=== PATIENT | female | born 1945 | race Caucasian/White ===

== ENCOUNTER → 2017-03-24 | Outpatient (CLI) | payer OTHER ==
[~2017-03-24] MED LIST: CHOL4POW6 PO; CLRUNK PO; CLX20 PO; FLNIN NAE; PRLSR20 PO; PROBIOTIC PO; STLS PO
[2017-03-24 12:33] LABS: BASO % 0.5 %; BASO ABS # 0.04 K/uL (0-0.2); COMPLETE YES; HEMATOCRIT 43.6 % (37-47); IG% 0.3 %; LYMPH % 36.9 %; LYMPH ABS # 2.71 K/uL (1.2-3.4); MEAN CELL VOLUME 89.9 fL (80-100); MEAN CORPUSCULAR HEMOGLOBIN 29.3 pg (25-34); MEAN CORPUSCULAR HGB CONC 32.6 g/dl (32-36); MEAN PLATELET VOLUME 9.2 fL (7.4-10.4); MONO % 4.9 %; NEUT % 56.4 %; PLATELET COUNT 301 K/uL (130-400); RED BLOOD COUNT 4.85 M/uL (4.2-5.4); WHITE BLOOD COUNT 7.34 K/uL (4.8-10.8)
[2017-03-24 13:07] LABS: BLOOD UREA NITROGEN 9 mg/dl (7-18); BUN/CREATININE RATIO 11.3 (10-20); CALCIUM 9.3 mg/dl (8.5-10.1); CARBON DIOXIDE 27 mmol/L (21-32); CHLORIDE 106 mmol/L (98-107); CHOLESTEROL 220 mg/dl (0-200); CREATININE 0.83 mg/dl (0.60-1.20); GLUCOSE 82 mg/dl (70-99); POTASSIUM 4.5 mmol/L (3.5-5.1); SODIUM 140 mmol/L (136-145); TRIGLYCERIDES 171 mg/dl (0-150); VERY LOW DENSITY LIPOPROT CALC 34 mg/dl
[2017-03-24 13:10] LABS: CHOLESTEROL/HDL RATIO 3.6; HDL CHOLESTEROL 61 mg/dl; LDL CHOLESTEROL CALCULATED 125 mg/dl
[2017-03-24 14:44] LABS: URINE APPEARANCE CLEAR (CLEAR); URINE BILIRUBIN NEG (NEG); URINE COLOR YELLOW; URINE EPITHELIAL CELL AUTO >30 /lpf (0-5); URINE NITRITE NEG (NEG); URINE SPECIFIC GRAVITY 1.016 (1.000-1.030); UROBILINOGEN NEG (NEG); ZZUR CULT IF INDIC CLEAN CATCH NO
[2017-03-24 14:50] LABS: MANUAL MICROSCOPIC REQUIRED? NO; REVIEW REQ? NO
== END | disposition home or self-care (01) ==
LOC: C.LABBFT 08:36
PROVIDERS: ATTEND Internal Medicine
DX: K58.9 Irritable bowel syndrome, unspecified (principal); E78.5 Hyperlipidemia, unspecified

== ENCOUNTER → 2017-06-15 | Outpatient (CLI) | payer OTHER ==
--- NOTE | 2017-06-15 11:17 | DIAGNOSTIC IMAGING REPORT ---
PELVIS/BILATERAL HIP 2 VIEWS CLINICAL HISTORY: 71 years-old Female presenting with M79.1 Muscle [id number]. TECHNIQUE: Single frontal view of the pelvis and frontal and frog-leg lateral views of the bilateral hips were obtained. COMPARISON: Plain radiographs of the left hip from 03/18/2016. FINDINGS: No acute osseous injury of the bony pelvis. Pubic symphysis and sacroiliac joints congruent. Bilateral hip joints congruent. Asymmetric worse degenerative change in the left hip evidenced by osteophytosis and mild joint space loss. No acute fracture or malalignment of the femoral necks. IMPRESSION: 1. No acute osseous injury of the pelvis or bilateral hips. 2. Degenerative change of the left hip with mild joint space loss and osteophytosis. Electronically signed by: Phoenix Messina M.D. 06/15/2017 11:15 AM Dictated Date/Time: 06/15/2017 11:13 AM
--- NOTE | 2017-06-15 11:22 | DIAGNOSTIC IMAGING REPORT ---
L-SPINE MIN 4 VIEWS ROUTINE CLINICAL HISTORY: M79.1 Muscle [id number] COMPARISON STUDY: No previous studies for comparison. FINDINGS: There is a grade 1 spondylolisthesis of L4 and L5. There are 5 lumbar type vertebral bodies present. No fractures, or destructive lesions are visualized. There is a minor spinal curvature convex to the left. There are mild multilevel degenerative changes. There is no pathologic bowel dilatation. There are surgical clips the right upper quadrant consistent with a prior cholecystectomy. IMPRESSION: 1. No fractures, or destructive lesions are visualized 2. Grade 1 spondylolisthesis of L4 on L5. Electronically signed by: Ruben Oquendo M.D. 06/15/2017 11:20 AM Dictated Date/Time: 06/15/2017 11:20 AM
--- NOTE | 2017-06-15 11:29 | DIAGNOSTIC IMAGING REPORT ---
THORACIC SPINE 3 VIEWS ROUTINE HISTORY: 71 years-old Female M79.1 Muscle [id number] acute muscle pain of the thorax. No acute trauma. COMPARISON: Lumbar spine radiographs of same day TECHNIQUE: Frontal and lateral views of the thoracic spine FINDINGS: Bones are mildly demineralized. There is minimal convex left curvature of the upper thoracic spine. No compression deformity or acute fracture identified. No subluxation. Multilevel endplate spurring, facet arthropathy and intervertebral disc space narrowing is noted, mostly moderate. Severe intervertebral disc space narrowing noted within the mid cervical spine. Soft tissues are unremarkable. Cholecystectomy clips are noted. Right hemidiaphragm elevation is present. IMPRESSION: 1. No acute fracture or subluxation. 2. Multilevel moderate endplate spurring, intervertebral disc space narrowing and facet arthropathy. The above report was generated using voice recognition software. It may contain grammatical, syntax or spelling errors. Electronically signed by: Papo Giraldo M.D. 06/15/2017 11:27 AM Dictated Date/Time: 06/15/2017 11:25 AM
[2017-06-15 12:41] LABS: THYROID STIMULATING HORMONE 2.17 uIu/ml (0.300-4.500)
== END | disposition home or self-care (01) ==
LOC: C.RAD1850 10:08
PROVIDERS: ATTEND Physician Assistant Medical
DX: M43.16 Spondylolisthesis, lumbar region (principal); M16.12 Unilateral primary osteoarthritis, left hip; M25.752 Osteophyte, left hip; M25.78 Osteophyte, vertebrae; M51.34 Other intervertebral disc degeneration, thoracic region; M79.1 Myalgia

== ENCOUNTER → 2017-12-04 | Outpatient (CLI) | payer OTHER | END | disposition home or self-care (01) | LOC: C.LABBFT 08:46 | PROVIDERS: ATTEND Internal Medicine | DX: Z11.59 Encounter for screening for other viral diseases (principal); E78.5 Hyperlipidemia, unspecified ==

== ENCOUNTER → 2018-01-05 | Outpatient (CLI) | payer OTHER ==
--- NOTE | 2018-01-08 08:07 | MAMMOGRAPHY REPORT ---
BILATERAL DIGITAL SCREENING MAMMOGRAM TOMOSYNTHESIS WITH CAD: 01/05/2018 CLINICAL HISTORY: Routine screening. Patient has no complaints. TECHNIQUE: Breast tomosynthesis in addition to standard 2D mammography was performed. Current study was also evaluated with a Computer Aided Detection (CAD) system. COMPARISON: Comparison is made to exams dated: 04/09/2015 mammogram, 04/03/2015 mammogram, 02/28/2013 m ammogram, 01/21/2010 mammogram - [facility], 07/19/2007, and 07/19/2007. BREAST COMPOSITION: The tissue of both breasts is almost entirely fatty. FINDINGS: No suspicious masses, calcifications, or areas of architectural distortion are noted in ei ther breast. There has been no significant interval change compared to prior exams. IMPRESSION: ACR BI-RADS CATEGORY 1: NEGATIVE There is no mammographic evidence of malignancy. A 1 year screening mammogram is recommended. The pa tient will receive written notification of the results. Approximately 10% of breast cancers are not detected with mammography. A negative mammographic report should not delay biopsy if a clinically suggestive mass is present. Yessenia Wade M.D. /:01/05/2018 13:19:46 Journeyman Power Plant Operator: My PEREZ(Annalee)(Kishore)([place]), [facility] letter sent: Normal 1/2 BI-RADS Code: ACR BI-RADS Category 1: Negative
== END | disposition home or self-care (01) ==
LOC: C.MAMM 11:45
PROVIDERS: ATTEND Internal Medicine
DX: Z12.31 Encounter for screening mammogram for malignant neoplasm of breast (principal)

== ENCOUNTER 2019-01-28 07:16 | Inpatient (IN) ==
--- NOTE | 2019-01-17 09:24 | PAT Medication Instructions ---
Medication Instructions Date of Service January 17, 2019 Home Medications bupropion HCl 100 mg PO QAM citalopram 20 mg PO QAM dicyclomine 10 mg PO DIRECTED NEEDED docusate sodium 200 mg PO QAM esomeprazole magnesium 20 mg PO QAM fluticasone propionate 1 spray INTRANASAL DIRECTED NEEDED diphenhydramine-acetaminophen [Acetaminophen PM] 1 tab PO HS NEEDED melatonin 10 mg PO HS NEEDED propylene glycol [Systane Complete] 1 drp OPHTHALMIC (EYE) QID tramadol 50 mg PO Q6H NEEDED DO NOT take the morning of surgery dicyclomine 10 mg PO DIRECTED NEEDED docusate sodium 200 mg PO QAM fluticasone propionate 1 spray INTRANASAL DIRECTED NEEDED Take morning of surgery With a small sip of water, OTHERWISE NOTHING TO EAT OR DRINK AFTER MIDNIGHT: bupropion HCl 100 mg PO QAM citalopram 20 mg PO QAM esomeprazole magnesium 20 mg PO QAM propylene glycol [Systane Complete] 1 drp OPHTHALMIC (EYE) QID tramadol 50 mg PO Q6H NEEDED (If needed, stop 4 hours before surgery) Take evening before surgery dicyclomine 10 mg PO DIRECTED NEEDED diphenhydramine-acetaminophen [Acetaminophen PM] 1 tab PO HS NEEDED melatonin 10 mg PO HS NEEDED propylene glycol [Systane Complete] 1 drp OPHTHALMIC (EYE) QID tramadol 50 mg PO Q6H NEEDED Other Notes If you have any questions please call us at [phone] or [phone] or [phone] or [phone]
--- NOTE | 2019-01-17 10:17 | Anesthesiology Consultation ---
Date of Service January 17, 2019 Assessment & Plan (1) Encounter for pre-operative examination: Chart Review Chart Review: Acceptable Risk for Surgery and Patient seen in Pre Admission Testing Consults Requested medical (Dr. Liriano (01/14)) Patient was seen by PCP's office on 01/15 for preoperative evaluation. Per note from this visit, "estimated risk probability for perioperative PHYLLIS 0.18% which is fairly low". "From a general medical standpoint, patient cleared for surgery pending normal preop testing." Teaching & Discussion Pre-Anesthesia Teaching/Discussion Notes: Instructed NPO after midnight before surgery, except medications with 15 cc of water. Medication instructions provided according to the PAT guidelines. History Surgery Operation Date: 01/28/19 09:30 Proposed Procedures p Left Total Hip Arthroplasty Anterior - Ambrosio Dejesus DO Height/Weight Height: 5 ft 6 in Weight: 82.5 kg Allergies Allergy/AdvReac Type Severity Reaction Status Date / Time adhesive Allergy Unknown RED, Verified 01/14/19 11:25 PAINFUL SKIN levofloxacin Allergy Unknown RASH/ITCHY Verified 01/14/19 11:25 nickel Allergy ITCHING Verified 01/14/19 11:40 codeine AdvReac Intermediate SEVERE Verified 01/14/19 11:25 NAUSEA AND VOMITING metoclopramide [From Reglan] AdvReac Mild Depression Verified 01/14/19 11:25 celecoxib [From Celebrex] AdvReac DIGESTIVE Verified 01/14/19 11:25 ISSUES Medications Home Medications Medication Instructions Recorded Confirmed Last Taken bupropion HCl 100 mg PO QAM 07/27/18 01/14/19 09/05/18 05:00 citalopram 20 mg PO QAM 07/27/18 01/14/19 09/05/18 05:00 dicyclomine 10 mg PO DIRECTED PRN 07/27/18 01/14/19 08/06/18 docusate sodium 200 mg PO QAM 07/27/18 01/14/19 09/04/18 08:00 esomeprazole magnesium 20 mg PO QAM 07/27/18 01/14/19 09/05/18 05:00 fluticasone propionate 1 spray INTRANASAL DIRECTED PRN 07/27/18 01/14/19 08/06/18 diphenhydramine-acetaminophen 1 tab PO HS PRN 01/14/19 01/14/19 Unknown [Acetaminophen PM] melatonin 10 mg PO HS PRN 01/14/19 01/14/19 Unknown propylene glycol [Systane Complete] 1 drp OPHTHALMIC (EYE) QID 01/14/19 01/14/19 Unknown tramadol 50 mg PO Q6H PRN 01/14/19 01/14/19 Unknown Past Medical History Medical History Umbilical hernia (Acute) Spinal stenosis (Chronic) Depression Elevated BP without diagnosis of hypertension ED VISIT 07/2018/[facility] HEART BEAT,CHEST PRESSURE, BP "181" GERD (gastroesophageal reflux disease) History of diverticulitis Osteoarthritis Exercise / Class Metabolic Activity III < 4 Walking/Shop/Light housework (On the go for 10 hours a day. Able to slowly climb stairs due to pain. Denies CP or SOB with activity. ) Past Surgical History Surgical History H/O breast biopsy RIGHT - BENIGN - AGE 61 H/O elbow surgery RIGHT - FOR TENNIS ELBOW - AGE 49 History of carpal tunnel release RIGHT - AGE 49 History of colonoscopy History of dilation and curettage Age 27 History of hysterectomy AGE 38 History of laparoscopic cholecystectomy AGE 62 History of laparotomy RUPTURED ECTOPIC - AGE 36 History of lumbar fusion L4-L5 09/05/18 - MAC #3, ETT #7.0, Grade 1 View History of partial colectomy Age 65 06/29/11 - ETT #7.0 History of tonsillectomy and adenoidectomy AGE 11 History of tubal ligation LAP - AGE 29 Past Anesthesia History No Hx of Anesthesia Complications and No Family Hx of Anesthesia Complications History of PONV No Hx of PONV and No Hx of Motion Sickness Social History Smoking Status: Never smoker Hx Alcohol Use: No Hx Substance Use: No substance use type: does not use Review of Systems Patient denies chest pain, shortness of breath, dyspnea on exertion, reflux, cough, wheezing, palpitations. + Joint Pain (Back, Hip) +Acid Reflux (Controlled on current medication) Physical Exam Vital Signs BP: 124/66 P: 75 R: 16 T: 98.5 SPO2: 98% on RA ENMT Thyromental Distance: > or= 3.5 Finger Breadths (3.5) Mallampati Class: I Neck normal visual inspection; neck extension not limited Respiratory normal respiratory effort Auscultation: lungs clear to auscultation bilaterally Cardiovascular Rate/Rhythm: regular rate and regular rhythm Heart Sounds: no murmur Vessels: no carotid bruit Neurologic moves all extremities Psychiatric Orientation: alert and oriented x 3 Testing Electrocardiogram Date: 07/28/18 Findings: + NSR @ (69) and + no change from (07/27/18) Chest X-Ray Date: 07/27/18 Findings: + NAD Stress Test Date: 07/27/18 Type: exercise Reached 6.40 METS. The resting HR of 73 bpm jaden to max HR of 148 bpm. This value represents 99% of the MPHR for age. The exercise test was stopped due to fatigue. Left ventricular systolic function is normal. Grade I diastolic dysfunction. Right ventricular systolic pressure is normal. Poor exercise tolerance. No evidence of inducible ischemia at the workload achieved. Laboratory Results 01/17/19 10:50 01/17/19 10:50 Blood Type O Positive 01/17/19 10:50 Antibody Screen NEGATIVE 01/17/19 10:50 PT 9.9 Seconds (9.0-12.0) 01/17/19 10:50 INR 1.0 (0.9-1.1) 01/17/19 10:50 APTT 26.3 Seconds (21.0-31.0) 01/17/19 10:50 Hemoglobin A1c 5.6 % (4.5-5.6) 01/17/19 10:50 Urine Color Yellow 01/17/19 Unknown Urine Appearance Clear (Clear) 01/17/19 Unknown Urine pH 6.5 (4.5-7.5) 01/17/19 Unknown Ur Specific [place] 1.013 (1.000-1.030) 01/17/19 Unknown Urine Protein Negative (Negative) 01/17/19 Unknown Urine Glucose (UA) Negative (Negative) 01/17/19 Unknown Urine Ketones Negative (Negative) 01/17/19 Unknown Urine Nitrite Negative (Negative) 01/17/19 Unknown Ur Leukocyte Esterase Trace (Negative) H 01/17/19 Unknown Urine WBC (Auto) 1-5 /hpf (0-5) 01/17/19 Unknown Urine RBC (Auto) 0-4 /hpf (0-4) 01/17/19 Unknown U Hyaline Cast (Auto) 0 /lpf (0-5) 01/17/19 Unknown U Epithel Cells (Auto) 5-10 /lpf (0-5) H 01/17/19 Unknown Urine Bacteria (Auto) Negative (Negative) 01/17/19 Unknown 01/17/19 Unknown Urine Culture - Preliminary Urine,Clean Catch No growth - Less than 1,000 colonies/mL, Final report to follow.
[2019-01-17 11:52] LABS: Basophils # (auto) 0.04 K/uL (0-0.2); Basophils % (auto) 0.6 %; Eosinophils % (auto) 1.5 %; Hematocrit (blood only) 40.1 % (37-47); Hemoglobin 14.2 g/dL (12.0-16.0); Lymphocytes # (auto) 2.25 K/uL (1.2-3.4); Lymphocytes % (auto) 33.4 %; Mean Corpuscular Hgb Conc 35.4 g/dL (32-36); Mean Corpuscular Volume 86.1 fL (80-100); Mean Platelet Volume 8.9 fL (7.4-10.4); Monocytes # (auto) 0.62 K/uL (0.11-0.59); Monocytes % (auto) 9.2 %; Neutrophils # (auto) 3.73 K/uL (1.4-6.5); Neutrophils % (auto) 55.3 %; Platelet Count 279 K/uL (130-400); RDW Coefficient of Variation 13.6 % (11.5-14.5); RDW Standard Deviation 42.6 fL (36.4-46.3); Red Blood Count 4.66 M/uL (4.2-5.4); White Blood Count 6.74 K/uL (4.8-10.8)
[2019-01-17 11:59] LABS: Albumin Level 3.6 gm/dl (3.4-5.0); BUN Creatinine Ratio 15.9 (10-20); Calcium 9.4 mg/dl (8.5-10.1); Creatinine Clr Calc Pharmacy 72.4 ml/min; Est GFR (African American) 90.8; Est GFR (Non-African American) 78.4
[2019-01-17 12:26] LABS: Partial Thromboplastin Time 26.3 Seconds (21.0-31.0); Prothrombin Time 9.9 Seconds (9.0-12.0)
[2019-01-17 12:27] LABS: Appearance Urine Clear (Clear); Bacteria Urine Automated Negative (Negative); Bilirubin Urine Negative (Negative); Blood Urine Negative (Negative); Cast Urine Automated 0 /lpf (0-5); Color Urine Yellow; Glucose Urine UA Negative (Negative); Ketones Urine Negative (Negative); Leukocyte Esterase Urine Trace (Negative); Nitrite Urine Negative (Negative); Protein Urine Negative (Negative); RBC Urine Automated 0-4 /hpf (0-4); Specific Gravity Urine 1.013 (1.000-1.030); Urobilinogen Urine Negative (Negative); pH Urine 6.5 (4.5-7.5)
[2019-01-17 12:43] LABS: Estimated Average Glucose 114 mg/dl; Hemoglobin A1C 5.6 % (4.5-5.6)
--- NOTE | 2019-01-27 22:26 | History & Physical Report ---
Date of Service January 27, 2019 Assessment & Plan (1) Degenerative joint disease (DJD) of hip: I have indicated the patient for left total hip replacement. The risks, benefits and complications of surgery were explained to the patient which include but not limited to infection, acute blood loss, DVT/PE, injury to nerves, vessels, bone, soft tissue, arthrofibrosis, chronic pain, failure of the prosthesis, hip dislocation, leg length discrepancy, need for additional surgery, cardiac and pulmonary events and . The patient wished to proceed with surgery and informed consent was obtained at this time. We will plan for ASA 81mg BID post-operatively for DVT prophylaxis. Upon discharge the patient will be discharged home with home health services. Appropriate clearances by PCP were obtained. History of Present Illness Chief Complaint: Left hip pain/djd Primary Care Provider: Eliot Liriano MD The patient is a 73 year old female who presents with complaints of severe left hip pain and DJD. The patient has failed outpatient conservative treatments to this point which included NSAIDS, IA corticosteroid injection and a home exercise/walking program. The patient's pain and limited function have progressed to the point where they severely hinder their activities of daily living and they no longer tolerate exercise programs. They are requesting to proceed with total hip replacement surgery. Allergies Allergy/AdvReac Type Severity Reaction Status Date / Time adhesive Allergy Unknown RED, Verified 01/28/19 07:53 PAINFUL SKIN levofloxacin Allergy Unknown RASH/ITCHY Verified 01/28/19 07:53 nickel Allergy ITCHING Verified 01/28/19 07:53 codeine AdvReac Intermediate SEVERE Verified 01/28/19 07:53 NAUSEA AND VOMITING metoclopramide [From Reglan] AdvReac Mild Depression Verified 01/28/19 07:53 celecoxib [From Celebrex] AdvReac DIGESTIVE Verified 01/28/19 07:53 ISSUES Home Medications Home Medications Medication Instructions Recorded Confirmed Type bupropion HCl 100 mg PO QAM 07/27/18 01/28/19 History citalopram 20 mg PO QAM 07/27/18 01/28/19 History dicyclomine 10 mg PO DIRECTED PRN 07/27/18 01/28/19 History docusate sodium 200 mg PO QAM 07/27/18 01/28/19 History esomeprazole magnesium 20 mg PO QAM 07/27/18 01/28/19 History fluticasone propionate 1 spray INTRANASAL DIRECTED PRN 07/27/18 01/28/19 History diphenhydramine-acetaminophen 1 tab PO HS PRN 01/14/19 01/28/19 History [Acetaminophen PM] melatonin 10 mg PO HS PRN 01/14/19 01/28/19 History propylene glycol [Systane Complete] 1 drp OPHTHALMIC (EYE) QID 01/14/19 01/28/19 History tramadol 50 mg PO Q6H PRN 01/14/19 01/28/19 History Past Med/Surg History Medical History Umbilical hernia (Acute) Spinal stenosis (Chronic) Depression Elevated BP without diagnosis of hypertension ED VISIT 07/2018/[facility] HEART BEAT,CHEST PRESSURE, BP "181" GERD (gastroesophageal reflux disease) History of diverticulitis Osteoarthritis Surgical History H/O breast biopsy RIGHT - BENIGN - AGE 61 H/O elbow surgery RIGHT - FOR TENNIS ELBOW - AGE 49 History of carpal tunnel release RIGHT - AGE 49 History of colonoscopy History of dilation and curettage Age 27 History of hysterectomy AGE 38 History of laparoscopic cholecystectomy AGE 62 History of laparotomy RUPTURED ECTOPIC - AGE 36 History of lumbar fusion L4-L5 09/05/18 - MAC #3, ETT #7.0, Grade 1 View History of partial colectomy Age 65 06/29/11 - ETT #7.0 History of tonsillectomy and adenoidectomy AGE 11 History of tubal ligation LAP - AGE 29 Family History Other No pertinent family history Social History Preferred Language: Romansh Communication Ability: Effective Beliefs That Will Affect Care: None marital status: Current Living Situation: Spouse Feels Safe at Home: Yes Safety Concerns: Feels Safe At This Time Smoking Status: Never smoker Second Hand Exposure: No Hx Alcohol Use: No Hx Substance Use: No Review of Systems Review of Systems: All systems reviewed & are unremarkable except as noted in HPI & below Constitutional: as per Subjective / HPI Physical Exam Physical Exam: LLE NVSI +EHL/FHL/TA/GS SILT grossly, +2 DP pulse, compartments soft NT, limited painful ROM of the hip, antalgic gait. Constitutional: WD/WN, vitals as above Eyes: PERRL, conjunctivae normal, anicteric sclerae ENMT: external ear and nose normal, oropharynx normal Neck: trachea midline, no thyromegaly Respiratory: normal respiratory effort, lungs clear to auscultation Cardiovascular: RRR, no murmur, no edema Gastrointestinal (Abdomen): normal bowel sounds, soft, nontender, no he patosplenomegaly Musculoskeletal: no cyanosis or clubbing, extremities motor strength 5/5 Skin: no rashes, warm and dry Psychiatric: A+Ox3, euthymic affect Lymphatic: no cervical or axillary lymphadenopathy Results & Data Diagnostic Findings Multiple views of the hip demonstrates severe DJD with complete loss of the joint space. +osteophytes, +sclerosis, +subchondral cysts.
[~2019-01-28 07:16] MED LIST changes: +ACETAMINOPHEN 500 MG TAB PO SCH; +BUPIVACAINE 0.5 % 5 MG/1 ML PF 10ML VIAL ONE; +CEFAZOLIN 2000MG 2,000 MG/15 ML SYR IV SCH; -CHOL4POW6 PO; -CLRUNK PO; -CLX20 PO; +CeleBREX 200 MG CAP PO SCH; +FAMOTIDINE 20 MG TAB PO SCH; -FLNIN NAE; +GABAPENTIN 300 MG PO SCH; +LR 500ML BOLUS, THEN 15ML/HR IV SCH; +METOCLOPRAMIDE HCL 10 MG TABLET PO SCH; -PRLSR20 PO; -PROBIOTIC PO; +ROPIVACAINE 0.5% HCL/PF 150 MG, BUPIVACAINE 0.5% MPF 30 ML, EPINEPHrine 30MG/30ML (OR U... INFIL SCH; -STLS PO; +TRANEXAMIC ACID 1,000 MG **IV Intra-op IV SCH; +TRANEXAMIC ACID 1,000 MG **IV Pre-op IV SCH; +dexAMETHasone 4 MG TAB PO SCH
[2019-01-28] MEDS ORDERED: MIDAZOLAM HCL 1 MG/ML 2ML VIAL ONE (08:20)
--- NOTE | 2019-01-28 08:48 | History & Physical Bridge Note ---
Date of Service January 28, 2019 History & Physical Bridge Note I have examined the patient, reviewed the History & Physical and in the interval since the performance of the History & Physical I have noted the following changes of clinical significance: no changes noted
[2019-01-28] MEDS ORDERED: BACITRACIN INJ 50,000 UNIT VIAL ONE (09:01)
[2019-01-28] MEDS ORDERED: ORTHO JOINT ANESTHETIC ONE (09:01)
[2019-01-28] MEDS ORDERED: fentaNYL citrate 100 MCG/2 ML VIAL ONE (09:01)
[2019-01-28] MEDS ORDERED: POVIDONE-IODINE OP SOLN 30 ML BTL ONE (09:01)
[2019-01-28] MEDS ORDERED: PROPOFOL IV EMULSION 10 MG/ML 20 ML VIAL IV ONE (09:53)
[2019-01-28] MEDS ORDERED: PHENYLEPHRINE 100MCG/ML 5ML SYR ONE (10:59)
--- NOTE | 2019-01-28 11:07 | Post Operative Brief Note ---
Immediate Post Op Note v1 Date of Surgery January 28, 2019 Pre & Post Diagnosis Operation Date: 01/28/19 09:50 Pre-Op Diagnosis: Unilateral Primary Osteoarthritis, Left Hip Post-Op Diagnosis: Unilateral Primary Osteoarthritis, Left Hip Procedure Operation Date: 01/28/19 09:50 Actual Procedures p Left Anterior Total Hip Arthroplasty, Uncemented(Left) - Ambrosio Dejesus DO Surgeon Ambrosio Dejesus DO Community Outreach Coordinator Cesar Reed Estimated Blood Loss 85 Findings Consistent with Post-Op Diagnosis Fluids 1300 cc LR Specimens femoral head Anesthesia Type Spinal MAC Complications none Disposition Disposition: Recovery Room Overlapping Procedure I was present for: the critical portions of procedure. I was immediately available: during the entire case. Back up surgeon: was not required during procedure.
--- NOTE | 2019-01-28 11:07 | Fluoroscopy Report ---
FL hip LT 1V CLINICAL HISTORY: Left hip arthroplasty. COMPARISON STUDY: Pelvis and hip radiographs June 15, 2017. FLUOROSCOPY TIME: 55 seconds. FLUOROSCOPIC IMAGES: 2. FINDINGS: These images demonstrate anatomic alignment of the total left hip arthroplasty. There is no fracture or unexpected radiopaque foreign body. Acetabular screw is present. IMPRESSION: Expected findings following total left hip arthroplasty. Electronically signed by: Lenard Bennett M.D. 01/28/2019 11:06 AM
--- NOTE | 2019-01-28 11:25 | Operative Report ---
Post Operative Report Pre & Post Diagnosis Operation Date: 01/28/19 09:50 Pre-Op Diagnosis: Unilateral Primary Osteoarthritis, Left Hip Post-Op Diagnosis: Unilateral Primary Osteoarthritis, Left Hip Procedure Operation Date: 01/28/19 09:50 Actual Procedures p Left Anterior Total Hip Arthroplasty, Uncemented(Left) - Ambrosio Dejesus DO Surgeon Ambrosio Dejesus DO Recreation Technician Cesar Reed Estimated Blood Loss 85 Findings Consistent with Post-Op Diagnosis Fluids 1300 cc lactated Ringer Specimens Femoral head Anesthesia Type Spinal MAC Complications none Disposition Disposition: Recovery Room Indications The patient is a 73-year-old female who presents with severe progressive left hip DJD who has failed outpatient conservative treatments. I indicated the patient for a anterior total hip replacement and the risks and benefits were explained in detail which include but not limited to infection, bleeding, blood clot, damage to surrounding bone, nerves, vessels, soft tissue, hip dislocation, failure of the prosthesis, leg length discrepancy, need for additional surgery and . The patient agreed to proceed with replacement of the hip and informed consent was obtained. Appropriate clearances were obtained. Description of Procedure COMPONENTS USED: [employer] hip system: Acetabulum size 52, femur size 6 high offset, femoral head 36-3, liner 3652, acetabular screw 25 mm 1. DESCRIPTION OF PROCEDURE: Following satisfactory spinal anesthesia, the patient was placed supine on the OR table. The right leg was placed in the well leg nathan and the left leg in the traction device. The left leg was prepared with ChloraPrep and draped sterilely. A surgical timeout was performed, patient identified in site yariel confirmed. Appropriate antibiotics were given. A standard anterior approach in the interval between the sartorius and tensor muscles was performed. Dissection was carried down through subcutaneous tissues. Electrocautery was utilized for hemostasis. Circumflex femoral vessels were identified, tied and ligated. The anterior capsular fat pad was removed and the capsulotomy was performed revealing the arthritic femoral neck and head. A femoral neck cut was made with reciprocating saw and the bone fragments removed. The acetabular self-retraining retractor was placed. Acetabular reaming was completed under fluoroscopic guidance, a 52 shell was impacted into an anatomic position and secured with a dome screw. Local anesthetic was placed and following irrigation, the polyethylene liner was placed. The femur was placed into position of external rotation, extension and adduction. Femoral canal was prepared up to the size 6 high offset. Trial reduction with a -3 neck length head showed good soft tissue tension, leg lengths restored, and good fit and fill of the proximal canal using fluoroscopic landmarks. The hip was dislocated. The trial component was removed. The final implant was placed. The hip was irrigated with sterile saline soluation and reduced. A Betadine soak was performed. After 3 minutes, the hip was once more irrigated with copious sterile saline solution with bacitracin. Nesha-incisional soft tissue was injected utilizing [place] [employer] which includes a combination of Ropivicaine 0.5% 150mg, Bupivicaine 0.5%/Epinephrine 1:200,000 30ml, Toradol 30mg, Dexamethasone 4mg, Ketamine 10mg, Clonidine 100mcg and NSS 30ml solution. The capsule was then closed with 1-0 Vicryl interrupted figure of eight sutures. The fascia was closed with a running suture of #1 Vicryl, the subcutaneous tissues with 2-0 Vicryl and the skin with a running subcuticular stitch of 3-0 V-Loc. Dermabond prineo and a dry dressing, Rosa incisional VAC were applied. The patient tolerated the procedure well and was transported to PACU in stable condition. Due to the complex nature of the procedure, the entire surgery was performed with the operational assistance of Cesar Reed PA-C. The printer assistant, under direct supervision, was involved in the actual performance of all aspects of the surgical procedure including patient positioning, hemostasis, tissue retraction, instrument management and wound closure. I attest to the content of the Intraoperative Record and any orders documented therein. Any exceptions are noted below.
--- NOTE | 2019-01-28 11:55 | XRay Report ---
XR hip 1V LT w pelvis CLINICAL HISTORY: Postoperative evaluation. COMPARISON: Pelvis and hip radiographs July 15, 2017. FINDINGS: Incidental note is made of postoperative findings within the lumbar spine which are partia lly imaged on this exam. Alignment of the left hip arthroplasty is anatomic. There is no fracture or unexpected radiopaque foreign body. There is an acetabular screw. IMPRESSION: Expected findings following total left hip arthroplasty. Electronically signed by: Lenard Bennett M.D. 01/28/2019 11:54 AM
[2019-01-28] MEDS ORDERED: ePHEDrine sulfate 50 MG/ML AMP IV PRN (12:00)
[2019-01-28] MEDS ORDERED: ATROPINE SULFATE 0.1 MG/ML 10ML SYR IV PRN (12:00)
[2019-01-28] MEDS ORDERED: fentaNYL citrate 100 MCG/2 ML VIAL IV PRN (12:00)
[2019-01-28] MEDS ORDERED: ONDANSETRON INJ 2 MG/ML 2 ML VIAL IV PRN ×2 (12:00→12:47)
--- NOTE | 2019-01-28 12:01 | Anesthesiology Progress Note ---
Date of Service January 28, 2019 Anesthesia Post Procedure Vital Signs Vital Signs: Temp Pulse Pulse Resp BP Pulse Ox 01/28/19 11:55 72 16 145/67 H 100 01/28/19 11:45 74 16 136/63 99 01/28/19 11:36 98.2 F 84 16 137/71 99 01/28/19 08:14 98.1 F 84 20 149/94 H 96 Pain Intensity Left Hip: Pain Intensity: 5 Transfer of Care Handoff Completed per policy Notes Mental Status: alert / awake / arousable and participated in evaluation Patient Amnestic to Procedure: Yes Nausea / Vomiting: adequately controlled Pain: adequately controlled Airway Patency, RR, SpO2: stable & adequate BP & HR: stable & adequate Hydration State: stable & adequate Neuraxial Anesthesia: was administered and sensory block is resolving Anesthetic Complications: no major complications apparent and Pt Satisfied with anesthetic care
--- NOTE | 2019-01-28 12:28 | Orthopedic Progress Note ---
Date of Service January 28, 2019 Assessment & Plan (1) Degenerative joint disease (DJD) of hip: Status post left anterior total hip arthroplasty -Ancef x24 -DVT prophylaxis: SCDs, teds, ASA 81 mg twice daily -Weight-bear as tolerates left lower extremity -PT/OT -Postoperative x-ray demonstrates a well aligned well fixed orthopedic prosthesis without evidence of fracture or dislocation -A.m. labs -DC planning: Home with home health Subjective Post Operative Progress Note Patient seen in PACU, comfortable, denies complaints, pain well controlled, no acute issues. Still feeling the effects of spinal anesthesia. Review of Systems Review of Systems: All systems reviewed & are unremarkable except as noted in HPI & below Constitutional: as per Subjective / HPI Physical Exam Physical Exam: Left lower extremity physical exam limited secondary to spinal anesthesia, +2 dorsalis pedis pulse, compartment soft nontender, dressing clean dry and intact. Constitutional: WD/WN, vitals as above Results & Data Vital Signs (Past 12 Hours) Vital Signs Temp Pulse Pulse Resp BP Pulse Ox 01/28/19 12:15 36.4 C L 71 16 142/71 H 99 01/28/19 12:05 36.4 C L 71 16 134/75 99 01/28/19 11:55 72 16 145/67 H 100 01/28/19 11:45 74 16 136/63 99 01/28/19 11:36 36.8 C 84 16 137/71 99 01/28/19 08:14 36.7 C 84 20 149/94 H 96
[2019-01-28] MEDS ORDERED: NALOXONE HCL 0.4 MG/1 ML VIAL/CARP IV PRN (12:47)
[2019-01-28] MEDS ORDERED: BISACODYL 10 MG SUPP PR PRN (12:47)
[2019-01-28] MEDS ORDERED: METOCLOPRAMIDE HCL INJ 5 MG/ML 2 ML VIAL IV PRN ×2 (12:47→13:45)
[2019-01-28] MEDS ORDERED: MAGNESIUM HYDROXIDE SUSP 30 ML UDC PO PRN (12:47)
[2019-01-28] MEDS ORDERED: PROPYLENE GLYCOL OP SCH (13:00)
[2019-01-28] MEDS: SODIUM CHLORIDE 0.9% 1000ML 1,000 ML IV SCH ×2 (13:38→23:19)
[2019-01-28] MEDS: ACETAMINOPHEN 500 MG TAB PO SCH ×2 (13:44→22:40)
[2019-01-28] MEDS: OXYCODONE HCL IR 5 MG TAB (IMMEDIATE RELEASE) PO PRN ×2 (17:13→22:44)
[2019-01-28] MEDS: CEFAZOLIN 2000MG 2,000 MG/15 ML SYR IV SCH (18:33)
[2019-01-28] MEDS: DOCUSATE SODIUM 100 MG CAP PO SCH (20:30)
[2019-01-28] MEDS: CeleBREX 200 MG CAP PO SCH ×2 (20:30→21:44)
[2019-01-28] MEDS: ARTIFICIAL TEARS OP SCH ×2 (20:33→20:36)
[2019-01-28] MEDS ORDERED: SENNA 8.6 MG TAB PO SCH (21:00)
[2019-01-29] MEDS: CEFAZOLIN 2000MG 2,000 MG/15 ML SYR IV SCH (01:27)
[2019-01-29] MEDS: ACETAMINOPHEN 500 MG TAB PO SCH ×2 (05:42→13:05)
[2019-01-29 06:05] LABS: Basophils # (auto) 0.01 K/uL (0-0.2); Basophils % (auto) 0.1 %; Eosinophils # (auto) 0.01 K/uL (0-0.5); Eosinophils % (auto) 0.1 %; Hematocrit (blood only) 35.9 % (37-47); Hemoglobin 12.6 g/dL (12.0-16.0); Immature Granulocytes # (auto) 0.05 K/uL (0.00-0.02); Immature Granulocytes % (auto) 0.3 %; Lymphocytes # (auto) 2.54 K/uL (1.2-3.4); Lymphocytes % (auto) 14.1 %; Mean Corpuscular Hgb Conc 35.1 g/dL (32-36); Mean Corpuscular Volume 84.7 fL (80-100); Mean Platelet Volume 8.7 fL (7.4-10.4); Monocytes # (auto) 0.99 K/uL (0.11-0.59); Monocytes % (auto) 5.5 %; Neutrophils % (auto) 79.9 %; Platelet Count 304 K/uL (130-400); RDW Coefficient of Variation 13.5 % (11.5-14.5); RDW Standard Deviation 41.5 fL (36.4-46.3); Red Blood Count 4.24 M/uL (4.2-5.4)
[2019-01-29 06:40] LABS: BUN Creatinine Ratio 13.9 (10-20); Creatinine Clr Calc Pharmacy 56.9 ml/min; Est GFR (African American) 67.6; Est GFR (Non-African American) 58.3; Potassium 4.1 mmol/L (3.5-5.1)
--- NOTE | 2019-01-29 07:42 | Anesthesiology Progress Note ---
Date of Service January 29, 2019 Anesthesia Post Procedure Vital Signs Vital Signs: Temp Pulse Pulse Resp BP Pulse Ox 01/29/19 07:11 36.7 C 71 18 122/69 96 01/29/19 03:00 36.6 C 69 16 112/69 95 01/28/19 22:50 36.6 C 75 16 132/74 96 01/28/19 19:00 36.7 C 75 18 120/74 93 01/28/19 15:42 36.6 C 82 18 143/81 H 96 01/28/19 13:31 36.5 C 78 18 127/80 100 01/28/19 13:00 36.5 C 67 16 122/76 100 01/28/19 12:30 36.7 C 74 17 132/76 100 01/28/19 12:15 36.4 C L 71 16 142/71 H 99 01/28/19 12:05 36.4 C L 71 16 134/75 99 01/28/19 11:55 72 16 145/67 H 100 01/28/19 11:45 74 16 136/63 99 01/28/19 11:36 36.8 C 84 16 137/71 99 01/28/19 08:14 36.7 C 84 20 149/94 H 96 Pain Intensity Left Hip: Pain Intensity: 5 Notes Mental Status: alert / awake / arousable and participated in evaluation Patient Amnestic to Procedure: Yes Nausea / Vomiting: adequately controlled Pain: adequately controlled Airway Patency, RR, SpO2: stable & adequate BP & HR: stable & adequate Hydration State: stable & adequate Anesthetic Complications: no major complications apparent and Pt Satisfied with anesthetic care
--- NOTE | 2019-01-29 08:15 | Orthopedic Progress Note ---
Date of Service January 29, 2019 Assessment & Plan (1) Degenerative joint disease (DJD) of hip: Status post left anterior total hip arthroplasty POD#1 -Ancef x24 -DVT prophylaxis: SCDs, teds, ASA 81 mg twice daily -Weight-bear as tolerates left lower extremity -PT/OT -A.m. labs as noted above -DC planning: Home with home health Patient seen and examined, agree with above assessment in plan. Subjective Postop day 1 status post left anterior total hip arthroplasty. Patient is awake and alert and lying in bed. She is just returned from using the restroom. She states that she is ambulating well with her walker. She has no overt complaints at this time. She states that she does have a little soreness around the hip with doing a straight leg raise. She denies shortness of breath, chest pain, lightheadedness. Review of Systems Review of Systems: All systems reviewed & are unremarkable except as noted in HPI & below Constitutional: as per Subjective / HPI Physical Exam Physical Exam: Prevena dressing is clean, dry and intact. There is no overt drainage in the canister. Thigh is mildly swollen but soft and nontender. Calves are soft nontender. Neurovascular is intact. Toes are mobile. Hip appears located. LLE NVSI +EHL/FHL/TA/GS SILT grossly, +2 DP pulse, compartments soft NT, dressing cdi. Constitutional: WD/WN, vitals as above Results & Data Vital Signs (Past 12 Hours) Vital Signs Temp Pulse Resp BP Pulse Ox 01/29/19 07:11 36.7 C 71 18 122/69 96 01/29/19 03:00 36.6 C 69 16 112/69 95 01/28/19 22:50 36.6 C 75 16 132/74 96 Laboratory Results Laboratory Results WBC 18.00 K/uL (4.8-10.8) H 01/29/19 05:31 RBC 4.24 M/uL (4.2-5.4) 01/29/19 05:31 Hgb 12.6 g/dL (12.0-16.0) 01/29/19 05:31 Hct 35.9 % (37-47) L 01/29/19 05:31 MCV 84.7 fL (80-100) 01/29/19 05:31 MCH 29.7 pg (25-34) 01/29/19 05:31 MCHC 35.1 g/dL (32-36) 01/29/19 05:31 RDW Std Deviation 41.5 fL (36.4-46.3) 01/29/19 05:31 RDW Coeff of Jazmine 13.5 % (11.5-14.5) 01/29/19 05:31 Plt Count 304 K/uL (130-400) 01/29/19 05:31 MPV 8.7 fL (7.4-10.4) 01/29/19 05:31 Immature Gran % (Auto) 0.3 % 01/29/19 05:31 Neut % (Auto) 79.9 % 01/29/19 05:31 Lymph % (Auto) 14.1 % 01/29/19 05:31 [place] % (Auto) 5.5 % 01/29/19 05:31 Eos % (Auto) 0.1 % 01/29/19 05:31 Baso % (Auto) 0.1 % 01/29/19 05:31 Immature Gran # (Auto) 0.05 K/uL (0.00-0.02) H 01/29/19 05:31 Neut # (Auto) 14.40 K/uL (1.4-6.5) H 01/29/19 05:31 Lymph # (Auto) 2.54 K/uL (1.2-3.4) 01/29/19 05:31 [place] # (Auto) 0.99 K/uL (0.11-0.59) H 01/29/19 05:31 Eos # (Auto) 0.01 K/uL (0-0.5) 01/29/19 05:31 Baso # (Auto) 0.01 K/uL (0-0.2) 01/29/19 05:31 PT 9.9 Seconds (9.0-12.0) 01/17/19 10:50 INR 1.0 (0.9-1.1) 01/17/19 10:50 APTT 26.3 Seconds (21.0-31.0) 01/17/19 10:50 PTT Ratio 1.0 01/17/19 10:50 Sodium 137 mmol/L (136-145) 01/29/19 05:31 Potassium 4.1 mmol/L (3.5-5.1) 01/29/19 05:31 Chloride 104 mmol/L (98-107) 01/29/19 05:31 Carbon Dioxide 25 mmol/L (21-32) 01/29/19 05:31 Anion Gap 8.0 (3-11) 01/29/19 05:31 BUN 13 mg/dl (7-18) 01/29/19 05:31 Creatinine 0.97 mg/dl (0.6-1.2) 01/29/19 05:31 Est Cr Clr Drug Dosing 56.9 ml/min 01/29/19 05:31 Est GFR ( Amer) 67.6 01/29/19 05:31 Est GFR (Non-Af Amer) 58.3 01/29/19 05:31 BUN/Creatinine Ratio 13.9 (10-20) 01/29/19 05:31 Glucose 110 mg/dl (70-99) H 01/29/19 05:31 Estimat Average Glucose 114 mg/dl 01/17/19 10:50 Hemoglobin A1c 5.6 % (4.5-5.6) 01/17/19 10:50 Calcium 9.0 mg/dl (8.5-10.1) 01/29/19 05:31 Albumin 3.6 gm/dl (3.4-5.0) 01/17/19 10:50 Urine Color Yellow 01/17/19 Unknown Urine Appearance Clear (Clear) 01/17/19 Unknown Urine pH 6.5 (4.5-7.5) 01/17/19 Unknown Ur Specific [place] 1.013 (1.000-1.030) 01/17/19 Unknown Urine Protein Negative (Negative) 01/17/19 Unknown Urine Glucose (UA) Negative (Negative) 01/17/19 Unknown Urine Ketones Negative (Negative) 01/17/19 Unknown Urine Blood Negative (Negative) 01/17/19 Unknown Urine Nitrite Negative (Negative) 01/17/19 Unknown Urine Bilirubin Negative (Negative) 01/17/19 Unknown Urine Urobilinogen Negative (Negative) 01/17/19 Unknown Ur Leukocyte Esterase Trace (Negative) H 01/17/19 Unknown Urine WBC (Auto) 1-5 /hpf (0-5) 01/17/19 Unknown Urine RBC (Auto) 0-4 /hpf (0-4) 01/17/19 Unknown U Hyaline Cast (Auto) 0 /lpf (0-5) 01/17/19 Unknown U Epithel Cells (Auto) 5-10 /lpf (0-5) H 01/17/19 Unknown Urine Bacteria (Auto) Negative (Negative) 01/17/19 Unknown Blood Type O Positive 01/17/19 10:50 Antibody Screen NEGATIVE 01/17/19 10:50
[2019-01-29] MEDS: ARTIFICIAL TEARS OP SCH ×2 (08:49→13:05)
[2019-01-29] MEDS: DOCUSATE SODIUM 100 MG CAP PO SCH (08:50)
[2019-01-29] MEDS: OXYCODONE HCL IR 5 MG TAB (IMMEDIATE RELEASE) PO PRN ×2 (08:52→16:56)
[2019-01-29] MEDS: CeleBREX 200 MG CAP PO SCH (08:53)
[2019-01-29] MEDS ORDERED: MULTIVITAMIN TAB PO SCH (09:00)
[2019-01-29] MEDS ORDERED: ASPIRIN 81 MG ECTAB PO SCH (09:00)
[2019-01-29] MEDS ORDERED: PANTOprazole 40 MG TAB PO SCH (09:00)
[2019-01-29] MEDS ORDERED: buPROPion HCl 100 MG TABLET PO SCH (09:00)
[2019-01-29] MEDS ORDERED: CITALOPRAM 20 MG TAB PO SCH (09:00)
--- NOTE | 2019-01-29 21:40 | Discharge Summary ---
Date of Service January 29, 2019 Admission HPI Per Admitting Provider The patient is a 73 year old female who presents with complaints of severe left hip pain and DJD. The patient has failed outpatient conservative treatments to this point which included NSAIDS, IA corticosteroid injection and a home exercise/walking program. The patient's pain and limited function have progressed to the point where they severely hinder their activities of daily living and they no longer tolerate exercise programs. They are requesting to proceed with total hip replacement surgery. Principal Diagnosis Left anterior total hip replacement Discharge Exam LLE NVSI +EHL/FHL/TA/GS SILT grossly, +2 DP pulse, compartments soft NT, dressing cdi. Constitutional WD/WN, vitals as above Eyes PERRL, conjunctivae normal, anicteric sclerae ENMT external ear and nose normal, oropharynx normal Neck trachea midline, no thyromegaly Respiratory normal respiratory effort, lungs clear to auscultation Cardiovascular RRR, no murmur, no edema Gastrointestinal (Abdomen) normal bowel sounds, soft, nontender, no hepatosplenomegaly Musculoskeletal no cyanosis or clubbing, extremities motor strength 5/5 Skin no rashes, warm and dry Psychiatric A+Ox3, euthymic affect Lymphatic no cervical or axillary lymphadenopathy Discharge Data Allergies Allergy/AdvReac Type Severity Reaction Status Date / Time adhesive Allergy Unknown RED, Verified 01/28/19 07:53 PAINFUL SKIN levofloxacin Allergy Unknown RASH/ITCHY Verified 01/28/19 07:53 nickel Allergy ITCHING Verified 01/28/19 07:53 codeine AdvReac Intermediate SEVERE Verified 01/28/19 07:53 NAUSEA AND VOMITING metoclopramide [From Reglan] AdvReac Mild Depression Verified 01/28/19 07:53 celecoxib [From Celebrex] AdvReac DIGESTIVE Verified 01/28/19 07:53 ISSUES Consultations 01/29/19 08:00 Consult Case Management - Discharge Planning Routine Procedures Performed Operation Date: 01/28/19 09:50 Actual Procedures p Left Anterior Total Hip Arthroplasty, Uncemented(Left) - Ambrosio Dejesus DO Ordered Studies 01/28/19 09:50 FL fluoroscopy <1hr Routine FL hip LT 1V Routine Hospital Course (1) Degenerative joint disease (DJD) of hip: The patient is a 73 -year-old female who presents with long standing history of severe left hip DJD and failed outpatient conservative treatments including NSAIDs, bracing, injections and home walking/exercise program. The patient's symptoms have progressed to the point where it has been difficult to perform even normal activities of daily living. I indicated the patient for a left anterior total hip arthroplasty, the risks, benefits and complications of the procedure include but not limited to infection, bleeding, damage to bone, nerves, vessels, surrounding soft tissue, may develop blood clots, loss of function, leg length discrepancy, dislocation, failure of the components, loosening of the components, the need for additional surgery and . The patient wished to proceed with surgery at this time and informed consent was obtained. Hospital Course: On 01/28/19 the patient was taken to the operating room, adequate anesthesia administered and underwent a left anterior total hip arthroplasty. The patient tolerated the procedure well and was taken to the PACU in stable condition. Post-operatively the patient was started on a DVT ppx medication and given appropriate IV antibiotics. Consults were placed to physical therapy, occupational therapy and case management. On POD#1, the patient did well overnight and their pain was well controlled. Labs were drawn and the Hgb was 12.6. The patient progressed well with PT. Dressings were changed at this time and the incision was clean, dry and intact. On POD#2, The patients hospital stay was relatively uneventful and they were deemed stable by the orthopedic team and consultants to be discharged home with on 01/29/19. Discharge Instructions: Upon discharge the patient may weight bear as tolerates through their operative extremity. They were instructed to keep the incision clean and dry at all times. The patient may shower but should not submerge the incision, avoid bathing, pools and hot tubes. The patient was given a script for pain medication and should take as instructed. The patient was given a script for DVT ppx 81mg EC aspirin BID and should take as directed. The patient was instructed to not drive or travel for long distances until cleared to do so. If the patient develops any symptoms of fevers, chills, nausea, vomiting, increased redness, swelling, pain or drainage from the surgical site, they should notify the office and/or proceed to the nearest emergency room. The patient should follow up in 10-14 days after surgery for their routine post-operative follow-up appointment and should call the office to confirm the date and time. Status post left anterior total hip arthroplasty POD#1 -Ancef x24 -DVT prophylaxis: SCDs, teds, ASA 81 mg twice daily -Weight-bear as tolerates left lower extremity -PT/OT -A.m. labs as noted above -DC planning: Home with home health Patient seen and examined, agree with above assessment in plan. Total Time Total Time Spent Total Time Spent (In Minutes): >60 minutes Total Time Includes: Examination of the Patient, Discharge Planning, Medication Reconciliation and Communication With Other Providers Discharge Plan Discharge Items Patient Disposition: Home - Home Health Services Reason For Visit: Unilateral Primary Osteoarthritis, Left Hip Discharge Diagnosis: Left anterior total hip replacement Discharge Goals: Decrease discomfort, Improve function, Increase independence and Therapeutic intervention Activity: Per 'Additional Instructions' section Lifting: Wait until after follow-up appointment Bathing Comment: No bathing, pools or hot tubs Sexual Activity: Wait until after follow-up appointment Exercise/Sports: Wait until after follow-up appointment Driving/Machine Use Comment: No driving till cleared by your surgeon Weightbearing: Left weightbearing Non-emergency contact: Primary Care Provider and Surgeon Call non-emergency contact if: you have any medication questions, your symptoms worsen, your pain is not controlled, your pain is worsening, your pain is unusual for you, your pain is concerning for you, you have a fever, your temperature is above 101, your wound has increased redness, your wound has increased drainage and your wound pain has increased Follow-up/Referrals: Jonah Liriano MD [Primary Care Provider] - Diet: Regular Addtl Provider Instructions: ACTIVITY RECOMMENDATIONS: SELF CARE INSTRUCTIONS AFTER TOTAL HIP REPLACEMENT : Direct Anterior Approach Until the incision and soft tissues around your hip have healed, there is a possibility that the hip prosthesis could dislocate. A. Hip flexion ( Up & Down out of chair or steps ) may be difficult. This is normal. B. Numbness in front of the thigh is also normal for a few weeks. C. Use hand rails when walking on stairs. D. Wear low heeled shoes with non-slip soles. E. Be sure that your floors are free of things that could trip you - throw rugs, electrical cords, small objects. Avoid wet and waxed floors, especially with crutches and canes. F. Try to walk several times a day with rest periods between. G. Continue with all the exercises taught to you in the hospital. Again, make walking a part of your daily routine. SPECIAL CARE INSTRUCTIONS: VERY IMPORTANT TO READ AND REVIEW A. You may still be at risk for phlebitis and blood clots. 1. Wear surgical stockings (JAMEL hose) for 2 weeks after surgery to improve circulation and reduce swelling. 2. Take Aspirin 81mg twice daily for 4 weeks or as directed by your doctor. This is your blood thinner. 3. High risk patients may be prescribed a stronger blood thinner if necess [place]. 4. If you are on Coumadin normally, your family doctor/table cover folder should monitor your blood work. Expect a phone call the day of or the day after bloodwork is drawn to adjust your dosage. B. You must take antibiotics before having dental work, bladder, bowel and other surgery. Your doctor will provide you with a permanent card to carry describing precautions. C. Call [facility] if you have a fever, redness or swelling around the incision, cloudy drainage from incision, or sudden increase in pain in your hip, not relieved by your regular pain medication. D. Please call the office at if you have any concerns or questions about your operation or recovery. * YOU MAY SHOWER, NO TUB BATHS UNTIL CLEARED BY YOUR DOCTOR. - Keep an extra close eye on the top portion of your incision. Be sure to keep clean & dry. * WEAR JAMEL HOSE 20 HOURS PER DAY FOR 2 WEEKS. * YOU MAY PROGRESS FROM A WALKER, TO A CANE, TO INDEPENDENT AT YOUR OWN PACE. * MOST PATIENTS WILL HAVE HOME NURSING FOR THERAPY. IF YOU DECIDE TO DO OUTPATIENT PHYSICAL THERAPY, PLEASE SCHEDULE THIS 3 TIMES PER WEEK. * DERMABOND Prineo- This is a mesh tape dressing that is covered with glue. It should remain in place until the incision is properly healed, usually 10-14 days. This dressing is designed to naturally slough off. You may trim the excess mesh tape as it peels off. Incision may be briefly wet in a shower. Dry immediately by blotting with a clean, dry towel. Do not bath or swim until instructed by your doctor. Do not scratch, rub, or pick at the dressing. Do not apply any topical ointments or lotions until dressing is completely removed and/or instructed by your doctor. There may be a small piece of suture material at one end of your incision. Do not pull or trim this. If it is bothersome or catching on clothing, you may cover it with a band-aid. *PREVENA incisional vac is a special dressing covering your incision. This dressing provides a sterile dry environment while you are healing. The dressing is to be left in place for 7 days post-operatively. Your home nurse or surgeon will remove. If you develop any redness or blisters or have any questions notify your surgeon immediately. FOLLOW UP VISIT: If appointment is not already scheduled: Please call [facility] to make a follow-up appointment for 2 weeks after your surgery at . Prescriptions: New aspirin [Ecotrin Low Strength] 81 mg Tablet,Delayed Release (Dr/Ec) 81 mg PO BID 30 Days Qty: 60 RF: 0 acetaminophen [Tylenol Extra Strength] 500 mg Tablet 1,000 mg PO Q8 14 Days Qty: 84 RF: 0 oxycodone 5 mg Tablet 5 - 10 mg PO Q6H PRN (Reason: pain) Qty: 30 RF: 0 Continued bupropion HCl 100 mg Tablet 100 mg PO QAM RF: 0 citalopram 20 mg Tablet 20 mg PO QAM RF: 0 fluticasone propionate 50 mcg/actuation [place],Suspension 1 spray Intranasal DIRECTED PRN (Reason: Nasal Congestion) RF: 0 dicyclomine 10 mg Capsule 10 mg PO DIRECTED PRN (Reason: IBS) RF: 0 docusate sodium 100 mg Tablet 200 mg PO QAM RF: 0 esomeprazole magnesium 20 mg Tablet,Delayed Release (Dr/Ec) 20 mg PO QAM RF: 0 Systane Complete 0.6 % Drops 1 drp OPHTHALMIC (EYE) QID RF: 0 melatonin 10 mg Tablet 10 mg PO HS PRN (Reason: Sleep) RF: 0 Discontinued tramadol 50 mg Tablet 50 mg PO Q6H PRN (Reason: Pain) RF: 0 diphenhydramine-acetaminophen [Acetaminophen PM] 25-500 mg Tablet 1 tab PO HS PRN (Reason: Sleep) RF: 0 Stand-Alone Forms: [facility], [facility] Discharge Orders: Discharge Order (Routine); Ordered 01/29/19 Ordered By: Ambrosio Dejesus Admission Data Admit Date/Time: 01/28/19 11:39 Attending Provider: Ambrosio Dejesus Admit Provider: Ambrosio Dejesus Primary Care Provider: Jonah Liriano Service: Surgical Services Other Interventions: Discharge Summary Assessment (RN) Last Done: 01/29/19 16:36 DC Date/Time DO NOT enter until pt leaves facility: 01/29/19 17:40
== END 2019-01-29 17:40 | disposition home health service (06) | DRG 470 ==
LOC: ASU 07:16 → 3E 11:39

== ENCOUNTER 2021-03-04 18:27 | Observation (INO) ==
[2021-03-04] MEDS ORDERED: ONDANSETRON INJ 2 MG/ML 2 ML VIAL IV STA (19:05)
[2021-03-04] MEDS ORDERED: SODIUM CHLORIDE 0.9% 1000ML 1,000 ML IV ONE (19:05)
[2021-03-04] MEDS ORDERED: diphenhydrAMINE 50 MG/ML VIAL IV STA (19:05)
[2021-03-04] MEDS ORDERED: FAMOTIDINE 20MG IV PUSH 20 MG/5 ML SYR IV STA (19:05)
[2021-03-04] MEDS ORDERED: ACETAMINOPHEN 1,000 MG/100 ML VIAL IV STA (19:08)
[2021-03-04 19:14] LABS: Basophils # (auto) 0.03 K/uL (0-0.2); Basophils % (auto) 0.2 %; Eosinophils # (auto) 0.07 K/uL (0-0.5); Eosinophils % (auto) 0.6 %; Hematocrit (blood only) 41.2 % (37-47); Hemoglobin 14.4 g/dL (12.0-16.0); Immature Granulocytes # (auto) 0.03 K/uL (0.00-0.02); Immature Granulocytes % (auto) 0.2 %; Lymphocytes # (auto) 2.77 K/uL (1.2-3.4); Lymphocytes % (auto) 21.8 %; Mean Corpuscular Hemoglobin 31.2 pg (25-34); Mean Corpuscular Volume 89.2 fL (80-100); Mean Platelet Volume 8.7 fL (7.4-10.4); Monocytes # (auto) 0.76 K/uL (0.11-0.59); Neutrophils # (auto) 9.03 K/uL (1.4-6.5); Neutrophils % (auto) 71.2 %; Platelet Count 306 K/uL (130-400); RDW Standard Deviation 42.1 fL (36.4-46.3); Red Blood Count 4.62 M/uL (4.2-5.4); White Blood Count 12.69 K/uL (4.8-10.8)
--- NOTE | 2021-03-04 19:17 | Emergency Department Note ---
Impression & Plan Acute appendicitis, Nausea, Leukocytosis ED Provider Note NAME: ADAM OSBORNE AGE: 75 SEX: F ARRIVES VIA: Walk-In INFORMANT: Patient, ED PROVIDER(S): Trey Stern MD CHIEF COMPLAINT: Abdominal pain nausea. PLAN: Disposition: Admit MEDICAL DECISION MAKING: The patient is a pleasant 75-year-old woman with a past medical history of hypertension, hyperlipidemia, IBS, GERD who presents emergency department accompanied by her for upper abdominal pain that began at 9 AM with associated nausea and then evolved to have generalized mostly right-sided abdominal pain since then. She reports taking her esomeprazole with magnesium but denied any improvement. She denies having any chronic abdominal pain despite her diagnosis of IBS and further adds that she is "never had pain like this". Prior to today she denies any fevers, chills, cough, congestion, urinary symptoms. She reports her last bowel movement was yesterday and was normal and did not have to strain. On arrival the patient is uncomfortable but no acute distress, afebrile with stable vital signs. She appears clinically dry. Exam initially with mild epigastric and lower abdominal discomfort without discrete tenderness. WBC 12.6K. H/H and platelets within normal limits. Chemistry without metabolic acidosis. Electrolytes and LFTs unremarkable. Lipase not elevated. CT CT of the abdomen and pelvis was performed and demonstrates acute appendicitis. Upon reevaluation and reexamination the patient does have moderate point tenderness in the right lower quadrant. Still no guarding or rebound. I did review the patient's CT imaging with her given her current physical exam certainly is consistent with her symptoms. Cefoxitin was ordered. Case was discussed with general surgery on-call, Dr. Shultz, who evaluate the patient for admission/OR. Triage Nursing notes reviewed and agree them. Prior medical records reviewed Vital Signs: reviewed and remarkable for no significant abnormalities Differential diagnosis: Appendicitis, ovarian cyst, ovarian torsion, ectopic , TOA, PID, infections, diverticulitis, UTI, obstruction, mesenteric ischemia, aortic pathology, inflammatory bowel disease, renal colic, PUD, pancreatitis, biliary pathology, hernia, volvulus, constipation, as well as other pathologies. ER treatment provided: See below. Diagnostics interpreted by me: Cardiac Monitoring: An order for continuous cardiac monitoring was placed and demonstrated normal sinus rhythm, 78 bpm, no ectopy. Laboratory studies: See below Imaging studies: See below Consultation(s): Dr. Shultz, general surgery on-call. HPI: The patient is a pleasant 75-year-old woman with a past medical history of hypertension, hyperlipidemia, IBS, GERD who presents emergency department accompanied by her for upper abdominal pain that began at 9 AM with associated nausea and then evolved to have generalized mostly right-sided abdominal pain since then. She reports taking her esomeprazole with magnesium but denied any improvement. She denies having any chronic abdominal pain despite her diagnosis of IBS and further adds that she is "never had pain like this". Prior to today she denies any fevers, chills, cough, congestion, urinary symptoms. She reports her last bowel movement was yesterday and was normal and did not have to strain. ROS: See above HPI for pertinent positives & negatives. A total of 10 systems reviewed and were otherwise negative. PAST MEDICAL HISTORY:See Below PAST SURGICAL HISTORY:See Below FAMILY HISTORY:See Below SOCIAL HISTORY:See Below HOME MEDICATIONS:See Below ALLERGIES:See Below VITALS:See Below PHYSICAL EXAMINATION: GENERAL: Awake, alert, relatively well-appearing, in no distress HENT: Normocephalic, atraumatic. Oropharynx with dry mucous membranes and otherwise unremarkable. EYES: Normal conjunctiva. Sclera non-icteric. NECK: Supple. No nuchal rigidity. FROM. No JVD. RESPIRATORY: Clear to auscultation. CARDIAC: Regular rate, normal rhythm. Extremities warm and well perfused. Pulses equal. ABDOMEN: Soft, non-distended. Moderate right lower quadrant tenderness. No rebound or guarding. No masses. RECTAL: Deferred. MUSCULOSKELETAL: Chest examination reveals no tenderness. The back is symmetrical on inspection without obvious abnormality. There is no CVA tenderness to palpation. No joint edema. LOWER EXTREMITIES: Calves are equal size bilaterally and non-tender. No edema. No discoloration. NEURO: Normal sensorium. No sensory or motor deficits noted. SKIN: No rash or jaundice noted. Trey Stern MD Past Med/Surg History Medical History Depression Elevated BP without diagnosis of hypertension ED VISIT 07/2018/[facility]/HARD HEART BEAT,CHEST PRESSURE, BP "181" GERD (gastroesophageal reflux disease) History of diverticulitis HTN (hypertension) Osteoarthritis Spinal stenosis Umbilical hernia Surgical History H/O breast biopsy RIGHT - BENIGN - AGE 61 H/O elbow surgery RIGHT - FOR TENNIS ELBOW - AGE 49 History of carpal tunnel release RIGHT - AGE 49 History of colonoscopy History of dilation and curettage Age 27 History of hysterectomy AGE 38 History of laparoscopic cholecystectomy AGE 62 History of laparotomy RUPTURED ECTOPIC - AGE 36 History of lumbar fusion L4-L5 09/05/18 - MAC #3, ETT #7.0, Grade 1 View History of partial colectomy Age 65 06/29/11 - ETT #7.0 History of tonsillectomy and adenoidectomy AGE 11 History of tubal ligation LAP - AGE 29 Family History Father , age 79 Myocardial infarction Daughter Crohn's disease Mother Hypertension Leukocytosis Hypercholesterolemia Stroke Thrombocytosis Father Stroke Other No pertinent family history Denies family history of Ovarian cancer Prostate cancer Breast cancer Colorectal cancer Social History Smoking Status: Never smoker Second Hand Exposure: No; Hx Alcohol Use: No Hx Substance Use: No Preferred Language: [place] Communication Ability: Effective Visual Impairment: No Limitations Hearing Ability: Normal Hvac Project Manager Required: No Beliefs That Will Affect Care: None marital status: Current Living Situation: Spouse current occupational status: retired 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 [employer] Feels Safe at Home: Yes Childhood Exposure to Second-Hand Smoke: Yes Diet Comment: clean eating, free of chemicals Dental Care, Regularly: Yes Physical Activity Frequency: Does not Exercise Seatbelt Use: always Sunscreen Use: No Assistive Devices: Glasses and Walker Allergies Allergies Allergy/AdvReac Type Severity Reaction Status Date / Time adhesive Allergy Intermediate RED, Verified 03/04/21 19:56 PAINFUL SKIN levofloxacin Allergy Intermediate RASH/ITCHY Verified 03/04/21 19:56 nickel Allergy Intermediate ITCHING Verified 03/04/21 19:56 celecoxib [From Celebrex] AdvReac Intermediate DIGESTIVE Verified 03/04/21 19:56 ISSUES codeine AdvReac Intermediate SEVERE Verified 03/04/21 19:56 NAUSEA AND VOMITING metoclopramide [From Reglan] AdvReac Intermediate Depression Verified 03/04/21 19:56 sulfamethoxazole AdvReac Intermediate DIGESTIVE Verified 03/04/21 19:56 [From Bactrim] ISSUES trimethoprim [From Bactrim] AdvReac Intermediate DIGESTIVE Verified 03/04/21 19:56 ISSUES Home Meds Home Medications Medication Instructions Recorded Confirmed docusate sodium 200 mg PO QAM 07/27/18 03/04/21 esomeprazole magnesium 20 mg PO QAM 07/27/18 03/04/21 Systane Complete 1 drp OPHTHALMIC (EYE) QID 01/14/19 03/04/21 amlodipine 5 mg PO QAM 03/04/21 03/04/21 diphenhydramine-acetaminophen 1 tab PO HS PRN 03/04/21 03/04/21 [Tylenol PM Extra Strength] multivitamin 1 tab PO DAILY 03/04/21 03/04/21 turmeric root extract 1,000 mg PO DAILY 03/04/21 03/04/21 Previous Rx's Medication Instructions Recorded bupropion HCl 100 mg tablet 100 mg PO DAILY #90 tab 04/14/20 losartan 100 mg tablet 100 mg PO DAILY #90 tab 04/29/20 citalopram 20 mg tablet 20 mg PO QAM #90 tab 01/18/21 hydrochlorothiazide 25 mg tablet 25 mg PO QAM #90 tab 03/02/21 Results & Data (ED) Vital Signs Vital Signs - 24 hr 03/04/21 18:37 03/04/21 19:08 03/04/21 19:42 Temperature 35.9 C L Temperature Source Temporal Artery Scan Pulse Rate 78 75 74 Pulse Rate from SpO2 Sensor 76 Pulse Rhythm Regular Respiratory Rate 18 20 15 Respiratory Effort / Characteristics Non-Labored Spontaneous Respiratory Depth Normal Respiratory Pattern Regular Blood Pressure 148/79 H Blood Pressure Mean 102 Pulse Oximetry 93 96 97 Oxygen Delivery Method Room Air Room Air Room Air Sepsis Recent Fever Within 48 Hours No Sepsis New/Unexplained Change in Mental Status No Sepsis Action Taken by Nursing No Action Required 03/04/21 21:09 03/04/21 21:10 03/04/21 22:00 Temperature Temperature Source Pulse Rate 79 78 83 Pulse Rate from SpO2 Sensor 79 79 83 Pulse Rhythm Respiratory Rate 18 17 19 Respiratory Effort / Characteristics Respiratory Depth Respiratory Pattern Blood Pressure 151/70 H Blood Pressure Mean 97 Pulse Oximetry 94 93 95 Oxygen Delivery Method Room Air Room Air Room Air Sepsis Recent Fever Within 48 Hours Sepsis New/Unexplained Change in Mental Status Sepsis Action Taken by Nursing 03/04/21 22:13 03/04/21 22:30 Temperature Temperature Source Pulse Rate 77 81 Pulse Rate from SpO2 Sensor 77 80 Pulse Rhythm Respiratory Rate 18 18 Respiratory Effort / Characteristics Respiratory Depth Respiratory Pattern Blood Pressure 119/86 Blood Pressure Mean 97 Pulse Oximetry 95 91 Oxygen Delivery Method Room Air Room Air Sepsis Recent Fever Within 48 Hours Sepsis New/Unexplained Change in Mental Status Sepsis Action Taken by Nursing Laboratory Data Attestation: I reviewed the patient's lab results. Result diagrams: 03/04/21 19:03/04/21 19:01 Lab Results 03/04/21 03/04/21 03/04/21 Range/Units 19: 19: 22:10 WBC 12.69 H (4.8-10.8) K/uL RBC 4.62 (4.2-5.4) M/uL Hgb 14.4 (12.0-16.0) g/dL Hct 41.2 (37-47) % MCV 89.2 (80-100) fL MCH 31.2 (25-34) pg MCHC 35.0 (32-36) g/dL RDW Std Deviation 42.1 (36.4-46.3) fL RDW Coeff of Jazmine 13.0 (11.5-14.5) % Plt Count 306 (130-400) K/uL MPV 8.7 (7.4-10.4) fL Immature Gran % (Auto) 0.2 % Neut % (Auto) 71.2 % Lymph % (Auto) 21.8 % [place] % (Auto) 6.0 % Eos % (Auto) 0.6 % Baso % (Auto) 0.2 % Neut # (Auto) 9.03 H (1.4-6.5) K/uL Lymph # (Auto) 2.77 (1.2-3.4) K/uL [place] # (Auto) 0.76 H (0.11-0.59) K/uL Eos # (Auto) 0.07 (0-0.5) K/uL Baso # (Auto) 0.03 (0-0.2) K/uL Immature Gran # (Auto) 0.03 H (0.00-0.02) K/uL Sodium 131 L (136-145) mmol/L Potassium 3.6 (3.5-5.1) mmol/L Chloride 94 L (98-107) mmol/L Carbon Dioxide 28 (21-32) mmol/L Anion Gap 9.0 (3-11) BUN 15 (7-18) mg/dl Creatinine 0.80 (0.6-1.2) mg/dl Est Cr Clr Drug Dosing 69.6 ml/min Est GFR ( Amer) 84.2 ml/min Est GFR (Non-Af Amer) 72.6 ml/min BUN/Creatinine Ratio 19.1 (10-20) Glucose 100 H (70-99) mg/dl Calcium 10.1 (8.5-10.1) mg/dl Total Bilirubin 0.7 (0.2-1) mg/dl Direct Bilirubin 0.1 (0-0.2) mg/dl AST 20 (15-37) U/L ALT 25 (12-78) U/L Alkaline Phosphatase 103 (45-117) U/L Total Protein 8.0 (6.4-8.2) gm/dl Albumin 4.0 (3.4-5.0) gm/dl Globulin 4.0 (2.5-4.0) gm/dl Albumin/Globulin Ratio 1.0 (0.9-2) Lipase 138 (73-393) U/L COVID-19 Eval Order Covid19 at [facility] Administered Medications Discontinued Medications Diphenhydramine HCl (Diphenhydramine 50 Mg/Ml Vial) 12.5 mg IV NOW STA Stop: 03/04/21 19:06 Last Admin: 03/04/21 19:40 Dose: 12.5 mg Documented by: [id number] Sodium Chloride (Nss 1000ml) 1,000 mls @ 999 mls/hr IV .Q1H1M ONE Stop: 03/04/21 20:05 Last Infusion: 03/04/21 20:45 Dose: 0 mls/hr Documented by: [id number] Admin: 03/04/21 19:36 Dose: 999 mls/hr Documented by: [id number] Famotidine (Pepcid 20mg Iv Push) 20 mg in 5 mls @ 2.5 mls/min IV NOW STA Stop: 03/04/21 19:06 Last Admin: 03/04/21 19:36 Dose: 2.5 mls/min Documented by: [id number] Acetaminophen (Ofirmev) 1,000 mg in 100 mls @ 400 mls/hr IV NOW STA Stop: 03/04/21 19:22 Last Infusion: 03/04/21 20:00 Dose: 0 mls/hr Documented by: [id number] Admin: 03/04/21 19:40 Dose: 400 mls/hr Documented by: [id number] Cefoxitin Sodium (Mefoxin) 2,000 mg in 60 mls @ 100 mls/hr IV NOW STA Stop: 03/04/21 22:26 Last Infusion: 03/04/21 22:44 Dose: 0 mls/hr Documented by: [id number] Admin: 03/04/21 22:11 Dose: 100 mls/hr Documented by: [id number] Ioversol (Optiray 320 100ml) 94 ml IV ONCE ONE Stop: 03/04/21 20:55 Last Admin: 03/04/21 20:54 Dose: 94 ml Documented by: [id number] Ondansetron HCl (Ondansetron Inj 2 Mg/Ml 2 Ml Vial) 4 mg IV NOW STA Stop: 03/04/21 19:06 Last Admin: 03/04/21 19:38 Dose: 4 mg Documented by: [id number] Imaging Data Radiologist's Impression: Abdomen/Pelvis CT 03/04/21 19:05 CT abd pelvis IV con only CLINICAL HISTORY: abd pain, nausea COMPARISON STUDY: March 05, 2011 TECHNIQUE: A dose lowering technique was utilized adhering to the principles of ALARA. CT DOSE: 968.54 mGy.cm FINDINGS: Lower chest: Limited evaluation of lung bases shows mild atelectasis at dependent portions of bilateral lower lobes and slightly patchy areas of groundglass attenuation which could also represent scattered atelectasis. Liver: The contrast-enhanced liver is normal in size, contour, and attenuation. There is no intrahepatic biliary ductal dilatation. The hepatic veins and portal veins are patent. Gallbladder: Is surgically absent. Spleen: Normal in size and attenuation. Pancreas: Unremarkable. Adrenal glands: Unremarkable. Kidneys: There is symmetric renal cortical enhancement. The kidneys are normal in size without hydronephrosis.3.1 cm right renal cyst is enlarged since prior study. Pelvic viscera: Urinary bladder is adequately filled with urine. Uterus is probably surgically absent. Overall evaluation of pelvic region is limited due to beam hardening artifact from prosthetic left hip joint. Bowel: Moderate hiatal hernia is seen. Bowel loops are nondilated. Fecalization sign is seen within small bowel loops which might represent prolonged stasis of intraluminal content. Appendix is dilated, filled with fluid, shows prominence/enhancement of mucosa and surrounding fat stranding. Small appendicolith is seen at the proximal aspect of appendix. No evidence of abscess formation is seen at this time. There is small umbilical hernia is seen contain nondilated loop of small bowel. Ostium of the hernias measuring 3.4 cm on sagittal reconstruction. There is minimal surrounding fat stranding is seen within subcutaneous tissue overlying hernia sac. Peritoneum: There is no intraperitoneal free air or abdominal ascites. Vasculature: The abdominal aorta is normal in course and caliber. Adenopathy: None. Skeletal structures: Osteopenia. Multilevel degenerative changes of the spine. Orthopedic hardware within left hip joint. IMPRESSION: 1. Dilated fluid-filled appendix with surrounding inflammatory changes and small appendicolith consistent with acute appendicitis. No evidence of free intra-abdominal air or abscess formation is seen at this time. 2. Interval enlargement of the right renal cyst. 3. Limited evaluation of lower pelvis due to beam hardening artifact from orthopedic hardware within left hip joint. 4. Moderate hiatal hernia. 5. Small umbilical hernia contains nondilated loop of small bowel. 6. Additional findings as above. ACT 112: Negative or not required by law. The above report was generated using voice recognition software. It may contain grammatical, syntax or spelling errors. Electronically signed by: Vijaya Anne DO 03/04/2021 9:24 PM Discharge Plan Visit Data Chief Complaint: Abdominal Pain Stated Complaint: ABDOMINAL PAIN, NAUSEA ED Provider: rTey Stern Discharge Problem: Acute appendicitis, Nausea, Leukocytosis Forms Stand Alone Forms: [facility] Prescriptions Prescriptions: No Action bupropion HCl 100 mg tablet 100 mg PO DAILY Qty: 90 RF: 3 losartan 100 mg tablet 100 mg PO DAILY Qty: 90 RF: 3 citalopram 20 mg tablet 20 mg PO QAM Qty: 90 RF: 3 hydrochlorothiazide 25 mg tablet 25 mg PO QAM Qty: 90 RF: 2 docusate sodium 100 mg Tablet 200 mg PO QAM RF: 0 esomeprazole magnesium 20 mg Tablet,Delayed Release (Dr/Ec) 20 mg PO QAM RF: 0 Systane Complete 0.6 % Drops 1 drp OPHTHALMIC (EYE) QID RF: 0 multivitamin Tablet 1 tab PO DAILY RF: 0 amlodipine 5 mg tablet 5 mg PO QAM RF: 0 diphenhydramine-acetaminophen [Tylenol PM Extra Strength] 25-500 mg Tablet 1 tab PO HS PRN (Reason: Sleep) RF: 0 turmeric root extract 500 mg Capsule 1,000 mg PO DAILY RF: 0 Discharge Problem: Acute appendicitis Qualifiers: Acute appendicitis type: with localized peritonitis Appendicitis gangrene presence: without gangrene Appendicitis perforation presence: without perforation Appendicitis abscess presence: without abscess Qualified Code(s): K35.30 - Acute appendicitis with localized peritonitis, without perforation or gangrene Leukocytosis Qualifiers: Leukocytosis type: unspecified Qualified Code(s): D72.829 - Elevated white blood cell count, unspecified
[2021-03-04 19:33] LABS: BUN Creatinine Ratio 19.1 (10-20); Bilirubin Direct 0.1 mg/dl (0-0.2); Calcium 10.1 mg/dl (8.5-10.1); Creatinine Clr Calc Pharmacy 69.6 ml/min; Est GFR (African American) 84.2 ml/min; Est GFR (Non-African American) 72.6 ml/min; Potassium 3.6 mmol/L (3.5-5.1)
[2021-03-04 19:36] LABS: Bilirubin,Total 0.7 mg/dl (0.2-1)
[2021-03-04] MEDS ORDERED: OPTIRAY 320 100ml IV ONE (20:54)
--- NOTE | 2021-03-04 21:25 | CT Scan Report ---
CT abd pelvis IV con only CLINICAL HISTORY: abd pain, nausea COMPARISON STUDY: March 05, 2011 TECHNIQUE: A dose lowering technique was utilized adhering to the principles of ALARA. CT DOSE: 968.54 mGy.cm FINDINGS: Lower chest: Limited evaluation of lung bases shows mild atelectasis at dependent portions of bilater al lower lobes and slightly patchy areas of groundglass attenuation which could also represent scatte red atelectasis. Liver: The contrast-enhanced liver is normal in size, contour, and attenuation. There is no intrahepa tic biliary ductal dilatation. The hepatic veins and portal veins are patent. Gallbladder: Is surgically absent. Spleen: Normal in size and attenuation. Pancreas: Unremarkable. Adrenal glands: Unremarkable. Kidneys: There is symmetric renal cortical enhancement. The kidneys are normal in size without hydron ephrosis.3.1 cm right renal cyst is enlarged since prior study. Pelvic viscera: Urinary bladder is adequately filled with urine. Uterus is probably surgically absent . Overall evaluation of pelvic region is limited due to beam hardening artifact from prosthetic left hip joint. Bowel: Moderate hiatal hernia is seen. Bowel loops are nondilated. Fecalization sign is seen within s mall bowel loops which might represent prolonged stasis of intraluminal content. Appendix is dilated, filled with fluid, shows prominence/enhancement of mucosa and surrounding fat st randing. Small appendicolith is seen at the proximal aspect of appendix. No evidence of abscess forma tion is seen at this time. There is small umbilical hernia is seen contain nondilated loop of small bowel. Ostium of the hernias measuring 3.4 cm on sagittal reconstruction. There is minimal surrounding fat stranding is seen with in subcutaneous tissue overlying hernia sac. Peritoneum: There is no intraperitoneal free air or abdominal ascites. Vasculature: The abdominal aorta is normal in course and caliber. Adenopathy: None. Skeletal structures: Osteopenia. Multilevel degenerative changes of the spine. Orthopedic hardware wi thin left hip joint. IMPRESSION: 1. Dilated fluid-filled appendix with surrounding inflammatory changes and small appendicolith consi stent with acute appendicitis. No evidence of free intra-abdominal air or abscess formation is seen a t this time. 2. Interval enlargement of the right renal cyst. 3. Limited evaluation of lower pelvis due to beam hardening artifact from orthopedic hardware within left hip joint. 4. Moderate hiatal hernia. 5. Small umbilical hernia contains nondilated loop of small bowel. 6. Additional findings as above. ACT 112: Negative or not required by law. The above report was generated using voice recognition software. It may contain grammatical, syntax o r spelling errors. Electronically signed by: Vijaya Anne DO 03/04/2021 9:24 PM
[2021-03-04] MEDS ORDERED: cefOXitin 2,000 MG/60 ML BAG IV STA ×2 (21:51→23:01)
--- NOTE | 2021-03-04 22:55 | Surgery Consultation ---
Date of Consultation March 04, 2021 Assessment & Plan (1) Acute appendicitis: pt is a 75 year-old female who presents to ER with one day history RLQ pain, IMP: acute appendicitis, plan, I recommend to do laparoscopic appendectomy, possible open, D/W benefits, risks and alternatives of the surgery, the risks - infection, bleeding, injury other organs, abscess, incisional hernia, DE, pt understood, she agrees with surgery, I answered all questions, pre-op antibiotic, base on pt has no symptoms on umbilical hernia, this time not do umbilical hernia repair, possible do elect umbilical hernia with mesh base on hernia size, pt understood, Present on Admission?: Yes History of Present Illness History of Present Illness CC: abdominal pain HPI: The patient is a pleasant 75-year-old woman with a past medical history of hypertension, hyperlipidemia, IBS, GERD who presents emergency department accompanied by her for upper abdominal pain that began at 9 AM with a ssociated nausea and then evolved to have generalized mostly right-sided abdominal pain since then. She reports taking her esomeprazole with magnesium but denied any improvement. She denies having any chronic abdominal pain despite her diagnosis of IBS and further adds that she is "never had pain like this". Prior to today she denies any fevers, chills, cough, congestion, urinary symptoms. I ( Olivier Shultz MD ) got a call for consult acute appendicitis, I reviewed pt's H/P, labs, and CT scan with pt and her , pt is still have RLQ pain, no pain on periumbilical area, with vomiting one time, denies fever, no diarrhea. no chest pain, no cough. ROS: See above HPI for pertinent positives & negatives. A total of 10 systems reviewed and were otherwise negative. PAST MEDICAL HISTORY: See Below PAST SURGICAL HISTORY: See Below FAMILY HISTORY: See Below SOCIAL HISTORY: See Below HOME MEDICATIONS: See Below ALLERGIES: See Below Allergies Allergy/AdvReac Type Severity Reaction Status Date / Time adhesive Allergy Intermediate RED, Verified 03/04/21 19:56 PAINFUL SKIN levofloxacin Allergy Intermediate RASH/ITCHY Verified 03/04/21 19:56 nickel Allergy Intermediate ITCHING Verified 03/04/21 19:56 celecoxib [From Celebrex] AdvReac Intermediate DIGESTIVE Verified 03/04/21 19:56 ISSUES codeine AdvReac Intermediate SEVERE Verified 03/04/21 19:56 NAUSEA AND VOMITING metoclopramide [From Reglan] AdvReac Intermediate Depression Verified 03/04/21 19:56 sulfamethoxazole AdvReac Intermediate DIGESTIVE Verified 03/04/21 19:56 [From Bactrim] ISSUES trimethoprim [From Bactrim] AdvReac Intermediate DIGESTIVE Verified 03/04/21 19:56 ISSUES Home Medications Medication Instructions Recorded Confirmed Type docusate sodium 200 mg PO QAM 07/27/18 03/04/21 History esomeprazole magnesium 20 mg PO QAM 07/27/18 03/04/21 History Systane Complete 1 drp OPHTHALMIC (EYE) QID 01/14/19 03/04/21 History bupropion HCl 100 mg tablet 100 mg PO DAILY #90 tab 04/14/20 03/04/21 Rx losartan 100 mg tablet 100 mg PO DAILY #90 tab 04/29/20 03/04/21 Rx citalopram 20 mg tablet 20 mg PO QAM #90 tab 01/18/21 03/04/21 Rx hydrochlorothiazide 25 mg tablet 25 mg PO QAM #90 tab 03/02/21 03/04/21 Rx amlodipine 5 mg PO QAM 03/04/21 03/04/21 History diphenhydramine-acetaminophen 1 tab PO HS PRN 03/04/21 03/04/21 History [Tylenol PM Extra Strength] multivitamin 1 tab PO DAILY 03/04/21 03/04/21 History turmeric root extract 1,000 mg PO DAILY 03/04/21 03/04/21 History Patient History Medical History Depression Elevated BP without diagnosis of hypertension GERD (gastroesophageal reflux disease) History of diverticulitis HTN (hypertension) Osteoarthritis Spinal stenosis Umbilical hernia Surgical History H/O breast biopsy H/O elbow surgery History of carpal tunnel release History of colonoscopy History of dilation and curettage History of hysterectomy History of laparoscopic cholecystectomy History of laparotomy History of lumbar fusion History of partial colectomy History of tonsillectomy and adenoidectomy History of tubal ligation Family History (Updated 01/03/20 @ 08:47 by Krista Tracy MA) Father , age 79 Myocardial infarction Daughter Crohn's disease Mother Hypertension Leukocytosis Hypercholesterolemia Stroke Thrombocytosis Father Stroke Other No pertinent family history Denies family history of Ovarian cancer Prostate cancer Breast cancer Colorectal cancer Social History (Updated 03/02/21 @ 07:40 by Judy La MA) Smoking Status: Never smoker Second Hand Exposure: No; Hx Alcohol Use: No Hx Substance Use: No Preferred Language: German Communication Ability: Effective Visual Impairment: No Limitations Hearing Ability: Normal [employer] Crew[employer] Required: No Beliefs That Will Affect Care: None marital status: Current Living Situation: Spouse current occupational status: retired 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 [employer] Feels Safe at Home: Yes Childhood Exposure to Second-Hand Smoke: Yes Diet Comment: clean eating, free of chemicals Dental Care, Regularly: Yes Physical Activity Frequency: Does not Exercise Seatbelt Use: always Sunscreen Use: No Assistive Devices: Glasses and Walker Review of Systems Review of Systems: All systems reviewed & are unremarkable except as noted in HPI & below Constitutional: as per Subjective / HPI Eyes: as per Subjective / HPI Ear, Nose, Mouth, Throat: as per Subjective / HPI Respiratory: as per Subjective / HPI Cardiovascular: as per Subjective / HPI Additional Comments: HTN, hyperlipemia Gastrointestinal: as per Subjective / HPI resection partial colon for diverticulitis 10 years ago, IBS Genitourinary: as per Subjective / HPI Musculoskeletal: as per Subjective / HPI spinal stenosis Integumentary: as per Subjective / HPI Neurologic: as per Subjective / HPI neurogenic claudication Psychiatric: as per Subjective / HPI Endocrine: as per Subjective / HPI Hematologic / Lymphatic: as per Subjective / HPI Allergy / Immunological: as per Subjective / HPI Physical Exam Constitutional: WD/WN, vitals as above well developed and well nourished Eyes: PERRL, conjunctivae normal, anicteric sclerae ENMT: external ear and nose normal, oropharynx normal Neck: trachea midline, no thyromegaly Respiratory: normal respiratory effort, lungs clear to auscultation normal respiratory effort Cardiovascular: RRR, no murmur, no edema Rate/Rhythm: regular rate and regular rhythm Gastrointestinal (Abdomen): Percussion/Palpation: + abdomen tender and abdomen soft tenderness at RLQ, no rebound pain, no distend, no tenderness at periumbilical area, BS + Musculoskeletal: no cyanosis or clubbing, extremities motor strength 5/5 Skin: no rashes, warm and dry Neurologic: awake Psychiatric: Orientation: alert and oriented x 3 Results & Data ([facility]) Vital Signs (Past 12 Hours) Vital Signs Temp Pulse Resp BP Pulse Ox 03/04/21 22:30 81 18 91 03/04/21 22:13 77 18 119/86 95 03/04/21 22:00 83 19 95 03/04/21 21:10 78 17 93 03/04/21 21:09 79 18 151/70 H 94 03/04/21 19:42 74 15 97 03/04/21 19:08 75 20 96 03/04/21 18:37 35.9 C L 78 18 148/79 H 93 Laboratory Results Abnormal lab results 03/04/21 03/04/21 Range/Units 19:01 19:01 WBC 12.69 H (4.8-10.8) K/uL Neut # (Auto) 9.03 H (1.4-6.5) K/uL Garrard # (Auto) 0.76 H (0.11-0.59) K/uL Immature Gran # (Auto) 0.03 H (0.00-0.02) K/uL Sodium 131 L (136-145) mmol/L Chloride 94 L (98-107) mmol/L Glucose 100 H (70-99) mg/dl Diagnostic Findings CT abd pelvis IV con only CLINICAL HISTORY: abd pain, nausea COMPARISON STUDY: March 05, 2011 TECHNIQUE: A dose lowering technique was utilized adhering to the principles of ALARA. CT DOSE: 968.54 mGy.cm FINDINGS: Lower chest: Limited evaluation of lung bases shows mild atelectasis at dependent portions of bilateral lower lobes and slightly patchy areas of groundg lass attenuation which could also represent scattered atelectasis. Liver: The contrast-enhanced liver is normal in size, contour, and attenuation. There is no intrahepatic biliary ductal dilatation. The hepatic veins and portal veins are patent. Gallbladder: Is surgically absent. Spleen: Normal in size and attenuation. Pancreas: Unremarkable. Adrenal glands: Unremarkable. Kidneys: There is symmetric renal cortical enhancement. The kidneys are normal in size without hydronephrosis.3.1 cm right renal cyst is enlarged since prior study. Pelvic viscera: Urinary bladder is adequately filled with urine. Uterus is probably surgically absent. Overall evaluation of pelvic region is limited due to beam hardening artifact from prosthetic left hip joint. Bowel: Moderate hiatal hernia is seen. Bowel loops are nondilated. Fecalization sign is seen within small bowel loops which might represent prolonged stasis of intraluminal content. Appendix is dilated, filled with fluid, shows prominence/enhancement of mucosa and surrounding fat stranding. Small appendicolith is seen at the proximal aspect of appendix. No evidence of abscess formation is seen at this time. There is small umbilical hernia is seen contain nondilated loop of small bowel. Ostium of the hernias measuring 3.4 cm on sagittal reconstruction. There is minimal surrounding fat stranding is seen within subcutaneous tissue overlying hernia sac. Peritoneum: There is no intraperitoneal free air or abdominal ascites. Vasculature: The abdominal aorta is normal in course and caliber. Adenopathy: None. Skeletal structures: Osteopenia. Multilevel degenerative changes of the spine. Orthopedic hardware within left hip joint. IMPRESSION: 1. Dilated fluid-filled appendix with surrounding inflammatory changes and small appendicolith consistent with acute appendicitis. No evidence of free intra-abdominal air or abscess formation is seen at this time. 2. Interval enlargement of the right renal cyst. 3. Limited evaluation of lower pelvis due to beam hardening artifact from orthopedic hardware within left hip joint. 4. Moderate hiatal hernia. 5. Small umbilical hernia contains nondilated loop of small bowel. 6. Additional findings as above.
--- NOTE | 2021-03-04 23:01 | History & Physical Bridge Note ---
Date of Service March 04, 2021 History & Physical Bridge Note I have examined the patient, reviewed the History & Physical and in the interval since the performance of the History & Physical I have noted the following changes of clinical significance: no changes noted
[2021-03-04] MEDS ORDERED: BUPIVACAINE 0.5 % 5 MG/1 ML MPF 30ML VIAL ONE (23:28)
[2021-03-04] MEDS ORDERED: LIDOCAINE 1% LOCAL 20 ML VIAL ONE (23:29)
[2021-03-04] MEDS ORDERED: BACITRACIN OINT 15 GM TUBE ONE (23:30)
[2021-03-04] MEDS ORDERED: PROPOFOL IV EMULSION 10 MG/ML 20 ML VIAL IV ONE (23:40)
[2021-03-04] MEDS ORDERED: ROCURONIUM BROMID 50MG/5ML SYR ONE (23:40)
[2021-03-04] MEDS ORDERED: DEXAMETHASONE SOD INJ 4 MG/ML VIAL ONE (23:40)
[2021-03-04] MEDS ORDERED: MIDAZOLAM HCL 1 MG/ML 2ML VIAL ONE (23:40)
[2021-03-04] MEDS ORDERED: fentaNYL citrate 100 MCG/2 ML VIAL ONE (23:40)
[2021-03-04] MEDS ORDERED: ONDANSETRON INJ 2 MG/ML 2 ML VIAL ONE (23:40)
[2021-03-04] MEDS ORDERED: SUCCINYLCHOLINE CHLORIDE 20 MG/ML 10 ML VIAL IV ONE (23:40)
[2021-03-04] MEDS ORDERED: fentaNYL citrate 100 MCG/2 ML VIAL IV PRN (23:51)
[2021-03-04] MEDS ORDERED: ePHEDrine sulfate 50 MG/ML AMP IV PRN (23:51)
[2021-03-04] MEDS ORDERED: HYDROmorphone INJ 1 MG/ML SYRINGE IV PRN (23:51)
[2021-03-04] MEDS ORDERED: ONDANSETRON INJ 2 MG/ML 2 ML VIAL IV PRN (23:51)
[2021-03-04] MEDS ORDERED: ATROPINE SULFATE 0.1 MG/ML 10ML SYR IV PRN (23:51)
--- NOTE | 2021-03-04 23:53 | Anesthesiology Consultation ---
Date of Service March 04, 2021 Assessment & Plan (1) Encounter for pre-operative examination: Chart Review Chart Review: Acceptable Risk for Surgery and Patient NOT seen in Pre Admission Testing Consults Requested none History Surgery Operation Date: 03/05/21 01:00 Proposed Procedures p Laparoscopic Appendectomy - Olivier Shultz MD Height/Weight Height: 5 ft 6 in Weight: 89.6 kg Allergies Allergy/AdvReac Type Severity Reaction Status Date / Time adhesive Allergy Intermediate RED, Verified 03/04/21 19:56 PAINFUL SKIN levofloxacin Allergy Intermediate RASH/ITCHY Verified 03/04/21 19:56 nickel Allergy Intermediate ITCHING Verified 03/04/21 19:56 celecoxib [From Celebrex] AdvReac Intermediate DIGESTIVE Verified 03/04/21 19:56 ISSUES codeine AdvReac Intermediate SEVERE Verified 03/04/21 19:56 NAUSEA AND VOMITING metoclopramide [From Reglan] AdvReac Intermediate Depression Verified 03/04/21 19:56 sulfamethoxazole AdvReac Intermediate DIGESTIVE Verified 03/04/21 19:56 [From Bactrim] ISSUES trimethoprim [From Bactrim] AdvReac Intermediate DIGESTIVE Verified 03/04/21 19:56 ISSUES Medications Home Medications Medication Instructions Recorded Confirmed Last Taken docusate sodium 200 mg PO QAM 07/27/18 03/04/21 03/04/21 esomeprazole magnesium 20 mg PO QAM 07/27/18 03/04/21 03/04/21 2 DOSES TODAY Systane Complete 1 drp OPHTHALMIC (EYE) QID 01/14/19 03/04/21 03/04/21 18:00 bupropion HCl 100 mg tablet 100 mg PO DAILY #90 tab 04/14/20 03/04/21 03/04/21 losartan 100 mg tablet 100 mg PO DAILY #90 tab 04/29/20 03/04/21 03/04/21 citalopram 20 mg tablet 20 mg PO QAM #90 tab 01/18/21 03/04/21 03/04/21 hydrochlorothiazide 25 mg tablet 25 mg PO QAM #90 tab 03/02/21 03/04/21 03/04/21 amlodipine 5 mg PO QAM 03/04/21 03/04/21 03/04/21 diphenhydramine-acetaminophen 1 tab PO HS PRN 03/04/21 03/04/21 Unknown [Tylenol PM Extra Strength] multivitamin 1 tab PO DAILY 03/04/21 03/04/21 03/04/21 turmeric root extract 1,000 mg PO DAILY 03/04/21 03/04/21 03/04/21 NPO Date Last Intake of Fluids: 03/04/21 Time Last Intake of Fluids: 12:15 Last Intake of Fluids Comment: ice tea Date Last Intake of Solids: 03/04/21 Time Last Intake of Solids: 12:15 Last Intake of Solids Comment: fish sandwich, ice cream cone Past Medical History Medical History Depression Elevated BP without diagnosis of hypertension ED VISIT 07/2018/[facility],CHEST PRESSURE, BP "181" GERD (gastroesophageal reflux disease) History of diverticulitis HTN (hypertension) Osteoarthritis Spinal stenosis Umbilical hernia Past Family History Family History Father , age 79 Myocardial infarction Daughter Crohn's disease Mother Hypertension Leukocytosis Hypercholesterolemia Stroke Thrombocytosis Father Stroke Other No pertinent family history Denies family history of Ovarian cancer Prostate cancer Breast cancer Colorectal cancer Past Surgical History Surgical History H/O breast biopsy RIGHT - BENIGN - AGE 61 H/O elbow surgery RIGHT - FOR TENNIS ELBOW - AGE 49 History of carpal tunnel release RIGHT - AGE 49 History of colonoscopy History of dilation and curettage Age 27 History of hysterectomy AGE 38 History of laparoscopic cholecystectomy AGE 62 History of laparotomy RUPTURED ECTOPIC - AGE 36 History of lumbar fusion L4-L5 09/05/18 - MAC #3, ETT #7.0, Grade 1 View History of partial colectomy Age 65 06/29/11 - ETT #7.0 History of tonsillectomy and adenoidectomy AGE 11 History of tubal ligation LAP - AGE 29 Social History Smoking Status: Never smoker Hx Alcohol Use: No Hx Substance Use: No substance use type: does not use Physical Exam Vital Signs Last Vital Signs Temp 35.9 C L 03/04/21 18:37 Pulse 78 03/04/21 23:30 Resp 26 H 03/04/21 23:30 BP 119/86 03/04/21 23:30 Pulse Ox 93 03/04/21 23:00 Testing Laboratory Results 03/04/21 19:01 03/04/21 19:01 Electrocardiogram Date: 11/19/19 DICTATED BY: Jomar Lopez MD Test Reason : Blood Pressure : / mmHG Vent. Rate : 075 BPM Atrial Rate : 075 BPM P-R Int : 184 ms QRS Dur : 088 ms QT Int : 384 ms P-R-T Axes : 058 -30 088 degrees QTc Int : 428 ms Normal sinus rhythm Left axis deviation Moderate voltage criteria for LVH, may be normal variant Abnormal ECG When compared with ECG of 28-JUL-2018 06:53, No significant change was found Confirmed by Jomar Lopez ([id number]) on 11/19/2019 4:26:28 PM
[2021-03-05] MEDS ORDERED: SUGAMMADEX SODIUM 200 MG/2 ML VIAL IV ONE (00:44)
--- NOTE | 2021-03-05 01:40 | Post Operative Brief Note ---
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
[2021-03-05] MEDS ORDERED: ONDANSETRON INJ 2 MG/ML 2 ML VIAL IV PRN (01:46)
[2021-03-05] MEDS ORDERED: LACTATED RINGER'S 1,000 ML IV SCH (02:48)
[2021-03-05] MEDS ORDERED: HYDROmorphone INJ 1 MG/ML SYRINGE IV PRN (02:48)
--- NOTE | 2021-03-05 02:50 | Operative Report (OR) ---
DATE OF PROCEDURE: 03/04/2021. PREOPERATIVE DIAGNOSIS: Acute appendicitis. POSTOPERATIVE DIAGNOSIS: Acute appendicitis, gangrene appendix. OPERATION: Laparoscopic appendectomy. SURGEON: Olivier Shultz MD ANESTHESIA: General. ESTIMATED BLOOD LOSS: About 10 mL. FINDINGS: Acute appendicitis with gangrene. COMPLICATIONS: None. INDICATIONS FOR THE PROCEDURE: This is a 75-year-old female who presented to the ER with 1-day history of right lower quadrant pain. The patient had a CT scan diagnosis of acute appendicitis. I recommended to do laparoscopic appendectomy, possible open. I did talk to the patient and the patient's about the benefits, the risks, and alternate procedures. I indicated the risks may include but are not limited to such as bleeding, infection, abscess, injury to other organs or bowel, incisional hernia, bowel obstruction, myocardial infarction, and even . The patient understands. The patient signed informed consent and I answered all questions. DETAILS OF PROCEDURE: After we identified the patient and verified the procedure, we brought in the patient to the OR and put the patient on the supine position on the OR table. The patient received SCDs on bilateral legs to prevent DVT. Also, the patient received 2 grams of cefoxitin IV for prophylactic antibiotic. The patient received general anesthesia without difficulty. The abdomen was prepped and draped in routine sterile fashion. After time-out, I injected the local anesthesia subumbilical by using 1% lidocaine mixed with 0.5% Marcaine. Then I made a small incision just above umbilical, opened fascia, open peritoneum under direct vision, put the Kevin trocar in, connected to CO2 to create a pneumoperitoneum, flow rate at 6 liters per minute, pressure not more than 40 mmHg. Once we got a nice pneumoperitoneum, we put the camera in, looked around the abdomen. There was some small bowel adhesion to the umbilical area. At this moment, we put two 5 mm trocars on the right lower quadrant area and we mobilized the cecum and found the patient had acute appendicitis with appendix significantly swollen, inflammation with gangrene. Then we used Harmonic to take down the appendiceal, rechecked, and no active bleeding. Then I used 45 mm Endo-PERRI stapler transection around the base of the appendix, rechecked the staple lines, intact with no leak. Then we removed the gallbladder through the catch bag. Then we reinserted the Kevin trocar in and connected to CO2 to create pneumoperitoneum. Again looked around the abdomen, it showed staple line intact. No leak, no active bleeding. At this moment, we found it too dangerous to take down the small bowel from umbilical area because of the multiple intense scar. Again, hemostasis was obtained. Then we removed all trocars under direct vision. No active bleeding from the trocar site. The pneumoperitoneum was released. Then I closed the umbilical incision fascial layer by using 0 Vicryl [id number] x2, closed subcutaneous layer by using 2-0 Vicryl interruptedly, closed skin by using 4-0 Vicryl continuous running, close another two 5 mm trocars sites skin only by using 4-0 Vicryl. Then we put the dressing on. The patient tolerated the procedure well. All the instruments, needles, and sponge counts were correct x2 at the end of the case. The patient was transferred to the recovery room in stable condition. After the procedure, I did talk to the patient and the patient's about the OR findings and procedure we did and they understand. Job ID: [id number] [facility]
--- NOTE | 2021-03-05 03:59 | Anesthesiology Progress Note ---
Date of Service March 05, 2021 Anesthesia Post Procedure Vital Signs Vital Signs: Temp Pulse Pulse Pulse Resp BP BP 03/05/21 03:25 36.7 C 74 16 124/72 03/05/21 02:55 36.6 C 74 16 127/75 03/05/21 02:25 36.8 C 75 16 147/75 H 03/05/21 02:10 36.5 C 81 17 144/74 H 03/05/21 02:00 36.2 C L 83 17 146/73 H 03/05/21 01:48 36.4 C L 97 H 17 156/54 H 03/04/21 23:30 78 26 H 119/86 03/04/21 23:00 100 H 24 03/04/21 22:30 81 18 03/04/21 22:13 77 18 119/86 03/04/21 22:00 83 19 03/04/21 21:10 78 17 03/04/21 21:09 79 18 151/70 H 03/04/21 19:42 74 15 03/04/21 19:08 75 20 03/04/21 18:37 35.9 C L 78 18 148/79 H Pulse Ox 03/05/21 03:25 93 03/05/21 02:55 91 03/05/21 02:25 94 03/05/21 02:10 96 03/05/21 02:00 96 03/05/21 01:48 96 03/04/21 23:30 03/04/21 23:00 93 03/04/21 22:30 91 03/04/21 22:13 95 03/04/21 22:00 95 03/04/21 21:10 93 03/04/21 21:09 94 03/04/21 19:42 97 03/04/21 19:08 96 03/04/21 18:37 93 Pain Intensity Anterior Abdomen: Pain Intensity: 8 Transfer of Care Handoff Completed per policy Notes Mental Status: alert / awake / arousable and participated in evaluation Patient Amnestic to Procedure: Yes Nausea / Vomiting: adequately controlled Pain: adequately controlled Airway Patency, RR, SpO2: stable & adequate BP & HR: stable & adequate Hydration State: stable & adequate Anesthetic Complications: no major complications apparent and Pt Satisfied with anesthetic care
[2021-03-05] MEDS ORDERED: diphenhydrAMINE Capsule 25 MG CAP PO PRN (05:25)
[2021-03-05] MEDS ORDERED: ACETAMINOPHEN 500 MG TAB PO PRN (05:26)
[2021-03-05 05:48] LABS: Appearance Urine Clear (Clear); Bilirubin Urine Negative (Negative); Blood Urine Negative (Negative); Color Urine Yellow; Glucose Urine UA Negative (Negative); Ketones Urine Negative (Negative); Leukocyte Esterase Urine Negative (Negative); Nitrite Urine Negative (Negative); Protein Urine Negative (Negative); Specific Gravity Urine 1.021 (1.000-1.030); Urobilinogen Urine Negative (Negative)
[2021-03-05] MEDS: oxyCODONE/ACETAMINOPHEN 5mg/325mg TAB PO PRN ×2 (05:53→10:56)
[2021-03-05] MEDS ORDERED: NON-FORMULARY MEDICATION (Turmeric Root Extract 500 mg Capsule) PO SCH (09:00)
[2021-03-05] MEDS ORDERED: ARTIFICIAL TEARS OP SCH (09:00)
[2021-03-05] MEDS ORDERED: DOCUSATE SODIUM 100 MG CAP PO SCH (09:00)
[2021-03-05] MEDS ORDERED: MULTIVITAMIN TAB PO SCH (09:00)
[2021-03-05] MEDS ORDERED: PANTOprazole 40 MG TAB PO SCH (09:00)
[2021-03-05] MEDS ORDERED: buPROPion HCl 100 MG TABLET PO SCH (09:00)
[2021-03-05] MEDS ORDERED: hydroCHLOROthiazide 25 MG TAB PO SCH (09:00)
[2021-03-05] MEDS ORDERED: LOSARTAN POTASSIUM 50 MG TAB PO SCH (09:00)
[2021-03-05] MEDS ORDERED: CITALOPRAM 20 MG TAB PO SCH (09:00)
[2021-03-05] MEDS ORDERED: amLODIPine BESYLATE 5 MG TAB PO SCH (09:00)
--- NOTE | 2021-03-05 12:31 | Surgery Progress Note ---
Date of Service F/U S/Plaparoscopic appendectomy. POD 1 doing fine, tolerated diet, no fever, March 05, 2021 Assessment & Plan (1) Acute appendicitis: pt is a 75 year-old female who presents to ER with one day history RLQ pain, IMP: acute appendicitis, plan, I recommend to do laparoscopic appendectomy, possible open, D/W benefits, risks and alternatives of the surgery, the risks - infection, bleeding, injury other organs, abscess, incisional hernia, [place], pt understood, she agrees with surgery, I answered all questions, pre-op antibiotic, base on pt has no symptoms on umbilical hernia, this time not do umbilical hernia repair, possible do elect umbilical hernia with mesh base on hernia size, pt understood, 03/05/2021 12:28 PM S/P lap appy, POD 1 doing fine, update OR finding and the procedure pt had, I answered all questions, pt wants to go home, post- care instruction was given, F/U ut 2 weeks, Admission and Anticipated Discharge Date Admission Date: March 05, 2021 Review of Systems Constitutional: as per Subjective / HPI Eyes: as per Subjective / HPI Ear, Nose, Mouth, Throat: as per Subjective / HPI Respiratory: as per Subjective / HPI Cardiovascular: as per Subjective / HPI Additional Comments: HTN, hyperlipemia Gastrointestinal: as per Subjective / HPI resection partial colon for d iverticulitis 10 years ago, IBS Genitourinary: as per Subjective / HPI Musculoskeletal: as per Subjective / HPI spinal stenosis Integumentary: as per Subjective / HPI Neurologic: as per Subjective / HPI neurogenic claudication Psychiatric: as per Subjective / HPI Endocrine: as per Subjective / HPI Hematologic / Lymphatic: as per Subjective / HPI Allergy / Immunological: as per Subjective / HPI Physical Exam Constitutional: WD/WN, vitals as above well developed and well nourished Eyes: PERRL, conjunctivae normal, anicteric sclerae ENMT: external ear and nose normal, oropharynx normal Neck: trachea midline, no thyromegaly Respiratory: normal respiratory effort, lungs clear to auscultation normal respiratory effort Cardiovascular: RRR, no murmur, no edema Rate/Rhythm: regular rate and regular rhythm Gastrointestinal (Abdomen): Percussion/Palpation: + abdomen tender and abdomen soft mild tenderness at incision site, no rebound pain, no distend, BS +, all incisions intact, no redness, Musculoskeletal: no cyanosis or clubbing, extremities motor strength 5/5 Skin: no rashes, warm and dry Neurologic: awake Psychiatric: Orientation: alert and oriented x 3 Results & Data ([facility]) Vital Signs (Past 12 Hours) Vital Signs Temp Pulse Pulse Resp BP Pulse Ox 03/05/21 11:55 36.8 C 74 81 16 103/63 94 03/05/21 07:24 36.8 C 74 16 103/63 94 03/05/21 05:31 36.7 C 84 16 104/66 90 03/05/21 04:22 36.7 C 77 17 116/71 95 03/05/21 03:25 36.7 C 74 16 124/72 93 03/05/21 02:55 36.6 C 74 16 127/75 91 03/05/21 02:25 36.8 C 75 16 147/75 H 94 03/05/21 02:10 36.5 C 81 17 144/74 H 96 03/05/21 02:00 36.2 C L 83 17 146/73 H 96 03/05/21 01:48 36.4 C L 97 H 17 156/54 H 96 (1) Acute appendicitis Acute appendicitis type: with localized peritonitis Appendicitis abscess presence: without abscess Appendicitis gangrene presence: without gangrene Appendicitis perforation presence: without perforation Qualified Code(s): K35.30 - Acute appendicitis with localized peritonitis, without perforation or gangrene
--- NOTE | 2021-03-05 14:03 | Discharge Summary (DS) ---
DATE OF ADMISSION: 03/04/2021 DATE OF DISCHARGE: 03/05/2021 ADMITTING DIAGNOSIS: Acute appendicitis. DISCHARGE DIAGNOSIS: Acute appendicitis. OPERATION: Laparoscopic appendectomy. SURGEON: Olivier Shultz MD. DETAILS OF DISCHARGE SUMMARY: This is a 75-year-old female who presented to the ED with acute abdomin al pain. The patient had a CT scan diagnosis of acute appendicitis. We took the patient to the OR, we did laparoscopic appendectomy. The patient tolerated the procedure well and after the procedure, the patient was transferred to regular floor. The patient was doing fine and she tolerated a diet, no fever and no significant abdominal pain. PHYSICAL EXAMINATION: VITAL SIGNS: Temperature is 36.8, respiratory rate is 16, heart rate 81, blood pressure 103/63, O2 s aturation 94% on room air. GENERAL: The patient is alert, awake, oriented x3. HEENT: Within normal limitation. NEUROLOGIC: Intact. NECK: No JVD. CHEST: Bilateral lung sounds are clear. HEART: Normal S1, S2. No murmur. ABDOMEN: Soft, nondistended. All dressing intact. Mild incisional tenderness, no rebound pain. Ronald wel sounds positive. EXTREMITIES: No edema. The patient wanted to go home. We gave the patient postop care instructions. The patient understand s. I will follow up the patient in 2 weeks. Job ID: [id number]
--- NOTE | 2021-03-05 16:52 | Electrocardiogram Report ---
Test Reason : Blood Pressure : / mmHG Vent. Rate : 081 BPM Atrial Rate : 081 BPM P-R Int : 200 ms QRS Dur : 090 ms QT Int : 380 ms P-R-T Axes : 068 -33 082 degrees QTc Int : 441 ms Normal sinus rhythm Left axis deviation Abnormal ECG When compared with ECG of 19-NOV-2019 12:26, No significant change was found Confirmed by Eliot Francisco ([id number]) on 03/05/2021 4:52:01 PM Referred By: REFERRED SELF Confirmed By:Charly Francisco
== END 2021-03-05 13:44 | disposition home or self-care (01) ==
LOC: ED 18:27 → OR 23:48 → 3W 23:48

== ENCOUNTER 2021-03-06 08:23 | Observation (INO) ==
[2021-03-06] MEDS ORDERED: FAMOTIDINE 20 MG in SYRINGE 3 ML IV STA (09:20)
[2021-03-06 09:47] LABS: Basophils # (auto) 0.02 K/uL (0-0.2); Basophils % (auto) 0.2 %; Eosinophils # (auto) 0.13 K/uL (0-0.5); Eosinophils % (auto) 1.6 %; Hematocrit (blood only) 35.9 % (37-47); Hemoglobin 12.3 g/dL (12.0-16.0); Immature Granulocytes # (auto) 0.03 K/uL (0.00-0.02); Immature Granulocytes % (auto) 0.4 %; Lymphocytes # (auto) 2.35 K/uL (1.2-3.4); Lymphocytes % (auto) 28.2 %; Mean Corpuscular Hemoglobin 29.9 pg (25-34); Mean Corpuscular Hgb Conc 34.3 g/dL (32-36); Mean Corpuscular Volume 87.3 fL (80-100); Mean Platelet Volume 8.5 fL (7.4-10.4); Monocytes % (auto) 7.2 %; Neutrophils # (auto) 5.21 K/uL (1.4-6.5); Neutrophils % (auto) 62.4 %; Platelet Count 241 K/uL (130-400); RDW Coefficient of Variation 12.8 % (11.5-14.5); RDW Standard Deviation 41.4 fL (36.4-46.3); Red Blood Count 4.11 M/uL (4.2-5.4); White Blood Count 8.34 K/uL (4.8-10.8)
[2021-03-06] MEDS ORDERED: FAMOTIDINE 20MG/5ML IV PUSH IV ONE (09:52)
[2021-03-06 10:06] LABS: Alanine Aminotransferase 24 U/L (12-78); Albumin Level 3.3 gm/dl (3.4-5.0); Aspartate Aminotransferase 33 U/L (15-37); BUN Creatinine Ratio 12.7 (10-20); Blood Urea Nitrogen 10 mg/dl (7-18); Calcium 8.6 mg/dl (8.5-10.1); Carbon Dioxide 32 mmol/L (21-32); Chloride 96 mmol/L (98-107); Creatinine Clr Calc Pharmacy 72.1 ml/min; Est GFR (African American) 86.8 ml/min; Est GFR (Non-African American) 74.9 ml/min; Glucose 87 mg/dl (70-99); Magnesium 2.1 mg/dl (1.8-2.4); Potassium 3.3 mmol/L (3.5-5.1); Sodium 132 mmol/L (136-145)
[2021-03-06 10:16] LABS: Albumin Globulin Ratio 0.9 (0.9-2); Alkaline Phosphatase 80 U/L (45-117); Bilirubin,Total 0.6 mg/dl (0.2-1); Creatine Kinase 494 U/L (26-192); Globulin 3.5 gm/dl (2.5-4.0); Total Protein 6.8 gm/dl (6.4-8.2); Troponin I < 0.015 ng/ml (0-0.045)
--- NOTE | 2021-03-06 11:08 | Electrocardiogram Report ---
Test Reason : Blood Pressure : / mmHG Vent. Rate : 065 BPM Atrial Rate : 065 BPM P-R Int : 190 ms QRS Dur : 090 ms QT Int : 392 ms P-R-T Axes : 052 -22 043 degrees QTc Int : 407 ms Normal sinus rhythm Minimal voltage criteria for LVH, may be normal variant Borderline ECG When compared with ECG of 04-MAR-2021 18:52, No significant change was found Confirmed by Eliot Francisco ([id number]) on 03/06/2021 11:07:21 AM Referred By: REFERRED SELF Confirmed By:Charly Francisco
--- NOTE | 2021-03-06 11:15 | XRay Report ---
XR chest 1V portable CLINICAL HISTORY: weakness COMPARISON STUDY: November 20, 2019 FINDINGS: No definite pneumothorax seen however evaluation is limited because bilateral lung apices are obscure d by patient's chin. Interval elevation of the right hemidiaphragm. Mild blunting of bilateral costophrenic angle which co uld represent trace/small pleural effusion. Small atelectasis is seen at bilateral bases. Cardiomediastinal silhouette is not significantly changed since prior and obscured on the right by el evated right hemidiaphragm. Pulmonary vasculature is indistinct.. Osseous structures: Degenerative changes of the spine. IMPRESSION: 1. Interval elevation of the right hemidiaphragm. 2. Possible trace bilateral pleural effusion. Minimal atelectasis at bilateral bases. ACT 112: Negative or not required by law. The above report was generated using voice recognition software. It may contain grammatical, syntax o r spelling errors. Electronically signed by: Vijaya Anne DO 03/06/2021 11:14 AM
[2021-03-06] MEDS ORDERED: OPTIRAY 320 125ml IV ONE (11:30)
--- NOTE | 2021-03-06 12:27 | CT Scan Report ---
CT ANGIOGRAM OF THE CHEST CLINICAL HISTORY: PE COMPARISON STUDY: No previous studies for comparison. TECHNIQUE: Following the IV administration of 118 mL of Optiray, CT angiogram of the thorax was perfo rmed from the thoracic inlet to the lung bases utilizing the pulmonary embolus protocol. Images are r eviewed in the axial, sagittal, and coronal planes. IV contrast was administered without complication . MIP imaging was performed. A dose lowering technique was utilized adhering to the principles of [place]. CT DOSE: 533.24 mGy.cm FINDINGS: There is adequate opacification within main pulmonary artery. No evidence of pulmonary embolus is seen. Pulmonary artery is normal in caliber. Heart is normal in size without evidence of pericardial effusion or right heart strain. Heavy coronar y calcifications are seen. No pathologically enlarged axillary mediastinal or hilar lymph nodes were visualized. There was no evidence of thoracic aortic dilatation. Tracheobronchial tree is patent. This study was acquired during partial expiratory phase. Mild diffus e thickening of bronchial bowie are seen and associated with peribronchovascular consolidations predo minantly within bilateral lower lobes. Patchy areas of groundglass attenuation are seen throughout bi lateral lungs and might represent mosaic pattern and related to air trapping. Mild atelectasis is seen at dependent portions of bilateral lower lobes. No pleural effusion demonstr ated. No pleural effusions are visualized. Limited evaluation of upper abdominal viscera shows mild fat stranding surrounding bilateral kidneys, incompletely evaluated on current nondedicated exam. Please correlate above-mentioned findings with clinical presentation and prior history of abdominal pain. Osseous structures are slightly demineralized. Multilevel degenerative changes of the spine are seen. IMPRESSION: 1. No evidence of pulmonary embolus. 2. Diffuse thickening of bronchial bowie and peribronchovascular consolidations predominantly within bilateral lower lobes might represent infectious/inflammatory process. Short-term for follow-up in 4 -6 weeks might be considered to document resolution. 3. Additional findings as above. ACT 112: Positive. There are findings on this exam that require communication between the performing entity and the patient following Patient Test Result Information Act ([place] Act 112) guidelines. The above report was generated using voice recognition software. It may contain grammatical, syntax o r spelling errors. Electronically signed by: Vijaya Anne DO 03/06/2021 12:26 PM
[2021-03-06] MEDS ORDERED: HYDROmorphone INJ 0.5 MG/0.5 ML SYR IV STA (13:04)
[2021-03-06] MEDS ORDERED: PIPERACILLIN/TAZOBACTAM 4.5 GM/120 ML BAG IV ONE (13:04)
[2021-03-06] MEDS ORDERED: ONDANSETRON INJ 2 MG/ML 2 ML VIAL IV STA (13:04)
[2021-03-06] MEDS ORDERED: PIPERACILL/TAZOBAC CONSULT ACTIVE PRN ×2 (13:04→17:32)
[2021-03-06] MEDS ORDERED: SODIUM CHLORIDE 0.9% 1000ML 500 ML IV ONE (13:04)
[2021-03-06] MEDS ORDERED: SODIUM CHLORIDE 0.9% 1000ML 1,000 ML IV SCH (13:15)
--- NOTE | 2021-03-06 14:34 | CT Scan Report ---
CT SCAN OF THE ABDOMEN AND PELVIS WITHOUT CONTRAST CLINICAL HISTORY: epigastric pain, post operative appy 36 hours COMPARISON STUDY: March 04, 2021 TECHNIQUE: CT scan of the abdomen and pelvis was performed from the lung bases to the proximal femurs . Images are reviewed in the axial, sagittal, and coronal planes. IV contrast was not administered fo r this examination. A dose lowering technique was utilized adhering to the principles of [place]. CT DOSE: 885.86 mGy.cm FINDINGS: Lower chest: Interval worsening of atelectasis in bilateral bases. Liver: The unenhanced liver is normal in size, contour, and attenuation. There is no intrahepatic lluvia iary ductal dilatation. Gallbladder: Surgically absent Spleen: Normal in size and attenuation. Pancreas: Unremarkable. Adrenal glands: Unremarkable. Kidneys: No evidence of hydronephrosis. Stable right renal cyst. Excreted intravenous contrast is see n within bilateral renal pelvises and urinary bladder likely due to recent contrast-enhanced CT of th e abdomen performed the day before yesterday. Bowel: Bowel loops are nondilated. Umbilical hernia containing nondilated loops of small bowel are ag ain seen. Appendix is surgically absent. Interval development of fat stranding surrounding supraumbilical aspect of anterior abdominal wall wh ich is new since prior study () Peritoneum: There is no intraperitoneal free air or abdominal ascites. Vasculature: The abdominal aorta is normal in course and caliber. Adenopathy: None. Pelvic viscera: Distended urinary bladder is filled with excreted contrast. Evaluation of pelvic layton on is limited due to beam hardening artifact from orthopedic hardware within left hip. Skeletal structures: Osteopenia and orthopedic hardware within L4-L5 level is again seen. IMPRESSION: 1. Interval development of mild fat stranding surrounding supraumbilical aspect of the anterior abdo lalo wall. 2. Stable small umbilical hernia containing nondilated loops of bowel. 3. Interval appendectomy. 4. Other findings as above. ACT 112: Negative or not required by law. The above report was generated using voice recognition software. It may contain grammatical, syntax o r spelling errors. Electronically signed by: Vijaya Anne DO 03/06/2021 2:32 PM
--- NOTE | 2021-03-06 14:44 | Emergency Department Note ---
History of Present Illness General Chief complaint: Referred by Doctor Stated complaint: PROBLEMS SWALLOWING Time Seen by Provider: 03/06/21 08:46 Source: patient and RN notes reviewed Mode of arrival: ambulatory Limitations: no limitations History of Present Illness Provider complaint: Jaw and neck tightness, epigastric abdominal pain Maximum Pain Intensity: 8 This patient is a 75-year-old female who presents to the emergency department with complaints of jaw tightness and posterior neck discomfort. She states she woke up from sleep at approximately 4:56 AM with epigastric discomfort around an incision site. She got up to take a pain pill he noticed that her muscles of the jaw and neck felt tight. She did not have difficulty opening her jaw or swallowing the pill. Is not feel that the pill got stuck. She has not experienced discomfort like this in the past. It has since largely resolved. She contacted the nurse that had her in the hospital and discharged her yesterday after she had an emergent appendectomy. She was told by the nurse on the floor that this could represent a heart attack and was referred to the emergency department.The patient states approximately 48 hours ago she had a gangrenous but nonruptured appendicitis with urgent surgery with Dr. Shultz. Silvana ent was also told she had an umbilical hernia that was not repaired at that time. The patient denies nausea, vomiting or diarrhea. She has not had a BM since surgery. Currently the patient states the epigastric/periumbilical discomfort at the incision site is her main discomfort. Home Medications Medication Instructions Recorded Confirmed Type docusate sodium 200 mg PO QAM 07/27/18 03/06/21 History esomeprazole magnesium 20 mg PO QAM 07/27/18 03/06/21 History Systane Complete 1 drp OPHTHALMIC (EYE) QID 01/14/19 03/06/21 History bupropion HCl 100 mg tablet 100 mg PO DAILY #90 tab 04/14/20 03/06/21 Rx losartan 100 mg tablet 100 mg PO DAILY #90 tab 04/29/20 03/06/21 Rx citalopram 20 mg tablet 20 mg PO QAM #90 tab 01/18/21 03/06/21 Rx hydrochlorothiazide 25 mg tablet 25 mg PO QAM #90 tab 03/02/21 03/06/21 Rx amlodipine 5 mg PO QAM 03/04/21 03/06/21 History diphenhydramine-acetaminophen 1 tab PO HS PRN 03/04/21 03/06/21 History [Tylenol PM Extra Strength] multivitamin 1 tab PO DAILY 03/04/21 03/06/21 History turmeric root extract 1,000 mg PO DAILY 03/04/21 03/06/21 History oxycodone-acetaminophen [Percocet] 1 tab PO Q6H PRN #30 tab 03/05/21 03/06/21 Rx amoxicillin-pot clavulanate 1 tab PO BIDM 2 Days #5 tab 03/08/21 Rx Allergies Allergy/AdvReac Type Severity Reaction Status Date / Time adhesive Allergy Intermediate RED, Verified 03/06/21 10:49 PAINFUL SKIN levofloxacin Allergy Intermediate RASH/ITCHY Verified 03/06/21 10:49 nickel Allergy Intermediate ITCHING Verified 03/06/21 10:49 celecoxib [From Celebrex] AdvReac Intermediate DIGESTIVE Verified 03/06/21 10:49 ISSUES codeine AdvReac Intermediate SEVERE Verified 03/06/21 10:49 NAUSEA AND VOMITING metoclopramide [From Reglan] AdvReac Intermediate Depression Verified 03/06/21 10:49 sulfamethoxazole AdvReac Intermediate DIGESTIVE Verified 03/06/21 10:49 [From Bactrim] ISSUES trimethoprim [From Bactrim] AdvReac Intermediate DIGESTIVE Verified 03/06/21 10:49 ISSUES Past Med/Surg History Medical History Depression Elevated BP without diagnosis of hypertension ED VISIT 07/2018/[facility]/HARD HEART BEAT,CHEST PRESSURE, BP "181" GERD (gastroesophageal reflux disease) History of diverticulitis HTN (hypertension) Osteoarthritis Spinal stenosis Umbilical hernia Surgical History H/O breast biopsy RIGHT - BENIGN - AGE 61 H/O elbow surgery RIGHT - FOR TENNIS ELBOW - AGE 49 History of carpal tunnel release RIGHT - AGE 49 History of colonoscopy History of dilation and curettage Age 27 History of hysterectomy AGE 38 History of laparoscopic cholecystectomy AGE 62 History of laparotomy RUPTURED ECTOPIC - AGE 36 History of lumbar fusion L4-L5 09/05/18 - MAC #3, ETT #7.0, Grade 1 View History of partial colectomy Age 65 06/29/11 - ETT #7.0 History of tonsillectomy and adenoidectomy AGE 11 History of tubal ligation LAP - AGE 29 Family History Father , age 79 Myocardial infarction Daughter Crohn's disease Mother Hypertension Leukocytosis Hypercholesterolemia Stroke Thrombocytosis Father Stroke Other No pertinent family history Denies family history of Ovarian cancer Prostate cancer Breast cancer Colorectal cancer Social History Smoking Status: Never smoker Second Hand Exposure: No; Hx Alcohol Use: No Hx Substance Use: No Preferred Language: Albanian Communication Ability: Effective Visual Impairment: No Limitations Hearing Ability: Normal 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 and A total of 10 systems reviewed and were otherwise negative Physical Exam Vital Signs Vital Signs - 24 hr 03/06/21 08:37 03/06/21 09:35 03/06/21 09:40 Temperature 36.9 C Temperature Source Oral Pulse Rate 70 67 64 Pulse Rate [Right Finger] Pulse Rate from SpO2 Sensor Pulse Rhythm [Right Finger] Pulse Strength [Right Finger] Respiratory Rate 18 19 14 Respiratory Effort / Characteristics Respiratory Depth Respiratory Pattern Blood Pressure 122/61 Blood Pressure [Right Arm] Blood Pressure Mean 81 Blood Pressure Mean [Right Arm] Blood Pressure Position [Right Arm] Pulse Oximetry 92 Oxygen Delivery Method Room Air Oxygen Flow Rate Sepsis Recent Fever Within 48 Hours No Sepsis New/Unexplained Change in Mental Status No Sepsis Action Taken by Nursing No Action Required 03/06/21 09:50 03/06/21 10:00 03/06/21 10:10 Temperature Temperature Source Pulse Rate 63 62 65 Pulse Rate [Right Finger] Pulse Rate from SpO2 Sensor Pulse Rhythm [Right Finger] Pulse Strength [Right Finger] Respiratory Rate 15 13 Respiratory Effort / Characteristics Respiratory Depth Respiratory Pattern Blood Pressure Blood Pressure [Right Arm] Blood Pressure Mean Blood Pressure Mean [Right Arm] Blood Pressure Position [Right Arm] Pulse Oximetry Oxygen Delivery Method Oxygen Flow Rate Sepsis Recent Fever Within 48 Hours Sepsis New/Unexplained Change in Mental Status Sepsis Action Taken by Nursing 03/06/21 10:20 03/06/21 10:24 03/06/21 10:30 Temperature Temperature Source Pulse Rate 62 66 90 Pulse Rate [Right Finger] 66 Pulse Rate from SpO2 Sensor 67 Pulse Rhythm [Right Finger] Regular Pulse Strength [Right Finger] Normal Respiratory Rate 13 14 11 L Respiratory Effort / Characteristics Non-Labored Spontaneous Respiratory Depth Normal Respiratory Pattern Regular Blood Pressure 137/67 Blood Pressure [Right Arm] 137/67 Blood Pressure Mean 90 Blood Pressure Mean [Right Arm] 90 Blood Pressure Position [Right Arm] Lying Pulse Oximetry 89 L Oxygen Delivery Method Room Air Oxygen Flow Rate Sepsis Recent Fever Within 48 Hours Sepsis New/Unexplained Change in Mental Status Sepsis Action Taken by Nursing 03/06/21 10:40 03/06/21 10:50 03/06/21 11:00 Temperature Temperature Source Pulse Rate 65 62 63 Pulse Rate [Right Finger] Pulse Rate from SpO2 Sensor Pulse Rhythm [Right Finger] Pulse Strength [Right Finger] Respiratory Rate 25 H 18 14 Respiratory Effort / Characteristics Respiratory Depth Respiratory Pattern Blood Pressure Blood Pressure [Right Arm] Blood Pressure Mean Blood Pressure Mean [Right Arm] Blood Pressure Position [Right Arm] Pulse Oximetry Oxygen Delivery Method Oxygen Flow Rate Sepsis Recent Fever Within 48 Hours Sepsis New/Unexplained Change in Mental Status Sepsis Action Taken by Nursing 03/06/21 11:10 03/06/21 11:20 03/06/21 11:30 Temperature Temperature Source Pulse Rate 63 64 64 Pulse Rate [Right Finger] Pulse Rate from SpO2 Sensor Pulse Rhythm [Right Finger] Pulse Strength [Right Finger] Respiratory Rate 15 12 14 Respiratory Effort / Characteristics Respiratory Depth Respiratory Pattern Blood Pressure Blood Pressure [Right Arm] Blood Pressure Mean Blood Pressure Mean [Right Arm] Blood Pressure Position [Right Arm] Pulse Oximetry Oxygen Delivery Method Oxygen Flow Rate Sepsis Recent Fever Within 48 Hours Sepsis New/Unexplained Change in Mental Status Sepsis Action Taken by Nursing 03/06/21 11:44 03/06/21 11:51 03/06/21 12:00 Temperature Temperature Source Pulse Rate 74 86 67 Pulse Rate [Right Finger] 65 Pulse Rate from SpO2 Sensor Pulse Rhythm [Right Finger] Regular Pulse Strength [Right Finger] Normal Respiratory Rate 17 22 15 Respiratory Effort / Characteristics Non-Labored Respiratory Depth Normal Respiratory Pattern Blood Pressure Blood Pressure [Right Arm] 142/70 H Blood Pressure Mean Blood Pressure Mean [Right Arm] 94 Blood Pressure Position [Right Arm] Sitting Pulse Oximetry 92 Oxygen Delivery Method Room Air Oxygen Flow Rate Sepsis Recent Fever Within 48 Hours Sepsis New/Unexplained Change in Mental Status Sepsis Action Taken by Nursing 03/06/21 12:10 03/06/21 12:12 03/06/21 12:20 Temperature Temperature Source Pulse Rate 65 67 65 Pulse Rate [Right Finger] Pulse Rate from SpO2 Sensor Pulse Rhythm [Right Finger] Pulse Strength [Right Finger] Respiratory Rate 11 L 15 16 Respiratory Effort / Characteristics Respiratory Depth Respiratory Pattern Blood Pressure 142/70 H Blood Pressure [Right Arm] Blood Pressure Mean 94 Blood Pressure Mean [Right Arm] Blood Pressure Position [Right Arm] Pulse Oximetry Oxygen Delivery Method Oxygen Flow Rate Sepsis Recent Fever Within 48 Hours Sepsis New/Unexplained Change in Mental Status Sepsis Action Taken by Nursing 03/06/21 12:30 03/06/21 12:40 03/06/21 12:50 Temperature Temperature Source Pulse Rate 70 67 68 Pulse Rate [Right Finger] Pulse Rate from SpO2 Sensor Pulse Rhythm [Right Finger] Pulse Strength [Right Finger] Respiratory Rate 17 18 18 Respiratory Effort / Characteristics Respiratory Depth Respiratory Pattern Blood Pressure Blood Pressure [Right Arm] Blood Pressure Mean Blood Pressure Mean [Right Arm] Blood Pressure Position [Right Arm] Pulse Oximetry Oxygen Delivery Method Oxygen Flow Rate Sepsis Recent Fever Within 48 Hours Sepsis New/Unexplained Change in Mental Status Sepsis Action Taken by Nursing 03/06/21 13:00 03/06/21 13:11 03/06/21 13:20 Temperature Temperature Source Pulse Rate 68 80 67 Pulse Rate [Right Finger] Pulse Rate from SpO2 Sensor Pulse Rhythm [Right Finger] Pulse Strength [Right Finger] Respiratory Rate 15 22 17 Respiratory Effort / Characteristics Respiratory Depth Respiratory Pattern Blood Pressure Blood Pressure [Right Arm] Blood Pressure Mean Blood Pressure Mean [Right Arm] Blood Pressure Position [Right Arm] Pulse Oximetry Oxygen Delivery Method Oxygen Flow Rate Sepsis Recent Fever Within 48 Hours Sepsis New/Unexplained Change in Mental Status Sepsis Action Taken by Nursing 03/06/21 13:30 03/06/21 13:40 03/06/21 13:50 Temperature Temperature Source Pulse Rate 68 69 71 Pulse Rate [Right Finger] Pulse Rate from SpO2 Sensor Pulse Rhythm [Right Finger] Pulse Strength [Right Finger] Respiratory Rate 22 14 15 Respiratory Effort / Characteristics Respiratory Depth Respiratory Pattern Blood Pressure Blood Pressure [Right Arm] Blood Pressure Mean Blood Pressure Mean [Right Arm] Blood Pressure Position [Right Arm] Pulse Oximetry Oxygen Delivery Method Oxygen Flow Rate Sepsis Recent Fever Within 48 Hours Sepsis New/Unexplained Change in Mental Status Sepsis Action Taken by Nursing 03/06/21 14:00 03/06/21 14:16 03/06/21 14:17 Temperature Temperature Source Pulse Rate 64 68 64 Pulse Rate [Right Finger] Pulse Rate from SpO2 Sensor 67 64 Pulse Rhythm [Right Finger] Pulse Strength [Right Finger] Respiratory Rate 22 12 17 Respiratory Effort / Characteristics Respiratory Depth Respiratory Pattern Blood Pressure 126/63 Blood Pressure [Right Arm] Blood Pressure Mean 84 Blood Pressure Mean [Right Arm] Blood Pressure Position [Right Arm] Pulse Oximetry 88 L 87 L Oxygen Delivery Method Nasal Cannula Oxygen Flow Rate 2 Sepsis Recent Fever Within 48 Hours Sepsis New/Unexplained Change in Mental Status Sepsis Action Taken by Nursing 03/06/21 14:18 Temperature Temperature Source Pulse Rate 64 Pulse Rate [Right Finger] Pulse Rate from SpO2 Sensor 64 Pulse Rhythm [Right Finger] Pulse Strength [Right Finger] Respiratory Rate 16 Respiratory Effort / Characteristics Respiratory Depth Respiratory Pattern Blood Pressure 125/61 Blood Pressure [Right Arm] Blood Pressure Mean 82 Blood Pressure Mean [Right Arm] Blood Pressure Position [Right Arm] Pulse Oximetry 87 L Oxygen Delivery Method Oxygen Flow Rate Sepsis Recent Fever Within 48 Hours Sepsis New/Unexplained Change in Mental Status Sepsis Action Taken by Nursing Vital signs reviewed. General: Well-appearing 75-year-old female, in no significant distress. HEENT: No scleral icterus, PERRLA, neck supple. Atraumatic. Cardiovascular: Regular rate and rhythm, no extra sounds. Pulmonary: Clear to auscultation bilaterally, normal work of breathing. Abdomen: Soft, obese, mild tenderness around the proximal/periumbilical incision, minimal surrounding ecchymosis, no drainage and appears to be intact, nondistended, positive bowel sounds. No tympany to percussion. Musculoskeletal: Atraumatic, no peripheral edema. Neurologic: Patient awake alert and oriented x 3 Skin: Warm, dry, no rash Course Administered Medications Discontinued Medications Amlodipine Besylate (Amlodipine Besylate 5 Mg Tab) 5 mg PO QAM [facility] Stop: 04/06/21 08:59 Last Admin: 03/08/21 08:29 Dose: 5 mg Documented by: [id number] Admin: 03/07/21 10:16 Dose: 5 mg Documented by: [id number] Amoxicillin/Clavulanate Potassium (Amoxicillin/Clavulanate 500 Mg Tab) 1 tab PO BIDM [facility] Stop: 03/17/21 16:59 Last Admin: 03/08/21 08:29 Dose: 1 tab Documented by: [id number] Admin: 03/07/21 16:44 Dose: 1 tab Documented by: [id number] Bupropion HCl (Bupropion Hcl 100 Mg Tablet) 100 mg PO DAILY [facility] Stop: 04/06/21 08:59 Last Admin: 03/08/21 08:30 Dose: 100 mg Documented by: [id number] Admin: 03/07/21 10:16 Dose: 100 mg Documented by: [id number] [facility]brom[facility] ([facility] 20 Mg [facility]) [facility] [place] Stop: 04/06/21 08:59 Last Admin: 03/08/21 08:30 Dose: 20 mg Documented by: [id number] Admin: 03/07/21 10:17 Dose: 20 mg Documented by: [id number] Docusate Sodium (Docusate Sodium 100 Mg Cap) [facility] [place] Stop: 04/06/21 08:59 Last Admin: 03/08/21 08:32 Dose: Not Given Documented by: [id number] Admin: 03/07/21 10:17 Dose: 200 mg Documented by: [id number] Famotidine (Famotidine 20mg/5ml Iv Push) Confirm Administered Dose 20 mg IV .STK-MED [facility] Stop: 03/06/21 09:53 Last Admin: 03/06/21 09:53 Dose: Not Given Documented by: [id number] Heparin Sodium (Porcine) (Heparin Sod 5,000 Unit/0.5 Ml Vial) 5,000 units SQ Q8 [facility] Stop: 04/05/21 21:59 Last Admin: 03/08/21 06:04 Dose: 5,000 units Documented by: [id number] Admin: 03/07/21 21:09 Dose: 5,000 units Documented by: [id number] Admin: 03/07/21 15:04 Dose: 5,000 units Documented by: [id number] Admin: 03/07/21 06:21 Dose: 5,000 units Documented by: [id number] Admin: 03/06/21 21:32 Dose: 5,000 units Documented by: [id number] Hydromorphone HCl (Hydromorphone Inj 0.5 Mg/0.5 Ml Syr) 0.5 mg IV NOW STA Stop: 03/06/21 13:05 Last Admin: 03/06/21 13:15 Dose: 0.5 mg Documented by: [id number] Famotidine 20 mg/ Syringe 5 mls @ 2.5 mls/min IV NOW STA Stop: 03/06/21 09:21 Last Admin: 03/06/21 09:53 Dose: 2.5 mls/min Documented by: [id number] Piperacillin Sod/Tazobactam Sod (Zosyn) 4.5 gm in 120 mls @ 240 mls/hr IV NOW ONE Stop: 03/06/21 13:33 Last Infusion: 03/06/21 13:58 Dose: 240 mls/hr Documented by: [id number] Admin: 03/06/21 13:27 Dose: 240 mls/hr Documented by: [id number] Sodium Chloride (Nss 1000ml) 500 mls @ 999 mls/hr IV .Q31M ONE Stop: 03/06/21 13:34 Last Infusion: 03/06/21 13:44 Dose: 999 mls/hr Documented by: [id number] Admin: 03/06/21 13:13 Dose: 999 mls/hr Documented by: [id number] Sodium Chloride (Nss 1000ml) 1,000 mls @ 125 mls/hr IV .Q8H [facility] Stop: 04/05/21 13:14 Last Infusion: 03/06/21 17:41 Dose: 0 mls/hr Documented by: [id number] Admin: 03/06/21 14:02 Dose: 125 mls/hr Documented by: [id number] Piperacillin Sod/Tazobactam (Sod 3.375 gm/ Dextrose) 115 mls @ 28.75 mls/hr IV Q8H [facility]; Protocol Stop: 03/13/21 17:59 Last Infusion: 03/07/21 14:30 Dose: 0 mls/hr Documented by: [id number] Admin: 03/07/21 10:41 Dose: 28.8 mls/hr Documented by: [id number] Infusion: 03/07/21 06:33 Dose: 0 mls/hr Documented by: [id number] Admin: 03/07/21 02:24 Dose: 28.8 mls/hr Documented by: [id number] Infusion: 03/06/21 22:28 Dose: 0 mls/hr Documented by: [id number] Admin: 03/06/21 18:25 Dose: 28.8 mls/hr Documented by: [id number] Ioversol (Optiray 320 125ml) 118 ml IV ONCE ONE Stop: 03/06/21 11:31 Last Admin: 03/06/21 11:30 Dose: 118 ml Documented by: [id number] Losartan Potassium (Losartan Potassium 50 Mg Tab) 100 mg PO DAILY [facility] Stop: 04/06/21 08:59 Last Admin: 03/08/21 08:31 Dose: 100 mg Documented by: [id number] Admin: 03/07/21 10:17 Dose: 100 mg Documented by: [id number] Ondansetron HCl (Ondansetron Inj 2 Mg/Ml 2 Ml Vial) 4 mg IV NOW STA Stop: 03/06/21 13:05 Last Admin: 03/06/21 13:16 Dose: 4 mg Documented by: [id number] Oxycodone/Acetaminophen (Oxycodone/Acetaminophen 5mg/325mg Tab) 1 tab PO Q6H PRN PRN Reason: pain Stop: 03/20/21 17:31 Last Admin: 03/07/21 22:27 Dose: 1 tab Documented by: [id number] Admin: 03/06/21 22:29 Dose: 1 tab Documented by: [id number] Pantoprazole Sodium (Pantoprazole 40 Mg Tab) 40 mg PO QAM [facility]; Protocol Stop: 04/06/21 08:59 Last Admin: 03/08/21 08:31 Dose: 40 mg Documented by: [id number] Admin: 03/07/21 10:18 Dose: 40 mg Documented by: [id number] Polyethylene Glycol (Polyethylene (Miralax) 17 Gm Pack) 17 gm PO DAILY [facility] Stop: 04/06/21 16:59 Last Admin: 03/08/21 08:32 Dose: Not Given Documented by: [id number] Admin: 03/07/21 17:08 Dose: 17 gm Documented by: [id number] Potassium Chloride (Potassium Chloride Crtab 20 Meq Tabcr) 40 meq PO NOW STA Stop: 03/06/21 17:04 Last Admin: 03/06/21 18:25 Dose: 40 meq Documented by: [id number] Potassium Chloride (Potassium Chloride Crtab 20 Meq Tabcr) 40 meq PO NOW STA Stop: 03/06/21 20:45 Last Admin: 03/06/21 21:41 Dose: 40 meq Documented by: [id number] Medical Decision Making Differential Diagnosis Cardiac ischemia, aortic dissection, pulmonary embolism, pneumothorax, pneumonia, pericarditis, myocarditis, esophageal rupture, GERD, cholecystitis, pancreatitis, musculoskeletal, SBO, incarcerated hernia, seroma, cellulitis, as well as other pathologies. Medical Records Attestation: I reviewed the patient's medical records. Home Medications Current Medication List: was personally reviewed by me Laboratory Data Attestation: I reviewed the patient's lab results. Result diagrams: 03/08/21 05:50 03/08/21 05:50 Lab Results 03/06/21 03/06/21 03/06/21 Range/Units 09:35 09:35 09:37 WBC (4.8-10.8) K/uL RBC (4.2-5.4) M/uL Hgb (12.0-16.0) g/dL Hct (37-47) % MCV (80-100) fL MCH (25-34) pg MCHC (32-36) g/dL RDW Std Deviation (36.4-46.3) fL RDW Coeff of Jazmine (11.5-14.5) % Plt Count (130-400) K/uL MPV (7.4-10.4) fL Immature Gran % (Auto) % Neut % (Auto) % Lymph % (Auto) % Parmer % (Auto) % Eos % (Auto) % Baso % (Auto) % Neut # (Auto) (1.4-6.5) K/uL Lymph # (Auto) (1.2-3.4) K/uL Parmer # (Auto) (0.11-0.59) K/uL Eos # (Auto) (0-0.5) K/uL Baso # (Auto) (0-0.2) K/uL Immature Gran # (Auto) (0.00-0.02) K/uL ESR 19 (0-30) mm/hr Sodium 132 L (136-145) mmol/L Potassium 3.3 L (3.5-5.1) mmol/L Chloride 96 L (98-107) mmol/L Carbon Dioxide 32 (21-32) mmol/L Anion Gap 4.0 (3-11) BUN 10 D (7-18) mg/dl Creatinine 0.78 (0.6-1.2) mg/dl Est Cr Clr Drug Dosing 72.1 ml/min Est GFR ( Amer) 86.8 ml/min Est GFR (Non-Af Amer) 74.9 ml/min BUN/Creatinine Ratio 12.7 (10-20) Glucose 87 (70-99) mg/dl Calcium 8.6 (8.5-10.1) mg/dl Magnesium 2.1 (1.8-2.4) mg/dl Total Bilirubin 0.6 (0.2-1) mg/dl AST 33 (15-37) U/L ALT 24 (12-78) U/L Alkaline Phosphatase 80 (45-117) U/L Total Creatine Kinase 494 H (26-192) U/L Troponin I < 0.015 (0-0.045) ng/ml C-Reactive Protein 4.54 H (0-0.29) mg/dl Total Protein 6.8 (6.4-8.2) gm/dl Albumin 3.3 L (3.4-5.0) gm/dl Globulin 3.5 (2.5-4.0) gm/dl Albumin/Globulin Ratio 0.9 (0.9-2) Procalcitonin (0-0.5) ng/ml TSH 2.720 (0.300-4.500) uIu/ml COVID-19 Eval Order SARS-CoV-2 (PCR) (Negative) 03/06/21 03/06/21 03/06/21 Range/Units 09:37 14:27 14:27 WBC 8.34 (4.8-10.8) K/uL RBC 4.11 L (4.2-5.4) M/uL Hgb 12.3 (12.0-16.0) g/dL Hct 35.9 L (37-47) % MCV 87.3 (80-100) fL MCH 29.9 (25-34) pg MCHC 34.3 (32-36) g/dL RDW Std Deviation 41.4 (36.4-46.3) fL RDW Coeff of Jazmine 12.8 (11.5-14.5) % Plt Count 241 (130-400) K/uL MPV 8.5 (7.4-10.4) fL Immature Gran % (Auto) 0.4 % Neut % (Auto) 62.4 % Lymph % (Auto) 28.2 % Parmer % (Auto) 7.2 % Eos % (Auto) 1.6 % Baso % (Auto) 0.2 % Neut # (Auto) 5.21 (1.4-6.5) K/uL Lymph # (Auto) 2.35 (1.2-3.4) K/uL Parmer # (Auto) 0.60 H (0.11-0.59) K/uL Eos # (Auto) 0.13 (0-0.5) K/uL Baso # (Auto) 0.02 (0-0.2) K/uL Immature Gran # (Auto) 0.03 H (0.00-0.02) K/uL ESR (0-30) mm/hr Sodium (136-145) mmol/L Potassium (3.5-5.1) mmol/L Chloride (98-107) mmol/L Carbon Dioxide (21-32) mmol/L Anion Gap (3-11) BUN (7-18) mg/dl Creatinine (0.6-1.2) mg/dl Est Cr Clr Drug Dosing ml/min Est GFR ( Amer) ml/min Est GFR (Non-Af Amer) ml/min BUN/Creatinine Ratio (10-20) Glucose (70-99) mg/dl Calcium (8.5-10.1) mg/dl Magnesium (1.8-2.4) mg/dl Total Bilirubin (0.2-1) mg/dl AST (15-37) U/L ALT (12-78) U/L Alkaline Phosphatase (45-117) U/L Total Creatine Kinase (26-192) U/L Troponin I (0-0.045) ng/ml C-Reactive Protein (0-0.29) mg/dl Total Protein (6.4-8.2) gm/dl Albumin (3.4-5.0) gm/dl Globulin (2.5-4.0) gm/dl Albumin/Globulin Ratio (0.9-2) Procalcitonin (0-0.5) ng/ml TSH (0.300-4.500) uIu/ml COVID-19 Eval Order Covid19 at [facility] SARS-CoV-2 (PCR) NEGATIVE (Negative) 03/06/21 Range/Units 15:00 WBC (4.8-10.8) K/uL RBC (4.2-5.4) M/uL Hgb (12.0-16.0) g/dL Hct (37-47) % MCV (80-100) fL MCH (25-34) pg MCHC (32-36) g/dL RDW Std Deviation (36.4-46.3) fL RDW Coeff of Jazmine (11.5-14.5) % Plt Count (130-400) K/uL MPV (7.4-10.4) fL Immature Gran % (Auto) % Neut % (Auto) % Lymph % (Auto) % Parmer % (Auto) % Eos % (Auto) % Baso % (Auto) % Neut # (Auto) (1.4-6.5) K/uL Lymph # (Auto) (1.2-3.4) K/uL Parmer # (Auto) (0.11-0.59) K/uL Eos # (Auto) (0-0.5) K/uL Baso # (Auto) (0-0.2) K/uL Immature Gran # (Auto) (0.00-0.02) K/uL ESR (0-30) mm/hr Sodium (136-145) mmol/L Potassium (3.5-5.1) mmol/L Chloride (98-107) mmol/L Carbon Dioxide (21-32) mmol/L Anion Gap (3-11) BUN (7-18) mg/dl Creatinine (0.6-1.2) mg/dl Est Cr Clr Drug Dosing ml/min Est GFR ( Amer) ml/min Est GFR (Non-Af Amer) ml/min BUN/Creatinine Ratio (10-20) Glucose (70-99) mg/dl Calcium (8.5-10.1) mg/dl Magnesium (1.8-2.4) mg/dl Total Bilirubin (0.2-1) mg/dl AST (15-37) U/L ALT (12-78) U/L Alkaline Phosphatase (45-117) U/L Total Creatine Kinase (26-192) U/L Troponin I (0-0.045) ng/ml C-Reactive Protein (0-0.29) mg/dl Total Protein (6.4-8.2) gm/dl Albumin (3.4-5.0) gm/dl Globulin (2.5-4.0) gm/dl Albumin/Globulin Ratio (0.9-2) Procalcitonin < 0.05 (0-0.5) ng/ml TSH (0.300-4.500) uIu/ml COVID-19 Eval Order SARS-CoV-2 (PCR) (Negative) Imaging Data Radiologist's Impression: Chest X-Ray 03/06/21 09:18 XR chest 1V portable CLINICAL HISTORY: weakness COMPARISON STUDY: November 20, 2019 FINDINGS: No definite pneumothorax seen however evaluation is limited because bilateral lung apices are obscured by patient's chin. Interval elevation of the right hemidiaphragm. Mild blunting of bilateral costophrenic angle which could represent trace/small pleural effusion. Small atelectasis is seen at bilateral bases. Cardiomediastinal silhouette is not significantly changed since prior and obscured on the right by elevated right hemidiaphragm. Pulmonary vasculature is indistinct.. Osseous structures: Degenerative changes of the spine. IMPRESSION: 1. Interval elevation of the right hemidiaphragm. 2. Possible trace bilateral pleural effusion. Minimal atelectasis at bilateral bases. ACT 112: Negative or not required by law. The above report was generated using voice recognition software. It may contain grammatical, syntax or spelling errors. Electronically signed by: Vijaya Anne DO 03/06/2021 11:14 AM Chest CTA 03/06/21 11:06 CT ANGIOGRAM OF THE CHEST CLINICAL HISTORY: PE COMPARISON STUDY: No previous studies for comparison. TECHNIQUE: Following the IV administration of 118 mL of Optiray, CT angiogram of the thorax was performed from the thoracic inlet to the lung bases utilizing the pulmonary embolus protocol. Images are reviewed in the axial, sagittal, and coronal planes. IV contrast was administered without complication. MIP imaging was performed. A dose lowering technique was utilized adhering to the principles of ALARA. CT DOSE: 533.24 mGy.cm FINDINGS: There is adequate opacification within main pulmonary artery. No evidence of pulmonary embolus is seen. Pulmonary artery is normal in caliber. Heart is normal in size without evidence of pericardial effusion or right heart strain. Heavy coronary calcifications are seen. No pathologically enlarged axillary mediastinal or hilar lymph nodes were vis ualized. There was no evidence of thoracic aortic dilatation. Tracheobronchial tree is patent. This study was acquired during partial expiratory phase. Mild diffuse thickening of bronchial bowie are seen and associated with peribronchovascular consolidations predominantly within bilateral lower lobes. Patchy areas of groundglass attenuation are seen throughout bilateral lungs and might represent mosaic pattern and related to air trapping. Mild atelectasis is seen at dependent portions of bilateral lower lobes. No pleural effusion demonstrated. No pleural effusions are visualized. Limited evaluation of upper abdominal viscera shows mild fat stranding surrounding bilateral kidneys, incompletely evaluated on current nondedicated exam. Please correlate above-mentioned findings with clinical presentation and prior history of abdominal pain. Osseous structures are slightly demineralized. Multilevel degenerative changes of the spine are seen. IMPRESSION: 1. No evidence of pulmonary embolus. 2. Diffuse thickening of bronchial bowie and peribronchovascular consolidations predominantly within bilateral lower lobes might represent infectious/inflammatory process. Short-term for follow-up in 4-6 weeks might be considered to document resolution. 3. Additional findings as above. ACT 112: Positive. There are findings on this exam that require communication between the performing entity and the patient following Patient Test Result Information Act ([place] Act 112) guidelines. The above report was generated using voice recognition software. It may contain grammatical, syntax or spelling errors. Electronically signed by: Vijaya Anne DO 03/06/2021 12:26 PM Abdomen/Pelvis CT 03/06/21 13:31 CT SCAN OF THE ABDOMEN AND PELVIS WITHOUT CONTRAST CLINICAL HISTORY: epigastric pain, post operative appy 36 hours COMPARISON STUDY: March 04, 2021 TECHNIQUE: CT scan of the abdomen and pelvis was performed from the lung bases to the proximal femurs. Images are reviewed in the axial, sagittal, and coronal planes. IV contrast was not administered for this examination. A dose lowering technique was utilized adhering to the principles of ALARA. CT DOSE: 885.86 mGy.cm FINDINGS: Lower chest: Interval worsening of atelectasis in bilateral bases. Liver: The unenhanced liver is normal in size, contour, and attenuation. There is no intrahepatic biliary ductal dilatation. Gallbladder: Surgically absent Spleen: Normal in size and attenuation. Pancreas: Unremarkable. Adrenal glands: Unremarkable. Kidneys: No evidence of hydronephrosis. Stable right renal cyst. Excreted intravenous contrast is seen within bilateral renal pelvises and urinary bladder likely due to recent contrast-enhanced CT of the abdomen performed the day before yesterday. Bowel: Bowel loops are nondilated. Umbilical hernia containing nondilated loops of small bowel are again seen. Appendix is surgically absent. Interval development of fat stranding surrounding supraumbilical aspect of anterior abdominal wall which is new since prior study () Peritoneum: There is no intraperitoneal free air or abdominal ascites. Vasculature: The abdominal aorta is normal in course and caliber. Adenopathy: None. Pelvic viscera: Distended urinary bladder is filled with excreted contrast. Evaluation of pelvic region is limited due to beam hardening artifact from orthopedic hardware within left hip. Skeletal structures: Osteopenia and orthopedic hardware within L4-L5 level is again seen. IMPRESSION: 1. Interval development of mild fat stranding surrounding supraumbilical aspect of the anterior abdominal wall. 2. Stable small umbilical hernia containing nondilated loops of bowel. 3. Interval appendectomy. 4. Other findings as above. ACT 112: Negative or not required by law. The above report was generated using voice recognition software. It may contain grammatical, syntax or spelling errors. Electronically signed by: Vijaya Anne DO 03/06/2021 2:32 PM ECG Data Attestation: I personally reviewed and interpreted this ECG as follows: Indication: + abdominal pain Rate (beats per minute): 65 Rhythm: + normal sinus ECG Intervals/blocks: + Normal QT-c ECG ST segments: + Normal ST segments ECG Findings: + LVH Blood Pressure Blood Pressure Findings: Elevated blood pressure Blood Pressure Disposition: further management by hospitalist [facility] Narrative This patient was evaluated and appeared to be in no significant distress. IV access was obtained and laboratory work was drawn. An order for cardiac monitoring was placed and the patient is noted to be in a normal sinus rhythm at 64 bpm. Patient was hydrated with normal saline solution, given IV Pepcid 20 mg, IV Dilaudid and Zofran. EKG reveals no evidence of acute ischemia. CT imaging of the chest was performed due to patient's recent surgery and hospitalization and was negative for PE however there is concern over diffuse thickening of the bronchial bowie and peribronchial vascular consolidations. Patient was given IV Zosyn as this may be infectious and she just had recent surgery. Patient returned to the emergency department and continued to complain of the epigastric discomfort which seem to be coming more focal. CT imaging then was performed of the abdomen and pelvis and reveals the periumbilical hernia with a loop of bowel but appears to be nonobstructive. There is no evidence of fluid collection but there is mild infiltrative change. Patient did desaturate and is on nasal cannula oxygen. She will be evaluated by the hospitalist service for further management. General surgery will be consulted. Patient and were made aware of the findings and plan and agreed. Impression & Plan Pulmonary infiltrate, Status post appendectomy, Periumbilical hernia, Hypoxia Discharge Plan Visit Data Chief Complaint: Referred by Doctor Stated Complaint: PROBLEMS SWALLOWING ED Provider: Erin Pedraza Discharge Problem: Pulmonary infiltrate, Status post appendectomy, Periumbilical hernia, Hypoxia Patient Disposition: Admitted As Inpatient Condition: Good Discharge Instructions Interventions: ED Discharge Assessment Last Done: 03/06/21 16:55
--- NOTE | 2021-03-06 16:09 | History & Physical Report ---
Date of Service March 06, 2021 Assessment & Plan (1) S/P appendectomy: Laparoscopic appendectomy done [id number] - Surgical incisions with no drainage or erythema or pain out of proportion to site - Was sent home on Augmentin - Pain controlled - Passing flatus, no BM yet - No nausea - Augmenting changed to Zosyn IV while in house for pneumonia coverage - Hernia unchanged from prior imaging (2) Cervicalgia: Patient with history of cervicalgia pain and discomfort - Her neck pain is more stiff than normal as she is used to being up and around - Full range of motion without stiffness - No TMJ - No involvement of inside of mouth or roof of floor of mouth. - CT scan of neck and sof tissues - The pain to her bottom jaw and side of her neck was reproducible with palpation of her trapezius and splenius capitus muscles - this most likely is related to positioning during and after the case with decreased movement exacerbting a chronic problem. - Tylenol and Kpad heating for now (3) Elevated hemidiaphragm: Etiology unclear at this time- ? relation with laparoscopic pneumoperitoneum and air under diaphragm - CT of neck as above, no other focal findings consistent with neck injury; gabriela guerrero - Repeat PA/LAT in the morning - CTA of the chest with no focal deformities - Follow with NIFs (4) HTN (hypertension): Controlled - Continue Losartan - Continue HCTZ - Continue Amlodipine (5) Depression with anxiety: She overall feels in good spirits just feels like she is starting to get older - Continue Citalopram and Bupropion (6) Pneumonia: Bilateral lower bases- this may be atelectasis in nature vs. Pneumonia vs. aspiration pneumonitis - afebrile, denies any shortness of breath or cough - She did require oxygen while in the EMD - Continue with Zosyn 3.375 GM q8 IV - MRSA swab - Follow PCT, CRP (7) Gastroesophageal reflux disease: Continue esomeprazole or formulary equivalent (8) Hyperlipemia: Continue (9) Spinal stenosis: Cotninue with OOB and and activity - care as above: Tylenol, K Pads (10) Degenerative joint disease (DJD) of hip: As above (11) Hypokalemia: K 3.3 - Replete 40 meq Kdur now - Should increase with dietary intake through the day History of Present Illness Primary Care Provider: Eliot Liriano MD 75 YOF s/p laproscopic appendectomy, discharged on . Patient returns today for complaints of pain opening her jaw this morning associated with increasing in her chronic neck pain. She is also still having some bloating feeling and abdominal pain around her incision sites. The patient endorses that she has not been up much since her surgery and is in general feeling more stiff. She is passing flatus, but no BM yet. She feels as though her pain is controlled. SHe denies any coughs or chest pain, or feeling short of breath. Her pain in her jaw is improved but still feels stiff, no difficulty swallowing. For her neck pain she feels it along the left side and front more, but doesn't, this has not limited her ROM; and she also does not endorse any numbness/tingling in her fingers or difficulty in picking objects up or performing her ADLS. In the EMD the patient had a CT scan of chest and abdomen performed and CXR done. SHe was noted to have a josefina-right diaphragm on her CXR and bilateral ground glass opacities in her CTA of her chest- Atelectasis vs. Pneumonia. Patient will be admitted to further evaluate her cervicalgia, Antibiotic coverage for her pulmonary process, as well as following pain control and return of bowel function following surgery. General surgery has been consulted to follow her process. Allergies Allergy/AdvReac Type Severity Reaction Status Date / Time adhesive Allergy Intermediate RED, Verified 03/06/21 10:49 PAINFUL SKIN levofloxacin Allergy Intermediate RASH/ITCHY Verified 03/06/21 10:49 nickel Allergy Intermediate ITCHING Verified 03/06/21 10:49 celecoxib [From Celebrex] AdvReac Intermediate DIGESTIVE Verified 03/06/21 10:49 ISSUES codeine AdvReac Intermediate SEVERE Verified 03/06/21 10:49 NAUSEA AND VOMITING metoclopramide [From Reglan] AdvReac Intermediate Depression Verified 03/06/21 10:49 sulfamethoxazole AdvReac Intermediate DIGESTIVE Verified 03/06/21 10:49 [From Bactrim] ISSUES trimethoprim [From Bactrim] AdvReac Intermediate DIGESTIVE Verified 03/06/21 10:49 ISSUES Home Medications Medication Instructions Recorded Confirmed Type docusate sodium 200 mg PO QAM 07/27/18 03/06/21 History esomeprazole magnesium 20 mg PO QAM 07/27/18 03/06/21 History Systane Complete 1 drp OPHTHALMIC (EYE) QID 01/14/19 03/06/21 History bupropion HCl 100 mg tablet 100 mg PO DAILY #90 tab 04/14/20 03/06/21 Rx losartan 100 mg tablet 100 mg PO DAILY #90 tab 04/29/20 03/06/21 Rx citalopram 20 mg tablet 20 mg PO QAM #90 tab 01/18/21 03/06/21 Rx hydrochlorothiazide 25 mg tablet 25 mg PO QAM #90 tab 03/02/21 03/06/21 Rx amlodipine 5 mg PO QAM 03/04/21 03/06/21 History diphenhydramine-acetaminophen 1 tab PO HS PRN 03/04/21 03/06/21 History [Tylenol PM Extra Strength] multivitamin 1 tab PO DAILY 03/04/21 03/06/21 History turmeric root extract 1,000 mg PO DAILY 03/04/21 03/06/21 History amoxicillin-pot clavulanate 1 tab PO BID #10 tab 03/05/21 03/06/21 Rx [Augmentin] oxycodone-acetaminophen [Percocet] 1 tab PO Q6H PRN #30 tab 03/05/21 03/06/21 Rx Past Med/Surg History Medical History Depression Elevated BP without diagnosis of hypertension ED VISIT 07/2018/[facility]/HARD HEART BEAT,CHEST PRESSURE, BP "181" GERD (gastroesophageal reflux disease) History of diverticulitis HTN (hypertension) Osteoarthritis Spinal stenosis Umbilical hernia Surgical History H/O breast biopsy RIGHT - BENIGN - AGE 61 H/O elbow surgery RIGHT - FOR TENNIS ELBOW - AGE 49 History of carpal tunnel release RIGHT - AGE 49 History of colonoscopy History of dilation and curettage Age 27 History of hysterectomy AGE 38 History of laparoscopic cholecystectomy AGE 62 History of laparotomy RUPTURED ECTOPIC - AGE 36 History of lumbar fusion L4-L5 09/05/18 - MAC #3, ETT #7.0, Grade 1 View History of partial colectomy Age 65 06/29/11 - ETT #7.0 History of tonsillectomy and adenoidectomy AGE 11 History of tubal ligation LAP - AGE 29 Family History Father , age 79 Myocardial infarction Daughter Crohn's disease Mother Hypertension Leukocytosis Hypercholesterolemia Stroke Thrombocytosis Father Stroke Other No pertinent family history Denies family history of Ovarian cancer Prostate cancer Breast cancer Colorectal cancer Social History Smoking Status: Never smoker Second Hand Exposure: No; Hx Alcohol Use: No Hx Substance Use: No Preferred Language: Belarusian Communication Ability: Effective Visual Impairment: No Limitations Hearing Ability: Normal Floor Nurse Required: No Beliefs That Will Affect Care: None marital status: Current Living Situation: Spouse current occupational status: retired 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 [employer] Other Information That Helps Us Care for You: No Feels Safe at Home: Yes Safety Concerns: Feels Safe At This Time Childhood Exposure to Second-Hand Smoke: Yes Diet Comment: clean eating, free of chemicals Dental Care, Regularly: Yes Physical Activity Frequency: Does not Exercise Seatbelt Use: always Sunscreen Use: No Assistive Devices: Glasses and Oxygen - Continuous Review of Systems Review of Systems: REVIEW OF SYSTEMS: Constitutional: No fever, sweats or chills Eyes: No diplopia, no worsening or blurred vision ENT: normal hearing, no trouble swallowing Respiratory: No cough, sputum, dyspnea at rest or on exertion Cardiovascular: No chest pain, tightness or palpitations Abdomen: No pain, nausea, vomiting, diarrhea or constipation Musculoskeletal: As per HPI, NO calf pain, swelling Neurologic: No weakness, numbness/tingling, or balance problems Psychiatric: No anxiety or depression Skin: No rash or itch Physical Exam Physical Exam: PHYSICAL EXAM: General: awake, alert, no apparent distress Head: Normocephalic, atraumatic ENT: PERRLA, EOMI, no pharyngeal exudate, mucous membranes moist, no trauma from intubation noted, no dental abscess or tooth pain, no pain to floor of mouth or back of throat. No lymphadenopathy to cervical chains notes. Neuro: AAO x 3, speech clear and appropriate, strength intact bilaterally 5/5, sensation intact and equal all extremities and dermatomes, no pronator drift, full range of motion to neck and no pinpoint tenderness. Pain to surrounding trapezius and posterior neck muscles that did reproduce some of her complaint. Chest: equal rise and fall of the chest, no accessory muscle use, no heaves or thrills, Clear to auscultation, on room air- no Egophany. Cardiac: Regular rate and rhythm, telemetry reviewed, skin warm dry, cap refill <3 seconds, peripheral pulses +2 no JVD, no murmur, no JVD, no edema GI: hypoactive x 4 quadrants, obese and soft, tender to palpation at surgical site, no rebound, guarding or tenderness : Spontaneously voiding, no pain, no CVA tenderness, Extremities: Normal inspection, no peripheral edema or erythema, calfs nontender to palpation Psych: Normal mood and affect Skin: no rash or erythema Results & Data Results & Data ([facility]) Vital Signs (Past 12 Hours) Vital Signs Temp Pulse Pulse Resp BP BP Pulse Ox 03/06/21 15:58 67 18 126/68 03/06/21 15:57 83 20 03/06/21 15:40 63 14 93 03/06/21 15:30 63 12 94 03/06/21 15:20 61 12 96 03/06/21 15:10 67 19 93 03/06/21 15:00 66 20 97 03/06/21 14:50 61 14 94 03/06/21 14:40 62 14 95 03/06/21 14:30 71 17 97 03/06/21 14:20 61 16 03/06/21 14:19 64 16 88 L 03/06/21 14:18 64 16 125/61 87 L 03/06/21 14:17 64 17 126/63 87 L 03/06/21 14:16 68 12 88 L 03/06/21 14:00 64 22 03/06/21 13:50 71 15 03/06/21 13:40 69 14 03/06/21 13:30 68 22 03/06/21 13:20 67 17 03/06/21 13:11 80 22 03/06/21 13:00 68 15 03/06/21 12:50 68 18 03/06/21 12:40 67 18 03/06/21 12:30 70 17 03/06/21 12:20 65 16 03/06/21 12:12 67 15 142/70 H 06/19/21 12:10 65 11 L 03/06/21 12:00 67 65 15 142/70 H 92 03/06/21 11:51 86 22 03/06/21 11:44 74 17 03/06/21 11:30 64 14 03/06/21 11:20 64 12 03/06/21 11:10 63 15 03/06/21 11:00 63 14 03/06/21 10:50 62 18 03/06/21 10:40 65 25 H 03/06/21 10:30 90 11 L 03/06/21 10:24 66 66 14 137/67 137/67 89 L 03/06/21 10:20 62 13 03/06/21 10:10 65 03/06/21 10:00 62 13 03/06/21 09:50 63 15 03/06/21 09:40 64 14 03/06/21 09:35 67 19 03/06/21 08:37 36.9 C 70 18 122/61 92 Laboratory Results Abnormal lab results 03/06/21 03/06/21 03/06/21 Range/Units 09:35 09:37 09:37 RBC 4.11 L (4.2-5.4) M/uL Hct 35.9 L (37-47) % [place] # (Auto) 0.60 H (0.11-0.59) K/uL Immature Gran # (Auto) 0.03 H (0.00-0.02) K/uL Sodium 132 L (136-145) mmol/L Potassium 3.3 L (3.5-5.1) mmol/L Chloride 96 L (98-107) mmol/L Total Creatine Kinase 494 H (26-192) U/L C-Reactive Protein 4.54 H (0-0.29) mg/dl Albumin 3.3 L (3.4-5.0) gm/dl Diagnostic Findings Chest X-Ray 03/06/21 09:18 XR chest 1V portable CLINICAL HISTORY: weakness COMPARISON STUDY: November 20, 2019 FINDINGS: No definite pneumothorax seen however evaluation is limited because bilateral lung apices are obscured by patient's chin. Interval elevation of the right hemidiaphragm. Mild blunting of bilateral costophrenic angle which could represent trace/small pleural effusion. Small atelectasis is seen at bilateral bases. Cardiomediastinal silhouette is not significantly changed since prior and obscured on the right by elevated right hemidiaphragm. Pulmonary vasculature is indistinct.. Osseous structures: Degenerative changes of the spine. IMPRESSION: 1. Interval elevation of the right hemidiaphragm. 2. Possible trace bilateral pleural effusion. Minimal atelectasis at bilateral bases. ACT 112: Negative or not required by law. The above report was generated using voice recognition software. It may contain grammatical, syntax or spelling errors. Electronically signed by: Vijaya Anne DO 03/06/2021 11:14 AM Chest CTA 03/06/21 11:06 CT ANGIOGRAM OF THE CHEST CLINICAL HISTORY: PE COMPARISON STUDY: No previous studies for comparison. TECHNIQUE: Following the IV administration of 118 mL of Optiray, CT angiogram of the thorax was performed from the thoracic inlet to the lung bases utilizing the pulmonary embolus protocol. Images are reviewed in the axial, sagittal, and coronal planes. IV contrast was administered without complication. MIP imaging was performed. A dose lowering technique was utilized adhering to the principles of ALARA. CT DOSE: 533.24 mGy.cm FINDINGS: There is adequate opacification within main pulmonary artery. No evidence of pulmonary embolus is seen. Pulmonary artery is normal in caliber. Heart is normal in size without evidence of pericardial effusion or right heart strain. Heavy coronary calcifications are seen. No pathologically enlarged axillary mediastinal or hilar lymph nodes were visualized. There was no evidence of thoracic aortic dilatation. Tracheobronchial tree is patent. This study was acquired during partial expiratory phase. Mild diffuse thickening of bronchial bowie are seen and associated with peribronchovascular consolidations predominantly within bilateral lower lobes. Patchy areas of groundglass attenuation are seen throughout bilateral lungs and might represent mosaic pattern and related to air trapping. Mild atelectasis is seen at dependent portions of bilateral lower lobes. No pleural effusion demonstrated. No pleural effusions are visualized. Limited evaluation of upper abdominal viscera shows mild fat stranding surrounding bilateral kidneys, incompletely evaluated on current nondedicated exam. Please correlate above-mentioned findings with clinical presentation and prior history of abdominal pain. Osseous structures are slightly demineralized. Multilevel degenerative changes of the spine are seen. IMPRESSION: 1. No evidence of pulmonary embolus. 2. Diffuse thickening of bronchial bowie and peribronchovascular consolidations predominantly within bilateral lower lobes might represent infectious/inflammatory process. Short-term for follow-up in 4-6 weeks might be considered to document resolution. 3. Additional findings as above. ACT 112: Positive. There are findings on this exam that require communication between the performing entity and the patient following Patient Test Result Information Act ([place] Act 112) guidelines. The above report was generated using voice recognition software. It may contain grammatical, syntax or spelling errors. Electronically signed by: Vijaya Anne DO 03/06/2021 12:26 PM Abdomen/Pelvis CT 03/06/21 13:31 CT SCAN OF THE ABDOMEN AND PELVIS WITHOUT CONTRAST CLINICAL HISTORY: epigastric pain, post operative appy 36 hours COMPARISON STUDY: March 04, 2021 TECHNIQUE: CT scan of the abdomen and pelvis was performed from the lung bases to the proximal femurs. Images are reviewed in the axial, sagittal, and coronal planes. IV contrast was not administered for this examination. A dose lowering technique was utilized adhering to the principles of ALARA. CT DOSE: 885.86 mGy.cm FINDINGS: Lower chest: Interval worsening of atelectasis in bilateral bases. Liver: The unenhanced liver is normal in size, contour, and attenuation. There is no intrahepatic biliary ductal dilatation. Gallbladder: Surgically absent Spleen: Normal in size and attenuation. Pancreas: Unremarkable. Adrenal glands: Unremarkable. Kidneys: No evidence of hydronephrosis. Stable right renal cyst. Excreted intravenous contrast is seen within bilateral renal pelvises and urinary bladder likely due to recent contrast-enhanced CT of the abdomen performed the day before yesterday. Bowel: Bowel loops are nondilated. Umbilical hernia containing nondilated loops of small bowel are again seen. Appendix is surgically absent. Interval development of fat stranding surrounding supraumbilical aspect of anterior abdominal wall which is new since prior study () Peritoneum: There is no intraperitoneal free air or abdominal ascites. Vasculature: The abdominal aorta is normal in course and caliber. Adenopathy: None. Pelvic viscera: Distended urinary bladder is filled with excreted contrast. Evaluation of pelvic region is limited due to beam hardening artifact from orthopedic hardware within left hip. Skeletal structures: Osteopenia and orthopedic hardware within L4-L5 level is again seen. IMPRESSION: 1. Interval development of mild fat stranding surrounding supraumbilical aspect of the anterior abdominal wall. 2. Stable small umbilical hernia containing nondilated loops of bowel. 3. Interval appendectomy. 4. Other findings as above. ACT 112: Negative or not required by law. The above report was generated using voice recognition software. It may contain grammatical, syntax or spelling errors. Electronically signed by: Vijaya Anne DO 03/06/2021 2:32 PM Medications Administered Piperacillin Sod/Tazobactam (Sod 3.375 gm/ Dextrose) 115 mls @ 28.75 mls/hr IV Q8H [facility]; Protocol Stop: 03/13/21 17:59 Last Admin: 03/06/21 18:25 Dose: 28.8 mls/hr Documented by: [id number] Discontinued Medications Famotidine (Famotidine 20mg/5ml Iv Push) Confirm Administered Dose 20 mg IV .STK-MED ONE Stop: 03/06/21 09:53 Last Admin: 03/06/21 09:53 Dose: Not Given Documented by: [id number] Hydromorphone HCl (Hydromorphone Inj 0.5 Mg/0.5 Ml Syr) 0.5 mg IV NOW STA Stop: 03/06/21 13:05 Last Admin: 03/06/21 13:15 Dose: 0.5 mg Documented by: [id number] Famotidine 20 mg/ Syringe 5 mls @ 2.5 mls/min IV NOW STA Stop: 03/06/21 09:21 Last Admin: 03/06/21 09:53 Dose: 2.5 mls/min Documented by: [id number] Piperacillin Sod/Tazobactam Sod (Zosyn) 4.5 gm in 120 mls @ 240 mls/hr IV NOW ONE Stop: 03/06/21 13:33 Last Infusion: 03/06/21 13:58 Dose: 240 mls/hr Documented by: [id number] Admin: 03/06/21 13:27 Dose: 240 mls/hr Documented by: [id number] Sodium Chloride (Nss 1000ml) 500 mls @ 999 mls/hr IV .Q31M ONE Stop: 03/06/21 13:34 Last Infusion: 03/06/21 13:44 Dose: 999 mls/hr Documented by: [id number] Admin: 03/06/21 13:13 Dose: 999 mls/hr Documented by: [id number] Sodium Chloride (Nss 1000ml) 1,000 mls @ 125 mls/hr IV .Q8H SETH Stop: 04/05/21 13:14 Last Infusion: 03/06/21 17:41 Dose: 0 mls/hr Documented by: [id number] Admin: 03/06/21 14:02 Dose: 125 mls/hr Documented by: [id number] Ioversol (Optiray 320 125ml) 118 ml IV ONCE ONE Stop: 03/06/21 11:31 Last Admin: 03/06/21 11:30 Dose: 118 ml Documented by: [id number] Ondansetron HCl (Ondansetron Inj 2 Mg/Ml 2 Ml Vial) 4 mg IV NOW STA Stop: 03/06/21 13:05 Last Admin: 03/06/21 13:16 Dose: 4 mg Documented by: [id number] Potassium Chloride (Potassium Chloride Crtab 20 Meq Tabcr) 40 meq PO NOW STA Stop: 03/06/21 17:04 Last Admin: 03/06/21 18:25 Dose: 40 meq Documented by: [id number] ECG Additional Comments: Vent. Rate : 065 BPM Atrial Rate : 065 BPM P-R Int : 190 ms QRS Dur : 090 ms QT Int : 392 ms P-R-T Axes : 052 -22 043 degrees QTc Int : 407 ms Normal sinus rhythm Minimal voltage criteria for LVH, may be normal variant Borderline ECG Code Status & VTE Plan Code Status CODE: FULL VTE: SCD's, Ambulation, Heparin 5000units SQ TID Supervising Physician Co-Signing Physician Notes Attending Attestation - Pt seen/examined, chart reviewed, care plan d/w MARK Riley. I agree w/ the [place] components of his documentation except - -would hold HCTZ due to hyponatremia, low K, and thus far poor oral intake; BPs are also low-normal at times Pleasant 75yo female - POD #1 s/p lap appy - who presented back to ER today due to several complaints including neck & jaw pain/stiffness along with abdominal pain. While in the ER she was noted to have O2 sats in the upper 80s; improved with small amount of NC O2. CTA chest with bilateral basilar infiltrates and right hemidiaphragm elevation. CT a/p - no concerning acute findings. During my bedside visit she reported her neck/jaw discomforts/stiffness were better. Abd pain mild only. Tolerated dinner. PMH, PSH, allergies, meds, sochx, famhx - reviewed gen - NAD mouth - MM dry neck - no JVD; passive ROM largely intact and without tenderness; no trismus heart - RRR, s1 s2 lungs - mild b/l basilar rales, modestly decreased BS right base abd - BS+ but decreased; mild incisional tenderness; incisions c/d/i no erythema of any incision ext - no edema labs reviewed imaging reviewed EKG - no ST changes A/P: 1. POD #1 s/p lap appy 2. neck/jaw discomfort - suspect due to manipulation of head/neck during intubation for surgery as well as positioning on table. Symptoms already improved. CT neck and face w/o concerning findings. DJD present but all appears chronic. Troponin negative. The jaw pain lasted for many hours - this is not c/w ischemic heart symptoms. 3. b/l infiltrates on CT chest - this may represent aspiration pneumonitis. Agree w/ zosyn. 4. hemidiaphragm elevation on right - NEW - etiology of this?? uncertain how phrenic nerve injury could have occurred with the type of surgery she had. Repeat cxr in am. Aggressive pulmonary toilet (IS). Consider formal pulmonary consult for this especially if cxr tomorrow shows persistent elevation. 5. HYPONATREMIA - likely due to volume depletion and concomitant HCTZ use. HOLD HCTZ for now. repeat bmp am. did receive isotonic fluids today. Matt Espinosa MD PG Care Time/CCT Total # of Minutes Spent Total Time Spent with Patient: Total time spent is greater than 50% in coordination of care (as documented) at patient's floor/unit and/or counseling patient: Coding Level of Care Code 67165 Initial Inpt Care Lvl 3 Diagnoses S/P appendectomy Z90.49 Cervicalgia M54.2 Elevated hemidiaphragm J98.6 HTN (hypertension) I10 Hypertension type: unspecified Depression with anxiety F41.8 Pneumonia J18.9 Laterality: bilateral Lung location: unspecified part of lung Pneumonia type: due to unspecified organism Gastroesophageal reflux disease K21.9 Esophagitis presence: without esophagitis Hyperlipemia E78.5 Hyperlipidemia type: unspecified Spinal stenosis M48.07 Spinal region: lumbosacral Degenerative joint disease (DJD) of hip M16.0 Laterality: bilateral Osteoarthritis type: unspecified Hypokalemia E87.6 (1) Hyperlipemia Hyperlipidemia type: unspecified Qualified Code(s): E78.5 - Hyperlipidemia, unspecified (2) Degenerative joint disease (DJD) of hip Laterality: bilateral Osteoarthritis type: unspecified Qualified Code(s): M16.0 - Bilateral primary osteoarthritis of hip (3) Spinal stenosis Spinal region: lumbosacral Qualified Code(s): M48.07 - Spinal stenosis, lumbosacral region (4) Gastroesophageal reflux disease Esophagitis presence: without esophagitis Qualified Code(s): K21.9 - Gastro- esophageal reflux disease without esophagitis (5) HTN (hypertension) Hypertension type: unspecified Qualified Code(s): I10 - Essential (primary) hypertension (6) Pneumonia Laterality: bilateral Lung location: unspecified part of lung Pneumonia type: due to unspecified organism Qualified Code(s): J18.9 - Pneumonia, unspecified organism
[2021-03-06] MEDS ORDERED: POTASSIUM CHLORIDE CRTAB 20 MEQ TABCR PO STA ×2 (17:03→20:44)
[2021-03-06] MEDS: PIPERACILLIN/TAZOBACTAM 3.375 GM in DEXTROSE 5% 100 ML IV SCH (18:25)
--- NOTE | 2021-03-06 21:15 | CT Scan Report ---
CT OF THE CERVICAL SPINE CLINICAL HISTORY: cervicalgia and jaw pain COMPARISON STUDY: No previous studies for comparison. CT DOSE: TECHNIQUE: CT scan of the cervical spine was performed from the skull base to the thoracic inlet. Mary ges are reviewed in the axial, sagittal, and coronal planes. IV contrast was not administered for thi s examination. A dose lowering technique was utilized adhering to the principles of ALARA. FINDINGS: The visualized portions of the lung apices reveal no evidence of pneumothorax. The prevertebral soft tissues are normal. No fractures or subluxations are visualized. There is mild loss of normal cervical lordosis. Intervertebral disc space narrowing are seen at the C 5-C6 and C6-7 level with posterior osteophytes. Multilevel atrophic changes of the uncovertebral and facet joints are seen. C2-C3: Intervertebral disc space is preserved. Central canal and bilateral neuroforamina are patent. C3-C4: Intervertebral disc spaces preserved. Mild bulge of the disc is seen. Central canal and bilate ral neuroforamina are patent. C4-C5: Intervertebral disc space is preserved. Diffuse bulge of the disc is demonstrated. Central can al and bilateral neuroforamina are patent. C5-C6: Intervertebral disc space is narrowed with posterior osteophytes. Diffuse bulge of the disc is seen causing mild stenosis of the central canal. Mild narrowing of the right neural foramina. Left n euroforamina is patent. C6-C7: Intervertebral disc space narrowing is seen with posterior osteophytes and possibly diffuse bu lge of the disc causing mild stenosis of the central canal. Bilateral neural foramina appear patent. C7-T1: Intervertebral disc spaces preserved. Minimal anterolisthesis of C7 on T1 is seen. Central can al is patent. Possible minimal narrowing of bilateral neuroforamina are seen at this level. IMPRESSION: No evidence of acute fracture or traumatic subluxation. Multilevel degenerative changes as detailed above. ACT 112: Negative or not required by law. The above report was generated using voice recognition software. It may contain grammatical, syntax o r spelling errors. Electronically signed by: Vijaya Anne DO 03/06/2021 9:14 PM
[2021-03-06] MEDS: HEPARIN SOD 5,000 UNIT/0.5 ML VIAL SQ SCH (21:32)
--- NOTE | 2021-03-06 21:35 | Surgery Consultation ---
Date of Consultation March 06, 2021 Assessment & Plan (1) S/P appendectomy: Patient has been admitted to the hospital service due to her ongoing complaints. Patient has some postoperative abdominal pain which is expected for the this point in her recovery. I not feel there are any acute surgical issues. Concerning patient's elevated hemidiaphragm noted on chest x-ray plans are noted for repeat chest x-ray tomorrow. If patient's elevated hemidiaphragm is persistent this can be further evaluated with a sniff test Turning patient's jaw and neck pain this may be secondary to positioning the OR table. Analgesics can be provided. We will continue to follow the patient is hospitalized History of Present Illness Reason for Consultation: Readmission status post appendectomy Attending Physician: Matt Espinosa History of Present Illness This is a 75-year female who underwent an appendectomy in a laparoscopic fashion by Dr. Jones on 03/05/2021. Patient returned to the emergency department today as the patient was noting some pain in her jaw and increasing neck pain. She does note that she does have some chronic neck pain. Concerning her jaw pain she said it is difficult to chew pills and and eat food. She denied any dysphagia however. Concerning patient's neck pain she did not note any weakness in her arms. She also denies any numbness or tingling in her arms. She notes that her neck pain is worse with range of motion. She also notes some abdominal pain near her surgical incisions but she denies any nausea or vomiting and says she was able to eat solid food. In the emergency department patient had labs and imaging which" reviewed. She did have a CT scan of her chest that showed no evidence of pulmonary emboli. She did have some peribronchovascular consolidation in bilateral in the lower lobes of her lungs which was felt to represent an infectious or inflammatory process. A CT scan of her abdomen showed a small umbilical hernia containing some nondilated loops of bowel. Cervical spine CT scan showed no evidence of acute fractures or subluxations. Patient is also scheduled to have facial CT scan with results pending. In addition a chest x-ray was performed that showed elevation of her right hemidiaphragm. Labs included a CBC where her white blood cell count and hemoglobin were normal. In addition her platelet count was noted to be normal. Chemistry profile showed her sodium and potassium were both low at 132 and 3.3. Her BUN and creatinine were both normal. There is no elevation of her LFTs. Troponin levels were checked and were not elevated. A Covid test was performed and was noted to be negative. An EKG was performed that showed normal sinus rhythm without any ischemic changes. At the time of my interview she was resting comfortably in bed in no distress. Allergies Allergy/AdvReac Type Severity Reaction Status Date / Time adhesive Allergy Intermediate RED, Verified 03/06/21 10:49 PAINFUL SKIN levofloxacin Allergy Intermediate RASH/ITCHY Verified 03/06/21 10:49 nickel Allergy Intermediate ITCHING Verified 03/06/21 10:49 celecoxib [From Celebrex] AdvReac Intermediate DIGESTIVE Verified 03/06/21 10:49 ISSUES codeine AdvReac Intermediate SEVERE Verified 03/06/21 10:49 NAUSEA AND VOMITING metoclopramide [From Reglan] AdvReac Intermediate Depression Verified 03/06/21 10:49 sulfamethoxazole AdvReac Intermediate DIGESTIVE Verified 03/06/21 10:49 [From Bactrim] ISSUES trimethoprim [From Bactrim] AdvReac Intermediate DIGESTIVE Verified 03/06/21 10:49 ISSUES Home Medications Medication Instructions Recorded Confirmed Type docusate sodium 200 mg PO QAM 07/27/18 03/06/21 History esomeprazole magnesium 20 mg PO QAM 07/27/18 03/06/21 History Systane Complete 1 drp OPHTHALMIC (EYE) QID 01/14/19 03/06/21 History bupropion HCl 100 mg tablet 100 mg PO DAILY #90 tab 04/14/20 03/06/21 Rx losartan 100 mg tablet 100 mg PO DAILY #90 tab 04/29/20 03/06/21 Rx citalopram 20 mg tablet 20 mg PO QAM #90 tab 01/18/21 03/06/21 Rx hydrochlorothiazide 25 mg tablet 25 mg PO QAM #90 tab 03/02/21 03/06/21 Rx amlodipine 5 mg PO QAM 03/04/21 03/06/21 History diphenhydramine-acetaminophen 1 tab PO HS PRN 03/04/21 03/06/21 History [Tylenol PM Extra Strength] multivitamin 1 tab PO DAILY 03/04/21 03/06/21 History turmeric root extract 1,000 mg PO DAILY 03/04/21 03/06/21 History amoxicillin-pot clavulanate 1 tab PO BID #10 tab 03/05/21 03/06/21 Rx [Augmentin] oxycodone-acetaminophen [Percocet] 1 tab PO Q6H PRN #30 tab 03/05/21 03/06/21 Rx Patient History Medical History Depression Elevated BP without diagnosis of hypertension ED VISIT 07/2018/[facility] HEART BEAT,CHEST PRESSURE, BP "181" GERD (gastroesophageal reflux disease) History of diverticulitis HTN (hypertension) Osteoarthritis Spinal stenosis Umbilical hernia Surgical History H/O breast biopsy RIGHT - BENIGN - AGE 61 H/O elbow surgery RIGHT - FOR TENNIS ELBOW - AGE 49 History of carpal tunnel release RIGHT - AGE 49 History of colonoscopy History of dilation and curettage Age 27 History of hysterectomy AGE 38 History of laparoscopic cholecystectomy AGE 62 History of laparotomy RUPTURED ECTOPIC - AGE 36 History of lumbar fusion L4-L5 09/05/18 - MAC #3, ETT #7.0, Grade 1 View History of partial colectomy Age 65 06/29/11 - ETT #7.0 History of tonsillectomy and adenoidectomy AGE 11 History of tubal ligation LAP - AGE 29 Family History Father , age 79 Myocardial infarction Daughter Crohn's disease Mother Hypertension Leukocytosis Hypercholesterolemia Stroke Thrombocytosis Father Stroke Other No pertinent family history Denies family history of Ovarian cancer Prostate cancer Breast cancer Colorectal cancer Social History Smoking Status: Never smoker Second Hand Exposure: No; Hx Alcohol Use: No Hx Substance Use: No Preferred Language: Georgian Communication Ability: Effective Visual Impairment: No Limitations Hearing Ability: Normal Roll Former Required: No Beliefs That Will Affect Care: None marital status: Current Living Situation: Spouse current occupational status: retired 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 [employer] Other Information That Helps Us Care for You: No Feels Safe at Home: Yes Safety Concerns: Feels Safe At This Time Childhood Exposure to Second-Hand Smoke: Yes Diet Comment: clean eating, free of chemicals Dental Care, Regularly: Yes Physical Activity Frequency: Does not Exercise Seatbelt Use: always Sunscreen Use: No Assistive Devices: Glasses and Oxygen - Continuous Review of Systems Constitutional: no fever and no chills Eyes: no diplopia Ear, Nose, Mouth, Throat: no ear pain and no dysphagia Jaw pain Respiratory: no cough and no dyspnea Cardiovascular: no chest pain Gastrointestinal: + abdominal pain (Incisional); no nausea and no vomiting Genitourinary: no dysuria Musculoskeletal: no back pain Integumentary: no rash Neurologic: no localized weakness Physical Exam Constitutional: well developed and well nourished; no acute distress Eyes: no conjunctival abnormality ENMT: Ears: no hearing impairment Neck: trachea midline; no tracheal deviation and no neck crepitus Respiratory: normal respiratory effort; no respiratory distress and no labored breathing Cardiovascular: Rate/Rhythm: regular rate and regular rhythm Gastrointestinal (Abdomen): Abdomen is soft and nondistended. 3 laparoscopic incisions were noted that were all well-healed. Patient had some minor pain with palpation near her surgical incisions. Musculoskeletal: No calf tenderness Skin: no rashes, warm and dry Neurologic: moves all extremities Patient's upper extremities were examined. She had 5+ muscle strength in all muscle groups. She had intact sensation in her upper extremities in all dermatomes. Psychiatric: A+Ox3, euthymic affect Results & Data ([facility]) Vital Signs (Past 12 Hours) Vital Signs Temp Pulse Pulse Resp BP BP Pulse Ox 03/06/21 17:20 36.9 C 65 20 136/74 96 03/06/21 16:50 62 18 94 03/06/21 16:40 61 95 03/06/21 16:30 63 18 95 03/06/21 16:20 61 15 95 03/06/21 16:10 61 15 94 03/06/21 16:00 63 17 91 03/06/21 15:59 63 16 93 03/06/21 15:58 67 18 126/68 03/06/21 15:57 83 20 03/06/21 15:40 63 14 93 03/06/21 15:30 63 12 94 03/06/21 15:20 61 12 96 03/06/21 15:10 67 19 93 03/06/21 15:00 66 20 97 03/06/21 14:50 61 14 94 03/06/21 14:40 62 14 95 03/06/21 14:30 71 17 97 03/06/21 14:20 61 16 03/06/21 14:19 64 16 88 L 03/06/21 14:18 64 16 125/61 87 L 03/06/21 14:17 64 17 126/63 87 L 03/06/21 14:16 68 12 88 L 03/06/21 14:00 64 22 03/06/21 13:50 71 15 03/06/21 13:40 69 14 03/06/21 13:30 68 22 03/06/21 13:20 67 17 03/06/21 13:11 80 22 03/06/21 13:00 68 15 03/06/21 12:50 68 18 03/06/21 12:40 67 18 03/06/21 12:30 70 17 03/06/21 12:20 65 16 03/06/21 12:12 67 15 142/70 H 03/06/21 12:10 65 11 L 03/06/21 12:00 67 65 15 142/70 H 92 03/06/21 11:51 86 22 03/06/21 11:44 74 17 03/06/21 11:30 64 14 03/06/21 11:20 64 12 03/06/21 11:10 63 15 03/06/21 11:00 63 14 03/06/21 10:50 62 18 03/06/21 10:40 65 25 H 03/06/21 10:30 90 11 L 03/06/21 10:24 66 66 14 137/67 137/67 89 L 03/06/21 10:20 62 13 03/06/21 10:10 65 03/06/21 10:00 62 13 03/06/21 09:50 63 15 03/06/21 09:40 64 14 03/06/21 09:35 67 19 PG Care Time/CCT Total # of Minutes Spent Total Time Spent with Patient: Total time spent is greater than 50% in coordination of care (as documented) at patient's floor/unit and/or counseling patient: Coding Level of Care Code None Diagnoses S/P appendectomy Z90.49
--- NOTE | 2021-03-06 21:37 | CT Scan Report ---
CT facial bones wo con CT DOSE: CLINICAL HISTORY: jaw pain COMPARISON STUDY: No previous studies for comparison. TECHNIQUE: Helical images were acquired in the transverse plane. The study was reviewed and analyzed on the independent 3-D workstation. A dose lowering technique was utilized adhering to the principle s of ALARA. The pterygoid plates appear intact. The zygomatic arches appear intact. The globes appear intact. There is no evidence of orbital emphysema. The orbital bowie and floor appear intact. The mandibular condyles appear intact. No definite acute fractures are seen however there is mottled trabecular pattern which could be due t o osteopenia or represent metabolic abnormalities. Mild patchy lytic appearance of the right sphenoid wing might be related to osteopenia. No definite lesions of the mandible are seen however evaluation is limited due to beam hardening amanda fact from metallic dental hardware. Visualized paranasal sinuses and mastoid air cells are patent and well-aerated. IMPRESSION: No acute fracture or dislocation. Findings as detailed above most likely related to osteopenia. ACT 112: Negative or not required by law. The above report was generated using voice recognition software. It may contain grammatical, syntax o r spelling errors. Electronically signed by: Vijaya Anne DO 03/06/2021 9:36 PM
[2021-03-06] MEDS: oxyCODONE/ACETAMINOPHEN 5mg/325mg TAB PO PRN (22:29)
[2021-03-07] MEDS: PIPERACILLIN/TAZOBACTAM 3.375 GM in DEXTROSE 5% 100 ML IV SCH ×2 (02:24→10:41)
[2021-03-07 05:49] LABS: Basophils # (auto) 0.03 K/uL (0-0.2); Basophils % (auto) 0.5 %; Eosinophils # (auto) 0.15 K/uL (0-0.5); Eosinophils % (auto) 2.6 %; Hematocrit (blood only) 36.5 % (37-47); Hemoglobin 12.2 g/dL (12.0-16.0); Immature Granulocytes # (auto) 0.01 K/uL (0.00-0.02); Immature Granulocytes % (auto) 0.2 %; Lymphocytes # (auto) 2.07 K/uL (1.2-3.4); Mean Corpuscular Hgb Conc 33.4 g/dL (32-36); Mean Corpuscular Volume 89.7 fL (80-100); Mean Platelet Volume 8.6 fL (7.4-10.4); Monocytes # (auto) 0.58 K/uL (0.11-0.59); Monocytes % (auto) 10.1 %; Neutrophils # (auto) 2.91 K/uL (1.4-6.5); Neutrophils % (auto) 50.6 %; Platelet Count 235 K/uL (130-400); RDW Coefficient of Variation 13.2 % (11.5-14.5); RDW Standard Deviation 42.9 fL (36.4-46.3); Red Blood Count 4.07 M/uL (4.2-5.4); White Blood Count 5.75 K/uL (4.8-10.8)
[2021-03-07] MEDS: HEPARIN SOD 5,000 UNIT/0.5 ML VIAL SQ SCH ×3 (06:21→21:09)
[2021-03-07 06:26] LABS: BUN Creatinine Ratio 12.3 (10-20); Calcium 8.4 mg/dl (8.5-10.1); Creatinine Clr Calc Pharmacy 72.1 ml/min; Est GFR (African American) 86.8 ml/min; Est GFR (Non-African American) 74.9 ml/min; Magnesium 2.3 mg/dl (1.8-2.4); Potassium 4.5 mmol/L (3.5-5.1)
[2021-03-07 06:40] LABS: Appearance Urine Clear (Clear); Bacteria Urine Automated Negative (Negative); Bilirubin Urine Negative (Negative); Blood Urine Negative (Negative); Color Urine Yellow; Glucose Urine UA Negative (Negative); Ketones Urine Negative (Negative); Leukocyte Esterase Urine Trace (Negative); Nitrite Urine Negative (Negative); Protein Urine Negative (Negative); RBC Urine Automated 0-4 /hpf (0-4); Specific Gravity Urine 1.013 (1.000-1.030); Urobilinogen Urine Negative (Negative); pH Urine 6.5 (4.5-7.5)
--- NOTE | 2021-03-07 07:03 | Surgery Progress Note ---
Date of Service March 07, 2021 Assessment & Plan (1) S/P appendectomy: Patient has been admitted to the hospital service due to her ongoing complaints. Patient's postoperative pain has improved somewhat. This appears to be normal postoperative pain which is expected for this phase in her recovery. Patient does have a postoperative chest x-ray for this morning pending to evaluate elevated right hemidiaphragm. If this persists consideration can be given to performing a sniff test. Remainder of plan as directed by the primary service We will continue to follow the patient is hospitalized As above. Still with some jaw discomfort but much improved. CT of the face essentially negative. Her abdomen is soft with some expected incisional tenderness. She states her abdominal pain is improving. No nausea. At this point no surgical issues but we will continue to follow along. Admission and Anticipated Discharge Date Admission Date: March 06, 2021 Subjective The patient denies any nausea or vomiting. She denies any worsening abdominal pain. She notes the jaw pain that prompted her to seek medical attention has improved somewhat. She denies any worsening neck pain. Physical Exam Gastrointestinal (Abdomen): Patient's abdomen is soft and nondistended. She d oes have pain with palpation near her surgical incisions. There is no rebound tenderness or guarding. Results & Data ([facility]) Vital Signs (Past 12 Hours) Vital Signs Temp Pulse Resp BP Pulse Ox 03/07/21 06:53 36.6 C 60 16 120/73 92 03/06/21 22:43 36.7 C 66 18 126/77 91 PG Care Time/CCT Total # of Minutes Spent Total Time Spent with Patient: Total time spent is greater than 50% in coordi nation of care (as documented) at patient's floor/unit and/or counseling patient: Coding Level of Care Code None Diagnoses S/P appendectomy Z90.49
[2021-03-07] MEDS ORDERED: hydroCHLOROthiazide 25 MG TAB PO SCH (09:00)
[2021-03-07] MEDS: buPROPion HCl 100 MG TABLET PO SCH (10:16)
[2021-03-07] MEDS: amLODIPine BESYLATE 5 MG TAB PO SCH (10:16)
[2021-03-07] MEDS: LOSARTAN POTASSIUM 50 MG TAB PO SCH (10:17)
[2021-03-07] MEDS: DOCUSATE SODIUM 100 MG CAP PO SCH (10:17)
[2021-03-07] MEDS: CITALOPRAM 20 MG TAB PO SCH (10:17)
[2021-03-07] MEDS: PANTOprazole 40 MG TAB PO SCH (10:18)
--- NOTE | 2021-03-07 10:18 | XRay Report ---
XR chest 2V PA/lateral HISTORY: evaluate right hemidiaphragm and bilateral airspace opacities COMPARISON: Chest 03/06/2021. FINDINGS: No pneumothorax. Elevated of the right hemidiaphragm, unchanged. Bibasilar linear densities have improved. No evidence for pulmonary edema. The heart remains mildly enlarged. Prior cholecystec ashwini. Trace bilateral pleural fusions. IMPRESSION: 1. Elevation of the right hemidiaphragm, unchanged. 2. Improved aeration within the lung bases suggestive of resolving bibasilar atelectasis. 3. Trace bilateral pleural effusions. ACT 112: Negative or not required by law. Electronically signed by: Mauro Clark M.D. 03/07/2021 10:17 AM
--- NOTE | 2021-03-07 12:36 | Discharge Summary ---
Date of Service March 07, 2021 Admission HPI Per Admitting Provider 75 YOF s/p laproscopic appendectomy, discharged on . Patient returns today for complaints of pain opening her jaw this morning associated with increasing in her chronic neck pain. She is also still having some bloating feeling and abdominal pain around her incision sites. The patient endorses that she has not been up much since her surgery and is in general feeling more stiff. She is passing flatus, but no BM yet. She feels as though her pain is controlled. SHe denies any coughs or chest pain, or feeling short of breath. Her pain in her jaw is improved but still feels stiff, no difficulty swallowing. For her neck pain she feels it along the left side and front more, but doesn't, this has not limited her ROM; and she also does not endorse any numbness/tingling in her fingers or difficulty in picking objects up or performing her ADLS. In the EMD the patient had a CT scan of chest and abdomen performed and CXR done. SHe was noted to have a josefina-right diaphragm on her CXR and bilateral ground glass opacities in her CTA of her chest- Atelectasis vs. Pneumonia. Patient will be admitted to further evaluate her cervicalgia, Antibiotic coverage for her pulmonary process, as well as following pain control and return of bowel function following surgery. General surgery has been consulted to follow her process. Discharge Data Allergies Allergy/AdvReac Type Severity Reaction Status Date / Time adhesive Allergy Intermediate RED, Verified 03/06/21 10:49 PAINFUL SKIN levofloxacin Allergy Intermediate RASH/ITCHY Verified 03/06/21 10:49 nickel Allergy Intermediate ITCHING Verified 03/06/21 10:49 celecoxib [From Celebrex] AdvReac Intermediate DIGESTIVE Verified 03/06/21 10:49 ISSUES codeine AdvReac Intermediate SEVERE Verified 03/06/21 10:49 NAUSEA AND VOMITING metoclopramide [From Reglan] AdvReac Intermediate Depression Verified 03/06/21 10:49 sulfamethoxazole AdvReac Intermediate DIGESTIVE Verified 03/06/21 10:49 [From Bactrim] ISSUES trimethoprim [From Bactrim] AdvReac Intermediate DIGESTIVE Verified 03/06/21 10:49 ISSUES Consultations 03/06/21 14:22 ED Decision to Admit Stat 03/06/21 17:32 Consult General Surgery Routine Ordered Studies 03/06/21 11:06 CT angio chest PE protocol Stat 03/06/21 13:31 CT abd pelvis wo con Stat 03/06/21 17:12 CT cervical spine wo con Routine CT facial bones wo con Routine 03/07/21 11:15 FL sniff test Urgent Discharge Plan Discharge Items Reason For Visit: NECK PAIN Medications and DC Order Prescriptions: No Action bupropion HCl 100 mg tablet 100 mg PO DAILY Qty: 90 RF: 3 losartan 100 mg tablet 100 mg PO DAILY Qty: 90 RF: 3 citalopram 20 mg tablet 20 mg PO QAM Qty: 90 RF: 3 hydrochlorothiazide 25 mg tablet 25 mg PO QAM Qty: 90 RF: 2 docusate sodium 100 mg Tablet 200 mg PO QAM RF: 0 esomeprazole magnesium 20 mg Tablet,Delayed Release (Dr/Ec) 20 mg PO QAM RF: 0 Systane Complete 0.6 % Drops 1 drp OPHTHALMIC (EYE) QID RF: 0 multivitamin Tablet 1 tab PO DAILY RF: 0 amlodipine 5 mg tablet 5 mg PO QAM RF: 0 diphenhydramine-acetaminophen [Tylenol PM Extra Strength] 25-500 mg Tablet 1 tab PO HS PRN (Reason: Sleep) RF: 0 turmeric root extract 500 mg Capsule 1,000 mg PO DAILY RF: 0 oxycodone-acetaminophen [Percocet] 5-325 mg tablet 1 tab PO Q6H PRN (Reason: pain) Qty: 30 RF: 0 amoxicillin-pot clavulanate [Augmentin] 500-125 mg tablet 1 tab PO BID Qty: 10 RF: 0 Admission Data Admit Date/Time: 03/06/21 16:06 Attending Provider: Walter Caballero Admit Provider: Matt Espinosa Primary Care Provider: Jonah Liriano Other Providers: Matt Espinosa ; Blake Fairbanks
--- NOTE | 2021-03-07 16:29 | Hospitalist Progress Note ---
Date of Service March 07, 2021 Assessment & Plan (1) Hypokalemia: (1) S/P appendectomy: Laparoscopic appendectomy done [id number] - Surgical incisions with no drainage or erythema or pain out of proportion to site - Was sent home on Augmentin - Pain controlled - Passing flatus, no BM yet - No nausea - Augmentin changed to Zosyn IV initially for concern of pneumonia have since changed back. - Hernia unchanged from prior imaging (2) Cervicalgia: Patient with history of cervicalgia pain and discomfort - Her neck pain is more stiff than normal as she is used to being up and around - Full range of motion without stiffness - No TMJ - No involvement of inside of mouth or roof of floor of mouth. - CT scan of neck and sof tissues without acute process but clear degenerative changes - The pain to her bottom jaw and side of her neck was reproducible with palpation of her trapezius and splenius capitus muscles - this most likely is related to positioning during and after the case with decreased movement exacerbting a chronic problem. - Tylenol and Kpad heating for now -Much improved today compared with yesterday (3) Hypoxemic Respiratory Failure with newly Elevated hemidiaphragm: Etiology unclear at this time- ? relation with laparoscopic pneumoperitoneum and air under diaphragm - CT of neck as above, no other focal findings consistent with neck injury; trauma - Repeat PA/LAT this morning shows persistent elevated hemidaphragm - NIFS normal - Gets hypoxic occasionally that resolves with deep breath, asymptomatic, walked patient around hallway and dropped as low as 81 but never became symptomatic - Sniff Fluoroscopy ordered for tomorrow morning - May need two step for home oxygen upon discharge (4) HTN (hypertension): Controlled - Continue Losartan - Continue HCTZ - Continue Amlodipine (5) Depression with anxiety: She overall feels in good spirits just feels like she is starting to get older - Continue Citalopram and Bupropion (6) Lower Lobe Consolidation Bilateral lower bases- this may be atelectasis in nature vs. Pneumonia vs. aspiration pneumonitis - afebrile, denies any shortness of breath or cough - She did require oxygen while in the EMD procalcitonin negative, negative white count, no other signs of infection This is likely atelectasis following surgery, resumed patient's augmentin. (7) Gastroesophageal reflux disease: Continue esomeprazole or formulary equivalent (8) Hypokalemia: Resolved (9) COnstipation No bowel movement since surgery, is passing gas. will start miralax scheduled DVT PPx: Heparin Dispo: Will watch overnight monitor oxygenation, Sniff fluoroscopy in am, a nticipate 2 step and discharge in Am F/E/N: REgular diet Full Code (2) Elevated hemidiaphragm: (3) Pneumonia: (4) Cervicalgia: (5) S/P appendectomy: (6) Nausea: (7) Leukocytosis: (8) HTN (hypertension): (9) De Quervain's syndrome (tenosynovitis): (10) Diverticulitis of colon: (11) Gastroesophageal reflux disease: Admission and Anticipated Discharge Date Admission Date: March 06, 2021 Supervising Physician Co-Signing Physician Notes Patient seen and examined independently of PGY 3 Dr. Baez. Agree with history, exam findings, assessment and plan of care as outlined. In brief, Ms. Ledbetter is a 75-year-old female who is admitted with abdominal pain right elevated hemidiaphragm following an appendectomy. This morning, she reports that her abdominal pain and neck pain are improving. She denies any dyspnea or chest pain. Denies cough. All signs and nursing notes reviewed Nontoxic-appearing. Heart with regular rate and rhythm. Lungs are clear to auscultation throughout. Do not appreciate any crackles, rales or rhonchi. Abdomen is soft. Minimal tenderness around the incision sites. Incision sites are healing. Labs and imaging reviewed. White count is 5.75. Pro-Calcitonin is negative. Chest x-ray on admission does show right elevated hemidiaphragm. Repeat chest x-ray this morning is of better quality and continues to demonstrate the right elevated hemidiaphragm. 1. Abdominal pain. This is appropriate for postsurgical appendectomy pain. There are no signs of acute infection. She was initially switched from Augmentin to Zosyn. We will switch her back to Augmentin as it does not seem that she needs additional coverage. 2. Cervicalgia. Musculoskeletal in nature. Improving. She does have a history of degenerative changes in the cervical spine. 3. Elevated right hemidiaphragm. Repeat chest x-ray redemonstrated the elevated hemidiaphragm. Her NIF has been appropriate. Sniff fluoro test not able to be done over the weekend. Did have some desat with activity. Will plan to do this Monday. 4. Possible pneumonia. Given the negative pro calcitonin and lack of symptoms consistent with bacterial pneumonia, will discontinue Zosyn. Suspect that this is probably atelectasis that was seen on prior imaging. 5. Constipation. Start MiraLAX. Other chronic issues are stable and home medications are being continued. Disposition: Plan for fluoroscopy in the morning and possible to stent. Po tential for discharge tomorrow. Subjective Ms Olivares is feeling well, she denies any symptoms other than resolving abdominal and neck pain, here jaw pain is completely gone. She has been working on her incentive spirometry and doing well. She has been desaturating into the upper 80's but this resolves with deep breathing. She does not notice any symptoms when she is saturating in the 80's. She was able to ambulate around the chase with me and ropped to 80% on RA but was asymptomatic throughout. Review of Systems Review of Systems: All systems reviewed & are unremarkable except as noted in HPI & below Physical Exam Physical Exam: Constitutional: Well appearing 75 year old woman resting comfortably in bed Eyes: PERRLA, EOMMI b/l ENMT: NAD REspiratory: Faint crackles bilateral lower lung curiel, otherwise vesicular breath sounds and good air entry throughout Cardiovascular: REgular rate regular rhythm, no murmurs rubs skips or gallops, I+ lower limb edema GI: Abdomen mildly tender, soft, incisions clean dry and intact, no sign of infection or drainage. abdomen mildly distended, mildy tender particularly epigastrically Results & Data Results & Data ([facility]) Vital Signs (Past 12 Hours) Vital Signs Temp Pulse Resp BP Pulse Ox Pulse Ox 03/07/21 15:22 92 03/07/21 15:10 89 L 03/07/21 10:02 88 L 03/07/21 07:32 80 16 93 03/07/21 06:53 36.6 C 60 16 120/73 92 Resident Activity Tracking Resident Involvement: Resident Care Provided Care Provided: Adult Hospital Medicine (1) Leukocytosis Leukocytosis type: unspecified Qualified Code(s): D72.829 - Elevated white blood cell count, unspecified (2) Gastroesophageal reflux disease Esophagitis presence: without esophagitis Qualified Code(s): K21.9 - Gastro- esophageal reflux disease without esophagitis (3) HTN (hypertension) Hypertension type: unspecified Qualified Code(s): I10 - Essential (primary) hypertension (4) Pneumonia Laterality: bilateral Lung location: unspecified part of lung Pneumonia type: due to unspecified organism Qualified Code(s): J18.9 - Pneumonia, unspecified organism
[2021-03-07] MEDS: AMOXICILLIN/CLAVULANATE 500 MG TAB PO SCH (16:44)
[2021-03-07] MEDS: POLYETHYLENE (MIRALAX) 17 GM PACK PO SCH (17:08)
[2021-03-07] MEDS: oxyCODONE/ACETAMINOPHEN 5mg/325mg TAB PO PRN (22:27)
[2021-03-08] MEDS: HEPARIN SOD 5,000 UNIT/0.5 ML VIAL SQ SCH (06:04)
[2021-03-08 06:21] LABS: Basophils # (auto) 0.06 K/uL (0-0.2); Basophils % (auto) 0.9 %; Hematocrit (blood only) 37.7 % (37-47); Hemoglobin 12.7 g/dL (12.0-16.0); Immature Granulocytes # (auto) 0.01 K/uL (0.00-0.02); Immature Granulocytes % (auto) 0.2 %; Lymphocytes # (auto) 2.65 K/uL (1.2-3.4); Lymphocytes % (auto) 40.2 %; Mean Corpuscular Hemoglobin 30.2 pg (25-34); Mean Corpuscular Hgb Conc 33.7 g/dL (32-36); Mean Corpuscular Volume 89.8 fL (80-100); Mean Platelet Volume 8.6 fL (7.4-10.4); Monocytes # (auto) 0.45 K/uL (0.11-0.59); Monocytes % (auto) 6.8 %; Neutrophils # (auto) 3.22 K/uL (1.4-6.5); Neutrophils % (auto) 48.9 %; Platelet Count 268 K/uL (130-400); RDW Standard Deviation 42.2 fL (36.4-46.3); White Blood Count 6.59 K/uL (4.8-10.8)
[2021-03-08 06:54] LABS: BUN Creatinine Ratio 15.3 (10-20); Calcium 9.2 mg/dl (8.5-10.1); Creatinine Clr Calc Pharmacy 66.2 ml/min; Est GFR (African American) 78.2 ml/min; Est GFR (Non-African American) 67.5 ml/min; Magnesium 2.3 mg/dl (1.8-2.4)
--- NOTE | 2021-03-08 07:33 | Hospitalist Progress Note ---
Date of Service March 08, 2021 Assessment & Plan Admission and Anticipated Discharge Date Admission Date: March 06, 2021 Results & Data Results & Data ([facility]) Vital Signs (Past 12 Hours) Vital Signs Temp Pulse Resp BP Pulse Ox 03/07/21 22:40 36.7 C 71 20 135/75 91
[2021-03-08] MEDS: AMOXICILLIN/CLAVULANATE 500 MG TAB PO SCH (08:29)
[2021-03-08] MEDS: amLODIPine BESYLATE 5 MG TAB PO SCH (08:29)
[2021-03-08] MEDS: buPROPion HCl 100 MG TABLET PO SCH (08:30)
[2021-03-08] MEDS: CITALOPRAM 20 MG TAB PO SCH (08:30)
[2021-03-08] MEDS: LOSARTAN POTASSIUM 50 MG TAB PO SCH (08:31)
[2021-03-08] MEDS: PANTOprazole 40 MG TAB PO SCH (08:31)
[2021-03-08] MEDS: DOCUSATE SODIUM 100 MG CAP PO SCH (08:32)
[2021-03-08] MEDS: POLYETHYLENE (MIRALAX) 17 GM PACK PO SCH (08:32)
--- NOTE | 2021-03-08 10:10 | Fluoroscopy Report ---
FL sniff test CLINICAL HISTORY: Hemidiaphragmatic paralysis COMPARISON STUDY: Chest x-ray dated 03/07/2021 FLUOROSCOPY TIME: 12 seconds. NUMBER OF FLUOROSCOPIC IMAGES: FINDINGS: There is elevation of the right hemidiaphragm. Only minimal motion is noted during inspirat ion. There is no evidence of paradoxical motion. IMPRESSION: 1. Elevation of the right hemidiaphragm with diminished motion, but without evidence of paradoxical m otion ACT 112: Negative or not required by law. Electronically signed by: Ruben Oquendo M.D. 03/08/2021 10:08 AM
--- NOTE | 2021-03-08 11:32 | Surgery Progress Note ---
Date of Service S/P laparoscopic appendectomy, POD 4, pt re-admit to hospital for jaw pain and umbilical incision pain, now pt feels much better, no fever, normal WBC, passed BM, March 08, 2021 Assessment & Plan Admission and Anticipated Discharge Date Admission Date: March 06, 2021 Supervising Physician Co-Signing Physician Notes Patient seen and examined independently of PGY 3 Dr. Baez. Agree with history, exam findings, assessment and plan of care as outlined. In brief, Ms. Ledbetter is a 75-year-old female who is admitted with abdominal pain right elevated hemidiaphragm following an appendectomy. This morning, she reports that her abdominal pain and neck pain are improving. She denies any dyspnea or chest pain. Denies cough. All signs and nursing notes reviewed Nontoxic-appearing. Heart with regular rate and rhythm. Lungs are clear to auscultation throughout. Do not appreciate any crackles, rales or rhonchi. Abdomen is soft. Minimal tenderness around the incision sites. Incision sites are healing. Labs and imaging reviewed. White count is 5.75. Pro-Calcitonin is negative. Chest x-ray on admission does show right elevated hemidiaphragm. Repeat chest x-ray this morning is of better quality and continues to demonstrate the right elevated hemidiaphragm. 1. Abdominal pain. This is appropriate for postsurgical appendectomy pain. There are no signs of acute infection. She was initially switched from Augmentin to Zosyn. We will switch her back to Augmentin as it does not seem that she needs additional coverage. 2. Cervicalgia. Musculoskeletal in nature. Improving. She does have a history of degenerative changes in the cervical spine. 3. Elevated right hemidiaphragm. Repeat chest x-ray redemonstrated the elevated hemidiaphragm. Her NIF has been appropriate. Sniff fluoro test not able to be done over the weekend. Did have some desat with activity. Will plan to do this Monday. 4. Possible pneumonia. Given the negative pro calcitonin and lack of symptoms consistent with bacterial pneumonia, will discontinue Zosyn. Suspect that this is probably atelectasis that was seen on prior imaging. 5. Constipation. Start MiraLAX. Other chronic issues are stable and home medications are being continued. Disposition: Plan for fluoroscopy in the morning and possible to stent. Potential for discharge tomorrow. 03/08/2021 11:33AM, Dr. Shultz S/P lap appy, POD 4 doing better, no fever, normal WBC, pt can be discharged home today from surgical point, F/U me 2 weeks, continue po antibiotic, Juan,s [phone] Subjective Ms Olivares is feeling well, she denies any symptoms other than resolving abdominal and neck pain, here jaw pain is completely gone. She has been working on her incentive spirometry and doing well. She has been desaturating into the upper 80's but this resolves with deep breathing. She does not notice any symptoms when she is saturating in the 80's. She was able to ambulate around the chase with me and ropped to 80% on RA but was asymptomatic throughout. Physical Exam Constitutional: WD/WN, vitals as above well developed and well nourished Eyes: PERRL, conjunctivae normal, anicteric sclerae Neck: trachea midline, no thyromegaly Respiratory: normal respiratory effort, lungs clear to auscultation normal respiratory effort Cardiovascular: RRR, no murmur, no edema Gastrointestinal (Abdomen): normal bowel sounds, soft, nontender, no hepatosplenomegaly Percussion/Palpation: abdomen soft mild tenderness umbilical incision site, no redness, no drainage, Musculoskeletal: no cyanosis or clubbing, extremities motor strength 5/5 Neurologic: awake Psychiatric: Orientation: alert and oriented x 3 Results & Data ([facility]) Vital Signs (Past 12 Hours) Vital Signs Temp Pulse Resp BP Pulse Ox 03/08/21 07:57 36.8 C 64 18 130/[address] SCAN OF THE ABDOMEN AND PELVIS WITHOUT CONTRAST CLINICAL HISTORY: epigastric pain, post operative appy 36 hours COMPARISON STUDY: March 04, 2021 TECHNIQUE: CT scan of the abdomen and pelvis was performed from the lung bases to the proximal femurs. Images are reviewed in the axial, sagittal, and coronal planes. IV contrast was not administered for this examination. A dose lowering technique was utilized adhering to the principles of ALARA. CT DOSE: 885.86 mGy.cm FINDINGS: Lower chest: Interval worsening of atelectasis in bilateral bases. Liver: The unenhanced liver is normal in size, contour, and attenuation. There is no intrahepatic biliary ductal dilatation. Gallbladder: Surgically absent Spleen: Normal in size and attenuation. Pancreas: Unremarkable. Adrenal glands: Unremarkable. Kidneys: No evidence of hydronephrosis. Stable right renal cyst. Excreted intravenous contrast is seen within bilateral renal pelvises and urinary bladder likely due to recent contrast-enhanced CT of the abdomen performed the day before yesterday. Bowel: Bowel loops are nondilated. Umbilical hernia containing nondilated loops of small bowel are again seen. Appendix is surgically absent. Interval development of fat stranding surrounding supraumbilical aspect of anterior abdominal wall which is new since prior study () Peritoneum: There is no intraperitoneal free air or abdominal ascites. Vasculature: The abdominal aorta is normal in course and caliber. Adenopathy: None. Pelvic viscera: Distended urinary bladder is filled with excreted contrast. Evaluation of pelvic region is limited due to beam hardening artifact from orthopedic hardware within left hip. Skeletal structures: Osteopenia and orthopedic hardware within L4-L5 level is again seen. IMPRESSION: 1. Interval development of mild fat stranding surrounding supraumbilical aspect of the anterior abdominal wall. 2. Stable small umbilical hernia containing nondilated loops of bowel. 3. Interval appendectomy. 4. Other findings as above.
--- NOTE | 2021-03-08 12:20 | Discharge Summary ---
Date of Service March 08, 2021 Admission HPI Per Admitting Provider 75 YOF s/p laproscopic appendectomy, discharged on . Patient returns today for complaints of pain opening her jaw this morning associated with increasing in her chronic neck pain. She is also still having some bloating feeling and abdominal pain around her incision sites. The patient endorses that she has not been up much since her surgery and is in general feeling more stiff. She is passing flatus, but no BM yet. She feels as though her pain is controlled. SHe denies any coughs or chest pain, or feeling short of breath. Her pain in her jaw is improved but still feels stiff, no difficulty swallowing. For her neck pain she feels it along the left side and front more, but doesn't, this has not limited her ROM; and she also does not endorse any numbness/tingling in her fingers or difficulty in picking objects up or performing her ADLS. In the EMD the patient had a CT scan of chest and abdomen performed and CXR done. SHe was noted to have a josefnia-right diaphragm on her CXR and bilateral ground glass opacities in her CTA of her chest- Atelectasis vs. Pneumonia. Patient will be admitted to further evaluate her cervicalgia, Antibiotic coverage for her pulmonary process, as well as following pain control and return of bowel function following surgery. General surgery has been consulted to follow her process. Admission Exam Per Admitting Provider General: awake, alert, no apparent distress Head: Normocephalic, atraumatic ENT: PERRLA, EOMI, no pharyngeal exudate, mucous membranes moist, no trauma from intubation noted, no dental abscess or tooth pain, no pain to floor of mouth or back of throat. No lymphadenopathy to cervical chains notes. Neuro: AAO x 3, speech clear and appropriate, strength intact bilaterally 5/5, sensation intact and equal all extremities and dermatomes, no pronator drift, full range of motion to neck and no pinpoint tenderness. Pain to surrounding trapezius and posterior neck muscles that did reproduce some of her complaint. Chest: equal rise and fall of the chest, no accessory muscle use, no heaves or thrills, Clear to auscultation, on room air- no Egophany. Cardiac: Regular rate and rhythm, telemetry reviewed, skin warm dry, cap refill <3 seconds, peripheral pulses +2 no JVD, no murmur, no JVD, no edema GI: hypoactive x 4 quadrants, obese and soft, tender to palpation at surgical site, no rebound, guarding or tenderness : Spontaneously voiding, no pain, no CVA tenderness, Extremities: Normal inspection, no peripheral edema or erythema, calfs nontender to palpation Psych: Normal mood and affect Skin: no rash or erythema Principal Diagnosis Acute Hypoxemic Respiratory Failure secondary to Elevated R Hemidiaphragm Discharge Exam Constitutional WD/WN, vitals as above Eyes PERRL, conjunctivae normal, anicteric sclerae ENMT external ear and nose normal, oropharynx normal Neck trachea midline, no thyromegaly Respiratory normal respiratory effort, lungs clear to auscultation Cardiovascular RRR, no murmur, no edema Gastrointestinal (Abdomen) normal bowel sounds, soft, nontender, no hepatosplenomegaly Inspection/Auscultation: + abdominal surgical incision (Laproscopic incisions CDI) Musculoskeletal no cyanosis or clubbing, extremities motor strength 5/5 Skin no rashes, warm and dry Neurologic moves all extremities Psychiatric A+Ox3, euthymic affect Discharge Data Allergies Allergy/AdvReac Type Severity Reaction Status Date / Time adhesive Allergy Intermediate RED, Verified 03/06/21 10:49 PAINFUL SKIN levofloxacin Allergy Intermediate RASH/ITCHY Verified 03/06/21 10:49 nickel Allergy Intermediate ITCHING Verified 03/06/21 10:49 celecoxib [From Celebrex] AdvReac Intermediate DIGESTIVE Verified 03/06/21 10:49 ISSUES codeine AdvReac Intermediate SEVERE Verified 03/06/21 10:49 NAUSEA AND VOMITING metoclopramide [From Reglan] AdvReac Intermediate Depression Verified 03/06/21 10:49 sulfamethoxazole AdvReac Intermediate DIGESTIVE Verified 03/06/21 10:49 [From Bactrim] ISSUES trimethoprim [From Bactrim] AdvReac Intermediate DIGESTIVE Verified 03/06/21 10:49 ISSUES Consultations 03/06/21 14:22 ED Decision to Admit Stat 03/06/21 17:32 Consult General Surgery Routine Ordered Studies 03/06/21 11:06 CT angio chest PE protocol Stat 03/06/21 13:31 CT abd pelvis wo con Stat 03/06/21 17:12 CT cervical spine wo con Routine CT facial bones wo con Routine 03/08/21 07:00 FL sniff test Urgent Hospital Course (1) Hypokalemia: (1) S/P appendectomy: - Laparoscopic appendectomy done 03/05/21 - Surgical incisions with no drainage or erythema or pain out of proportion to site. - Initially was started on IV Zosyn at admission, but transitioned back to oral Augmentin. - Was sent home on Augmentin with additional 2.5 days to complete course. - Patient had a bowel movement prior to discharge. (2) Cervicalgia: - Patient with history of cervicalgia pain and discomfort - Her neck pain was more stiff than normal as she is used to being up and around - Full range of motion without stiffness - No TMJ - No involvement of inside of mouth or roof of floor of mouth. - CT scan of neck and sof tissues without acute process but clear degenerative changes - The pain to her bottom jaw and side of her neck was reproducible with palpation of her trapezius and splenius capitis muscles - this most likely is related to positioning during and after the case with decreased movement exacerbating a chronic problem. - Neck pain was much improved by discharge. (3) Hypoxemic Respiratory Failure with newly Elevated hemidiaphragm: -Etiology of elevated Hemidiaphragm was unclear, though suspected secondary to recent laparoscopic procedure vs acute exacerbation of chronic neck pain -Sniff Fluoroscopy noting elevation of the R hemidiaphragm with diminished mot ion, but without evidence of paradoxical motion. -Patient was to be discharged on 03/07/21, however, upon walking in the hallway her saturations would drop to as low as 81%. -Encouraged incentive spirometry -Two-Step with RT on day of discharge patient did not desaturate <90% and did not require oxygen for home. (4) HTN (hypertension): - Continued Losartan - Continued HCTZ - Continued Amlodipine (5) Depression with anxiety: - Continued Citalopram and Bupropion (6) Lower Lobe Consolidation - Bilateral lower bases- this may be atelectasis in nature vs. Pneumonia vs. aspiration pneumonitis - afebrile, denies any shortness of breath or cough - She did require oxygen while in the EMD - procalcitonin negative, negative white count, no other signs of infection - This is likely atelectasis following surgery, resumed patient's augmentin. (7) Gastroesophageal reflux disease: Continued esomeprazole or formulary equivalent (2) Elevated hemidiaphragm: (3) Pneumonia: (4) Cervicalgia: (5) S/P appendectomy: (6) Nausea: (7) Leukocytosis: (8) HTN (hypertension): (9) De Quervain's syndrome (tenosynovitis): (10) Diverticulitis of colon: (11) Gastroesophageal reflux disease: Total Time Total Time Spent Total Time Spent (In Minutes): <30 Discharge Plan Discharge Items Patient Disposition: Home - Self-Care Reason For Visit: NECK PAIN Discharge Diagnosis: Cervicalgia, S/P Lap Appendectomy, Elevated R Hemidiaphragm with Hypoxemic Respiratory failure Condition on Discharge: Good Activity: Per Instructions section Non-emergency contact: Primary Care Provider Call non-emergency contact if: you have any medication questions, your symptoms worsen, your pain is worsening, your temperature is above 101, your wound has increased redness, your wound has increased drainage and your wound pain has increased Follow-up/Referrals: Jonah Liriano MD [Primary Care Provider] - 03/12/21 9:30 am (You be seeing ANDREIA Sommer.) Diet: Regular Addtl Attending Provider Instructions: Ms. Ledbetter, It was our pleasure caring for your at [facility] from 03/06/21 to 03/08/21 for your neck pain, abdominal pain after surgery, and R sided elevated hemidiaphragm leading to lower oxygen levels. While you were inpatient you noted that with positioning and movement your neck pain had significantly improved. You were also treated initially with IV antibiotics and shortly resumed on your oral antibiotic, Augmentin, for post surgical care. You were also found to have lower oxygen levels which is likely due to your slightly elevated R diaphragm. This can cause your breaths to be slightly more shallow and thus make it more difficult to keep your oxygen levels up. We feel this is likely a post-surgical complication or slight impingement from your neck and that it should be self limited with time. We would recommend that you continue to use your incentive spirometry to continue to "exercise your lungs" and improve your breathing. You did very well on the 2-Step testing and do not require oxygen therapy at home. We would recommend that you do the following: -Continue and complete your antibiotic course of Augmentin, 1 tablet twice a day for the next 2 days. Take one dose tonight (03/08/21) as well. A new prescription has been sent to your pharmacy at the [facility] in [place] if you do not have remaining doses at home from your previous prescription. -Follow up with your Surgeon next week. -Follow up with your PCP in the next 1 week. -Continue your remaining home medications as prescribed. Pending Studies at Discharge: No Stand-Alone Forms: My [facility], Smoking Cessation Medications and DC Order Prescriptions: New amoxicillin-pot clavulanate 500-125 mg Tablet 1 tab PO BIDM 2 Days Qty: 5 RF: 0 Continued bupropion HCl 100 mg tablet 100 mg PO DAILY Qty: 90 RF: 3 losartan 100 mg tablet 100 mg PO DAILY Qty: 90 RF: 3 citalopram 20 mg tablet 20 mg PO QAM Qty: 90 RF: 3 hydrochlorothiazide 25 mg tablet 25 mg PO QAM Qty: 90 RF: 2 docusate sodium 100 mg Tablet 200 mg PO QAM RF: 0 esomeprazole magnesium 20 mg Tablet,Delayed Release (Dr/Ec) 20 mg PO QAM RF: 0 Systane Complete 0.6 % Drops 1 drp OPHTHALMIC (EYE) QID RF: 0 multivitamin Tablet 1 tab PO DAILY RF: 0 amlodipine 5 mg tablet 5 mg PO QAM RF: 0 diphenhydramine-acetaminophen [Tylenol PM Extra Strength] 25-500 mg Tablet 1 tab PO HS PRN (Reason: Sleep) RF: 0 turmeric root extract 500 mg Capsule 1,000 mg PO DAILY RF: 0 oxycodone-acetaminophen [Percocet] 5-325 mg tablet 1 tab PO Q6H PRN (Reason: pain) Qty: 30 RF: 0 Discontinued amoxicillin-pot clavulanate [Augmentin] 500-125 mg tablet 1 tab PO BID Qty: 10 RF: 0 Discharge Orders: Discharge Order (Routine); Ordered 03/08/21 Ordered By: Sam Quezada/Other Patient Handouts: Preventing Pneumonia Admission Data Admit Date/Time: 03/06/21 16:06 Attending Provider: Leroy Ames Admit Provider: Matt Espinosa Primary Care Provider: Jonah Liriano Other Providers: Matt Espinosa ; Blake Fairbanks ; Walter Caballero Other Interventions: Discharge Summary Assessment (RN) Last Done: 03/08/21 12:39 Supervising Physician Co-Signing Physician Notes I personally examined the patient and verified all [place] points of history and exam, discussed case, and agree with decision making with Dr Armstrong. feeling better feeling up to going home vitals noted nad heent nc at mmm breathing unlabored no accessory muscles good effort skin no rashes no pallor or icterus appendicitis - stable for home elevated R hemidiaphragm - stable for home, outpt f/u otherwise as above Resident Activity Tracking Resident Involvement: Resident Care Provided Care Provided: Adult Hospital Medicine
--- NOTE | 2021-03-08 19:12 | Billing Data ---
Date of Service March 08, 2021 Coding Level of Care Code D/C Day Management <30 mins
== END 2021-03-08 15:30 | disposition home or self-care (01) ==
LOC: ED 08:23 → 3W 16:06 → INTOOBSV 16:06 → SUATTDRO 16:06 → 3W 16:55

== ENCOUNTER 2023-05-04 08:37 | Inpatient (IN) ==
--- NOTE | 2023-04-28 09:54 | Anesthesiology Consultation ---
Date of Service April 28, 2023 Assessment & Plan (1) Encounter for pre-operative examination: Chart Review Chart Review: Acceptable Risk for Surgery and Patient NOT seen in Pre Admission Testing -COVID screening: Per PAT nursing assessment on 04/28/23. No known COVID-19 positive contacts or current COVID-19 related symptoms. Travel screen negative. At surgeon discretion if preop Covid testing being done. Lap appendectomy 03/05/2021= done under [place] with grade 2 view with MAC #3. ETT #7.0. History Surgery Operation Date: 05/04/23 10:15 Proposed Procedures p Laparoscopic Repair Abdominal Wall Incisional Hernia, Umbical and SupraUmbilical with Mesh Possible Open with Mesh - Darnell Sanchez MD, FACS Height/Weight Height: 5 ft 6 in Weight: 88.451 kg Allergies Allergy/AdvReac Type Severity Reaction Status Date / Time adhesive Allergy Intermediate RED, Verified 04/28/23 08:24 PAINFUL SKIN levofloxacin Allergy Intermediate RASH/ITCHY Verified 04/28/23 08:24 nickel Allergy Intermediate ITCHING Verified 04/28/23 08:24 celecoxib [From Celebrex] AdvReac Intermediate DIGESTIVE Verified 04/28/23 08:24 ISSUES codeine AdvReac Intermediate SEVERE Verified 04/28/23 08:24 NAUSEA AND VOMITING metoclopramide [From Reglan] AdvReac Intermediate Depression Verified 04/28/23 08:24 sulfamethoxazole AdvReac Intermediate DIGESTIVE Verified 04/28/23 08:24 [From Bactrim] ISSUES trimethoprim [From Bactrim] AdvReac Intermediate DIGESTIVE Verified 04/28/23 08:24 ISSUES Medications Home Medications Medication Instructions Recorded Confirmed Last Taken esomeprazole magnesium 20 mg 20 mg PO QAM 07/27/18 04/28/23 05/26/21 09:00 tablet,delayed release propylene glycol 0.6 % eye drops 1 drp ophthalmic (eye) BID 01/14/19 04/28/23 05/26/21 09:00 (Systane Complete) multivitamin 1 tab PO QAM 03/04/21 04/28/23 05/26/21 09:00 turmeric root extract 500 mg 1,000 mg PO QAM 03/04/21 04/28/23 05/26/21 09:00 capsule docusate sodium 100 mg tablet 100 mg PO QAM 06/17/21 04/28/23 Unknown diphenhydramine 25 1 tab PO Q8H PRN excluding HS, 06/09/22 04/28/23 Unknown mg-acetaminophen 500 mg tablet temporary due to hip replacement (Tylenol PM Extra Strength) sodium chloride 0.9 % nasal spray 1 spray intranasal BID PRN 06/09/22 04/28/23 Unknown aerosol Congestion molnupiravir 200 mg capsule (EUA) 800 mg PO Q12H 5 days #40 caps 11/16/22 04/28/23 Unknown citalopram 20 mg tablet 20 mg PO QAM #90 tabs 12/21/22 04/28/23 Unknown losartan 100 mg tablet 100 mg PO QAM #90 tabs 03/02/23 04/28/23 Unknown bupropion HCl 100 mg tablet 100 mg PO QAM #90 tabs 04/03/23 04/28/23 Unknown amlodipine 5 mg tablet 5 mg PO DAILY PRN SBP > 150 #30 04/10/23 04/28/23 Unknown tabs ondansetron HCl 4 mg tablet 4 mg PO Q8H #15 tabs 04/23/23 04/28/23 Unknown buspirone 5 mg tablet 5 mg PO QAM 04/28/23 04/28/23 Unknown Past Medical History Medical History (Updated 04/28/23 @ 09:46 by Conchita Farnsworth PA-C) Anxiety Depression GERD (gastroesophageal reflux disease) Hearing deficit Seen by ENT in the past- non purulent fluid noted- recommend Flonase, Afrin and steroid History of COVID-November 16, 2022 > not hospitalized History of diverticulitis HTN (hypertension) Hyperlipemia Per records Irritable bowel syndrome Ischial bursitis of left side Leg length discrepancy Osteoarthritis Sacroiliitis Spinal stenosis Past Family History Family History Father , age 79 Myocardial infarction Daughter Crohn's disease Mother Hypercholesterolemia Leukocytosis Thrombocytosis Hypertension Stroke Father Stroke Other No family history of adverse response to anesthesia No family history of bleeding disorder No pertinent family history Denies family history of Ovarian cancer Prostate cancer Breast cancer Colorectal cancer Past Surgical History Surgical History H/O breast biopsy RIGHT - BENIGN - AGE 61 H/O elbow surgery RIGHT - FOR TENNIS ELBOW - AGE 49 History of carpal tunnel release RIGHT - AGE 49 History of cataract surgery R- 04/27/21 L- 05/11/21 History of colonoscopy 2020 - Dr. Huitron History of dilation and curettage Age 27 History of hysterectomy AGE 38 History of laparoscopic cholecystectomy AGE 62 History of laparotomy RUPTURED ECTOPIC - AGE 36 History of left hip replacement (~01/2019) History of lumbar fusion L4-L5 09/05/18 - MAC #3, ETT #7.0, Grade 1 View History of partial colectomy Age 65 06/29/11 - ETT #7.0 History of right hip replacement done by Dr. Smith 06/02/22 History of tonsillectomy and adenoidectomy AGE 11 History of tubal ligation LAP - AGE 29 S/P appendectomy (~03/04/21) Dr. Shultz Social History Smoking Status: Never smoker Do You Dip or Chew Tobacco: No Hx Alcohol Use: No Hx Substance Use: No substance use type: does not use Lab Results Anesthesia Preop Results Results Anesthesia Widget: WBC 7.71 K/ul (4.8-10.8) 04/23/23 Hgb 13.9 g/dl (12.0-16.0) 04/23/23 Hct 40.8 % (37.0-47.0) 04/23/23 Plt 337 K/uL (130-400) 04/23/23 Na 137 mmol/L (136-145) 04/23/23 K 4.4 mmol/L (3.5-5.1) 04/23/23 Cl 103 mmol/L (98-107) 04/23/23 CO2 27 mmol/L (21-32) 04/23/23 BUN 11 mg/dl (6-23) 04/23/23 Creat 0.87 mg/dl (0.6-1.2) 04/23/23 Glucose Level 90 mg/dl (70-99(Fasting)) 04/23/23 Urine Color Yellow 04/23/23 Urine Appearance Clear (Clear) 04/23/23 Urine pH 7.0 (4.5-7.5) 04/23/23 Urine Specific [place] 1.014 (1.000-1.030) 04/23/23 Urine Protein Negative (Negative) 04/23/23 Urine Glucose (UA) Negative (Negative) 04/23/23 Urine Ketones Negative (Negative) 04/23/23 Urine Blood Negative (Negative) 04/23/23 Urine Nitrite Negative (Negative) 04/23/23 Urine Bilirubin Negative (Negative) 04/23/23 Urine Urobilinogen Negative (Negative) 04/23/23 Urine Leukocyte Esterase Negative (Negative) 04/23/23 Testing Electrocardiogram Date: 04/23/23 Normal sinus rhythm at 76 bpm Left axis deviation LVH with repolarization abnormality Poor R wave progression consider anterior [place] versus lead placement versus LVH When compared to EKG from May 03, 2022no significant changes found per cardio Stress Test Date: 07/27/18 Type: exercise (ECHO ) Poor exercise tolerance. No evidence of inducible ischemia at workload achieved. 99% MPHR. 6.4 METS achieved. LV systolic function is normal. EF 60 to 65%. Grade 1 DD. RVSP is normal. Mild TR.
[~2023-05-04 08:37] MED LIST changes: -ACETAMINOPHEN 500 MG TAB PO SCH; -BUPIVACAINE 0.5 % 5 MG/1 ML PF 10ML VIAL ONE; -CEFAZOLIN 2000MG 2,000 MG/15 ML SYR IV SCH; -CeleBREX 200 MG CAP PO SCH; +DEXAMETHASONE SOD INJ 4 MG/ML VIAL ONE; -FAMOTIDINE 20 MG TAB PO SCH; -GABAPENTIN 300 MG PO SCH; +LR 15ML/HR IV SCH; -LR 500ML BOLUS, THEN 15ML/HR IV SCH; -METOCLOPRAMIDE HCL 10 MG TABLET PO SCH; +ONDANSETRON INJ 2 MG/ML 2 ML VIAL ONE; +PROPOFOL IV EMULSION 10 MG/ML 20 ML VIAL IV ONE; +ROCURONIUM BROMIDE 10 MG/ML 5 ML VIAL IV ONE; -ROPIVACAINE 0.5% HCL/PF 150 MG, BUPIVACAINE 0.5% MPF 30 ML, EPINEPHrine 30MG/30ML (OR U... INFIL SCH; +SUCCINYLCHOLINE CHLORIDE 20 MG/ML 10 ML VIAL IV ONE; +SUGAMMADEX SODIUM 200 MG/2 ML VIAL IV ONE; -TRANEXAMIC ACID 1,000 MG **IV Intra-op IV SCH; -TRANEXAMIC ACID 1,000 MG **IV Pre-op IV SCH; -dexAMETHasone 4 MG TAB PO SCH; +fentaNYL citrate PF 100 MCG/2 ML VIAL ONE
[2023-05-04] MEDS ORDERED: ePHEDrine sulfate 50 MG/ML AMP IV PRN (09:07)
[2023-05-04] MEDS ORDERED: ATROPINE SULFATE 0.1 MG/ML 10ML SYR IV PRN (09:07)
[2023-05-04] MEDS ORDERED: ONDANSETRON INJ 2 MG/ML 2 ML VIAL IV PRN ×2 (09:07→14:12)
[2023-05-04] MEDS ORDERED: PROMETHAZINE HCL 6.25 MG in SODIUM CHLORIDE 0.9% 50 ML IV PRN (09:07)
[2023-05-04] MEDS ORDERED: HYDROmorphone INJ 2 MG/ML SYR/VIAL IV PRN (09:08)
--- NOTE | 2023-05-04 09:13 | History & Physical Bridge Note ---
Date of Service May 04, 2023 History & Physical Bridge Note I have examined the patient, reviewed the History & Physical and in the interval since the performance of the History & Physical I have noted the following changes of clinical significance: no changes noted pt marked all question answered in around
[2023-05-04] MEDS ORDERED: BUPIVACAINE 0.5 % 5 MG/1 ML MPF 30ML VIAL ONE (09:39)
[2023-05-04] MEDS ORDERED: ceFAZolin 330 MG/ML 1 GM VIAL ONE (09:59)
[2023-05-04] MEDS ORDERED: ceFAZolin 2000MG 2,000 MG/15 ML SYR IV ONE (10:19)
[2023-05-04] MEDS ORDERED: HYDROmorphone INJ 1 MG/ML SYRINGE ONE (10:22)
[2023-05-04] MEDS ORDERED: ROCURONIUM BROMIDE 10 MG/ML 5 ML VIAL IV ONE ×2 (10:38)
[2023-05-04] MEDS ORDERED: fentaNYL citrate PF 100 MCG/2 ML VIAL ONE (11:21)
--- NOTE | 2023-05-04 11:56 | Post Operative Brief Note ---
Immediate Post Op Note v1 Date of Surgery May 04, 2023 Pre & Post Diagnosis Operation Date: 05/04/23 10:15 Pre-Op Diagnosis: Umbilical Hernia, Incisional Hernia Post-Op Diagnosis: Incarcerated Incisional Hernia with Total Defects 10cm I identified the patient and participated in the time-out.: Yes Procedure Operation Date: 05/04/23 10:15 Actual Procedures p Diagnostic Laparoscopy, Open Abdominal Wall Incisional Hernia Repair, Umbilically and Supraumbilically with Mesh(Not Applicable) - Darnell burns MD, FACS Surgeon Darnell Sanchez MD, FACS Diamond Cleaner Karen BOSWELL Estimated Blood Loss 40 Findings Consistent with Post-Op Diagnosis Drains Hector Drain (15fr) and Robles Catheter (A 16 Divehi robles catheter was inserted Selma Barnhart RN without difficulty, clear yellow urine obtained, output to be monitored by Anesthesia.)
[2023-05-04] MEDS: fentaNYL citrate PF 100 MCG/2 ML VIAL IV PRN ×2 (12:18→12:40)
--- NOTE | 2023-05-04 12:21 | Operative Report ---
PG Post Operative Report Pre & Post Diagnosis Operation Date: 05/04/23 10:15 Pre-Op Diagnosis: Umbilical Hernia, Incisional Hernia Post-Op Diagnosis: Incarcerated Incisional Hernia with Total Defects 10cm I identified the patient and participated in the time-out.: Yes Procedure Operation Date: 05/04/23 10:15 Actual Procedures p Laparoscopy with Lysis of Adhesions; Open Incarcerated Incisional Hernia Repair with Compartment Separation and 10cm Surgimesh Preperitoneal(Not Applicable) - Darnell Sanchez MD, FACS The patient was brought into the operating theater general trach anesthesia Luciano catheter inserted systemic antibiotics on board the abdomen was prepped Betadine scrub solution properly draped a timeout was had patient identified thi s point we made an incision approximately 3 inches above the umbilical crater deep at the subcutaneous tissue were able to grasp the abdominal wall with Maryam clamps try to get to the fascia which she was quite deep we enlarged the incision to the point that we were able down to elevate the abdominal wall and incision was made 0 Vicryl suture was used stay sutures and we entered the peritoneal cavity with a hemostat followed by 5 mm trocar CO2 inflated at this point we placed a 5 mm right upper quadrant trocar with preemptive local analgesic camera was placed in the right upper quadrant we visualized our initial entry with the supraumbilical trocar and we well away from the bowel but we could see that the bowel small bowel was strictly adherent to the abdominal wall above and below the umbilical crater at this point we placed a 5 mm right lower quadrant port under direct visualization then placed the camera in the right upper quadrant and from that site with right lower quadrant trocar site and another grasper was inserted to see if there was any plane of dissection between the small bowel and abdominal wall with we placed a left upper quadrant trocar 5 mm on direct visualization and a grasper was placed to try to expose the wound around the small bowel adherence we tried in 1 area to stay extraperitoneal to free up the small bowel without entering it but I felt at this time that the dissection would be quite tedious and no drop that would probably get in the bowel and since there was available really plain the dissection between the small bowel which measured approximately 2 or 3 loops to the anterior abdominal wall therefore I elected at this point to convert to an open procedure which we did we made an incision starting from the previous supra umbilical incision down to the left of the umbilicus. At this point we are able down the anterior subcutaneous tissue pain close attention not to enter the bowel and our intent was to free up the bowel without entering it by staying extraperitoneal and which we did but it was meticulous dissection but fortunately we did not enter the bowel and anywhere this lysis of adhesion from the anterior abdominal wall was quite significant and spent most of her time dissecting it once we had freed that up we dissected bluntly the peritoneum from the anterior abdominal wall to we fat enough exposure no felt comfortable that ailin bonner will probably put a mesh preperitoneal in that area but prior to that we opened up both sides of the midline incision uniting the 2 hernias as a single hernia total was 10 cm defect to the point that we were laterally well beyond the rectus abdominis on both sides we then scored the rectus abdominis to make it compartment tension free repair at this point we then placed the surgical mesh 10 cm intra-abdominal he started a suture 3 o'clock position running and making sure that we are all extraperitoneal to the 9 o'clock position and another suture starting there and going inferiorly at the 3:00 and dying at the mesh lay comfortably underneath the abdominal wall probably a centimeter or 2 circumferentially away from the open incision in the abdominal wall we then used 0 PDS to close the fascia over the mesh in a tension-free fashion. Once this had been completed we placed a 15 Hector drain to right lower quadrant stab wound in the subcutaneous tissue on top of the abdominal wall sutured in place with 2- 0 silk we then closed the wound in multiple layer 2-0 Vicryl attaching subcutaneous tissue down to the scar tissue down in the abdominal wall 3-0 Vicryl subcutaneously nirali for skin edge prior to leaving the room we reinserted a 5 mm trocar in the right upper quadrant was able to put the camera in that area and to visualize the bowel was still intact in the abdominal wall but there was no evidence of any entry into the abdominal wall from our preperitoneal dissection The hernial defect once we combined the supraumbilical pair umbilical hernia 10 cm Procedure was tolerated well by the patient estimated blood loss 25 cc Addendum Louisa Tolentino physician office administrative assistant was present throughout the case and helped the retraction exposure and wound closure Talk to her Saurabh sears at [phone] Surgeon Darnell Sanchez MD, FACS Custodial Worker Karen BOSWELL Estimated Blood Loss 40 Findings Consistent with Post-Op Diagnosis Significant small bowel adherent to the anterior abdominal wall 2 hernias identified we united both of them total defect 10 cm Specimens None Drains 15 Hector Indications Periumbilical hernia x2 with small bowel adherence symptoms of partial obstruction Description of Procedure merda I attest to the content of the Intraoperative Record and any orders documented therein. Any exceptions are noted below.
[2023-05-04] MEDS ORDERED: PROMETHAZINE HCL INJ 25 MG/ML 1 ML VIAL ONE (12:26)
[2023-05-04] MEDS ORDERED: SODIUM CHLORIDE 0.9% 50 ML BAG ONE (12:26)
--- NOTE | 2023-05-04 12:29 | Anesthesiology Progress Note ---
Date of Service May 04, 2023 Anesthesia Post Procedure Vital Signs Vital Signs: Temp Pulse Resp BP Pulse Ox O2 Del Method 05/04/23 09:13 36.4 C L 81 18 177/89 H 95 Room Air Pain Intensity Upper Medial Abdomen: Pain Intensity: 4 Transfer of Care Handoff Completed per policy Notes Mental Status: alert / awake / arousable Patient Amnestic to Procedure: Yes Nausea / Vomiting: adequately controlled Pain: adequately controlled Airway Patency, RR, SpO2: stable & adequate BP & HR: stable & adequate Hydration State: stable & adequate Anesthetic Complications: no major complications apparent
[2023-05-04] MEDS ORDERED: MoRPHine SULFATE 4 MG/ML 1 ML CARP\\VIAL IV PRN (14:12)
[2023-05-04] MEDS ORDERED: ACETAMINOPHEN 325 MG TAB PO PRN (14:12)
[2023-05-04] MEDS ORDERED: oxyCODONE HCL IR 5 MG TAB (IMMEDIATE RELEASE) PO PRN (14:12)
[2023-05-04] MEDS ORDERED: amLODIPine BESYLATE 5 MG TAB PO PRN (14:12)
[2023-05-04] MEDS ORDERED: LACTATED RINGER'S 1,000 ML IV SCH (14:12)
[2023-05-04] MEDS ORDERED: MoRPHine SULFATE 2 MG/ML CARP IV PRN (14:12)
[2023-05-04] MEDS: LACTATED RINGER'S 1,000 ML IV SCH ×2 (14:45→17:15)
[2023-05-04 14:58] LABS: Hematocrit (blood only) 35.9 % (37.0-47.0); Hemoglobin 12.1 g/dl (12.0-16.0); Mean Corpuscular Hemoglobin 29.9 pg (25.0-34.0); Mean Corpuscular Hgb Conc 33.7 g/dL (32.0-36.0); Mean Corpuscular Volume 88.6 fL (80.0-100.0); Mean Platelet Volume 8.8 fL (9.4-12.4); Platelet Count 306 K/uL (130-400); RDW Standard Deviation 42.2 fL (36.4-46.3); Red Blood Count 4.05 M/uL (4.20-5.40); White Blood Count 20.23 K/ul (4.8-10.8)
[2023-05-04] MEDS ORDERED: LACTATED RINGER'S 1,000 ML IV ONE (15:02)
[2023-05-04] MEDS: ACETAMINOPHEN 1,000 MG/100 ML VIAL IV SCH ×2 (15:33→21:34)
[2023-05-04] MEDS ORDERED: SODIUM CHLORIDE 0.9% 1000ML 1,000 ML IV ONE (16:00)
[2023-05-04 16:25] LABS: Basophils # (auto) 0.06 K/uL (0-0.2); Basophils % (auto) 0.3 %; Immature Granulocytes # (auto) 0.09 K/uL (0.01-0.20); Immature Granulocytes % (auto) 0.4 %; Lymphocytes # (auto) 0.96 K/uL (1.2-3.4); Lymphocytes % (auto) 4.7 %; Monocytes % (auto) 2.5 %; Neutrophils # (auto) 18.62 K/uL (1.40-6.50); Neutrophils % (auto) 92.1 %
--- NOTE | 2023-05-04 17:17 | Surgery Progress Note ---
Date of Service May 04, 2023 Assessment & Plan (1) Periumbilical hernia: (2) Umbilical hernia: Plan: Since surgery from laparoscopy converted to an open repair of incarcerated supraumbilical periumbilical hernia with compartment separation and surgery mesh placement preperitoneal the patient immediately postop did fine as far as her vital she was moved out of the recovery room to a regular floor and she had a few episodes of hypotension in the 70s to 80s not really responding tachycardia fluid boluses was given and responded with the boluses so far at this hour she had to 1000 cc boluses of saline and had 850 cc intraoperative fluid her left vitals showed her blood pressure 130/80 with a heart rate in the 80s We repeated a hemoglobin preoperatively was 13.9 postoperatively approximately 3:00 was 12.1 At this time we will continue to monitor most likely she bled from the abdominal wall where she had a Hector drainage in the subcutaneous tissue that had put some dark bloody fluid at this time she is alert coherent the abdominal exam is nonacute deteriorating at all in fact the abdominal wall fullness is subsiding and discussed this with the patient and her and her nephew at this time we will continue to monitor her hemoglobin every 6 hours and her vitals if it continues to deteriorate to hypotension's again then there is possibility we may need to take her surgery and explore the abdominal wall for hematoma Plan Repeat hemoglobin approximately 9:00 Monitor vitals closely After the present IV bolus infusion was we will continue her IV at 125 Admission and Anticipated Discharge Date Admission Date: May 04, 2023 Subjective She denies any abdominal pain except some abdominal wall discomfort denies any nausea Physical Exam Physical Exam: She is alert coherent no distress just feels sleepy The abdomen softly distended is nontender examination of the abdominal wall shows some fullness the left of midline incision which we have been following for the last 3 hours and appears to be softer than it had been The Hector drainage dark bloody has subsided in the last few hours with about 25 cc Results & Data Vital Signs (Past 12 Hours) Vital Signs Temp Pulse Pulse Resp BP BP Pulse Ox 05/04/23 16:43 36 C L 81 16 123/72 97 05/04/23 16:24 82 124/74 05/04/23 16:16 76 121/70 05/04/23 16:05 80 119/70 05/04/23 15:58 80 99/61 L 05/04/23 15:54 85/52 L 86/54 L 05/04/23 15:47 88/55 L 85/52 L 05/04/23 15:25 69 115/62 05/04/23 14:30 05/04/23 15:11 36.3 C L 77 16 125/75 99 05/04/23 15:01 75 133/77 05/04/23 15:05 132/73 05/04/23 14:50 109/69 05/04/23 14:33 107/68 05/04/23 14:48 79 109/67 05/04/23 14:28 80/53 L 87/57 L 05/04/23 14:20 36.3 C L 76 14 75/50 L 64/41 L 98 05/04/23 13:44 144/76 H 05/04/23 13:39 118/72 05/04/23 13:35 106/65 05/04/23 13:30 90/58 L 105/69 05/04/23 13:25 36.5 C 78 14 85/53 L 75/57 L 94 05/04/23 13:10 79 14 123/69 94 05/04/23 13:00 86 16 146/81 H 93 05/04/23 12:50 87 14 155/90 H 94 05/04/23 12:40 87 14 179/99 H 94 05/04/23 12:30 80 16 161/93 H 96 05/04/23 12:20 90 16 163/89 H 96 05/04/23 12:10 36 C L 89 14 184/104 H 94 05/04/23 09:13 36.4 C L 81 18 177/89 H 95 O2 Del Method O2 Flow Rate 05/04/23 16:43 Nasal Cannula 1 05/04/23 16:24 05/04/23 16:16 05/04/23 16:05 05/04/23 15:58 05/04/23 15:54 05/04/23 15:47 05/04/23 15:25 05/04/23 14:30 Nasal Cannula 05/04/23 15:11 Nasal Cannula 05/04/23 15:01 05/04/23 15:05 05/04/23 14:50 05/04/23 14:33 05/04/23 14:48 05/04/23 14:28 05/04/23 14:20 Nasal Cannula 3 05/04/23 13:44 05/04/23 13:39 05/04/23 13:35 05/04/23 13:30 05/04/23 13:25 Nasal Cannula 05/04/23 13:10 Oxymask 3 05/04/23 13:00 Oxymask 3 05/04/23 12:50 Oxymask 5 05/04/23 12:40 Oxymask 7 05/04/23 12:30 Oxymask 10 05/04/23 12:20 Oxymask 10 05/04/23 12:10 Oxymask 10 05/04/23 09:13 Room Air Laboratory Results Noted
--- NOTE | 2023-05-04 23:35 | Communication Note ---
Date of Service: May 04, 2023 I have visited with the patient at the bedside at approximately 10:00 PM on 05/04/2023. The patient notes that she is feeling well other than some fatigue. She denies any lightheadedness or dizziness. She denies any chest pain or shortness of breath. I discussed with the patient's nurse and the patient has not had any further episodes of hypotension that were noted postoperative. She is not tachycardic. The patient's HUMBERTO drain was examined and appeared to have some sanguinous drainage. Since approximately 6:00 PM and has only been drained for approximately 10 cc. I did strip the drain while at the bedside and it did not exhibit any significant drainage after I performed this maneuver. The patient reports that laboratory personnel were at the bedside attempting to draw blood work at approximate 9:00 PM but were unsuccessful. We will call the lab to have them attempt to get the necessary blood work. Overall the patient appears to be clinically stable. Patient had a repeat hemoglobin and hematocrit at approximately 1140 p.m. Her hemoglobin was 9.5 with hematocrit of 28.2. Repeat hemoglobin hematocrit was again performed at approximately 3:00 AM. Hemoglobin was noted to be 9.4 with a hematocrit of 28.2. The patient has remained hemodynamically stable throughout the evening and is not tachycardic. We will continue to monitor clinically for the present time
[2023-05-05 00:04] LABS: Basophils # (auto) 0.02 K/uL (0-0.2); Basophils % (auto) 0.2 %; Hematocrit (blood only) 28.2 % (37.0-47.0); Hemoglobin 9.5 g/dl (12.0-16.0); Immature Granulocytes # (auto) 0.05 K/uL (0.01-0.20); Immature Granulocytes % (auto) 0.4 %; Lymphocytes # (auto) 1.38 K/uL (1.2-3.4); Lymphocytes % (auto) 12.2 %; Mean Corpuscular Hemoglobin 30.2 pg (25.0-34.0); Mean Corpuscular Hgb Conc 33.7 g/dL (32.0-36.0); Mean Corpuscular Volume 89.5 fL (80.0-100.0); Mean Platelet Volume 8.8 fL (9.4-12.4); Monocytes # (auto) 0.87 K/uL (0.11-0.59); Monocytes % (auto) 7.7 %; Neutrophils # (auto) 9.01 K/uL (1.40-6.50); Neutrophils % (auto) 79.5 %; Platelet Count 260 K/uL (130-400); RDW Coefficient of Variation 13.1 % (11.5-14.5); RDW Standard Deviation 42.8 fL (36.4-46.3); Red Blood Count 3.15 M/uL (4.20-5.40); White Blood Count 11.33 K/ul (4.8-10.8)
[2023-05-05] MEDS: LACTATED RINGER'S 1,000 ML IV SCH (01:27)
[2023-05-05 03:13] LABS: Basophils # (auto) 0.02 K/uL (0-0.2); Basophils % (auto) 0.2 %; Hematocrit (blood only) 28.2 % (37.0-47.0); Hemoglobin 9.4 g/dl (12.0-16.0); Immature Granulocytes # (auto) 0.02 K/uL (0.01-0.20); Immature Granulocytes % (auto) 0.2 %; Lymphocytes # (auto) 1.76 K/uL (1.2-3.4); Lymphocytes % (auto) 18.8 %; Mean Corpuscular Hemoglobin 29.8 pg (25.0-34.0); Mean Corpuscular Hgb Conc 33.3 g/dL (32.0-36.0); Mean Corpuscular Volume 89.5 fL (80.0-100.0); Mean Platelet Volume 8.7 fL (9.4-12.4); Monocytes # (auto) 0.88 K/uL (0.11-0.59); Monocytes % (auto) 9.4 %; Neutrophils # (auto) 6.67 K/uL (1.40-6.50); Neutrophils % (auto) 71.4 %; Platelet Count 254 K/uL (130-400); RDW Coefficient of Variation 13.2 % (11.5-14.5); RDW Standard Deviation 43.3 fL (36.4-46.3); Red Blood Count 3.15 M/uL (4.20-5.40); White Blood Count 9.35 K/ul (4.8-10.8)
[2023-05-05 03:30] LABS: BUN Creatinine Ratio 17.1 (10-20); Calcium 8.2 mg/dl (8.6-10.3); Creatinine Clr Calc Pharmacy 76.3 ml/min; Est GFR (African American) 97.5 ml/min; Est GFR (Non-African American) 84.2 ml/min; Potassium 4.2 mmol/L (3.5-5.1)
[2023-05-05] MEDS: ACETAMINOPHEN 1,000 MG/100 ML VIAL IV SCH ×3 (05:37→21:33)
[2023-05-05] MEDS: oxyCODONE HCL IR 5 MG TAB (IMMEDIATE RELEASE) PO PRN ×2 (06:39→20:12)
[2023-05-05] MEDS: PANTOprazole 40 MG TAB PO SCH (08:32)
[2023-05-05] MEDS: CITALOPRAM 20 MG TAB PO SCH (08:32)
[2023-05-05] MEDS: buPROPion HCl 100 MG TABLET PO SCH (08:33)
[2023-05-05] MEDS: busPIRone 5 MG TAB PO SCH (08:33)
--- NOTE | 2023-05-05 08:34 | Surgery Progress Note ---
Date of Service May 05, 2023 Assessment & Plan (1) S/P hernia repair: Plan: POD 1 open hernia repair Patient had low BPs after surgery and was given 2 L fluids. VS remained stable throughout the night and H/H 9.01/13.2 this AM , Denies cp, dizziness or light headedness. Reports abdominal incisional area tenderness and as a dull ache, has been taking IV pain medication with relief. Has been up out of bed to commode without issue. Requesting Diet Surgical sites covered with gauze and medipore tape with abdominal binder, no s/s of infection noted, midline with nirali Dk draining sanguinous fluid put out 40cc in last 12 hour, 180cc in 24. Admission and Anticipated Discharge Date Admission Date: May 04, 2023 Supervising Physician Co-Signing Physician Notes As per Charmaine FLORES The patient is laying comfortably in bed minimal abdominal discomfort she has been up to the bedside commode without any issues no lightheadedness Vitals noted Her hemoglobin has been stable for the last 12 hours this morning's lab is pending The abdomen is soft with minimal ecchymosis appreciated the incision is intact the nirali intact the Hector drain is still some dark bloody drainage but decreasing The operative findings and surgical procedure was explained to the patient we had explained yesterday to her The dressings were changed instructed the patient regarding the Hector drainage and its maintenance she will be going home with it and to come back to the office on Monday to have it removed The patient is hungry we will start her on a regular diet increase activity DC IV fluid and Oxygen We will keep her here today likely go home tomorrow Should have no lifting greater than 10 pounds for a week She may shower reapply the dressing around the Hector drainage midline incision does not need any dressing And return to our office next Monday call for an appoint Another surgeon from our group will be covering the weekend Subjective POD 1 open hernia repair Patient had low BPs after surgery and was given 2 L fluids. VS remained stable throughout the night and H/H 9.428.2 this AM , Denies cp, dizziness or light headedness. Reports abdominal incisional area tenderness and as a dull ache, has been taking IV pain medication with relief. Has been up out of bed to commode without issue. Review of Systems Constitutional: no fever, no chills and no sweats Respiratory: no dyspnea Cardiovascular: no chest pain Gastrointestinal: + abdominal pain (incisional areas); no nausea and no vomiting Genitourinary: no problem reported Physical Exam Physical Exam: alert/awake Constitutional: cooperative and comfortable; no acute distress Respiratory: normal respiratory effort (wearing 2L 02) and able to speak in complete sentences; no respiratory distress Cardiovascular: Rate/Rhythm: regular rate Gastrointestinal (Abdomen): Inspection/Auscultation: + abdominal surgical incision and + abdominal surgical drain present Results & Data Vital Signs (Past 12 Hours) Vital Signs Temp Pulse Resp BP BP Pulse Ox O2 Del Method 05/05/23 08:10 97.9 F 62 16 108/66 95 Nasal Cannula 05/05/23 02:41 97.9 F 67 18 101/64 96 Nasal Cannula 05/04/23 23:07 98.2 F 78 18 99/57 L 109/72 95 Nasal Cannula 05/04/23 21:39 98.2 F 79 18 113/65 96 Nasal Cannula O2 Flow Rate 05/05/23 08:10 2 05/05/23 02:41 1 05/04/23 23:07 1 05/04/23 21:39 1 PG Care Time/CCT Total # of Minutes Spent Total Time Spent with Patient: Total time spent is greater than 50% in coordination of care (as documented) at patient's floor/unit and/or counseling patient: Coding Level of Care Code 86297 Post Operative Follow-Up Diagnoses S/P hernia repair Z98.890; Z87.19
[2023-05-05 11:53] LABS: Basophils # (auto) 0.07 K/uL (0-0.2); Basophils % (auto) 0.8 %; Eosinophils # (auto) 0.04 K/uL (0-0.50); Eosinophils % (auto) 0.5 %; Hematocrit (blood only) 29.4 % (37.0-47.0); Hemoglobin 9.7 g/dl (12.0-16.0); Immature Granulocytes # (auto) 0.02 K/uL (0.01-0.20); Immature Granulocytes % (auto) 0.2 %; Lymphocytes # (auto) 2.86 K/uL (1.2-3.4); Lymphocytes % (auto) 34.7 %; Mean Corpuscular Hemoglobin 29.8 pg (25.0-34.0); Mean Corpuscular Volume 90.5 fL (80.0-100.0); Monocytes # (auto) 0.68 K/uL (0.11-0.59); Monocytes % (auto) 8.2 %; Neutrophils # (auto) 4.58 K/uL (1.40-6.50); Neutrophils % (auto) 55.6 %; Platelet Count 250 K/uL (130-400); RDW Coefficient of Variation 13.3 % (11.5-14.5); RDW Standard Deviation 43.8 fL (36.4-46.3); Red Blood Count 3.25 M/uL (4.20-5.40); White Blood Count 8.25 K/ul (4.8-10.8)
--- NOTE | 2023-05-05 15:04 | XRay Report ---
XR chest 1V portable HISTORY: 77 years-old Female decreased SP02 acute hypoxia COMPARISON: 05/03/2022 TECHNIQUE: AP view of the chest FINDINGS: Cardiomediastinal and hilar silhouettes are unchanged. Unchanged right hemidiaphragmatic elevation. C hronic interstitial coarsening of the lung bases with linear bibasilar densities. No pneumothorax, pl eural effusion or overt pulmonary edema. Questioned right subdiaphragmatic lucency. Degenerative miles ges of the shoulders and spine. IMPRESSION: 1. Cardiomegaly without acute process. 2. Mild bibasilar opacities favor atelectasis. 3. Equivocal right subdiaphragmatic lucency. Correlation with left lateral decubitus films recommende d in order to exclude pneumoperitoneum. ACT 112: Negative or not required by law. The above report was generated using voice recognition software. It may contain grammatical, syntax o r spelling errors. Electronically signed by: Thuan Giraldo M.D. 05/05/2023 3:03 PM
--- NOTE | 2023-05-05 15:36 | Hospitalist Consultation ---
Date of Consultation May 05, 2023 Assessment & Plan (1) Acute respiratory failure with hypoxia: Acute hypoxic respiratory failure, shortness of breath No prior history of COPD, lung disease, CHF, or tobacco use Did receive IVFM perioperatively. 4250cc total, 1190 out last 24hrs. Net 24hr 3060cc positive. Total hospital net +4200cc CXR: bibasilar densities ?atelectasis - Using incentive spirometer in the last hour - Lasix IV 20mg x1 - CXR findings disproportionate w/ desaturations to low 80s during conversation and feelings of conversational dyspnea despite 6L O2. Suspect fluid overload, due to chest pain and postop --> CT-Chest w/ PE protocol pending, Cr is 0.70 with no CKD. Chest pain eval as noted below No fever, no chills, no night sweats, no leukocytosis, no cough. Low suspicion for pneumonia Chest Pain - Substernal chest pain new to patient. 8/10 with exertion/ambulation in [place] [address], improved to 4/10 with rest. No inspiratory change, no positional change - No hx HI/CAD - No hx T2DM or HLD. +Hx hypertension well controlled at home - Stat EKG ordered at bedside. No territorial ST segment or T w wave changes. - hs-trop and 2 hour delta pending. - Pt also endorses significant anxiety with estrangement from her daughter, moving stress at home but feels her anxiety feels different than her current chest discomfort - Moved to medical telemetry for additional monitoring Post-operative anemia - Preop hgb 12.1 - Post-op hgb 9.7, uptrending. Normocytic. No tachycardia. Normotensive - No clinical signs of bleeding at bedside assessment, abd without hematoma. HUMBERTO drain with total ~130cc serosanguinous output - ?postop loss + dilutional with net 4L positive - No transfusion indicated at this time. Continue to trend h&h, q8h x2 added Subdiaphragmatic Lucency - ? trace postoperative pneumoperitoneium - Lateral decubitous XR pending - Pt is minimally and appropriately tender at her abdominal surgical site. No rebound tenderness to palpation. no guarding or rigidity. HTN - Previously well controlled on losartan daily + amlodipine daily PRN for SBP >150 - Normotensive at assessment (2) S/P hernia repair: (3) Gastroesophageal reflux disease: (4) HTN (hypertension): (5) Hyperlipemia: (6) Chest pain: History of Present Illness Attending Physician: Darnell Sanchez MD, FACS History of Present Illness Pastora reports she is generally healthy. Has a history of irritable bowel. Hx of complicated diverticulitis sp partial colon resection in the . Reports she presented for a abdominal hernia repair HTN: On losartan daily. amlodipine PRN for BP >150 at home. Needs once every 2-3 week +Gerd, well controlled Anxiety at home, daughter estranged which is difficult for her. Currently moving so undergoing a lot of stress at No history of tobacco use. No COPD or asthma. Fther with HI at age 70s, ischemia due to severe sepsis several years prior Both parents with CVA in mid-late 70s in father, late 60s in mother No aspirin or plaavix. No cough. No fevers, chills or sweats. Slight discomfront with breathing underlying her low, mid chest. Feels slightly ansious. Denies neck/jaw pain. No sweating. When walking to the bathroom +shortness of breath, +substernal chest pressure 8/10 which has reduced to 4/10. Does not currently worsen with breathing. No history of DM. Hx HTN. Denies hx of HLD. +hx GERD well controlled on nexium. Chest pain with exertion felt different Medical History: Reviewed Medications: Reviewed Surgical History: Reviewed Family history: Reviewed Allergies: Reviewed Social History: No tobacco. No etoh. Code Status: Full Code. Allergies Allergy/AdvReac Type Severity Reaction Status Date / Time adhesive Allergy Intermediate RED, Verified 05/04/23 09:00 PAINFUL SKIN levofloxacin Allergy Intermediate RASH/ITCHY Verified 05/04/23 09:00 nickel Allergy Intermediate ITCHING Verified 05/04/23 09:00 celecoxib [From Celebrex] AdvReac Intermediate DIGESTIVE Verified 05/04/23 09:00 ISSUES codeine AdvReac Intermediate SEVERE Verified 05/04/23 09:00 NAUSEA AND VOMITING metoclopramide [From Reglan] AdvReac Intermediate Depression Verified 05/04/23 09:00 sulfamethoxazole AdvReac Intermediate DIGESTIVE Verified 05/04/23 09:00 [From Bactrim] ISSUES trimethoprim [From Bactrim] AdvReac Intermediate DIGESTIVE Verified 05/04/23 09:00 ISSUES Home Medications Medication Instructions Recorded Confirmed Type esomeprazole magnesium 20 mg 20 mg PO QAM 07/27/18 05/04/23 History tablet,delayed release propylene glycol 0.6 % eye drops 1 drp ophthalmic (eye) BID 01/14/19 05/04/23 History (Systane Complete) multivitamin 1 tab PO QAM 03/04/21 05/04/23 History turmeric root extract 500 mg 1,000 mg PO QAM 03/04/21 05/04/23 History capsule docusate sodium 100 mg tablet 100 mg PO QAM 06/17/21 05/04/23 History diphenhydramine 25 1 tab PO Q8H PRN excluding HS, 06/09/22 05/04/23 History mg-acetaminophen 500 mg tablet temporary due to hip replacement (Tylenol PM Extra Strength) sodium chloride 0.9 % nasal spray 1 spray intranasal BID PRN 06/09/22 05/04/23 History aerosol Congestion citalopram 20 mg tablet 20 mg PO QAM #90 tabs 12/21/22 05/04/23 Rx losartan 100 mg tablet 100 mg PO QAM #90 tabs 03/02/23 05/04/23 Rx bupropion HCl 100 mg tablet 100 mg PO QAM #90 tabs 04/03/23 05/04/23 Rx amlodipine 5 mg tablet 5 mg PO DAILY PRN SBP > 150 #30 04/10/23 05/04/23 Rx tabs ondansetron HCl 4 mg tablet 4 mg PO Q8H #15 tabs 04/23/23 05/04/23 Rx buspirone 5 mg tablet 5 mg PO QAM 04/28/23 05/04/23 History oxycodone-acetaminophen 5 mg-325 1 - 2 tab PO .q4-6h PRN pain, for 05/04/23 Rx mg tablet (Percocet) initial therapy, max 6 tabs per day #15 tabs Patient History Medical History (Updated 05/05/23 @ 16:18 by Phoenix García MD) Anxiety Depression GERD (gastroesophageal reflux disease) Hearing deficit Seen by ENT in the past- non purulent fluid noted- recommend Flonase, Afrin and steroid History of COVID-November 16, 2022 > not hospitalized History of diverticulitis HTN (hypertension) Hyperlipemia Per records Irritable bowel syndrome Ischial bursitis of left side Leg length discrepancy Osteoarthritis Sacroiliitis Spinal stenosis Surgical History (Updated 05/05/23 @ 08:55 by MARK Sanders) H/O breast biopsy RIGHT - BENIGN - AGE 61 H/O elbow surgery RIGHT - FOR TENNIS ELBOW - AGE 49 History of carpal tunnel release RIGHT - AGE 49 History of cataract surgery R- 04/27/21 L- 05/11/21 History of colonoscopy 2020 - Dr. Huitron History of dilation and curettage Age 27 History of hysterectomy AGE 38 History of incisional hernia repair (05/04/23) Laparoscopy with Lysis of Adhesions; Open Incarcerated Incisional Hernia Repair with Compartment Separation and 10cm Surgimesh Preperitoneal(Not Applicable) - Darnell Sanchez MD, FACS History of laparoscopic cholecystectomy AGE 62 History of laparotomy RUPTURED ECTOPIC - AGE 36 History of left hip replacement (~01/2019) History of lumbar fusion L4-L5 09/05/18 - MAC #3, ETT #7.0, Grade 1 View History of partial colectomy Age 65 06/29/11 - ETT #7.0 History of right hip replacement done by Dr. Smith 06/02/22 History of tonsillectomy and adenoidectomy AGE 11 History of tubal ligation LAP - AGE 29 S/P appendectomy (~03/04/21) Dr. Shultz Family History Father , age 79 Myocardial infarction Daughter Crohn's disease Mother Hypercholesterolemia Leukocytosis Thrombocytosis Hypertension Stroke Father Stroke Other No family history of adverse response to anesthesia No family history of bleeding disorder No pertinent family history Denies family history of Ovarian cancer Prostate cancer Breast cancer Colorectal cancer Social History Smoking Status: Never smoker Second Hand Exposure: No; Do You Dip or Chew Tobacco: No; Tobacco Cessation Education Requested by Patient: No Hx Alcohol Use: No Hx Substance Use: No Preferred Language: Telugu Communication Ability: Effective Visual Impairment: Limited Hearing Ability: Normal [employer] Attendant Required: No Beliefs That Will Affect Care: None marital status: Current Living Situation: Spouse current occupational status: retired 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 [employer] How many Children do You have: 2 Other Information That Helps Us Care for You: No Feels Safe at Home: Yes Safety Concerns: Feels Safe At This Time Childhood Exposure to Second-Hand Smoke: Yes Diet: regular Diet Comment: clean eating, free of chemicals Dental Care, Regularly: Yes Physical Activity Frequency: Daily Physical Activity Frequency Comment: walking daily 2 hours Seatbelt Use: always Sunscreen Use: Yes Assistive Devices: Walker Review of Systems Review of Systems: All systems reviewed & are unremarkable except as noted in HPI & below Physical Exam Physical Exam: General: A&Ox3. NAD. Cooperative. HEENT: Atraumatic, normocephalic. Patient/hearing intact Pulm: Bibasilar crackles symmetrical chest rise. No increased work of breathing. No respiratory distress. Conversational desaturations to 80s, patient is on 6 L nasal cannula at time of visit Cardiac: RRR, -mrg. Radial pulses intact and symmetrical. Abdominal: Mild postoperative tenderness around incision site, HUMBERTO drain in place draining scant amount of sanguinous material with some clot no rebound tenderness/guarding. No hematoma Extremities: Warm, dry. No calf asymmetry. No pitting edema Results & Data Results & Data Vital Signs (Past 12 Hours) Vital Signs Temp Pulse Resp BP BP Pulse Ox O2 Del Method 05/05/23 07:25 Nasal Cannula 05/05/23 15:02 37 C 80 16 130/72 94 Nasal Cannula 05/05/23 12:00 36.5 C 80 14 127/72 95 Nasal Cannula 05/05/23 08:10 36.6 C 62 16 108/66 95 Nasal Cannula O2 Flow Rate 05/05/23 07:25 2 05/05/23 15:02 6 05/05/23 12:00 2 05/05/23 08:10 2 PG Care Time/CCT Total # of Minutes Spent Total Time Spent with Patient: Total time spent is greater than 50% in coordination of care (as documented) at patient's floor/unit and/or counseling patient: Coding Level of Care Code 32139 IN/OBS CONSULT LVL 5,80M Diagnoses Acute respiratory failure with hypoxia J96.01 S/P hernia repair Z98.890; Z87.19 Gastroesophageal reflux disease K21.9 Esophagitis presence: without esophagitis HTN (hypertension) I10 Hypertension type: unspecified Hyperlipemia E78.5 Hyperlipidemia type: unspecified Chest pain R07.9 Chest pain type: unspecified (3) Gastroesophageal reflux disease Esophagitis presence: without esophagitis Qualified Code(s): K21.9 - Gastro- esophageal reflux disease without esophagitis (4) HTN (hypertension) Hypertension type: unspecified Qualified Code(s): I10 - Essential (primary) hypertension (5) Hyperlipemia Hyperlipidemia type: unspecified Qualified Code(s): E78.5 - Hyperlipidemia, unspecified (6) Chest pain Chest pain type: unspecified Qualified Code(s): R07.9 - Chest pain, unspecified
[2023-05-05] MEDS ORDERED: FUROSEMIDE INJ 20 MG/2 ML VIAL IV ONE ×3 (15:43→21:31)
--- NOTE | 2023-05-05 16:09 | Electrocardiogram Report ---
Test Reason : Blood Pressure : / mmHG Vent. Rate : 074 BPM Atrial Rate : 074 BPM P-R Int : 172 ms QRS Dur : 092 ms QT Int : 368 ms P-R-T Axes : 064 -34 042 degrees QTc Int : 408 ms Normal sinus rhythm Left axis deviation Moderate voltage criteria for LVH, may be normal variant Abnormal ECG When compared with ECG of 23-APR-2023 13:18, No significant change was found Confirmed by Jomar Lopez ([id number]) on 05/05/2023 4:09:28 PM Referred By: Darnell Sanchez Confirmed By:Jomar Lopez
--- NOTE | 2023-05-05 18:11 | XRay Report ---
XR chest decubs CLINICAL HISTORY: exclude pneumoperitoneum COMPARISON STUDY: Chest 05/05/2023. FINDINGS: The right subdiaphragmatic lucency may be present on decubitus views. Therefore, this may r epresent pneumoperitoneum. Evidence for prior cholecystectomy. IMPRESSION: Questionable pneumoperitoneum. This will be better assessed on the same day chest CTA. ACT 112: Negative or not required by law. Electronically signed by: Mauro Clark M.D. 05/05/2023 6:09 PM
[2023-05-05] MEDS ORDERED: NITROGLYCERIN SL 0.4 MG/TAB TAB SL PRN (18:58)
[2023-05-05 20:09] LABS: Hematocrit (blood only) 26.7 % (37.0-47.0); Hemoglobin 9.1 g/dl (12.0-16.0)
[2023-05-05] MEDS ORDERED: IOVERSOL 350 MG 125mL Prefilled Syringe IV ONE (20:21)
--- NOTE | 2023-05-05 22:09 | CT Scan Report ---
Exam(s): CTA CHEST IV Amt: 118ml optiray 350 EXAM: CT Angiography Chest With Intravenous Contrast CLINICAL HISTORY: Hypoxia and Chest pain. TECHNIQUE: Axial computed tomographic angiography images of the chest with intravenous contrast. CTDI is 28.11 mGy and DLP is 703.96 mGy-cm. Automated exposure control was utilized for the study. A dose lowering technique was utilized adhering to the principles of ALARA. MIP reconstructed images were created and reviewed. COMPARISON: No relevant prior studies available. FINDINGS: Pulmonary arteries: Pulmonary emboli extend from the distal aspect of the right and left pulmonary arteries into the segmental branches of the left upper lobe right middle lobe and right lower lobe. Aorta: No acute findings. No thoracic aortic aneurysm. Lungs: Airspace opacity of the lung bases favor atelectasis, cannot exclude pulmonary infarct. Pleural space: Unremarkable. No significant effusion. No pneumothorax. Heart: Unremarkable. No cardiomegaly. No significant pericardial effusion. No evidence of RV dysfunction. Bones/joints: There are degenerative changes of the spine. No acute fracture. No dislocation. Soft tissues: Unremarkable. Lymph nodes: Unremarkable. No enlarged lymph nodes. Intraperitoneal space: There is free air in the abdomen which is concerning for perforation. Upper abdomen: There is elevation of the right hemidiaphragm. IMPRESSION: 1. Pulmonary emboli extend from the distal aspect of the right and left pulmonary arteries into the segmental branches of the left upper lobe right middle lobe and right lower lobe. 2. There is free air in the abdomen which is concerning for perforation. Recommend further evaluation with CT abdomen and pelvis if there is not a good clinical explanation of the free air. 3. Airspace opacity of the lung bases favor atelectasis, cannot exclude pulmonary infarct. 4. There is elevation of the right hemidiaphragm. Communications: Call Doctor Pulmonary Embolism Electronically signed by: Nani Frey MD 05/05/23 22:07 PM
--- NOTE | 2023-05-05 23:21 | Communication Note ---
Date of Service: May 05, 2023 I was notified by nursing that there was an urgent stat rad report the need to be discussed with me at approximately [address] Tk wills results of CTA of the chest which did reveal bilateral pulmonary emboli. She also discussed findings of free air in the abdomen which is likely consistent with patient's recent open hernia repair. After receiving results, discussed case with the on-call general surgeon, Dr. Hector Chavez, who recommended starting a heparin drip without a bolus given the patient's recent surgery. Orders placed and will discuss condition with patient.
[2023-05-05 23:35] LABS: Basophils # (auto) 0.06 K/uL (0-0.2); Basophils % (auto) 0.6 %; Eosinophils # (auto) 0.09 K/uL (0-0.50); Hematocrit (blood only) 26.4 % (37.0-47.0); Hemoglobin 8.9 g/dl (12.0-16.0); Immature Granulocytes # (auto) 0.03 K/uL (0.01-0.20); Immature Granulocytes % (auto) 0.3 %; Lymphocytes # (auto) 1.99 K/uL (1.2-3.4); Lymphocytes % (auto) 21.2 %; Mean Corpuscular Hgb Conc 33.7 g/dL (32.0-36.0); Mean Corpuscular Volume 88.9 fL (80.0-100.0); Mean Platelet Volume 8.9 fL (9.4-12.4); Monocytes # (auto) 0.73 K/uL (0.11-0.59); Monocytes % (auto) 7.8 %; Neutrophils # (auto) 6.49 K/uL (1.40-6.50); Neutrophils % (auto) 69.1 %; Platelet Count 245 K/uL (130-400); RDW Coefficient of Variation 13.3 % (11.5-14.5); RDW Standard Deviation 43.6 fL (36.4-46.3); Red Blood Count 2.97 M/uL (4.20-5.40); White Blood Count 9.39 K/ul (4.8-10.8)
[2023-05-06 00:12] LABS: Partial Thromboplastin Ratio 0.9; Partial Thromboplastin Time 24.8 Seconds (21.0-31.0); Prothrombin Time 11.1 Seconds (9.0-12.0)
[2023-05-06] MEDS: HEPARIN SODIUM/DEXTROSE 25,000 UNITS/500 ML BAG IV SCH ×2 (00:37→21:31)
[2023-05-06] MEDS: Heparin IV Adult Wt-Based Standard *NO* Bolus Protocol IV SCH ×3 (00:45→01:42)
--- NOTE | 2023-05-06 02:07 | Ultrasound Report ---
Exam(s): US VENOUS BILATERAL LOWER EXTREMITIES EXAM: US Duplex Bilateral Lower Extremities Veins CLINICAL HISTORY: Pulmonary embolus. TECHNIQUE: Real-time duplex ultrasound scan of the bilateral lower extremity veins integrating B-mode two-dimensional vascular structure, Doppler spectral analysis, color flow Doppler imaging and compression. COMPARISON: No relevant prior studies available. FINDINGS: Right deep veins: Unremarkable. No DVT in the right common femoral, femoral, proximal deep femoral or popliteal veins. The veins demonstrate normal color flow, are normally compressible, with normal phasic flow and/or augmentation response. Right superficial veins: Unremarkable. No thrombus in the visualized right great saphenous vein. Left deep veins: Unremarkable. No DVT in the left common femoral, femoral, proximal deep femoral or popliteal veins. The veins demonstrate normal color flow, are normally compressible, with normal phasic flow and/or augmentation response. Left superficial veins: Unremarkable. No thrombus in the visualized left great saphenous vein. Soft tissues: No acute findings. No popliteal cyst. IMPRESSION: No deep vein thrombosis of either lower extremity. Electronically signed by: Nani Frey MD 05/06/23 02:06 AM
[2023-05-06 03:38] LABS: Hemoglobin 8.9 g/dl (12.0-16.0)
[2023-05-06] MEDS: ACETAMINOPHEN 1,000 MG/100 ML VIAL IV SCH ×2 (05:52→14:34)
[2023-05-06 08:08] LABS: Partial Thromboplastin Ratio > 4.9
[2023-05-06 08:13] LABS: Partial Thromboplastin Time > 139.0 Seconds (21.0-31.0)
[2023-05-06] MEDS: CITALOPRAM 20 MG TAB PO SCH (08:24)
[2023-05-06] MEDS: PANTOprazole 40 MG TAB PO SCH (08:24)
[2023-05-06] MEDS: busPIRone 5 MG TAB PO SCH (08:24)
[2023-05-06] MEDS: buPROPion HCl 100 MG TABLET PO SCH (08:24)
[2023-05-06 09:27] LABS: Basophils # (auto) 0.07 K/uL (0-0.2); Basophils % (auto) 0.8 %; Eosinophils # (auto) 0.15 K/uL (0-0.50); Eosinophils % (auto) 1.6 %; Hematocrit (blood only) 25.8 % (37.0-47.0); Hemoglobin 8.7 g/dl (12.0-16.0); Immature Granulocytes # (auto) 0.03 K/uL (0.01-0.20); Immature Granulocytes % (auto) 0.3 %; Lymphocytes # (auto) 2.77 K/uL (1.2-3.4); Lymphocytes % (auto) 30.4 %; Mean Corpuscular Hemoglobin 30.2 pg (25.0-34.0); Mean Corpuscular Hgb Conc 33.7 g/dL (32.0-36.0); Mean Corpuscular Volume 89.6 fL (80.0-100.0); Mean Platelet Volume 9.6 fL (9.4-12.4); Monocytes # (auto) 0.63 K/uL (0.11-0.59); Monocytes % (auto) 6.9 %; Neutrophils # (auto) 5.45 K/uL (1.40-6.50); Platelet Count 244 K/uL (130-400); RDW Coefficient of Variation 13.2 % (11.5-14.5); RDW Standard Deviation 43.5 fL (36.4-46.3); Red Blood Count 2.88 M/uL (4.20-5.40)
[2023-05-06 09:36] LABS: Albumin Globulin Ratio 1.4 (0.9-2); Albumin Level 3.3 gm/dl (3.4-5.0); BUN Creatinine Ratio 14.9 (10-20); Bilirubin,Total 0.4 mg/dl (0.2-1.0); Calcium 8.3 mg/dl (8.6-10.3); Creatinine Clr Calc Pharmacy 72.1 ml/min; Est GFR (African American) 91.2 ml/min; Est GFR (Non-African American) 78.7 ml/min; Globulin 2.4 gm/dl (2.5-4.0); Magnesium 1.9 mg/dl (1.7-2.4); Potassium 3.7 mmol/L (3.5-5.1); Total Protein 5.7 gm/dl (6.0-8.3)
[2023-05-06 09:38] LABS: Troponin I High Sensitivity 9.3 pg/ml (0-14)
[2023-05-06 09:49] LABS: Partial Thromboplastin Ratio 2.7
[2023-05-06] MEDS: oxyCODONE HCL IR 5 MG TAB (IMMEDIATE RELEASE) PO PRN ×2 (09:51→21:30)
[2023-05-06 10:01] LABS: Partial Thromboplastin Time 75.2 Seconds (21.0-31.0)
[2023-05-06] MEDS ORDERED: FUROSEMIDE INJ 20 MG/2 ML VIAL IV ONE (11:31)
[2023-05-06] MEDS ORDERED: POTASSIUM CHLORIDE CRTAB 20 MEQ TABCR PO STA (11:31)
--- NOTE | 2023-05-06 12:18 | Hospitalist Progress Note ---
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 ALso had a premature delivery of a live baby. All points towards preexisting clotting disorder however none known in family. Is UTD on all cancer screenings ie mammo, pap, colonoscopy Received lasix x 2 doses yesterday and good UOP Still requiring 6LNC at rest -continue heparin gtt for now given ongoing post-op bleeding, HUMBERTO drain in place, surgery managing, hgb stable today at 8.9 down from 12 preop -encouraged ICS use which she has not been using/didn't know how to use -giveLasix IV 20mg x1 again today -check ECHO -continue supplemental O2 to keep POx>90% (2) Pulmonary emboli: Plan: as above add hypercoag workup to next labs continue heparin gtt until ensure no further bleeding and then can switch to Xarelto when ok with Surgery-recommend at least 3-6 months but if hypercoag w/u positive for underlying clotting disorder, would recommend lifelong prophylaxis AC check ECHO for right heart strain (3) CHF (congestive heart failure): Plan: likely HFpEF with volume overload from IVFs for hypotension earlier in stay give IV lasix check ECHO (4) Acute blood loss anemia: Plan: - Preop hgb 12.1 and down to 8.9 today, stable from yesterday, had associated bleeding from abd wall and hypotension which is now improved -transfuse if drops<7-8 or HD unstable -follow CBC q12 while on heparin gtt until stabilzes (5) S/P hernia repair: Plan: post op management as per SUrgery (6) Chest pain: Plan: 2/2 PEs ECG no ischemia ECHO pending serial trop neg x 3 (7) Gastroesophageal reflux disease: Plan: continue PPI (8) HTN (hypertension): Plan: with hypotension here from blood loss, now resolved continue to hold home losartan daily + amlodipine (9) Depression with anxiety: Plan: no acute issues continue bupropion, celexa, buspar Plan Dispo-continued stay, hospitalist will follow along Admission and Anticipated Discharge Date Admission Date: May 06, 2023 Subjective Pt reports feeling better today. Has WU with OOB to bathroom but none at rest. No further CP. Still with some serosang fluid in HUMBERTO drain. Found to have bilat PEs on CTA Chest overnight and started on heparin gtt, PTT supratherapeutic this AM but improved wit holding the heparin. She denies prior h/o blood clots but did have 3 miscarriages including a late term demise. She also then went on to have premature delivery of one of h er daughters. No +FH of VTE Denies leg swelling or pain prior to surgery Remains on 6LNC Tele with NSR, rates 70-90s Review of Systems Review of Systems: All systems reviewed & are unremarkable except as noted in HPI & below Physical Exam Constitutional: WD/WN, vitals as above Neck: trachea midline, no thyromegaly Respiratory: normal respiratory effort, lungs clear to auscultation Cardiovascular: RRR, no murmur, no edema Gastrointestinal (Abdomen): Inspection/Auscultation: + hypoactive bowel sound s; + abdomen abnormal to inspection (abd binder in place) and abdomen not distended Percussion/Palpation: + abdomen tender (mild over incision sites) and abdomen soft HUMBERTO drain in place with serosang fluid Musculoskeletal: Extremities: extremities normal to inspection; no cyanosis and no clubbing Skin: no rashes, warm and dry Neurologic: moves all extremities and awake; no focal motor deficits Psychiatric: A+Ox3, euthymic affect Lymphatic: no lymphedema Results & Data Results & Data Vital Signs (Past 12 Hours) Vital Signs Temp Pulse Pulse Resp BP Pulse Ox O2 Del Method 05/06/23 10:58 36.7 C 86 18 117/67 90 Nasal Cannula 05/06/23 07:27 36.7 C 78 17 129/75 92 Nasal Cannula 05/06/23 07:20 93 H 05/06/23 04:39 36.8 C 87 20 117/72 93 Nasal Cannula 05/06/23 03:52 106 H 05/06/23 00:05 36.7 C 92 H 20 106/63 92 Nasal Cannula O2 Flow Rate 05/06/23 10:58 6 05/06/23 07:27 6 05/06/23 07:20 05/06/23 04:39 2 05/06/23 03:52 05/06/23 00:05 6 Laboratory Results CBC, PTT, CMP , BNP, troponin reviewed Diagnostic Findings Chest X-Ray 05/05/23 14:36 XR chest 1V portable HISTORY: 77 years-old Female decreased SP02 acute hypoxia COMPARISON: 05/03/2022 TECHNIQUE: AP view of the chest FINDINGS: Cardiomediastinal and hilar silhouettes are unchanged. Unchanged right hemidiaphragmatic elevation. Chronic interstitial coarsening of the lung bases with linear bibasilar densities. No pneumothorax, pleural effusion or overt pulmonary edema. Questioned right subdiaphragmatic lucency. Degenerative changes of the shoulders and spine. IMPRESSION: 1. Cardiomegaly without acute process. 2. Mild bibasilar opacities favor atelectasis. 3. Equivocal right subdiaphragmatic lucency. Correlation with left lateral decubitus films recommended in order to exclude pneumoperitoneum. ACT 112: Negative or not required by law. The above report was generated using voice recognition software. It may contain grammatical, syntax or spelling errors. Electronically signed by: Thuan Giraldo M.D. 05/05/2023 3:03 PM Chest X-Ray 05/05/23 15:36 XR chest decubs CLINICAL HISTORY: exclude pneumoperitoneum COMPARISON STUDY: Chest 05/05/2023. FINDINGS: The right subdiaphragmatic lucency may be present on decubitus views. Therefore, this may represent pneumoperitoneum. Evidence for prior cholecystectomy. IMPRESSION: Questionable pneumoperitoneum. This will be better assessed on the same day chest CTA. ACT 112: Negative or not required by law. Electronically signed by: Mauro Clark M.D. 05/05/2023 6:09 PM Chest CTA 05/05/23 15:44 CR Exam(s): CTA CHEST IV Amt: 118ml optiray 350 EXAM: CT Angiography Chest With Intravenous Contrast CLINICAL HISTORY: Hypoxia and Chest pain. TECHNIQUE: Axial computed tomographic angiography images of the chest with intravenous contrast. CTDI is 28.11 mGy and DLP is 703.96 mGy-cm. Automated exposure control was utilized for the study. A dose lowering technique was utilized adhering to the principles of ALARA. MIP reconstructed images were created and reviewed. COMPARISON: No relevant prior studies available. FINDINGS: Pulmonary arteries: Pulmonary emboli extend from the distal aspect of the right and left pulmonary arteries into the segmental branches of the left upper lobe right middle lobe and right lower lobe. Aorta: No acute findings. No thoracic aortic aneurysm. Lungs: Airspace opacity of the lung bases favor atelectasis, cannot exclude pulmonary infarct. Pleural space: Unremarkable. No significant effusion. No pneumothorax. Heart: Unremarkable. No cardiomegaly. No significant pericardial effusion. No evidence of RV dysfunction. Bones/joints: There are degenerative changes of the spine. No acute fracture. No dislocation. Soft tissues: Unremarkable. Lymph nodes: Unremarkable. No enlarged lymph nodes. Intraperitoneal space: There is free air in the abdomen which is concerning for perforation. Upper abdomen: There is elevation of the right hemidiaphragm. IMPRESSION: 1. Pulmonary emboli extend from the distal aspect of the right and left pulmonary arteries into the segmental branches of the left upper lobe right middle lobe and right lower lobe. 2. There is free air in the abdomen which is concerning for perforation. Recommend further evaluation with CT abdomen and pelvis if there is not a good clinical explanation of the free air. 3. Airspace opacity of the lung bases favor atelectasis, cannot exclude pulmonary infarct. 4. There is elevation of the right hemidiaphragm. Communications: Call Doctor Pulmonary Embolism Electronically signed by: Nani Frey MD 05/05/23 22:07 PM Venous Doppler Study 05/05/23 23:00 Exam(s): US VENOUS BILATERAL LOWER EXTREMITIES EXAM: US Duplex Bilateral Lower Extremities Veins CLINICAL HISTORY: Pulmonary embolus. TECHNIQUE: Real-time duplex ultrasound scan of the bilateral lower extremity veins integrating B-mode two-dimensional vascular structure, Doppler spectral analysis, color flow Doppler imaging and compression. COMPARISON: No relevant prior studies available. FINDINGS: Right deep veins: Unremarkable. No DVT in the right common femoral, femoral, proximal deep femoral or popliteal veins. The veins demonstrate normal color flow, are normally compressible, with normal phasic flow and/or augmentation response. Right superficial veins: Unremarkable. No thrombus in the visualized right great saphenous vein. Left deep veins: Unremarkable. No DVT in the left common femoral, femoral, proximal deep femoral or popliteal veins. The veins demonstrate normal color flow, are normally compressible, with normal phasic flow and/or augmentation response. Left superficial veins: Unremarkable. No thrombus in the visualized left great saphenous vein. Soft tissues: No acute findings. No popliteal cyst. IMPRESSION: No deep vein thrombosis of either lower extremity. Electronically signed by: Nani Frey MD 05/06/23 02:06 AM PG Care Time/CCT Total # of Minutes Spent Total Time Spent with Patient: Total time spent is greater than 50% in coordination of care (as documented) at patient's floor/unit and/or counseling patient: Coding Level of Care Code 61169 SUB INP/OBS CARE 3/50MIN Diagnoses Acute respiratory failure with hypoxia J96.01 Pulmonary emboli I26.99 CHF (congestive heart failure) I50.9 Acute blood loss anemia D62 S/P hernia repair Z98.890; Z87.19 Chest pain R07.9 Chest pain type: unspecified Gastroesophageal reflux disease K21.9 Esophagitis presence: without esophagitis HTN (hypertension) I10 Hypertension type: unspecified Depression with anxiety F41.8 (6) Chest pain Chest pain type: unspecified Qualified Code(s): R07.9 - Chest pain, uns pecified (7) Gastroesophageal reflux disease Esophagitis presence: without esophagitis Qualified Code(s): K21.9 - Gastro- esophageal reflux disease without esophagitis (8) HTN (hypertension) Hypertension type: unspecified Qualified Code(s): I10 - Essential (primary) hypertension
--- NOTE | 2023-05-06 16:04 | XCELERA ---
[id number]
--- NOTE | 2023-05-06 16:25 | Surgery Progress Note ---
Date of Service May 06, 2023 Assessment & Plan (1) S/P hernia repair: Plan: She is overall doing well from her hernia repair and tolerating a diet She does have an oxygen requirement and has a new PE for which she is on a heparin drip From a surgical standpoint she is likely ready to go home, but she will need clearance from medicine as far as her PEs and then outpatient plan for anticoagulation prior to discharge (2) Pulmonary emboli: Admission and Anticipated Discharge Date Admission Date: May 06, 2023 Subjective Patient seen and examined. Abdominal pain improving. No nausea or vomiting. Passing flatus but no BM. She was diagnosed with a PE overnight. She is on heparin drip. Physical Exam Constitutional: WD/WN, vitals as above Gastrointestinal (Abdomen): Abdominal drain with some clots Dressings clean dry and intact Results & Data Vital Signs (Past 12 Hours) Vital Signs Temp Pulse Pulse Resp BP Pulse Ox O2 Del Method 05/06/23 15:45 36.6 C 82 18 109/54 L 92 Nasal Cannula 05/06/23 10:58 36.7 C 86 18 117/67 90 Nasal Cannula 05/06/23 07:27 36.7 C 78 17 129/75 92 Nasal Cannula 05/06/23 07:20 93 H 05/06/23 04:39 36.8 C 87 20 117/72 93 Nasal Cannula O2 Flow Rate 05/06/23 15:45 6 05/06/23 10:58 6 05/06/23 07:27 6 05/06/23 07:20 05/06/23 04:39 2 PG Care Time/CCT Total # of Minutes Spent Total Time Spent with Patient: Total time spent is greater than 50% in coordination of care (as documented) at patient's floor/unit and/or counseling patient: Coding Level of Care Code 94956 Post Operative Follow-Up Diagnoses S/P hernia repair Z98.890; Z87.19 Pulmonary emboli I26.99
[2023-05-06 17:25] LABS: Hematocrit (blood only) 25.7 % (37.0-47.0); Hemoglobin 8.6 g/dl (12.0-16.0); Mean Corpuscular Hemoglobin 30.1 pg (25.0-34.0); Mean Corpuscular Hgb Conc 33.5 g/dL (32.0-36.0); Mean Corpuscular Volume 89.9 fL (80.0-100.0); Mean Platelet Volume 8.9 fL (9.4-12.4); Platelet Count 260 K/uL (130-400); RDW Coefficient of Variation 13.3 % (11.5-14.5); RDW Standard Deviation 43.8 fL (36.4-46.3); Red Blood Count 2.86 M/uL (4.20-5.40); White Blood Count 9.45 K/ul (4.8-10.8)
[2023-05-06 17:52] LABS: Partial Thromboplastin Ratio 1.4; Partial Thromboplastin Time 39.6 Seconds (21.0-31.0)
[2023-05-07 01:41] LABS: Partial Thromboplastin Ratio 1.7
[2023-05-07 01:48] LABS: Partial Thromboplastin Time 46.6 Seconds (21.0-31.0)
[2023-05-07 07:49] LABS: Partial Thromboplastin Ratio 1.5
[2023-05-07 08:08] LABS: Partial Thromboplastin Time 43.7 Seconds (21.0-31.0)
[2023-05-07] MEDS: oxyCODONE HCL IR 5 MG TAB (IMMEDIATE RELEASE) PO PRN (08:30)
[2023-05-07] MEDS: PANTOprazole 40 MG TAB PO SCH (08:30)
[2023-05-07] MEDS: CITALOPRAM 20 MG TAB PO SCH (08:30)
[2023-05-07] MEDS: busPIRone 5 MG TAB PO SCH (08:30)
[2023-05-07] MEDS: buPROPion HCl 100 MG TABLET PO SCH (08:30)
[2023-05-07 08:32] LABS: Albumin Globulin Ratio 1.4 (0.9-2); Albumin Level 3.3 gm/dl (3.4-5.0); BUN Creatinine Ratio 12.5 (10-20); Bilirubin,Total 0.4 mg/dl (0.2-1.0); Calcium 8.4 mg/dl (8.6-10.3); Creatinine Clr Calc Pharmacy 85.4 ml/min; Est GFR (African American) 100.5 ml/min; Est GFR (Non-African American) 86.7 ml/min; Globulin 2.3 gm/dl (2.5-4.0); Magnesium 1.8 mg/dl (1.7-2.4); Potassium 3.8 mmol/L (3.5-5.1); Total Protein 5.6 gm/dl (6.0-8.3)
[2023-05-07 08:57] LABS: Basophils # (auto) 0.05 K/uL (0-0.2); Basophils % (auto) 0.6 %; Eosinophils # (auto) 0.21 K/uL (0-0.50); Eosinophils % (auto) 2.6 %; Hematocrit (blood only) 24.7 % (37.0-47.0); Hemoglobin 8.2 g/dl (12.0-16.0); Immature Granulocytes # (auto) 0.04 K/uL (0.01-0.20); Immature Granulocytes % (auto) 0.5 %; Lymphocytes # (auto) 2.55 K/uL (1.2-3.4); Lymphocytes % (auto) 31.6 %; Mean Corpuscular Hemoglobin 29.6 pg (25.0-34.0); Mean Corpuscular Hgb Conc 33.2 g/dL (32.0-36.0); Mean Corpuscular Volume 89.2 fL (80.0-100.0); Mean Platelet Volume 10.5 fL (9.4-12.4); Monocytes # (auto) 0.57 K/uL (0.11-0.59); Monocytes % (auto) 7.1 %; Neutrophils # (auto) 4.66 K/uL (1.40-6.50); Neutrophils % (auto) 57.6 %; Platelet Count 184 K/uL (130-400); RDW Coefficient of Variation 13.3 % (11.5-14.5); RDW Standard Deviation 43.6 fL (36.4-46.3); Red Blood Count 2.77 M/uL (4.20-5.40); White Blood Count 8.08 K/ul (4.8-10.8)
--- NOTE | 2023-05-07 09:41 | Surgery Progress Note ---
Date of Service May 07, 2023 Assessment & Plan (1) S/P hernia repair: Plan: Once she is cleared by medicine from her pulmonary standpoint, she can be discharged home with the drain in place (2) Pulmonary emboli: Admission and Anticipated Discharge Date Admission Date: May 06, 2023 Subjective Patient seen and examined. Not much abdominal pain at this point. Denies any nausea or vomiting. She is tolerating a regular diet. She has flatus but no BM. Still requiring some oxygen. Physical Exam Constitutional: WD/WN, vitals as above Gastrointestinal (Abdomen): Abdominal drain with some clots Dressings clean dry and intact, incisions with nirali and mild ecchymosis, no erythema or drainage Results & Data Vital Signs (Past 12 Hours) Vital Signs Temp Pulse Pulse Resp BP Pulse Ox O2 Del Method 05/07/23 07:20 36.8 C 85 20 129/74 95 Nasal Cannula 05/07/23 07:44 90 05/07/23 03:10 36.8 C 87 20 143/70 H 94 Nasal Cannula 05/06/23 22:51 91 H 05/07/23 01:43 Nasal Cannula 05/07/23 00:06 37.2 C 92 H 20 148/73 H 92 Nasal Cannula O2 Flow Rate 05/07/23 07:20 6 05/07/23 07:44 05/07/23 03:10 6 05/06/23 22:51 05/07/23 01:43 6 05/07/23 00:06 6 PG Care Time/CCT Total # of Minutes Spent Total Time Spent with Patient: Total time spent is greater than 50% in coordination of care (as documented) at patient's floor/unit and/or counseling patient: Coding Level of Care Code 16230 Post Operative Follow-Up Diagnoses S/P hernia repair Z98.890; Z87.19 Pulmonary emboli I26.99
[2023-05-07] MEDS ORDERED: FUROSEMIDE INJ 20 MG/2 ML VIAL IV ONE (12:59)
[2023-05-07] MEDS ORDERED: POTASSIUM CHLORIDE CRTAB 20 MEQ TABCR PO STA (12:59)
[2023-05-07] MEDS ORDERED: MAGNESIUM SULFATE / D5W 1 GM/100 ML BAG IV ONE (12:59)
[2023-05-07] MEDS: ACETAMINOPHEN 325 MG TAB PO PRN (15:18)
--- NOTE | 2023-05-07 19:15 | Hospitalist Progress Note ---
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 ALso had a premature delivery of a live baby. All points towards preexisting clotting disorder however none known in family. Is UTD on all cancer screenings ie mammo, pap, colonoscopy Received lasix x several doses and good UOP Still requiring 6LNC at rest -continue heparin gtt for now given ongoing post-op bleeding, HUMBERTO drain in place, surgery managing, hgb stable today at 8.2 down from 12 preop -encouraged ICS use -give Lasix IV 20mg x1 again today -checked ECHO-normal -continue supplemental O2 to keep POx>90% -may need 2 step walk test prior to discharge (2) Pulmonary emboli: Plan: as above added hypercoag workup to next labs-pending continue heparin gtt until ensure no further bleeding and then can switch to Xarelto tomorrow/Monday as discussed with Surgery-recommend at least 3-6 months but if hypercoag w/u positive for underlying clotting disorder, would recommend lifelong prophylaxis AC checked ECHO for right heart [id number] increased RVSP Ask Nurse Navigator to chery out cost of Xarelto (3) CHF (congestive heart failure): Plan: likely HFpEF with volume overload from IVFs for hypotension earlier in stay give IV lasix check ECHO (4) Acute blood loss anemia: Plan: - Preop hgb 12.1 and down to 8.9 today, stable from yesterday, had associated bleeding from abd wall and hypotension which is now improved -transfuse if drops<7-8 or HD unstable -follow CBC while on heparin gtt (5) S/P hernia repair: Plan: post op management as per SUrgery (6) Chest pain: Plan: 2/2 PEs ECG no ischemia ECHO pending serial trop neg x 3 (7) Gastroesophageal reflux disease: Plan: continue PPI (8) HTN (hypertension): Plan: with hypotension here from blood loss, now resolved continue to hold home losartan daily + amlodipine (9) Depression with anxiety: Plan: no acute issues continue bupropion, celexa, buspar Plan Dispo-continued stay, hospitalist will follow along PT/OT consulted Admission and Anticipated Discharge Date Admission Date: May 06, 2023 Subjective Feeling better, not SOB but has had minimal exertion. Remains on 6LNC. Denies CP. Abd pain controlled, no BM yet but passing flatus, tolerating regular food. Tele with NSR in 80s Physical Exam Constitutional: WD/WN, vitals as above Neck: trachea midline, no thyromegaly Respiratory: normal respiratory effort, lungs clear to auscultation Cardiovascular: RRR, no murmur, no edema Gastrointestinal (Abdomen): Inspection/Auscultation: + abdomen abnormal to inspection (abd binder in place) Musculoskeletal: Extremities: extremities normal to inspection; no cyanosis and no clubbing Skin: no rashes, warm and dry Neurologic: moves all extremities and awake; no focal motor deficits Psychiatric: A+Ox3, euthymic affect Lymphatic: no lymphedema Results & Data Results & Data Vital Signs (Past 12 Hours) Vital Signs Temp Pulse Pulse Resp BP Pulse Ox O2 Del Method 05/07/23 17:03 85 05/07/23 14:56 36.9 C 82 18 128/71 95 Nasal Cannula 05/07/23 08:30 Nasal Cannula 05/07/23 11:01 36.7 C 86 20 133/72 94 Nasal Cannula 05/07/23 07:20 36.8 C 85 20 129/74 95 Nasal Cannula 05/07/23 07:44 90 O2 Flow Rate 05/07/23 17:03 05/07/23 14:56 6 05/07/23 08:30 6 05/07/23 11:01 6 05/07/23 07:20 6 05/07/23 07:44 Laboratory Results CBC, BMP ,magnesium reviewed PG Care Time/CCT Total # of Minutes Spent Total Time Spent with Patient: Total time spent is greater than 50% in coordination of care (as documented) at patient's floor/unit and/or counseling patient: Coding Level of Care Code 20223 SUB INP/OBS CARE 2/35MIN Diagnoses Acute respiratory failure with hypoxia J96.01 Pulmonary emboli I26.99 CHF (congestive heart failure) I50.9 Acute blood loss anemia D62 S/P hernia repair Z98.890; Z87.19 Chest pain R07.9 Chest pain type: unspecified Gastroesophageal reflux disease K21.9 Esophagitis presence: without esophagitis HTN (hypertension) I10 Hypertension type: unspecified Depression with anxiety F41.8 (6) Chest pain Chest pain type: unspecified Qualified Code(s): R07.9 - Chest pain, unspecified (7) Gastroesophageal reflux disease Esophagitis presence: without esophagitis Qualified Code(s): K21.9 - Gastro- esophageal reflux disease without esophagitis (8) HTN (hypertension) Hypertension type: unspecified Qualified Code(s): I10 - Essential (primary) hypertension
[2023-05-07] MEDS: HEPARIN SODIUM/DEXTROSE 25,000 UNITS/500 ML BAG IV SCH (22:38)
[2023-05-08] MEDS: ACETAMINOPHEN 325 MG TAB PO PRN (06:10)
[2023-05-08 07:39] LABS: Basophils # (auto) 0.04 K/uL (0-0.2); Basophils % (auto) 0.5 %; Eosinophils % (auto) 2.6 %; Hematocrit (blood only) 25.7 % (37.0-47.0); Hemoglobin 8.4 g/dl (12.0-16.0); Immature Granulocytes # (auto) 0.06 K/uL (0.01-0.20); Immature Granulocytes % (auto) 0.8 %; Lymphocytes # (auto) 2.01 K/uL (1.2-3.4); Lymphocytes % (auto) 25.7 %; Mean Corpuscular Hemoglobin 29.7 pg (25.0-34.0); Mean Corpuscular Hgb Conc 32.7 g/dL (32.0-36.0); Mean Corpuscular Volume 90.8 fL (80.0-100.0); Mean Platelet Volume 8.5 fL (9.4-12.4); Monocytes # (auto) 0.47 K/uL (0.11-0.59); Neutrophils # (auto) 5.03 K/uL (1.40-6.50); Neutrophils % (auto) 64.4 %; Platelet Count 286 K/uL (130-400); RDW Coefficient of Variation 13.4 % (11.5-14.5); RDW Standard Deviation 44.4 fL (36.4-46.3); Red Blood Count 2.83 M/uL (4.20-5.40); White Blood Count 7.81 K/ul (4.8-10.8)
[2023-05-08 08:03] LABS: BUN Creatinine Ratio 11.9 (10-20); Calcium 8.7 mg/dl (8.6-10.3); Creatinine Clr Calc Pharmacy 80.5 ml/min; Est GFR (Non-African American) 85.4 ml/min; Potassium 3.9 mmol/L (3.5-5.1)
[2023-05-08] MEDS: CITALOPRAM 20 MG TAB PO SCH (08:08)
[2023-05-08] MEDS: busPIRone 5 MG TAB PO SCH (08:08)
[2023-05-08] MEDS: PANTOprazole 40 MG TAB PO SCH (08:08)
[2023-05-08] MEDS: buPROPion HCl 100 MG TABLET PO SCH (08:08)
[2023-05-08 08:23] LABS: Partial Thromboplastin Ratio 1.5
--- NOTE | 2023-05-08 08:40 | Surgery Progress Note ---
Date of Service May 08, 2023 Assessment & Plan (1) S/P hernia repair: Plan: Her hemoglobins been stable for 3 days Can transition to p.o. anticoagulation and can be discharged home from a surgical standpoint when cleared by medicine (2) Pulmonary emboli: Admission and Anticipated Discharge Date Admission Date: May 06, 2023 Subjective Patient seen and examined. Tolerating regular diet. Passing lots of flatus. No BM. Physical Exam Constitutional: WD/WN, vitals as above Gastrointestinal (Abdomen): Abdominal drain with some clots Dressings clean dry and intact, incisions with nirali and mild ecchymosis, no erythema or drainage Results & Data Vital Signs (Past 12 Hours) Vital Signs Temp Pulse Pulse Resp BP BP Pulse Ox 05/08/23 07:31 36.4 C L 88 20 126/71 93 05/08/23 04:29 84 L 05/08/23 03:10 36.9 C 94 H 20 146/82 H 93 05/08/23 04:33 90 05/08/23 04:21 91 05/08/23 04:14 92 05/08/23 04:10 91 05/08/23 04:06 92 05/07/23 22:02 89 05/08/23 01:29 90 05/08/23 01:27 89 L 05/08/23 00:47 36.7 C 93 H 20 143/77 H 92 05/07/23 23:13 O2 Del Method O2 Flow Rate 05/08/23 07:31 Nasal Cannula 2 05/08/23 04:29 Room Air 05/08/23 03:10 Nasal Cannula 6 05/08/23 04:33 Nasal Cannula 2 05/08/23 04:21 Nasal Cannula 2 05/08/23 04:14 Nasal Cannula 3 05/08/23 04:10 Nasal Cannula 4 05/08/23 04:06 Nasal Cannula 6 05/07/23 22:02 05/08/23 01:29 Nasal Cannula 6 05/08/23 01:27 Nasal Cannula 6 05/08/23 00:47 Nasal Cannula 6 05/07/23 23:13 Nasal Cannula 6 PG Care Time/CCT Total # of Minutes Spent Total Time Spent with Patient: Total time spent is greater than 50% in coordination of care (as documented) at patient's floor/unit and/or counseling patient: Coding Level of Care Code 70548 Post Operative Follow-Up Diagnoses S/P hernia repair Z98.890; Z87.19 Pulmonary emboli I26.99
[2023-05-08 08:44] LABS: Partial Thromboplastin Time 42.1 Seconds (21.0-31.0)
[2023-05-08] MEDS ORDERED: POLYETHYLENE (MIRALAX) 17 GM PACK PO ONE (10:13)
[2023-05-08] MEDS ORDERED: RIVAROXABAN 15 MG TAB PO SCH (11:15)
[2023-05-08] MEDS ORDERED: RIVAROXABAN 20 MG TAB PO SCH (11:15)
--- NOTE | 2023-05-08 11:33 | XRay Report ---
XR chest 1V portable CLINICAL HISTORY: hypoxia TECHNIQUE: Single frontal radiograph of the chest was obtained. Comparison: Comparison is made to chest radiograph 05/05/2023 FINDINGS: No lines and tubes are seen. The cardiomediastinal silhouette is normal. Lungs are underinflated but clear. No evidence of pleural effusion or pneumothorax. IMPRESSION: No acute abnormalities and in particular no radiographic evidence of pneumonia. ACT 112: Negative or not required by law. Electronically signed by: Bong Mayer M.D. 05/08/2023 11:32 AM
--- NOTE | 2023-05-08 14:48 | Hospitalist Progress Note ---
Date of Service May 08, 2023 Assessment & Plan (1) Acute respiratory failure with hypoxia: Plan: Resolved. She is now on room air. She passed her two-step trial. (2) Pulmonary emboli: Plan: Heparin drip switched to Xarelto 15 mg twice a day for 3 weeks at discharge. Then 20 mg daily thereafter (3) CHF (congestive heart failure): Plan: HFpEF with volume overload from IVFs for hypotension earlier in stay. Now resolved. Treated with IV Lasix while hospitalized (4) Acute blood loss anemia: Plan: Hemoglobin stable at 8.4. She did not require transfusion (5) S/P hernia repair: Plan: post op management as per SUrgery (6) Chest pain: Plan: Due to pulmonary emboli. No evidence of acute coronary syndrome (7) Gastroesophageal reflux disease: Plan: Stable. Treated with PPI (8) HTN (hypertension): Plan: Now resolved. Will resume losartan and amlodipine at discharge (9) Depression with anxiety: Plan: Stable. Continue current medical management Plan Dispo-Home today, May 08, by primary service Admission and Anticipated Discharge Date Admission Date: May 06, 2023 Subjective Doing well. Chest x-ray is clear. She is now off her oxygen. Heparin drip has been switched to Xarelto 15 mg twice a day for 3 weeks then 20 mg daily thereafter. She will be discharged home today by the primary service Review of Systems Review of Systems: Constitutional-no fever or chills ENT-no blurred vision, no double vision, no epistaxis, no sore throat Respiratory-no cough, no wheezing, no shortness of breath Cardiac-no palpitations, no chest pain, no syncope GI-no nausea, vomiting, diarrhea, melena, hematochezia -no urinary retention, no urinary incontinence, no dysuria, no hematuria Musculoskeletal-no joint pain, no muscle tenderness Skin-no bruising, no rashes, no pruritus Neuro-no isolated weakness, no paresthesia, no weakness Psych-no depression, no anxiety Physical Exam Physical Exam: General-alert and oriented x3, no fevers, no chills HEENT-head atraumatic and normocephalic, pupils equal and reactive to light, ex traocular muscles intact Neck-no lymphadenopathy or thyromegaly, trachea midline Chest-clear to auscultation percussion. No rales wheezing or rhonchi Cardiac-regular rate and rhythm, normal S1 and S2, no murmurs Abdomen-normal bowel sounds, no hepatosplenomegaly. Incision clean and dry. Drain will be removed by primary service prior to discharge Extremities-no cyanosis, clubbing, or edema Neuro-cranial nerves II through XII intact, motor and sensory function within normal limits, strength symmetrical , no focal deficits Psych-normal affect, normal mood Results & Data Results & Data Vital Signs (Past 12 Hours) Vital Signs Temp Pulse Pulse Pulse Pulse Resp Resp 05/08/23 13:22 05/08/23 11:01 36.9 C 81 18 05/08/23 11:24 107 H 85 16 05/08/23 08:45 82 05/08/23 07:31 36.4 C L 88 20 05/08/23 04:29 05/08/23 03:10 36.9 C 94 H 20 05/08/23 04:33 05/08/23 04:21 05/08/23 04:14 05/08/23 04:10 05/08/23 04:06 Resp BP BP Pulse Ox Pulse Ox Pulse Ox O2 Del Method 05/08/23 13:22 Room Air 05/08/23 11:01 132/79 96 Nasal Cannula 05/08/23 11:24 16 88 L 91 05/08/23 08:45 05/08/23 07:31 126/71 93 Nasal Cannula 05/08/23 04:29 84 L Room Air 05/08/23 03:10 146/82 H 93 Nasal Cannula 05/08/23 04:33 90 Nasal Cannula 05/08/23 04:21 91 Nasal Cannula 05/08/23 04:14 92 Nasal Cannula 05/08/23 04:10 91 Nasal Cannula 05/08/23 04:06 92 Nasal Cannula O2 Flow Rate 05/08/23 13:22 05/08/23 11:01 2 05/08/23 11:24 05/08/23 08:45 05/08/23 07:31 2 05/08/23 04:29 05/08/23 03:10 6 05/08/23 04:33 2 05/08/23 04:21 2 05/08/23 04:14 3 05/08/23 04:10 4 05/08/23 04:06 6 Laboratory Results 05/08/23 07:11 05/08/23 07:11 PG Care Time/CCT Total # of Minutes Spent Total Time Spent with Patient: Total time spent is greater than 50% in coordination of care (as documented) at patient's floor/unit and/or counseling patient: Coding Level of Care Code 82990 SUB INP/OBS CARE 3/50MIN Diagnoses Acute respiratory failure with hypoxia J96.01 Pulmonary emboli I26.99 CHF (congestive heart failure) I50.9 Acute blood loss anemia D62 S/P hernia repair Z98.890; Z87.19 Chest pain R07.9 Chest pain type: unspecified Gastroesophageal reflux disease K21.9 Esophagitis presence: without esophagitis HTN (hypertension) I10 Hypertension type: unspecified Depression with anxiety F41.8 (6) Chest pain Chest pain type: unspecified Qualified Code(s): R07.9 - Chest pain, unspecified (7) Gastroesophageal reflux disease Esophagitis presence: without esophagitis Qualified Code(s): K21.9 - Gastro-esophageal reflux disease without esophagitis (8) HTN (hypertension) Hypertension type: unspecified Qualified Code(s): I10 - Essential (primary) hypertension
--- NOTE | 2023-05-09 14:09 | Discharge Summary ---
Date of Service May 08, 2023 Principal Diagnosis incisional abd hernia Discharge Data Allergies Allergy/AdvReac Type Severity Reaction Status Date / Time adhesive Allergy Intermediate RED, Verified 05/11/23 09:13 PAINFUL SKIN levofloxacin Allergy Intermediate RASH/ITCHY Verified 05/11/23 09:13 nickel Allergy Intermediate ITCHING Verified 05/11/23 09:13 celecoxib [From Celebrex] AdvReac Intermediate DIGESTIVE Verified 05/11/23 09:13 ISSUES codeine AdvReac Intermediate SEVERE Verified 05/11/23 09:13 NAUSEA AND VOMITING metoclopramide [From Reglan] AdvReac Intermediate Depression Verified 05/11/23 09:13 sulfamethoxazole AdvReac Intermediate DIGESTIVE Verified 05/11/23 09:13 [From Bactrim] ISSUES trimethoprim [From Bactrim] AdvReac Intermediate DIGESTIVE Verified 05/11/23 09:13 ISSUES Consultations 05/05/23 14:36 Consult Hospitalist Stat 05/07/23 19:17 Consult NARCISO tower helper Routine 05/08/23 01:51 Consult NARCISO tower helper Routine Procedures Performed Operation Date: 05/04/23 10:15 Actual Procedures p Laparoscopy with Lysis of Adhesions; (Not Applicable) - Darnell Sanchez MD, FACS s Open Incarcerated Incisional Hernia Repair with Compartment Separation and 10cm Surgimesh Preperitoneal(Not Applicable) - Darnell Sanchez MD, FACS Ordered Studies 05/05/23 15:44 CT angio chest PE protocol Stat 05/05/23 23:00 US venous doppler LE BI Urgent Total Time Total Time Spent Total Time Spent (In Minutes): 15 Discharge Plan Discharge Items Patient Disposition: Home - Self-Care Reason For Visit: Umbilical Hernia, Incisional Hernia Discharge Diagnosis: incisional hernia repair Pulmonary emboli Hypoxia Activity: Per Instructions section Lifting: No more than 10 pounds Bathing Comment: may shower; no soaking in tubs/pools x 2 weeks Exercise/Sports: Wait until after follow-up appointment Driving/Machine Use: no driving while taking any narcotics for pain Non-emergency contact: Surgeon Call non-emergency contact if: you have any medication questions, your symptoms worsen, your pain is worsening, your pain is unusual for you, you have a fever, your temperature is above 101.5, your wound has increased redness, your wound has increased drainage and your wound pain has increased Follow-up/Referrals: Eliot Liriano MD [Primary Care Provider] - Darnell Sanchez MD, FACS [Surgeon] - 05/11/23 1:00 pm ( ) Diet: Regular Addtl Attending Provider Instructions: You have surgical nirali that will be removed at one of your follow up appointments You no longer have to wear your abdominal binder unless you wish. Do not wear it while lying in bed Should have no lifting greater than 10 pounds for a week She may shower reapply the dressing around the Hector drainage midline incision does not need any dressing And return to our office next You will be started on a new medication called Xarelto which is a blood thinner to treat you blood clots Take 15mg twice daily for 3 weeks, then you will transition to taking 20mg once a daily thereafter Pending Studies at Discharge: No Stand-Alone Forms: My [facility] [place], Smoking Cessation Medications and DC Order Prescriptions: New Xarelto 15 mg tablet 15 mg PO BID 21 Days Qty: 42 0RF Rx Instructions: must administer with a meal/food Xarelto 20 mg tablet 20 mg PO DAILY Qty: 30 0RF Rx Instructions: must administer with evening meal Continued citalopram 20 mg tablet 20 mg PO QAM Qty: 90 3RF losartan 100 mg tablet 100 mg PO QAM Qty: 90 3RF bupropion HCl 100 mg tablet 100 mg PO QAM Qty: 90 3RF sodium chloride 0.9 % aerosol,spray 1 spray intranasal BID PRN (Reason: Congestion) amlodipine 5 mg tablet 5 mg PO DAILY PRN (Reason: SBP > 150) Qty: 30 2RF esomeprazole magnesium 20 mg Tablet,Delayed Release (Dr/Ec) 20 mg PO QAM docusate sodium 100 mg tablet 100 mg PO QAM Systane Complete 0.6 % Drops 1 drp OPHTHALMIC (EYE) BID multivitamin Tablet 1 tab PO QAM turmeric root extract 500 mg Capsule 1,000 mg PO QAM diphenhydramine-acetaminophen [Tylenol PM Extra Strength] 25-500 mg tablet 1 tab PO Q8H PRN (Reason: excluding HS, temporary due to hip replacement) buspirone 5 mg tablet 5 mg PO QAM No Action oxycodone-acetaminophen [Percocet] 5-325 mg tablet 1 - 2 tab PO .q4-6h PRN (Reason: pain, for initial therapy, max 6 tabs per day) Qty: 15 0RF Discharge Orders: Discharge Order (Routine); Ordered 05/08/23 Ordered By: Louisa Mueller Admission Data Admit Date/Time: 05/06/23 10:46 Attending Provider: Darnell Sanchez Admit Provider: Darnell Sanchez Primary Care Provider: Eliot Liriano Other Providers: Reji Suarez ; Iris Alanis ; Matt Espinosa ; Sam Kee ; Leroy Ames ; René Anders ; Nina Pearson ; Sherry Foy ; Logan Camejo ; Karla Nieto ; Bala Riley ; Jacy Goldman ; Mack Farrar ; Alex Mckeon ; Iris Schrader ; Barbie Hatch ; Jonah Dotson ; Matt Powell ; Mauro Foley ; Elodia Atkinson ; Aris Nolasco ; Ana Funes ; Dwain Pace Paul ; Cora Del Toro ; Benita Hector ; Stephane Flor ; Rosaura Leon ; Luisa Lara ; Scottie Marquez ; Sam Buck Other Interventions: Discharge Summary Assessment (RN) Last Done: 05/08/23 15:21 Coding Level of Care Code 68748 INP/OBS DISCH >30 MIN Diagnoses
== END 2023-05-08 16:14 | disposition home or self-care (01) | DRG 335 ==
LOC: ASU 08:37 → 3E 08:37 → 2N 05-05 16:02

== ENCOUNTER 2024-04-09 09:28 | Observation (INO) ==
--- NOTE | 2024-04-09 09:52 | Emergency Department Note ---
Impression & Plan Amaurosis fugax of right eye ED Provider Note NAME: ADAM OSBORNE AGE: 78 SEX: F : 1945 ARRIVES VIA: Walk-In INFORMANT: Patient, ED PROVIDER(S): César Aldridge MD CHIEF COMPLAINT: Vision changes MEDICAL DECISION MAKING: Patient presents due to concern for vision changes which have improved. Currently no visual field deficits but does have a change in coloration in the right lower quadrant of her right eye. IV was established and blood work was obtained. CT and CT angiography of the head and neck were performed. Patient also did have retinal exam performed. Blood work shows a normal white count hemoglobin and platelet count. The patient's kidney function is unremarkable with normal electrolytes. Patient CT and CT angiography of the head and neck are negative. The patient's chest x-ray unremarkable. Retinal imaging was sent to Dr. Watts via secure [employer] text. He did review and I discussed the patient's case due to concern for her mother monocular vision loss which was transient nature. He stated there were no overt findings suggestive of CRAO. He would treat this like a stroke at this time and recommends outpatient follow-up with ophthalmology. I did inform the patient the findings. The patient was ordered aspirin 324 as well as Plavix 75. MR brain was ordered and pending at the time of admission.. I did speak with the on-call hospitalist Dr. Lara. Patient was admitted to the medicine service. Discussion w/ other healthcare providers: Dr. Lara inpatient medicine service Dr. Watts ophthalmology Prior /Outside records reviewed: None Differential diagnosis: Scotoma, ocular migraine, vitreous hemorrhage, retinal hemorrhage, CRAO, TIA, amaurosis fugax, stroke among others were considered. Diagnostics, as interpreted by me: ECG: Normal sinus rhythm, rate of 73, normal intervals, left axis deviation no ST elevations. Cardiac monitoring: An order was placed for continuous cardiac monitoring. The monitor shows a rate of 75 with sinus rhythm. Patient was placed on pulse oximetry Medical decision rules: None Imaging studies: I informally interpreted the patient's chest x-ray does not show obvious pneumonia or pneumothorax with formal report to follow. HPI: Patient presents due to concern for vision changes that occurred about 1 hour prior to arrival. The patient states that she initially noted an area of grayness in her right lower vision which seem to be wavy in nature. This subsequently was like a rising area of monocular vision loss in the right eye and complete grade out area not unable to discriminate colors or any features. The patient states that since then this has dissipated where she has a red tinge of color that she can see through in the right corner lower aspect of her vision. Patient denies any chest pains or shortness of breath. No prior history stroke or mini stroke. The patient does wear corrective lenses but denies any other vision changes. No falls or trauma no head or neck pain. PAST MEDICAL HISTORY: See Below PAST SURGICAL HISTORY: See Below SOCIAL HISTORY: See Below HOME MEDICATIONS: See Below ALLERGIES: See Below VITALS: See Below PHYSICAL EXAMINATION: GENERAL: NAD, non-toxic. EYE EXAM: Normal conjunctiva. PERRL, no anisocoria and EOM's grossly intact w/o pain. 20/25 vision in the right with 20/20 vision in the left with corrective lenses. No obvious hyphema or hypopyon. No proptosis or periorbital swelling. No obvious visual field deficits. OROPHARYNX: Moist mucus membranes, grossly normal dentition. NECK: Trachea midline, no stridor. LUNGS: Clear to auscultation. Normal chest wall mechanics. HEART: NSR, no MRG. ABDOMEN: Abdomen soft, non-tender, no masses, no rebound or guarding. BACK: No CVA TTP. SKIN: No rashes and no bruising. UPPER EXTREMITIES: Upper extremities are grossly normal. LOWER EXTREMITIES: Grossly normal, no edema. NEURO EXAM: A&O x3, cranial nerves II-XII grossly intact, normal speech, moves all 4 extremities. Good [id number], no drift and no sensory deficits. Past Med/Surg History Problem List (Updated 04/09/24 @ 15:01 by César Aldridge MD) Amaurosis fugax of right eye (Acute) Pulmonary emboli S/P hernia repair Leg length discrepancy Sensorineural hearing loss (SNHL) of both ears Vitamin D deficiency Mixed conductive and sensorineural hearing loss of right ear with restricted hearing of left ear Depression with anxiety (Acute) Gastroesophageal reflux disease (Acute) HTN (hypertension) (Acute) Hyperlipemia (Acute) Per records Hyperplastic polyps of stomach (Acute) Irritable bowel syndrome (Acute) Lichen sclerosus et atrophicus (Acute) Multilevel degenerative disc disease (Acute) Spinal stenosis (Acute) Neurogenic 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 spinal stenosis Medical History Encounter for pre-operative examination Anxiety History of COVID-19 November 16, 2022 > not hospitalized Ischial bursitis of left side Sacroiliitis Hearing deficit Seen by ENT in the past- non purulent fluid noted- recommend Flonase, Afrin and steroid Diverticulitis of colon Osteoarthritis History of diverticulitis Depression GERD (gastroesophageal reflux disease) Spinal stenosis Surgical History History of incisional hernia repair (05/04/23) Laparoscopy with Lysis of Adhesions; Open Incarcerated Incisional Hernia Repair with Compartment Separation and 10cm Surgimesh Preperitoneal(Not Applicable) - Darnell Sanchez MD, FACS History of right hip replacement done by Dr. Smith 06/02/22 History of cataract surgery R- 04/27/21 L- 05/11/21 History of left hip replacement (~01/2019) S/P appendectomy (~03/04/21) Dr. Shultz History of lumbar fusion L4-L5 09/05/18 - MAC #3, ETT #7.0, Grade 1 View H/O breast biopsy RIGHT - BENIGN - AGE 61 H/O elbow surgery RIGHT - FOR TENNIS ELBOW - AGE 49 History of carpal tunnel release RIGHT - AGE 49 History of colonoscopy 2020 - Dr. Huitron History of dilation and curettage Age 27 History of partial colectomy Age 65 06/29/11 - ETT #7.0 History of laparoscopic cholecystectomy AGE 62 History of hysterectomy AGE 38 History of laparotomy RUPTURED ECTOPIC - AGE 36 History of tubal ligation LAP - AGE 29 History of tonsillectomy and adenoidectomy AGE 11 Family History Father , age 79 Myocardial infarction Daughter Crohn's disease Mother Hypercholesterolemia Leukocytosis Thrombocytosis Hypertension Stroke Father Stroke Other No family history of adverse response to anesthesia No family history of bleeding disorder No pertinent family history Denies family history of Ovarian cancer Prostate cancer Breast cancer Colorectal cancer Social History Smoking Status: Never smoker Second Hand Exposure: No; Do You Dip or Chew Tobacco: No; Hx Alcohol Use: No Hx Substance Use: No Preferred Language: Singaporean Communication Ability: Effective Visual Impairment: No Limitations Hearing Ability: Normal Hand Folder Required: No Beliefs That Will Affect Care: None marital status: Current Living Situation: Spouse current occupational status: retired 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 [employer] How many Children do You have: 2 Feels Safe at Home: Yes Childhood Exposure to Second-Hand Smoke: Yes Diet: regular Diet Comment: clean eating, free of chemicals Dental Care, Regularly: Yes Physical Activity Frequency: Daily Physical Activity Frequency Comment: walking daily 2 hours Seatbelt Use: always Sunscreen Use: Yes Assistive Devices: Walker Allergies Allergies Allergy/AdvReac Type Severity Reaction Status Date / Time adhesive Allergy Intermediate RED, Verified 11/14/23 08:27 PAINFUL SKIN levofloxacin Allergy Intermediate RASH/ITCHY Verified 11/14/23 08:27 nickel Allergy Intermediate ITCHING Verified 11/14/23 08:27 celecoxib [From Celebrex] AdvReac Intermediate DIGESTIVE Verified 11/14/23 08:27 ISSUES codeine AdvReac Intermediate SEVERE Verified 11/14/23 08:27 NAUSEA AND VOMITING metoclopramide [From Reglan] AdvReac Intermediate Depression Verified 11/14/23 08:27 sulfamethoxazole AdvReac Intermediate DIGESTIVE Verified 11/14/23 08:27 [From Bactrim] ISSUES trimethoprim [From Bactrim] AdvReac Intermediate DIGESTIVE Verified 11/14/23 08:27 ISSUES Home Meds Home Medications Medication Instructions Recorded Confirmed esomeprazole magnesium 20 mg 20 mg PO QAM 07/27/18 11/14/23 tablet,delayed release propylene glycol 0.6 % eye drops 1 drp ophthalmic (eye) BID 01/14/19 11/14/23 (Systane Complete) multivitamin 1 tab PO QAM 03/04/21 11/14/23 turmeric root extract 500 mg 1,000 mg PO QAM 03/04/21 11/14/23 capsule docusate sodium 100 mg tablet 100 mg PO QAM 06/17/21 11/14/23 diphenhydramine 25 1 tab PO Q8H PRN excluding HS, 06/09/22 11/14/23 mg-acetaminophen 500 mg tablet temporary due to hip replacement (Tylenol PM Extra Strength) sodium chloride 0.9 % nasal spray 1 spray intranasal BID PRN 06/09/22 11/14/23 aerosol Congestion buspirone 5 mg tablet 5 mg PO QAM 04/28/23 11/14/23 Previous Rx's Medication Instructions Recorded amlodipine 5 mg tablet 5 mg PO DAILY PRN SBP > 150 #30 04/10/23 tabs citalopram 20 mg tablet 20 mg PO QAM #100 tabs 03/28/24 losartan 100 mg tablet 100 mg PO QAM #100 tabs 03/28/24 bupropion HCl 100 mg tablet 100 mg PO QAM #90 tabs 04/01/24 Results & Data (ED) Vital Signs Vital Signs - 24 hr 04/09/24 09:37 04/09/24 10:36 04/09/24 10:42 Temperature 36.1 C L Temperature Source Temporal Artery Scan Pulse Rate 80 76 75 Pulse Rate [Apical] Pulse Rate from SpO2 Sensor 76 Respiratory Rate 20 19 Respiratory Effort / Characteristics Respiratory Depth Respiratory Pattern Blood Pressure 147/78 H 150/92 H Blood Pressure [Left Arm] Blood Pressure Mean 101 111 Blood Pressure Mean [Left Arm] Blood Pressure Position [Left Arm] Pulse Oximetry 97 96 Oxygen Delivery Method Room Air Sepsis Recent Fever Within 48 Hours No Sepsis New/Unexplained Change in Mental Status N/A Sepsis Action Taken by Nursing No Action Required 04/09/24 10:42 04/09/24 10:47 04/09/24 11:19 Temperature 37.1 C Temperature Source Oral Pulse Rate 71 Pulse Rate [Apical] 70 Pulse Rate from SpO2 Sensor 71 Respiratory Rate 17 19 Respiratory Effort / Characteristics Non-Labored Spontaneous Respiratory Depth Normal Respiratory Pattern Regular Blood Pressure Blood Pressure [Left Arm] 156/82 H Blood Pressure Mean Blood Pressure Mean [Left Arm] 106 Blood Pressure Position [Left Arm] Semi-fowlers Pulse Oximetry 93 98 94 Oxygen Delivery Method Room Air Room Air Room Air Sepsis Recent Fever Within 48 Hours Sepsis New/Unexplained Change in Mental Status Sepsis Action Taken by Nursing 04/09/24 12:30 Temperature Temperature Source Pulse Rate Pulse Rate [Apical] 73 Pulse Rate from SpO2 Sensor Respiratory Rate 16 Respiratory Effort / Characteristics Non-Labored Spontaneous Respiratory Depth Normal Respiratory Pattern Regular Blood Pressure Blood Pressure [Left Arm] 160/89 H Blood Pressure Mean Blood Pressure Mean [Left Arm] 112 Blood Pressure Position [Left Arm] Semi-fowlers Pulse Oximetry 97 Oxygen Delivery Method Room Air Sepsis Recent Fever Within 48 Hours Sepsis New/Unexplained Change in Mental Status Sepsis Action Taken by [facility] Medications Current Medication List: was personally reviewed by me Laboratory Data Attestation: I reviewed the patient's lab results. 04/09/24 10:30 04/09/24 10:30 Lab Results 04/09/24 04/09/24 Range/Units 10:30 10:43 WBC 6.30 (4.8-10.8) K/ul RBC 4.60 (4.20-5.40) M/uL Hgb 12.8 (12.0-16.0) g/dl POC Hgb 12.2 (12.0-16.0) g/dl Hct 39.3 (37.0-47.0) % POC Hct 36 L (37-47) % MCV 85.4 (80.0-100.0) fL MCH 27.8 (25.0-34.0) pg MCHC 32.6 (32.0-36.0) g/dL RDW Std Deviation 43.5 (36.4-46.3) fL RDW Coeff of Jazmine 13.9 (11.5-14.5) % Plt Count 293 (130-400) K/uL MPV 8.6 L (9.4-12.4) fL Immature Gran % (Auto) 0.3 % Neut % (Auto) 56.4 % Lymph % (Auto) 34.4 % Petroleum % (Auto) 7.1 % Eos % (Auto) 0.8 % Baso % (Auto) 1.0 % Neut # (Auto) 3.55 (1.40-6.50) K/uL Lymph # (Auto) 2.17 (1.20-3.40) K/uL Petroleum # (Auto) 0.45 (0.11-0.59) K/uL Eos # (Auto) 0.05 (0.00-0.50) K/uL Baso # (Auto) 0.06 (0.00-0.20) K/uL Immature Gran # (Auto) 0.02 (0.01-0.20) K/uL POC Sodium 139 (135-144) mmol/L Sodium 138 (136-145) mmol/L POC Potassium 4.2 (3.3-5.0) mmol/L Potassium 4.3 (3.5-5.1) mmol/L POC Chloride 104 (101-112) mmol/L Chloride 105 (98-107) mmol/L Carbon Dioxide 28 (21-32) mmol/L POC Total CO2 25 (24-31) mmol/L Anion Gap 5 (3-11) POC Anion Gap 15.0 L (16-25) mmol/L POC BUN 12 (7-18) mg/dl BUN 14 (6-23) mg/dl Creatinine 0.84 (0.6-1.2) mg/dl POC Creatinine 0.9 (0.6-1.3) mg/dl Est Cr Clr Drug Dosing 62.5 ml/min Est GFR ( Amer) 77.7 ml/min Est GFR (Non-Af Amer) 67.0 ml/min BUN/Creatinine Ratio 16.7 (10-20) Glucose 87 (70-99(Fasting)) mg/dl POC Glucose (other) 87 (70-99) mg/dl Calcium 9.7 (8.6-10.3) mg/dl POC Ioniz Calcium Ольга 1.22 (1.12-1.32) mmol/l Total Bilirubin 0.4 (0.2-1.0) mg/dl AST 18 (13-39) U/L ALT 13 (7-52) U/L Alkaline Phosphatase 91 (34-104) U/L Total Protein 7.2 (6.0-8.3) gm/dl Albumin 4.1 (3.4-5.0) gm/dl Globulin 3.1 (2.5-4.0) gm/dl Albumin/Globulin Ratio 1.3 (0.9-2) TSH 2.483 (0.300-4.500) uIu/ml Administered Medications Discontinued Medications Aspirin (Aspirin Chew 324 Mg) 324 mg PO NOW STA Stop: 04/09/24 13:22 Last Admin: 04/09/24 14:20 Dose: 324 mg Documented By: REJI Clopidogrel Bisulfate (Clopidogrel Bisulfate 75 Mg Tab) 75 mg PO NOW ONE Stop: 04/09/24 13:22 Last Admin: 04/09/24 14:20 Dose: 75 mg Documented By: REJI Ioversol (Optiray 320 125ml) 112 ml IV ONCE ONE Stop: 04/09/24 11:03 Last Admin: 04/09/24 11:02 Dose: 112 ml Documented By: [facility] Imaging Data Radiologist's Impression: Head CT 04/09/24 10:16 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 Acute vision loss TECHNIQUE: Multiple axial CT images of the head were obtained without contrast. A dose lowering technique was utilized adhering to the principles of ALARA. COMPARISON: CTA head of same day FINDINGS: No acute intracranial hemorrhage, midline shift, intracranial mass, hydrocephalus, territorial ischemia or abnormal extra-axial collection. Moderate involutional changes with white matter hypodensities suggestive of chronic microvascular ischemic disease. The calvarium is intact. Prior bilateral lens repair. The paranasal sinuses, mastoid air cells, and middle ear cavities are clear. IMPRESSION: No acute intracranial abnormality. ACT 112: Negative or not required by law. The above report was generated using voice recognition software. It may contain grammatical, syntax or spelling errors. Electronically signed by: Thuan Giraldo M.D. 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 COMPARISON STUDY: Chest CT May 05, 2023. Chest radiograph July 10, 2023. FINDINGS: There is mild elevation of the right hemidiaphragm. No pneumothorax or pleural effusion is present. Mild interstitial thickening is likely chronic. Cardiomediastinal silhouette is stable. There is no consolidation to suggest pneumonia. IMPRESSION: No acute cardiopulmonary findings. No significant change in appearance of the chest. ACT 112: Negative or not required by law. Electronically signed by: Lenard Bennett M.D. 04/09/2024 12:05 PM Head CTA 04/09/24 10:18 HEAD CTA HISTORY: R monocular vision loss TECHNIQUE: Multiaxial CT images of the head were performed following the intravenous administration of contrast to evaluate the major cerebral vessels. 3D/MIP images were also obtained. Sagittal and coronal reformats were reviewed. A dose lowering technique was utilized adhering to the principles of ALARA. COMPARISON: None. FINDINGS: There is no mass, hematoma, midline shift, or acute infarct. Visualized intracranial internal carotid arteries, distal vertebral arteries, and basilar artery are widely patent. There is no significant stenosis, occlusion, or aneurysm seen within the bilateral ACAs, MCAs, or stone finisher. The major dural venous sinuses are patent. IMPRESSION: No significant stenosis, occlusion, or aneurysm within the [place]. ACT 112: Negative or not required by law. Electronically signed by: Mauro Clark M.D. 04/09/2024 11:56 AM Neck CTA 04/09/24 10:18 CT ANGIOGRAPHY OF THE NECK WITH CONTRAST CLINICAL HISTORY: Right monocular vision loss COMPARISON STUDY: No previous studies for comparison. Technique: CT angiography of the carotid and vertebral arteries was obtained using Optiray and 3D reconstruction on an independent workstation. NASCET criteria was utilized. Automated exposure control was utilized for the study. A dose lowering technique was utilized adhering to the principles of ALARA. CT DOSE: 1033.35 mGy.cm Findings: No cervical lymphadenopathy is present. There are no acute cervical spine fractures. The bilateral common carotid, cervical internal carotid and vertebral arteries are patent. There is mild plaque within the bilateral carotid bifurcations without stenosis. There is no aneurysm or dissection within the neck. There is mild irregularity distal cervical portion of the left vertebral artery. CTA of the head will be reported separately. The thyroid gland is mildly enlarged heterogeneous. IMPRESSION: No stenosis or dissection within the bilateral common carotid, cervical internal carotid or vertebral arteries. Mild atherosclerotic plaque within the bilateral carotid bifurcations. ACT 112: Negative or not required by law. Electronically signed by: Lenard Bennett M.D. 04/09/2024 11:30 AM Discharge Plan Visit Data Chief Complaint: Eye Problems Stated Complaint: EYE PROBLEM ED Provider: César Aldridge Discharge Problem: Amaurosis fugax of right eye Forms Stand Alone Forms: [facility] Prescriptions Prescriptions: No Action losartan 100 mg tablet 100 mg PO QAM Qty: 100 3RF citalopram 20 mg tablet 20 mg PO QAM Qty: 100 3RF bupropion HCl 100 mg tablet 100 mg PO QAM Qty: 90 3RF sodium chloride 0.9 % aerosol,spray 1 spray intranasal BID PRN (Reason: Congestion) amlodipine 5 mg tablet 5 mg PO DAILY PRN (Reason: SBP > 150) Qty: 30 2RF esomeprazole magnesium 20 mg Tablet,Delayed Release (Dr/Ec) 20 mg PO QAM docusate sodium 100 mg tablet 100 mg PO QAM Systane Complete 0.6 % Drops 1 drp OPHTHALMIC (EYE) BID multivitamin Tablet 1 tab PO QAM turmeric root extract 500 mg Capsule 1,000 mg PO QAM diphenhydramine-acetaminophen [Tylenol PM Extra Strength] 25-500 mg tablet 1 tab PO Q8H PRN (Reason: excluding HS, temporary due to hip replacement) buspirone 5 mg tablet 5 mg PO QAM Referrals Referrals: Eliot Liriano MD [Primary Care Provider] -
[2024-04-09 10:51] LABS: Basophils # (auto) 0.06 K/uL (0.00-0.20); Eosinophils # (auto) 0.05 K/uL (0.00-0.50); Eosinophils % (auto) 0.8 %; Hematocrit (blood only) 39.3 % (37.0-47.0); Hemoglobin 12.8 g/dl (12.0-16.0); Immature Granulocytes # (auto) 0.02 K/uL (0.01-0.20); Immature Granulocytes % (auto) 0.3 %; Lymphocytes # (auto) 2.17 K/uL (1.20-3.40); Lymphocytes % (auto) 34.4 %; Mean Corpuscular Hemoglobin 27.8 pg (25.0-34.0); Mean Corpuscular Hgb Conc 32.6 g/dL (32.0-36.0); Mean Corpuscular Volume 85.4 fL (80.0-100.0); Mean Platelet Volume 8.6 fL (9.4-12.4); Monocytes # (auto) 0.45 K/uL (0.11-0.59); Monocytes % (auto) 7.1 %; Neutrophils # (auto) 3.55 K/uL (1.40-6.50); Neutrophils % (auto) 56.4 %; Platelet Count 293 K/uL (130-400); RDW Coefficient of Variation 13.9 % (11.5-14.5); RDW Standard Deviation 43.5 fL (36.4-46.3)
[2024-04-09 10:56] LABS: iSTAT Creatinine 0.9 mg/dl (0.6-1.3); iSTAT Hemoglobin 12.2 g/dl (12.0-16.0); iSTAT Ionized Calcium 1.22 mmol/l (1.12-1.32); iSTAT Potassium 4.2 mmol/L (3.3-5.0)
[2024-04-09] MEDS: OPTIRAY 320 125ml IV ONE (11:02)
[2024-04-09 11:12] LABS: Albumin Globulin Ratio 1.3 (0.9-2); Albumin Level 4.1 gm/dl (3.4-5.0); BUN Creatinine Ratio 16.7 (10-20); Bilirubin,Total 0.4 mg/dl (0.2-1.0); Calcium 9.7 mg/dl (8.6-10.3); Creatinine Clr Calc Pharmacy 62.5 ml/min; Est GFR (African American) 77.7 ml/min; Globulin 3.1 gm/dl (2.5-4.0); Potassium 4.3 mmol/L (3.5-5.1); Total Protein 7.2 gm/dl (6.0-8.3)
[2024-04-09 11:26] LABS: Thyroid Stimulating Hormone 2.483 uIu/ml (0.300-4.500)
--- NOTE | 2024-04-09 11:29 | CT Scan Report ---
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 Acute vision loss TECHNIQUE: Multiple axial CT images of the head were obtained without contrast. A dose lowering tech nique was utilized adhering to the principles of ALARA. COMPARISON: CTA head of same day FINDINGS: No acute intracranial hemorrhage, midline shift, intracranial mass, hydrocephalus, territorial ischem ia or abnormal extra-axial collection. Moderate involutional changes with white matter hypodensities suggestive of chronic microvascular ischemic disease. The calvarium is intact. Prior bilateral lens repair. The paranasal sinuses, mastoid air cells, and m iddle ear cavities are clear. IMPRESSION: No acute intracranial abnormality. ACT 112: Negative or not required by law. The above report was generated using voice recognition software. It may contain grammatical, syntax o r spelling errors. Electronically signed by: Thuan Giraldo M.D. 04/09/2024 11:28 AM
--- NOTE | 2024-04-09 11:31 | CT Scan Report ---
CT ANGIOGRAPHY OF THE NECK WITH CONTRAST CLINICAL HISTORY: Right monocular vision loss COMPARISON STUDY: No previous studies for comparison. Technique: CT angiography of the carotid and vertebral arteries was obtained using Optiray and 3D rec onstruction on an independent workstation. NASCET criteria was utilized. Automated exposure control was utilized for the study. A dose lowering technique was utilized adhering to the principles of ALA RA. CT DOSE: 1033.35 mGy.cm Findings: No cervical lymphadenopathy is present. There are no acute cervical spine fractures. The bi lateral common carotid, cervical internal carotid and vertebral arteries are patent. There is mild pl aque within the bilateral carotid bifurcations without stenosis. There is no aneurysm or dissection w ithin the neck. There is mild irregularity distal cervical portion of the left vertebral artery. CTA of the head will be reported separately. The thyroid gland is mildly enlarged heterogeneous. IMPRESSION: No stenosis or dissection within the bilateral common carotid, cervical internal carotid or vertebral arteries. Mild atherosclerotic plaque within the bilateral carotid bifurcations. ACT 112: Negative or not required by law. Electronically signed by: Lenard Bennett M.D. 04/09/2024 11:30 AM
--- NOTE | 2024-04-09 12:00 | Electrocardiogram Report ---
Test Reason : Blood Pressure : / mmHG Vent. Rate : 073 BPM Atrial Rate : 073 BPM P-R Int : 188 ms QRS Dur : 104 ms QT Int : 374 ms P-R-T Axes : 062 -53 063 degrees QTc Int : 412 ms Normal sinus rhythm Left axis deviation Left ventricular hypertrophy with repolarization abnormality Abnormal ECG When compared with ECG of 05-MAY-2023 15:45, No significant change Confirmed by Uche Carey ([id number]) on 04/09/2024 12:00:17 PM Referred By: Confirmed By:Uche Carey
--- NOTE | 2024-04-09 12:16 | XRay Report ---
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 COMPARISON STUDY: Chest CT May 05, 2023. Chest radiograph July 10, 2023. FINDINGS: There is mild elevation of the right hemidiaphragm. No pneumothorax or pleural effusion is present. Mild interstitial thickening is likely chronic. Cardiomediastinal silhouette is stable. Ther e is no consolidation to suggest pneumonia. IMPRESSION: No acute cardiopulmonary findings. No significant change in appearance of the chest. ACT 112: Negative or not required by law. Electronically signed by: Lenard Bennett M.D. 04/09/2024 12:05 PM
--- NOTE | 2024-04-09 12:16 | CT Scan Report ---
HEAD CTA HISTORY: R monocular vision loss TECHNIQUE: Multiaxial CT images of the head were performed following the intravenous administration o f contrast to evaluate the major cerebral vessels. 3D/MIP images were also obtained. Sagittal and co perla reformats were reviewed. A dose lowering technique was utilized adhering to the principles of A TONY. COMPARISON: None. FINDINGS: There is no mass, hematoma, midline shift, or acute infarct. Visualized intracranial international bank manager al carotid arteries, distal vertebral arteries, and basilar artery are widely patent. There is no sig nificant stenosis, occlusion, or aneurysm seen within the bilateral ACAs, MCAs, or dice person. The major du ral venous sinuses are patent. IMPRESSION: No significant stenosis, occlusion, or aneurysm within the [place] of [place]. ACT 112: Negative or not required by law. Electronically signed by: Mauro Clark M.D. 04/09/2024 11:56 AM
[2024-04-09] MEDS: ASPIRIN CHEW 324 MG PO STA (14:20)
[2024-04-09] MEDS: CLOPIDOGREL BISULFATE 75 MG TAB PO ONE (14:20)
--- NOTE | 2024-04-09 14:52 | History & Physical Report ---
Date of Service April 09, 2024 Assessment & Plan (1) Amaurosis fugax of right eye: Plan: What she experiences most likely amaurosis fugax of the right eye. No headache to suggest a migraine No jaw claudication to suggest giant cell arteritis She will have a TIA workup. CT head, CT A head and neck were negative MRI head ordered Echocardiogram ordered Monitor on telemetry Medical management of stroke risk factors including management of hypertension and hyperlipidemia. Patient says that her blood pressure is not well-controlled and she thinks that she should be on Norvasc on a regular basis. Will monitor blood pressure The patient tells me that she has hyperlipidemia but in the past after discussion with her doctor, it was decided to not treat her for hyperlipidemia with statin. Check lipid profile Check A1c Start statin Consult neurology Start baby aspirin as the patient was not on aspirin at home (2) Pulmonary emboli: Plan: This was provoked by hernia reported surgery and immobilization She was treated with 6 months of Xarelto Now off of Xarelto since November 2023 (3) HTN (hypertension): Plan: Monitor blood pressure Continue losartan Change from as needed Norvasc to daily Norvasc (4) Hyperlipemia: Plan: Check lipid profile Start statin for stroke prevention Plan Full code DVT prophylaxis: Lovenox History of Present Illness Chief Complaint: Right eye vision changes Primary Care Provider: Eliot Liriano MD This is a 78-year-old female with a history of benign essential hypertension and hyperlipidemia who presented to the ER with the above chief complaint. The patient stated that she woke up this morning without any issues. About an hour prior to arrival, she started having some vision changes on the right side. She stated that there was a dunlap curtain in the bottom of her right field of vision that seemed to go all the way up to the point that almost her entire right eye had no vision, but then did a few minutes later the curtain seem to come down restoring her right eye vision. At this time, she has her right eye vision back to normal. She denies any headache, jaw claudication, pain in the sikhism, 1 sided weakness or numbness, loss of consciousness, fever. She states that she completely feels fine now and has no symptoms at this time. In the emergency room, she had a CT head, CTA of head and neck done which were all negative. She had an ophthalmoscopic exam done by the ER physician and no optic disc swelling was noted. The ER physician requested me to admit this patient for amaurosis fugax and to complete a TIA workup. An MRI of the head was o rdered by the emergency physician. Past medical history 1. Benign essential hypertension. She takes losartan 100 mg, Norvasc was recently added and she has been advised to take it on an as-needed basis only for blood pressure greater than 150. She has noted lately that her blood pressures consistently on the high side 2. Hyperlipidemia. She has previously declined statin 3. Anxiety/depression. On citalopram and buspirone 4. Irritable bowel syndrome 5. GERD 6. History of PE. Provoked by hernia repair surgery and immobilization in April 2023. Had been on Xarelto for 6 months. Now off of Xarelto Allergies Allergy/AdvReac Type Severity Reaction Status Date / Time adhesive Allergy Intermediate RED, Verified 11/14/23 08:27 PAINFUL SKIN levofloxacin Allergy Intermediate RASH/ITCHY Verified 11/14/23 08:27 nickel Allergy Intermediate ITCHING Verified 11/14/23 08:27 celecoxib [From Celebrex] AdvReac Intermediate DIGESTIVE Verified 11/14/23 08:27 ISSUES codeine AdvReac Intermediate SEVERE Verified 11/14/23 08:27 NAUSEA AND VOMITING metoclopramide [From Reglan] AdvReac Intermediate Depression Verified 11/14/23 08:27 sulfamethoxazole AdvReac Intermediate DIGESTIVE Verified 11/14/23 08:27 [From Bactrim] ISSUES trimethoprim [From Bactrim] AdvReac Intermediate DIGESTIVE Verified 11/14/23 08:27 ISSUES Home Medications Medication Instructions Recorded Confirmed Type esomeprazole magnesium 20 mg 20 mg PO QAM 07/27/18 04/09/24 History tablet,delayed release propylene glycol 0.6 % eye drops 1 drp ophthalmic (eye) BID 01/14/19 04/09/24 History (Systane Complete) multivitamin 1 tab PO QAM 03/04/21 04/09/24 History turmeric root extract 500 mg 1,000 mg PO QAM 03/04/21 04/09/24 History capsule docusate sodium 100 mg tablet 100 mg PO QAM 06/17/21 04/09/24 History diphenhydramine 25 1 tab PO Q8H PRN excluding HS, 06/09/22 04/09/24 History mg-acetaminophen 500 mg tablet temporary due to hip replacement (Tylenol PM Extra Strength) sodium chloride 0.9 % nasal spray 1 spray intranasal BID PRN 06/09/22 04/09/24 History aerosol Congestion amlodipine 5 mg tablet 5 mg PO DAILY PRN SBP > 150 #30 04/10/23 04/09/24 Rx tabs buspirone 5 mg tablet 5 mg PO QAM 04/28/23 04/09/24 History citalopram 20 mg tablet 20 mg PO QAM #100 tabs 03/28/24 04/09/24 Rx losartan 100 mg tablet 100 mg PO QAM #100 tabs 03/28/24 04/09/24 Rx bupropion HCl 100 mg tablet 100 mg PO QAM #90 tabs 04/01/24 04/09/24 Rx Past Med/Surg History Problem List Amaurosis fugax of right eye (Acute) Pulmonary emboli S/P hernia repair Leg length discrepancy Sensorineural hearing loss (SNHL) of both ears Vitamin D deficiency Mixed conductive and sensorineural hearing loss of right ear with restricted hearing of left ear Depression with anxiety (Acute) Gastroesophageal reflux disease (Acute) HTN (hypertension) (Acute) Hyperlipemia (Acute) Per records Hyperplastic polyps of stomach (Acute) Irritable bowel syndrome (Acute) Lichen sclerosus et atrophicus (Acute) Multilevel degenerative disc disease (Acute) Spinal stenosis (Acute) Neurogenic 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 spinal stenosis Medical History Encounter for pre-operative examination Anxiety History of COVID-November 16, 2022 > not hospitalized Ischial bursitis of left side Sacroiliitis Hearing deficit Seen by ENT in the past- non purulent fluid noted- recommend Flonase, Afrin and steroid Diverticulitis of colon Osteoarthritis History of diverticulitis Depression GERD (gastroesophageal reflux disease) Spinal stenosis Surgical History History of incisional hernia repair (05/04/23) Laparoscopy with Lysis of Adhesions; Open Incarcerated Incisional Hernia Repair with Compartment Separation and 10cm Surgimesh Preperitoneal(Not Applicable) - Darnell M. Ramondelli, MD, FACS History of right hip replacement done by Dr. Smith 06/02/22 History of cataract surgery R- 04/27/21 L- 05/11/21 History of left hip replacement (~01/2019) S/P appendectomy (~03/04/21) Dr. Shultz History of lumbar fusion L4-L5 09/05/18 - MAC #3, ETT #7.0, Grade 1 View H/O breast biopsy RIGHT - BENIGN - AGE 61 H/O elbow surgery RIGHT - FOR TENNIS ELBOW - AGE 49 History of carpal tunnel release RIGHT - AGE 49 History of colonoscopy 2020 - Dr. Huitron History of dilation and curettage Age 27 History of partial colectomy Age 65 06/29/11 - ETT #7.0 History of laparoscopic cholecystectomy AGE 62 History of hysterectomy AGE 38 History of laparotomy RUPTURED ECTOPIC - AGE 36 History of tubal ligation LAP - AGE 29 History of tonsillectomy and adenoidectomy AGE 11 Family History Father , age 79 Myocardial infarction Daughter Crohn's disease Mother Hypercholesterolemia Leukocytosis Thrombocytosis Hypertension Stroke Father Stroke Other No family history of adverse response to anesthesia No family history of bleeding disorder No pertinent family history Denies family history of Ovarian cancer Prostate cancer Breast cancer Colorectal cancer Social History Smoking Status: Never smoker Second Hand Exposure: No; Do You Dip or Chew Tobacco: No; Hx Alcohol Use: No Hx Substance Use: No Preferred Language: Telugu Communication Ability: Effective Visual Impairment: No Limitations Hearing Ability: Normal Shopper'S Aide Required: No Beliefs That Will Affect Care: None marital status: Current Living Situation: Spouse current occupational status: retired 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 [employer] How many Children do You have: 2 Feels Safe at Home: Yes Childhood Exposure to Second-Hand Smoke: Yes Diet: regular Diet Comment: clean eating, free of chemicals Dental Care, Regularly: Yes Physical Activity Frequency: Daily Physical Activity Frequency Comment: walking daily 2 hours Seatbelt Use: always Sunscreen Use: Yes Assistive Devices: Walker Review of Systems Review of Systems: All systems reviewed & are unremarkable except as noted in HPI & below Physical Exam Physical Exam: General appearance: Awake, conversant, able to answer questions appropriately. AOx3. Pupils: Equally reactive to light and accommodation Neck: No masses, no thyromegaly Respiration: Clear to auscultation bilaterally. Normal effort Cardiovascular: S1-S2/regular rate and rhythm. No murmur, rubs or gallop. No edema. Abdomen: Soft, nontender, nondistended. No hepatosplenomegaly Musculoskeletal: No clubbing, no cyanosis, normal range of motion Skin: No rashes, no nodules Neuro exam: Cranial nerves intact, sensation grossly intact. Intact bilateral field of vision Psychiatric: Patient has good judgment and insight. AOx3. Mood and affect appear normal Lymphatics: No cervical or axillary lymphadenopathy noted Results & Data Results & Data Vital Signs (Past 12 Hours) Vital Signs Temp Pulse Pulse Resp BP BP Pulse Ox 04/09/24 12:30 73 16 160/89 H 97 04/09/24 11:19 37.1 C 70 19 156/82 H 94 04/09/24 10:47 98 04/09/24 10:42 71 17 93 04/09/24 10:42 75 04/09/24 10:36 76 19 150/92 H 96 04/09/24 09:37 36.1 C L 80 20 147/78 H 97 O2 Del Method 04/09/24 12:30 Room Air 04/09/24 11:19 Room Air 04/09/24 10:47 Room Air 04/09/24 10:42 Room Air 04/09/24 10:42 04/09/24 10:36 Room Air 04/09/24 09:37 Laboratory Results Abnormal lab results 04/09/24 04/09/24 Range/Units 10:30 10:43 POC Hct 36 L (37-47) % MPV 8.6 L (9.4-12.4) fL POC Anion Gap 15.0 L (16-25) mmol/L Diagnostic Findings Head CT 04/09/24 10:16 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 Acute vision loss TECHNIQUE: Multiple axial CT images of the head were obtained without contrast. A dose lowering technique was utilized adhering to the principles of ALARA. COMPARISON: CTA head of same day FINDINGS: No acute intracranial hemorrhage, midline shift, intracranial mass, hydrocephalus, territorial ischemia or abnormal extra-axial collection. Moderate involutional changes with white matter hypodensities suggestive of chronic microvascular ischemic disease. The calvarium is intact. Prior bilateral lens repair. The paranasal sinuses, mastoid air cells, and middle ear cavities are clear. IMPRESSION: No acute intracranial abnormality. ACT 112: Negative or not required by law. The above report was generated using voice recognition software. It may contain grammatical, syntax or spelling errors. Electronically signed by: Thuan Giraldo M.D. 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 COMPARISON STUDY: Chest CT May 05, 2023. Chest radiograph July 10, 2023. FINDINGS: There is mild elevation of the right hemidiaphragm. No pneumothorax or pleural effusion is present. Mild interstitial thickening is likely chronic. Cardiomediastinal silhouette is stable. There is no consolidation to suggest pneumonia. IMPRESSION: No acute cardiopulmonary findings. No significant change in appearance of the chest. ACT 112: Negative or not required by law. Electronically signed by: Lenard Bennett M.D. 04/09/2024 12:05 PM Head CTA 04/09/24 10:18 HEAD CTA HISTORY: R monocular vision loss TECHNIQUE: Multiaxial CT images of the head were performed following the intravenous administration of contrast to evaluate the major cerebral vessels. 3D/MIP images were also obtained. Sagittal and coronal reformats were reviewed. A dose lowering technique was utilized adhering to the principles of ALARA. COMPARISON: None. FINDINGS: There is no mass, hematoma, midline shift, or acute infarct. Visualized intracranial internal carotid arteries, distal vertebral arteries, and basilar artery are widely patent. There is no significant stenosis, occlusion, or aneurysm seen within the bilateral ACAs, MCAs, or sports marketing internship. The major dural venous sinuses are patent. IMPRESSION: No significant stenosis, occlusion, or aneurysm within the [place]. ACT 112: Negative or not required by law. Electronically signed by: Mauro Clark M.D. 04/09/2024 11:56 AM Neck CTA 04/09/24 10:18 CT ANGIOGRAPHY OF THE NECK WITH CONTRAST CLINICAL HISTORY: Right monocular vision loss COMPARISON STUDY: No previous studies for comparison. Technique: CT angiography of the carotid and vertebral arteries was obtained using Optir[employer] and 3D reconstruction on an independent workstation. NASCET criteria was utilized. Automated exposure control was utilized for the study. A dose lowering technique was utilized adhering to the principles of ALARA. CT DOSE: 1033.35 mGy.cm Findings: No cervical lymphadenopathy is present. There are no acute cervical spine fractures. The bilateral common carotid, cervical internal carotid and vertebral arteries are patent. There is mild plaque within the bilateral carotid bifurcations without stenosis. There is no aneurysm or dissection within the n maria a. There is mild irregularity distal cervical portion of the left vertebral artery. CTA of the head will be reported separately. The thyroid gland is mildly enlarged heterogeneous. IMPRESSION: No stenosis or dissection within the bilateral common carotid, cervical internal carotid or vertebral arteries. Mild atherosclerotic plaque within the bilateral carotid bifurcations. ACT 112: Negative or not required by law. Electronically signed by: Lenard Bennett M.D. 04/09/2024 11:30 AM Code Status & VTE Plan VTE Prophylaxis Plan VTE Prophylaxis will be ordered: Yes PG Care Time/CCT Total # of Minutes Spent Total Time Spent with Patient: Total time spent is greater than 50% in coordination of care (as documented) at patient's floor/unit and/or counseling patient: Coding Level of Care Code 76532 INT INP/OBS CARE 2/55MIN Diagnoses Amaurosis fugax of right eye G45.3 Pulmonary emboli I26.99 Hypertension, unspecified type I10 Hypertension type: unspecified Hyperlipidemia, unspecified hyperlipidemia type E78.5 Hyperlipidemia type: unspecified (3) HTN (hypertension) Hypertension type: unspecified Qualified Code(s): I10 - Essential (primary) hypertension (4) Hyperlipemia Hyperlipidemia type: unspecified Qualified Code(s): E78.5 - Hyperlipidemia, unspecified
--- NOTE | 2024-04-09 16:18 | Magnetic Resonance Report ---
MRI OF THE BRAIN WITHOUT CONTRAST CLINICAL HISTORY: R eye vision loss; resolved COMPARISON STUDY: Head CT and CTA of the head performed earlier today. TECHNIQUE: Utilizing a 1.5 Lulu magnet and dedicated coil, multiplanar, multiecho imaging of the bra in was performed without IV contrast. FINDINGS: There are no foci of restricted diffusion to suggest acute infarct. No acute intracranial h emorrhage, midline shift or mass effect is present. Ventricular system is unremarkable. Basal cistern s are patent. There are no extra-axial collections. Flow-voids for the major intracranial vessels are present. No intracranial masses are identified on unenhanced exam. Numerous white matter T2 hyperint ense foci favor small vessel disease. Calvarial signal is normal. No orbital abnormality is identifie d on unenhanced exam. There is no evidence for sinusitis. IMPRESSION: No acute intracranial findings. ACT 112: Negative or not required by law. Electronically signed by: Lenard Bennett M.D. 04/09/2024 4:17 PM
[2024-04-09] MEDS ORDERED: PHARMACIST DISCHARGE MED REC CONSULT PRN (18:20)
[2024-04-09] MEDS ORDERED: ONDANSETRON INJ 2 MG/ML 2 ML VIAL IV PRN (18:20)
[2024-04-09] MEDS ORDERED: ACETAMINOPHEN 325 MG TAB PO PRN (18:20)
[2024-04-09] MEDS: ENOXAPARIN INJ 40 MG/0.4 ML SYR SQ SCH (20:37)
[2024-04-10 06:52] LABS: Basophils # (auto) 0.06 K/uL (0.00-0.20); Basophils % (auto) 0.9 %; Eosinophils # (auto) 0.06 K/uL (0.00-0.50); Eosinophils % (auto) 0.9 %; Hematocrit (blood only) 38.8 % (37.0-47.0); Hemoglobin 12.7 g/dl (12.0-16.0); Immature Granulocytes # (auto) 0.01 K/uL (0.01-0.20); Immature Granulocytes % (auto) 0.2 %; Lymphocytes # (auto) 2.69 K/uL (1.20-3.40); Lymphocytes % (auto) 41.5 %; Mean Corpuscular Hemoglobin 28.2 pg (25.0-34.0); Mean Corpuscular Hgb Conc 32.7 g/dL (32.0-36.0); Mean Corpuscular Volume 86.2 fL (80.0-100.0); Mean Platelet Volume 8.7 fL (9.4-12.4); Monocytes # (auto) 0.46 K/uL (0.11-0.59); Monocytes % (auto) 7.1 %; Neutrophils % (auto) 49.4 %; Platelet Count 276 K/uL (130-400); RDW Coefficient of Variation 13.9 % (11.5-14.5); RDW Standard Deviation 43.6 fL (36.4-46.3); White Blood Count 6.48 K/ul (4.8-10.8)
[2024-04-10 07:07] LABS: BUN Creatinine Ratio 14.1 (10-20); Calcium 9.5 mg/dl (8.6-10.3); Chol HDL Ratio 3.3 (0-5); Est GFR (African American) 69.6 ml/min; Est GFR (Non-African American) 60.1 ml/min; Potassium 4.2 mmol/L (3.5-5.1)
[2024-04-10] MEDS: amLODIPine BESYLATE 5 MG TAB PO SCH (08:03)
[2024-04-10] MEDS: ATORVASTATIN 40 MG TAB PO SCH (08:03)
[2024-04-10] MEDS: DOCUSATE SODIUM 100 MG CAP PO SCH (08:04)
[2024-04-10] MEDS: LOSARTAN POTASSIUM 50 MG TAB PO SCH (08:04)
[2024-04-10] MEDS: PANTOprazole 40 MG TAB PO SCH (08:04)
[2024-04-10] MEDS: ASPIRIN 81 MG ECTAB PO SCH (08:04)
[2024-04-10] MEDS: CITALOPRAM 20 MG TAB PO SCH (08:04)
[2024-04-10] MEDS: busPIRone 5 MG TAB PO SCH (08:04)
[2024-04-10] MEDS: buPROPion HCl 100 MG TABLET PO SCH (08:04)
--- NOTE | 2024-04-10 08:10 | Neurology Consultation ---
Date of Consultation April 10, 2024 Assessment & Plan (1) Amaurosis fugax of right eye: Plan 78-year-old female with resolved episode of probable amaurosis fugax involving the right eye. No significant vascular lesion identified on CTA of the head and neck. She does have mild plaque within the bilateral carotid bifurcations, no evidence of dissection or occlusive lesion. Brain MRI negative for acute or subacute stroke. Does not have signs or symptoms suggestive of vasculitis. Clinical presentation not suggestive of migraine, ischemic optic neuropathy, or occipital lobe infarct. I agree with stroke evaluation as ordered, follow-up with results of echocardiogram, agree with aspirin and atorvastatin as ordered. Current blood pressure appropriate, may allow for permissive hypertension, systolic blood pressure 140 to 160 mmHg acutely. Long-term blood pressure goal 130/80 or less. Goal LDL 70 or less. Would recommend 30-day mobile cardiac outpatient telemetry as well as outpatient ophthalmology assessment. Follows with Dr. Garcia. No further neurologic recommendations, should not require additional outpatient neurology follow-up. Please call with any questions. History of Present Illness Reason for Consultation: Amaurosis fugax Requesting Physician: Jane Attending Physician: Scottie Farnsworth MD History of Present Illness The patient is a 78-year-old female who presented to the emergency department yesterday morning with a complaint of vision disturbance that began 1 hour prior to arrival. She reported to graying of her right lower visual field with an associated distortion, wavy character, expanding to complete or near complete vision loss of the right eye with inability to discriminate colors or other features. This vision disturbance improved, followed by a reddish discoloration with an associated area of preserved or improved vision of the right inferior corner of her visual field. No prior history of stroke or TIA. A CT of the head including CTA of the head and neck were completed. CT of the head negative for hemorrhage or acute process, there is moderate chronic microvascular ischemic disease. CTA of the neck negative for stenosis, dissection, or significant vascular lesion, there is mild atherosclerotic plaque within the bilateral carotid bifurcations. CTA of the head unremarkable. A follow-up brain MRI has been completed as well. No evidence of acute process. There is evidence of chronic small vessel ischemic disease. I independently reviewed these images and was able to appreciate these findings. There are no areas of restricted diffusion within the occipital lobes. There is mild atrophy, no hydrocephalus. Electrocardiogram has revealed a normal sinus rhythm. An echocardiogram completed in April 2023 in the context of pulmonary hypertension revealed mild concentric LVH and elevation of the right ventricular systolic pressure. Left atrial size normal. Labs reviewed. Triglycerides 223, cholesterol 219, LDL 108, VLDL 45, HDL 66. She has been started on aspirin and atorvastatin. This morning, the patient reports complete resolution of her symptoms. She again described the above episode of transient vision disturbance affecting the right eye only, initially graying out of her vision involving the lower aspect of the visual field of her right eye only, painless, expanding superiorly to eventually involve the entire visual field, followed by a reddish tinge or discoloration involving the right lower quadrant of her visual field with return of vision elsewhere, followed by eventual resolution of the reddish field discoloration. She denies experiencing any associated ocular pain, retro- orbital pain, or periorbital pain. No pain with eye movement. No significant headache or neck pain, no myalgia. No associated weakness, numbness, or vertigo. No history of similar episodes. History notable for cataract surgery, dry eye, follows with Dr. Garcia, last seen several months ago. She relays her history of pulmonary embolism in the context of hernia repair surgery last year. No prior or subsequent episodes of blood clot. No history of significant cardiac disease. She describes her history of lumbar spinal fusion surgery a few years ago as well as a history of bilateral hip replacement surgeries. Allergies Allergy/AdvReac Type Severity Reaction Status Date / Time adhesive Allergy Intermediate RED, Verified 11/14/23 08:27 PAINFUL SKIN levofloxacin Allergy Intermediate RASH/ITCHY Verified 11/14/23 08:27 nickel Allergy Intermediate ITCHING Verified 11/14/23 08:27 celecoxib [From Celebrex] AdvReac Intermediate DIGESTIVE Verified 11/14/23 08:27 ISSUES codeine AdvReac Intermediate SEVERE Verified 11/14/23 08:27 NAUSEA AND VOMITING metoclopramide [From Reglan] AdvReac Intermediate Depression Verified 11/14/23 08:27 sulfamethoxazole AdvReac Intermediate DIGESTIVE Verified 11/14/23 08:27 [From Bactrim] ISSUES trimethoprim [From Bactrim] AdvReac Intermediate DIGESTIVE Verified 11/14/23 08:27 ISSUES Home Medications Medication Instructions Recorded Confirmed Type esomeprazole magnesium 20 mg 20 mg PO QAM 07/27/18 04/09/24 History tablet,delayed release propylene glycol 0.6 % eye drops 1 drp ophthalmic (eye) BID 01/14/19 04/09/24 History (Systane Complete) multivitamin 1 tab PO QAM 03/04/21 04/09/24 History turmeric root extract 500 mg 1,000 mg PO QAM 03/04/21 04/09/24 History capsule docusate sodium 100 mg tablet 100 mg PO QAM 06/17/21 04/09/24 History diphenhydramine 25 1 tab PO Q8H PRN excluding HS, 06/09/22 04/09/24 History mg-acetaminophen 500 mg tablet temporary due to hip replacement (Tylenol PM Extra Strength) sodium chloride 0.9 % nasal spray 1 spray intranasal BID PRN 06/09/22 04/09/24 History aerosol Congestion amlodipine 5 mg tablet 5 mg PO DAILY PRN SBP > 150 #30 04/10/23 04/09/24 Rx tabs buspirone 5 mg tablet 5 mg PO QAM 04/28/23 04/09/24 History citalopram 20 mg tablet 20 mg PO QAM #100 tabs 03/28/24 04/09/24 Rx losartan 100 mg tablet 100 mg PO QAM #100 tabs 03/28/24 04/09/24 Rx bupropion HCl 100 mg tablet 100 mg PO QAM #90 tabs 04/01/24 04/09/24 Rx Patient History Medical History Encounter for pre-operative examination Anxiety History of COVID-November 16, 2022 > not hospitalized Ischial bursitis of left side Sacroiliitis Hearing deficit Seen by ENT in the past- non purulent fluid noted- recommend Flonase, Afrin and steroid Diverticulitis of colon Osteoarthritis History of diverticulitis Depression GERD (gastroesophageal reflux disease) Spinal stenosis Surgical History History of incisional hernia repair (05/04/23) Laparoscopy with Lysis of Adhesions; Open Incarcerated Incisional Hernia Repair with Compartment Separation and 10cm Surgimesh Preperitoneal(Not Applicable) - Darnell Sanchez MD, FACS History of right hip replacement done by Dr. Smith 06/02/22 History of cataract surgery R- 04/27/21 L- 05/11/21 History of left hip replacement (~01/2019) S/P appendectomy (~03/04/21) Dr. Shultz History of lumbar fusion L4-L5 09/05/18 - MAC #3, ETT #7.0, Grade 1 View H/O breast biopsy RIGHT - BENIGN - AGE 61 H/O elbow surgery RIGHT - FOR TENNIS ELBOW - AGE 49 History of carpal tunnel release RIGHT - AGE 49 History of colonoscopy 2020 - Dr. Huitron History of dilation and curettage Age 27 History of partial colectomy Age 65 06/29/11 - ETT #7.0 History of laparoscopic cholecystectomy AGE 62 History of hysterectomy AGE 38 History of laparotomy RUPTURED ECTOPIC - AGE 36 History of tubal ligation LAP - AGE 29 History of tonsillectomy and adenoidectomy AGE 11 Family History Father , age 79 Myocardial infarction Daughter Crohn's disease Mother Hypercholesterolemia Leukocytosis Thrombocytosis Hypertension Stroke Father Stroke Other No family history of adverse response to anesthesia No family history of bleeding disorder No pertinent family history Denies family history of Ovarian cancer Prostate cancer Breast cancer Colorectal cancer Social History Smoking Status: Never smoker Second Hand Exposure: No; Do You Dip or Chew Tobacco: No; Hx Alcohol Use: No Hx Substance Use: No Preferred Language: Romanian Communication Ability: Effective Visual Impairment: No Limitations Hearing Ability: Normal Therapeutic Consultant Required: No Beliefs That Will Affect Care: None marital status: Current Living Situation: Spouse current occupational status: retired 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 [employer] How many Children do You have: 2 Feels Safe at Home: Yes Childhood Exposure to Second-Hand Smoke: Yes Diet: regular Diet Comment: clean eating, free of chemicals Dental Care, Regularly: Yes Physical Activity Frequency: Daily Physical Activity Frequency Comment: walking daily 2 hours Seatbelt Use: always Sunscreen Use: Yes Assistive Devices: Glasses Review of Systems Constitutional: no fever and no chills Eyes: as per Subjective / HPI and + dry eyes; no diplopia Ear, Nose, Mouth, Throat: no hearing loss Respiratory: no cough and no dyspnea Cardiovascular: no chest pain and no palpitations Gastrointestinal: no nausea and no vomiting Genitourinary: no dysuria Musculoskeletal: no neck pain, no myalgia and no muscle weakness Integumentary: no rash and no lesions Neurologic: as per Subjective / HPI Psychiatric: no depression and no anxiety Hematologic / Lymphatic: no easy bleeding and no easy bruising Exam (Neuro) Constitutional: well developed and well nourished; no acute distress Eyes: normal visual curiel by confrontation, PERRL and EOM intact bilaterally; no nystagmus Neurologic: Oriented to:: Person, Place and Time Memory: Short Term Intact and Remote Intact Attention: Span Intact and Concentration Intact Speech Fluency: negative Dysarthria or Dysfluency Speech Aphasia: negative Aphasia Fund of Knowledge: Current Events, Past History and Vocabulary Cranial Nerves: Normal II, III, IV, , V, VII, VIII, IX, X, XI and XII Motor Strength: Normal Lower Extremities and Normal Upper Extremities Motor Tone: Normal Lower Extremities and Normal Upper Extremities Muscle Bulk/Involuntary Movements: No Involuntary Movements; negative Muscle Atrophy Sensation: Light Touch Intact, Pain/Temperature Intact and Proprioception Intact Coordination: Normal; negative Dysdiadochokinesia, Finger-Nose Abnormal or Heel-Arciniega Abnormal Deep Tendon Reflexes: Rt Triceps: 2+, Lt Triceps: 2+, Rt Biceps: 2+, Lt Biceps: 2+, Rt Brachioradialis: 2+, Lt Brachioradialis: 2+, Rt Patellar: 2+, Lt Patellar: 2+, Rt Ankle: 2+ and Lt Ankle: 2+ Special Tests: Babinski Present (Bilateral upgoing great toes noted) Details: Great toe bunion deformity bilaterally Results & Data Vital Signs (Past 12 Hours) Vital Signs Temp Pulse Pulse Resp BP Pulse Ox O2 Del Method 04/10/24 07:48 36.8 C 62 18 147/84 H 97 Room Air 04/10/24 07:21 Room Air 04/10/24 07:04 65 04/10/24 03:46 36.6 C 68 18 119/69 95 Room Air 04/10/24 00:00 73 04/09/24 22:57 36.5 C 66 18 111/57 L 94 Room Air Coding Level of Care Code 45720 INT INP/OBS CARE 3/75MIN Diagnoses Amaurosis fugax of right eye G45.3 Time Spent (min) 90 Comment Total time includes patient contact, chart review, counseling, note preparation
[2024-04-10 08:44] LABS: Estimated Average Glucose 120 mg/dl; Hemoglobin A1C 5.8 % (4.5-5.6)
--- NOTE | 2024-04-10 12:02 | Pharmacy Report ---
- Date of Service April 10, 2024 - Pharmacy CVA/TIA Medication Review Medications to Prevent Stroke handout has been added to the patients discharge packet. Antiplatelet(s) * aspirin 81 mg PO daily Cholesterol * High intensity statin: atorvastatin 40 mg daily DVT Prophylaxis * Enoxaparin SQ Therapeutic Anticoagulation * No history of Afib/Aflutter noted Type 2 Diabetes * Patient does not have T2DM
--- NOTE | 2024-04-10 12:29 | Discharge Summary ---
Date of Service April 10, 2024 Admission HPI Per Admitting Provider This is a 78-year-old female with a history of benign essential hypertension and hyperlipidemia who presented to the ER with the above chief complaint. The patient stated that she woke up this morning without any issues. About an hour prior to arrival, she started having some vision changes on the right side. She stated that there was a dunlap curtain in the bottom of her right field of vision that seemed to go all the way up to the point that almost her entire right eye had no vision, but then did a few minutes later the curtain seem to come down restoring her right eye vision. At this time, she has her right eye vision back to normal. She denies any headache, jaw claudication, pain in the sabianism, 1 sided weakness or numbness, loss of consciousness, fever. She states that she completely feels fine now and has no symptoms at this time. In the emergency room, she had a CT head, CTA of head and neck done which were all negative. She had an ophthalmoscopic exam done by the ER physician and no optic disc swelling was noted. The ER physician requested me to admit this patient for amaurosis fugax and to complete a TIA workup. An MRI of the head was ordered by the emergency physician. Past medical history 1. Benign essential hypertension. She takes losartan 100 mg, Norvasc was recently added and she has been advised to take it on an as-needed basis only for blood pressure greater than 150. She has noted lately that her blood pressures consistently on the high side 2. Hyperlipidemia. She has previously declined statin 3. Anxiety/depression. On citalopram and buspirone 4. Irritable bowel syndrome 5. GERD 6. History of PE. Provoked by hernia repair surgery and immobilization in April 2023. Had been on Xarelto for 6 months. Now off of Xarelto Principal Diagnosis Amaurosis fugax right eye Discharge Exam General-alert and oriented x3, no fever, no chills HEENT-head atraumatic and normocephalic, pupils equal and reactive to light, extraocular muscles intact Neck-no lymphadenopathy or thyromegaly, trachea midline Chest-clear to auscultation. No rales, wheezing or rhonchi Cardiac-regular rate and rhythm, normal S1 and S2 Abdomen-normal bowel sounds, no hepatosplenomegaly Extremities-no cyanosis, clubbing, or edema Neuro-cranial nerves II through XII intact, motor and sensory function within normal limits, strength symmetrical, no focal deficits Psych-normal affect, normal mood Discharge Data Allergies Allergy/AdvReac Type Severity Reaction Status Date / Time adhesive Allergy Intermediate RED, Verified 11/14/23 08:27 PAINFUL SKIN levofloxacin Allergy Intermediate RASH/ITCHY Verified 11/14/23 08:27 nickel Allergy Intermediate ITCHING Verified 11/14/23 08:27 celecoxib [From Celebrex] AdvReac Intermediate DIGESTIVE Verified 11/14/23 08:27 ISSUES codeine AdvReac Intermediate SEVERE Verified 11/14/23 08:27 NAUSEA AND VOMITING metoclopramide [From Reglan] AdvReac Intermediate Depression Verified 11/14/23 08:27 sulfamethoxazole AdvReac Intermediate DIGESTIVE Verified 11/14/23 08:27 [From Bactrim] ISSUES trimethoprim [From Bactrim] AdvReac Intermediate DIGESTIVE Verified 11/14/23 08:27 ISSUES Consultations 04/09/24 13:21 ED Decision to Admit Stat 04/09/24 18:20 Consult Neurology Routine Ordered Studies 04/09/24 10:16 CT head/brain wo con Stat 04/09/24 10:18 CT angio head w con Stat CT angio neck with con Stat 04/09/24 13:21 MR brain wo con Stat Hospital Course (1) Amaurosis fugax of right eye: Now resolved. Head CT scan negative. Head and neck CTA negative for critical stenosis. Brain MRI scan negative. Cardiac echo report is pending. Neurology consultation noted. Continue aspirin 81 mg daily at discharge and a atorvastatin. Outpatient ophthalmology evaluation recommended. Outpatient manager monitoring for 30 days. Cholesterol level is 219 with LDL 108. (2) Pulmonary emboli: Occurred after recent hernia surgery. She completed her course of Xarelto in November 2023. (3) HTN (hypertension): Stable. Continue current medical management (4) Hyperlipemia: Cholesterol 219 and LDL 108. She is now on atorvastatin. Plan Home today, April 10. Outpatient manager monitoring for 30 days. Ophthalmology evaluation recommended. PCP will further monitor lipid profile while on atorva statin. Total Time Total Time Spent Total Time Spent (In Minutes): 45 minutes Discharge Plan Discharge Items Patient Disposition: Home - Self-Care Reason For Visit: R EYE VISION CHANGES Discharge Diagnosis: Amaurosis fugax, hyperlipidemia Activity: Resume your previous activity Non-emergency contact: Primary Care Provider Call non-emergency contact if: your symptoms worsen Follow-up/Referrals: Eliot Liriano MD [Primary Care Provider] - Diet: Regular and Heart Healthy Addtl Attending Provider Instructions: Take aspirin 81 mg daily. Also take atorvastatin as directed for elevated cholesterol. Wear heart monitor for 30 days after discharge. Follow-up with PCP to discuss cardiac echo results Pending Studies at Discharge: Yes Studies:: Cardiac echo report Stand-Alone Forms: My [facility], Smoking Cessation, Medications to Prevent Stroke Medications and DC Order Prescriptions: New atorvastatin 40 mg Tablet 40 mg PO QAM Qty: 30 0RF aspirin 81 mg Tablet,Delayed Release (Dr/Ec) 81 mg PO QAM Qty: 0 0RF Continued losartan 100 mg tablet 100 mg PO QAM Qty: 100 3RF citalopram 20 mg tablet 20 mg PO QAM Qty: 100 3RF bupropion HCl 100 mg tablet 100 mg PO QAM Qty: 90 3RF sodium chloride 0.9 % aerosol,spray 1 spray intranasal BID PRN (Reason: Congestion) amlodipine 5 mg tablet 5 mg PO DAILY PRN (Reason: SBP > 150) Qty: 30 2RF esomeprazole magnesium 20 mg Tablet,Delayed Release (Dr/Ec) 20 mg PO QAM docusate sodium 100 mg tablet 100 mg PO QAM Rx Instructions: 1 tab one day 2 the next Systane Complete 0.6 % Drops 1 drp OPHTHALMIC (EYE) BID multivitamin Tablet 1 tab PO QAM turmeric root extract 500 mg Capsule 1,000 mg PO QAM diphenhydramine-acetaminophen [Tylenol PM Extra Strength] 25-500 mg tablet 1 tab PO Q8H PRN (Reason: excluding HS, temporary due to hip replacement) buspirone 5 mg tablet 5 mg PO QAM Discharge Orders: Discharge Order (Routine); Ordered 04/10/24 Ordered By: Scottie Farnsworth Admission Data Admit Date/Time: 04/09/24 14:47 Attending Provider: Scottie Farnsworth Admit Provider: Luisa Lara Primary Care Provider: Eliot Liriano Other Providers: Luisa Lara; Giovani Rene Coding Level of Care Code 55982 INP/OBS DISCH >30 MIN Diagnoses Amaurosis fugax of right eye G45.3 Pulmonary emboli I26.99 Hypertension, unspecified type I10 Hypertension type: unspecified Hyperlipidemia, unspecified hyperlipidemia type E78.5 Hyperlipidemia type: unspecified
[2024-04-10] MEDS ORDERED: STROKE PATIENT DISCHARGE STA (12:31)
--- NOTE | 2024-04-10 17:03 | XCELERA ---
[id number]
== END 2024-04-10 15:34 | disposition home or self-care (01) ==
LOC: ED 09:28 → 2W 09:28 → SUATTDRO 14:47 → 2W 19:10

== ENCOUNTER 2024-05-30 15:56 | Observation (INO) ==
[2024-05-30 16:40] LABS: Basophils # (auto) 0.08 K/uL (0.00-0.20); Basophils % (auto) 0.9 %; Eosinophils # (auto) 0.09 K/uL (0.00-0.50); Hematocrit (blood only) 36.2 % (37.0-47.0); Hemoglobin 12.4 g/dl (12.0-16.0); Immature Granulocytes # (auto) 0.05 K/uL (0.01-0.20); Immature Granulocytes % (auto) 0.6 %; Lymphocytes % (auto) 41.7 %; Mean Corpuscular Hemoglobin 28.5 pg (25.0-34.0); Mean Corpuscular Hgb Conc 34.3 g/dL (32.0-36.0); Mean Corpuscular Volume 83.2 fL (80.0-100.0); Mean Platelet Volume 8.4 fL (9.4-12.4); Monocytes # (auto) 0.69 K/uL (0.11-0.59); Neutrophils # (auto) 4.13 K/uL (1.40-6.50); Neutrophils % (auto) 47.8 %; Platelet Count 330 K/uL (130-400); RDW Coefficient of Variation 13.1 % (11.5-14.5); RDW Standard Deviation 39.8 fL (36.4-46.3); Red Blood Count 4.35 M/uL (4.20-5.40); White Blood Count 8.64 K/ul (4.8-10.8)
--- NOTE | 2024-05-30 16:41 | XRay Report ---
KUB CLINICAL HISTORY: Constipation. COMPARISON STUDY: CT of the abdomen and pelvis July 10, 2023. FINDINGS: Cholecystectomy clips, lumbar decompression and fusion and bilateral hip arthroplasties are incidentally noted. The bowel gas pattern is normal. [id number] amount stool is present. This is within normal limits. IMPRESSION: 1. No evidence for a bowel obstruction. 2. Mild to moderate amount of stool. ACT 112: Negative or not required by law. Electronically signed by: Lenard Bennett M.D. 05/30/2024 4:39 PM
--- NOTE | 2024-05-30 16:49 | Emergency Department Note ---
Impression & Plan Generalized abdominal pain, Acute hyponatremia ED Provider Note NAME: ADAM OSBORNE AGE: 78 SEX: F : 1945 ARRIVES VIA: Walk-In INFORMANT: Patient ED PROVIDER(S): MARK Cespedes, Mack Ugarte DO CHIEF COMPLAINT: Abdominal pain, constipation. HISTORY OF PRESENT ILLNESS: This 78-year-old female patient presents to the emergency department for evaluation of abdominal pain with constipation. She reports symptoms started a few months ago, she states nausea, abdominal pain, sensation of fullness. She reports pain in the epigastric region, with pressure in the bilateral lower quadrants. Patient reports low back pain, predominantly in the lower portion however it does extend into the mid back. Patient reports early satiety. She reports she is unable to have a bowel movement, without using rectal suppositories. She reports watery bowel movements, with a few small pieces of stool when she is able to move her bowels. Using a suppository every 2 to 3 days, her bowel movements are mustard yellow. She does report a history of diverticulitis with a partial colectomy 10 years ago. She reports last year she had 2 umbilical hernia repairs. REVIEW OF SYSTEMS: A review of systems was performed with positives and pertinent negatives listed in the history of present illness. All other systems were reviewed and are negative. PHYSICAL EXAM: VITALS: Vitals are noted on the nurse's note and reviewed by myself. Vital signs stable. GENERAL: 78-year-old female, in no acute distress, nondiaphoretic, well- developed well-nourished. SKIN: The skin was without rashes, erythema, edema, or bruising. HEAD: Normocephalic atraumatic. MOUTH: Mucous membranes moist. Tonsils are not enlarged. Pharynx without erythema or exudate. Uvula midline. Airway patent. Tongue does not deviate. NECK: Supple without nuchal rigidity. No lymphadenopathy. No thyromegaly. Cervical spine is nontender. No JVD. HEART: Regular rate and rhythm without murmurs gallops or rubs. LUNGS: Clear to auscultation bilaterally without wheezes, rales or rhonchi. No retractions or accessory muscle use. ABDOMEN: Positive bowel sounds x 4. Soft, diffuse TTP low abdomen with TTP superior to the umbilicus. No rebound tenderness or guarding. MUSCULOSKELETAL: No muscle atrophy, erythema, or edema noted. Normal gait. Strength 5/5 throughout. NEURO: Patient was alert and oriented to person place and time. No focal neurological deficits. EMERGENCY DEPARTMENT COURSE: The patient is a pleasant well-appearing 78-year-old female who arrives to the emergency department with her for evaluation of the above-stated complaint. Upon examination the patient has significant tenderness to palpation superior to the umbilicus, with diffuse tenderness palpation in the low abdomen. The patient reports history of a complex hernia repair by Dr. Sanchez, daily last year. She reports since that time she has been having increased frequency, and severity of her symptoms. A saline lock was established, CBC, CMP, lipase were obtained. CBC shows no leukocytosis, with a stable hemoglobin and hematocrit, CMP shows hyponatremia at 127, lipase negative. An attempt was made for stool culture, however, unsuccessful during the time of my care. Urinalysis was obtained which shows no signs of infection. EKG shows NSR at a rate of 72 with a left anterior fascicular block, T wave inversions replacing T wave abnormality in lateral leads. The patient denies chest pain or shob. CT imaging of the abdomen and pelvis was obtained which shows a previously noted fluid collection the umbilical region is significantly decreased in size and almost resolved. There is a nondilated loop of small bowel which may possibly enter a defect in the abdominal wall at this level. I contacted Dr. Chavez from general surgery for evaluation of the CT results. He stated the findings are not emergent and he is able to consult on the patient. The patient received 1LNSS for NA correction with repeat BMP of 128. I spoke with the patient regarding the findings who stated she has been weak and tired recently. Case management was contacted for admission who facilitated contact with Dr. Suarez who agreed to accept the patient to his services. DIFFERENTIAL DIAGNOSIS: Infections, diverticulitis, UTI, obstruction, mesenteric ischemia, aortic pathology, inflammatory bowel disease, renal colic, PUD, pancreatitis, biliary pathology, hernia, volvulus, constipation, as well as other pathologies. Continuous pvc monitor: Order was placed for continuous pvc monitor. Patient was placed on the pvc monitor. Patient was noted to be in normal sinus rhythm at an initial rate of 75 bpm. The patient's case was discussed with Dr. Ugarte, who agreed with my evaluation and treatment plan. The chart was completed utilizing [employer] Speech voice recognition software. Grammatical errors, random word insertions, pronoun errors, and incomplete sentences are an occasional consequence of this system due to software limitations, ambient noise, and hardware issues. Any formal questions or concerns about the content, text, or information contained within the body of this dictation should be directly addressed to the physician for clarification. Past Med/Surg History Problem List (Updated 05/31/24 @ 16:11 by MARK Love) Acute hyponatremia (Acute) Constipation Early satiety Generalized abdominal pain (Acute) Hyperlipemia Per records HTN (hypertension) Amaurosis fugax of right eye (Acute) S/P hernia repair Leg length discrepancy Sensorineural hearing loss (SNHL) of both ears Vitamin D deficiency Mixed conductive and sensorineural hearing loss of right ear with restricted hearing of left ear Depression with anxiety (Acute) Gastroesophageal reflux disease (Acute) Hyperplastic polyps of stomach (Acute) Irritable bowel syndrome (Acute) Lichen sclerosus et atrophicus (Acute) Multilevel degenerative disc disease (Acute) Spinal stenosis (Acute) Neurogenic 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 spinal stenosis Medical History Pulmonary emboli Encounter for pre-operative examination Anxiety History of COVID-19 November 16, 2022 > not hospitalized Ischial bursitis of left side Sacroiliitis Hearing deficit Seen by ENT in the past- non purulent fluid noted- recommend Flonase, Afrin and steroid Diverticulitis of colon Osteoarthritis History of diverticulitis Depression GERD (gastroesophageal reflux disease) Spinal stenosis Surgical History History of incisional hernia repair (05/04/23) Laparoscopy with Lysis of Adhesions; Open Incarcerated Incisional Hernia Repair with Compartment Separation and 10cm Surgimesh Preperitoneal(Not Applicable) - Darnell Sanchez MD, FACS History of right hip replacement done by Dr. Smith 06/02/22 History of cataract surgery R- 04/27/21 L- 05/11/21 History of left hip replacement (~01/2019) S/P appendectomy (~03/04/21) Dr. Shultz History of lumbar fusion L4-L5 09/05/18 - MAC #3, ETT #7.0, Grade 1 View H/O breast biopsy RIGHT - BENIGN - AGE 61 H/O elbow surgery RIGHT - FOR TENNIS ELBOW - AGE 49 History of carpal tunnel release RIGHT - AGE 49 History of colonoscopy 2020 - Dr. Huitron History of dilation and curettage Age 27 History of partial colectomy Age 65 06/29/11 - ETT #7.0 History of laparoscopic cholecystectomy AGE 62 History of hysterectomy AGE 38 History of laparotomy RUPTURED ECTOPIC - AGE 36 History of tubal ligation LAP - AGE 29 History of tonsillectomy and adenoidectomy AGE 11 Family History Father , age 79 Myocardial infarction Daughter Crohn's disease Mother Hypercholesterolemia Leukocytosis Thrombocytosis Hypertension Stroke Father Stroke Other No family history of adverse response to anesthesia No family history of bleeding disorder No pertinent family history Denies family history of Ovarian cancer Prostate cancer Breast cancer Colorectal cancer Social History Smoking Status: Never smoker Second Hand Exposure: No; Do You Dip or Chew Tobacco: No; Hx Alcohol Use: No Hx Substance Use: No Preferred Language: Bulgarian Communication Ability: Effective Visual Impairment: No Limitations Hearing Ability: Normal Database Operator Required: No Beliefs That Will Affect Care: None marital status: Current Living Situation: Spouse current occupational status: retired 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 [employer] How many Children do You have: 2 Other Information That Helps Us Care for You: No Feels Safe at Home: Yes Safety Concerns: Feels Safe At This Time Childhood Exposure to Second-Hand Smoke: Yes Diet: regular Diet Comment: clean eating, free of chemicals Dental Care, Regularly: Yes Physical Activity Frequency: Daily Physical Activity Frequency Comment: walking daily 2 hours Seatbelt Use: always Sunscreen Use: Yes Assistive Devices: Glasses Allergies Allergies Allergy/AdvReac Type Severity Reaction Status Date / Time adhesive Allergy Intermediate RED, Verified 05/30/24 17:54 PAINFUL SKIN levofloxacin Allergy Intermediate RASH/ITCHY Verified 05/30/24 17:54 nickel Allergy Intermediate ITCHING Verified 05/30/24 17:54 celecoxib [From Celebrex] AdvReac Intermediate DIGESTIVE Verified 05/30/24 17:54 ISSUES codeine AdvReac Intermediate SEVERE Verified 05/30/24 17:54 NAUSEA AND VOMITING metoclopramide [From Reglan] AdvReac Intermediate Depression Verified 05/30/24 17:54 sulfamethoxazole AdvReac Intermediate DIGESTIVE Verified 05/30/24 17:54 [From Bactrim] ISSUES trimethoprim [From Bactrim] AdvReac Intermediate DIGESTIVE Verified 05/30/24 17:54 ISSUES Home Meds Home Medications Medication Instructions Recorded Confirmed esomeprazole magnesium 20 mg 20 mg PO QAM 07/27/18 05/30/24 tablet,delayed release propylene glycol 0.6 % eye drops 1 drp ophthalmic (eye) BID 01/14/19 05/30/24 (Systane Complete) multivitamin 1 tab PO QAM 03/04/21 05/30/24 docusate sodium 100 mg tablet 100 mg PO QAM 06/17/21 05/30/24 sodium chloride 0.9 % nasal spray 1 spray intranasal DAILY PRN 06/09/22 05/30/24 aerosol dryness diphenhydramine 25 1 tab PO HS PRN for sleep 05/30/24 05/30/24 mg-acetaminophen 500 mg tablet (Acetaminophen PM) Previous Rx's Medication Instructions Recorded citalopram 20 mg tablet 20 mg PO QAM #100 tabs 03/28/24 bupropion HCl 100 mg tablet 100 mg PO QAM #90 tabs 04/01/24 aspirin 81 mg tablet,delayed 81 mg PO QAM #0 tabs 04/10/24 release atorvastatin 40 mg tablet 40 mg PO QAM #100 tabs 05/01/24 olmesartan 40 mg tablet 40 mg PO DAILY #100 tabs 05/01/24 chlorthalidone 25 mg tablet 12.5 mg (1/2 x 25 mg) PO DAILY 05/15/24 #100 tabs Results & Data (ED) Vital Signs Vital Signs - 24 hr 05/30/24 16:00 05/30/24 17:04 05/30/24 17:44 Temperature 36.6 C Temperature Source Temporal Artery Scan Pulse Rate 75 75 77 Pulse Rate from SpO2 Sensor Pulse Rhythm Regular Respiratory Rate 16 12 14 Respiratory Effort / Characteristics Non-Labored Respiratory Depth Normal Blood Pressure 168/93 H 155/77 H Blood Pressure Mean 118 103 Pulse Oximetry 94 96 96 Oxygen Delivery Method Room Air Room Air Room Air Sepsis Recent Fever Within 48 Hours No Sepsis New/Unexplained Change in Mental Status No Sepsis Action Taken by Nursing No Action Required 05/30/24 17:50 05/30/24 18:00 05/30/24 18:30 Temperature Temperature Source Pulse Rate 76 70 70 Pulse Rate from SpO2 Sensor Pulse Rhythm Respiratory Rate 14 15 Respiratory Effort / Characteristics Respiratory Depth Blood Pressure 161/88 H 159/76 H Blood Pressure Mean 111 97 Pulse Oximetry 97 97 Oxygen Delivery Method Sepsis Recent Fever Within 48 Hours Sepsis New/Unexplained Change in Mental Status Sepsis Action Taken by Nursing 05/30/24 19:00 05/30/24 19:33 05/30/24 20:03 Temperature Temperature Source Pulse Rate 71 70 72 Pulse Rate from SpO2 Sensor 72 70 73 Pulse Rhythm Respiratory Rate 16 15 14 Respiratory Effort / Characteristics Respiratory Depth Blood Pressure 165/85 H 169/88 H 156/89 H Blood Pressure Mean 111 115 111 Pulse Oximetry 97 94 95 Oxygen Delivery Method Sepsis Recent Fever Within 48 Hours Sepsis New/Unexplained Change in Mental Status Sepsis Action Taken by Nursing 05/30/24 20:33 Temperature Temperature Source Pulse Rate 75 Pulse Rate from SpO2 Sensor 75 Pulse Rhythm Respiratory Rate 16 Respiratory Effort / Characteristics Respiratory Depth Blood Pressure Blood Pressure Mean Pulse Oximetry 92 Oxygen Delivery Method Sepsis Recent Fever Within 48 Hours Sepsis New/Unexplained Change in Mental Status Sepsis Action Taken by Long Term Medications Current Medication List: was personally reviewed by me Laboratory Data Attestation: I reviewed the patient's lab results. 05/31/24 05:24 05/31/24 05:24 Lab Results 05/30/24 05/30/24 05/30/24 Range/Units 16:14 16:15 17:02 WBC 8.64 (4.8-10.8) K/ul RBC 4.35 (4.20-5.40) M/uL Hgb 12.4 (12.0-16.0) g/dl Hct 36.2 L (37.0-47.0) % MCV 83.2 (80.0-100.0) fL MCH 28.5 (25.0-34.0) pg MCHC 34.3 (32.0-36.0) g/dL RDW Std Deviation 39.8 (36.4-46.3) fL RDW Coeff of Jazmine 13.1 (11.5-14.5) % Plt Count 330 (130-400) K/uL MPV 8.4 L (9.4-12.4) fL Immature Gran % (Auto) 0.6 % Neut % (Auto) 47.8 % Lymph % (Auto) 41.7 % Mower % (Auto) 8.0 % Eos % (Auto) 1.0 % Baso % (Auto) 0.9 % Neut # (Auto) 4.13 (1.40-6.50) K/uL Lymph # (Auto) 3.60 H (1.20-3.40) K/uL Mower # (Auto) 0.69 H (0.11-0.59) K/uL Eos # (Auto) 0.09 (0.00-0.50) K/uL Baso # (Auto) 0.08 (0.00-0.20) K/uL Immature Gran # (Auto) 0.05 (0.01-0.20) K/uL Sodium 127 L (136-145) mmol/L Potassium 4.0 (3.5-5.1) mmol/L Chloride 89 L (98-107) mmol/L Carbon Dioxide 31 (21-32) mmol/L Anion Gap 7 (3-11) BUN 14 (6-23) mg/dl Creatinine 0.71 (0.6-1.2) mg/dl Est Cr Clr Drug Dosing 74.6 ml/min Est GFR ( Amer) 95.2 ml/min Est GFR (Non-Af Amer) 82.2 ml/min BUN/Creatinine Ratio 19.7 (10-20) Glucose 92 (70-99(Fasting)) mg/dl Osmolality 268 L (280-300) mOsm/kg Lactate 1.5 (0.4-2.0) mmol/L Calcium 9.5 (8.6-10.3) mg/dl Total Bilirubin 0.4 (0.2-1.0) mg/dl AST 21 (13-39) U/L ALT 14 (7-52) U/L Alkaline Phosphatase 88 (34-104) U/L Total Protein 7.4 (6.0-8.3) gm/dl Albumin 4.4 (3.4-5.0) gm/dl Globulin 3.0 (2.5-4.0) gm/dl Albumin/Globulin Ratio 1.5 (0.9-2) Lipase 54 (11-82) U/L Urine Color Yellow Urine Appearance Clear (Clear) Urine pH 7.0 (4.5-7.5) Ur Specific [place] 1.008 (1.000-1.030) Urine Protein Negative (Negative) Urine Glucose (UA) Negative (Negative) Urine Ketones Negative (Negative) Urine Blood Negative (Negative) Urine Nitrite Negative (Negative) Urine Bilirubin Negative (Negative) Urine Urobilinogen Negative (Negative) Ur Leukocyte Esterase Trace H (Negative) Urine WBC (Auto) 0-5 (0-5) /hpf Urine RBC (Auto) 0-2 (0-2) /hpf U Hyaline Cast (Auto) 0-2 (0-2) /lpf U Epithel Cells (Auto) 0-2 (0-2) /hpf Urine Bacteria (Auto) None Seen (None Seen) 05/30/24 Range/Units 19:27 WBC (4.8-10.8) K/ul RBC (4.20-5.40) M/uL Hgb (12.0-16.0) g/dl Hct (37.0-47.0) % MCV (80.0-100.0) fL MCH (25.0-34.0) pg MCHC (32.0-36.0) g/dL RDW Std Deviation (36.4-46.3) fL RDW Coeff of Jazmine (11.5-14.5) % Plt Count (130-400) K/uL MPV (9.4-12.4) fL Immature Gran % (Auto) % Neut % (Auto) % Lymph % (Auto) % Mower % (Auto) % Eos % (Auto) % Baso % (Auto) % Neut # (Auto) (1.40-6.50) K/uL Lymph # (Auto) (1.20-3.40) K/uL Mower # (Auto) (0.11-0.59) K/uL Eos # (Auto) (0.00-0.50) K/uL Baso # (Auto) (0.00-0.20) K/uL Immature Gran # (Auto) (0.01-0.20) K/uL Sodium 128 L (136-145) mmol/L Potassium 3.5 (3.5-5.1) mmol/L Chloride 92 L (98-107) mmol/L Carbon Dioxide 28 (21-32) mmol/L Anion Gap 8 (3-11) BUN 14 (6-23) mg/dl Creatinine 0.65 (0.6-1.2) mg/dl Est Cr Clr Drug Dosing 81.5 ml/min Est GFR ( Amer) 99.3 ml/min Est GFR (Non-Af Amer) 85.6 ml/min BUN/Creatinine Ratio 21.5 H (10-20) Glucose 97 (70-99(Fasting)) mg/dl Osmolality (280-300) mOsm/kg Lactate (0.4-2.0) mmol/L Calcium 9.0 (8.6-10.3) mg/dl Total Bilirubin (0.2-1.0) mg/dl AST (13-39) U/L ALT (7-52) U/L Alkaline Phosphatase (34-104) U/L Total Protein (6.0-8.3) gm/dl Albumin (3.4-5.0) gm/dl Globulin (2.5-4.0) gm/dl Albumin/Globulin Ratio (0.9-2) Lipase (11-82) U/L Urine Color Urine Appearance (Clear) Urine pH (4.5-7.5) Ur Specific [place] (1.000-1.030) Urine Protein (Negative) Urine Glucose (UA) (Negative) Urine Ketones (Negative) Urine Blood (Negative) Urine Nitrite (Negative) Urine Bilirubin (Negative) Urine Urobilinogen (Negative) Ur Leukocyte Esterase (Negative) Urine WBC (Auto) (0-5) /hpf Urine RBC (Auto) (0-2) /hpf U Hyaline Cast (Auto) (0-2) /lpf U Epithel Cells (Auto) (0-2) /hpf Urine Bacteria (Auto) (None Seen) Administered Medications Artificial Tears (Artificial Tears) 1 drops OP BID [facility] Stop: 06/30/24 08:59 Last Admin: 05/31/24 08:18 Dose: Not Given Documented By: AJ Aspirin (A[facility]in 81 Mg Ectab) [facility] [place]: 06/30/24 08:59 Last Admin: 05/31/24 08:18 Dose: 81 mg Documented By: AJ Atorvastatin Calcium (Atorvastatin 40 Mg Tab) 40 mg PO QAM [facility] Stop: 06/30/24 08:59 Last Admin: 05/31/24 08:18 Dose: 40 mg Documented By: AJ Bupropion HCl (Bupropion Hcl 100 Mg Tablet) 100 mg PO QAM [facility] Stop: 06/30/24 08:59 Last Admin: 05/31/24 08:18 Dose: 100 mg Documented By: AJ Citalopram Hydrobromide (Citalopram 20 Mg Tab) [facility] [place]: 06/30/24 08:59 Last Admin: 05/31/24 08:18 Dose: 20 mg Documented By: AJ Multivitamins (Multivitamin Tab) [facility] [place] Stop: 06/30/24 08:59 Last Admin: 05/31/24 08:18 Dose: 1 tab Documented By: AJ Pantoprazole Sodium (Pantoprazole 40 Mg Tab) 40 mg PO QAM [facility] Stop: 06/30/24 08:59 Last Admin: 05/31/24 08:18 Dose: 40 mg Documented By: AJ Polyethylene Glycol (Polyethylene (Miralax) 17 Gm Pack) 17 gm PO DAILY SETH Stop: 06/30/24 08:59 Last Admin: 05/31/24 09:01 Dose: 17 gm Documented By: AJ Discontinued Medications Sodium Chloride (Nss) 500 mls @ 999 mls/hr IV .Q31M STA Stop: 05/30/24 17:21 Last Infusion: 05/30/24 17:46 Dose: Infused Documented By: Admin: 05/30/24 17:15 Dose: 999 mls/hr Documented By: EARL Potassium Chloride/Sodium Chloride (Normal Saline W/20 Meq Kcl) 20 meq in 1,000 mls @ 80 mls/hr IV .[id number] SETH Stop: 05/31/24 11:44 Last Infusion: 05/31/24 12:11 Dose: Infused Documented By: Admin: 05/30/24 23:41 Dose: 80 mls/hr Documented By: ABDOULAYE Ioversol (Optiray 320 100ml) 93 ml IV ONCE ONE Stop: 05/30/24 17:25 Last Admin: 05/30/24 17:25 Dose: 93 ml Documented By: ZAY Morphine Sulfate (Morphine Sulfate 4 Mg/Ml 1 Ml Carp\Vial) 4 mg IV NOW STA Stop: 05/30/24 20:21 Last Admin: 05/30/24 20:38 Dose: 4 mg Documented By: SHAMIKA Ondansetron HCl (Ondansetron Inj 2 Mg/Ml 2 Ml Vial) 4 mg IV NOW STA Stop: 05/30/24 20:21 Last Admin: 05/30/24 20:38 Dose: 4 mg Documented By: SHAMIKA Imaging Data Radiologist's Impression: KUB X-Ray 05/30/24 16:06 KUB CLINICAL HISTORY: Constipation. COMPARISON STUDY: CT of the abdomen and pelvis July 10, 2023. FINDINGS: Cholecystectomy clips, lumbar decompression and fusion and bilateral hip arthroplasties are incidentally noted. The bowel gas pattern is normal. [id number] amount stool is present. This is within normal limits. IMPRESSION: 1. No evidence for a bowel obstruction. 2. Mild to moderate amount of stool. ACT 112: Negative or not required by law. Electronically signed by: Lenard Bennett M.D. 05/30/2024 4:39 PM Discharge Plan Visit Data Chief Complaint: Constipation Stated Complaint: ABD/BACK PAIN, CONSTIPATION/BLOCKAGE ED Provider: Mack Ugarte ED Midlevel Provider: Emily Sarmiento Discharge Problem: Generalized abdominal pain, Acute hyponatremia Patient Disposition: Admitted As Inpatient Discharge Instructions Interventions: ED Discharge Assessment Last Done: 05/31/24 01:42
[2024-05-30 16:56] LABS: Albumin Globulin Ratio 1.5 (0.9-2); Albumin Level 4.4 gm/dl (3.4-5.0); BUN Creatinine Ratio 19.7 (10-20); Bilirubin,Total 0.4 mg/dl (0.2-1.0); Calcium 9.5 mg/dl (8.6-10.3); Creatinine Clr Calc Pharmacy 74.6 ml/min; Est GFR (African American) 95.2 ml/min; Est GFR (Non-African American) 82.2 ml/min; Total Protein 7.4 gm/dl (6.0-8.3)
[2024-05-30 16:59] LABS: Appearance Urine Clear (Clear); Bacteria Urine Automated None Seen (None Seen); Bilirubin Urine Negative (Negative); Blood Urine Negative (Negative); Cast Urine Automated 0-2 /lpf (0-2); Color Urine Yellow; Epithelial Cell Urine Auto 0-2 /hpf (0-2); Glucose Urine UA Negative (Negative); Ketones Urine Negative (Negative); Leukocyte Esterase Urine Trace (Negative); Nitrite Urine Negative (Negative); Protein Urine Negative (Negative); RBC Urine Automated 0-2 /hpf (0-2); Specific Gravity Urine 1.008 (1.000-1.030); Urobilinogen Urine Negative (Negative); WBC Urine Automated 0-5 /hpf (0-5)
[2024-05-30] MEDS: SODIUM CHLORIDE 0.9% 500 ML IV STA (17:15)
[2024-05-30] MEDS: OPTIRAY 320 100ml IV ONE (17:25)
--- NOTE | 2024-05-30 17:46 | CT Scan Report ---
CT abd pelvis IV con only CLINICAL HISTORY: epigastric with diffuse low abdomen TECHNIQUE: Helical axial images of the abdomen and pelvis were obtained and displayed. Automated dose lowering techniques and/or adjustment according to patient size were utilized for this exam. This e xam was performed with intravenous contrast. CT DOSE: 1474.2 mGy.cm COMPARISON: Comparison is made to CT abdomen pelvis 07/10/2020 FINDINGS: Lower chest: Bibasilar atelectasis versus scarring is seen. Liver: Unremarkable. No focal lesions are seen. Gallbladder and biliary tree: Patient is status post cholecystectomy. No intra- or extrahepatic bilia ry ductal dilation. Pancreas: Unremarkable, no focal lesions. Spleen: Splenule is incidentally noted. Adrenals: Unremarkable. Kidneys and ureters: Renal cysts are seen. Bladder: Unremarkable. Reproductive organs: Unremarkable. Bowel: A hiatal hernia is seen. Diverticulosis without diverticulitis. Patient is status post appende ctomy. Lymph nodes Retroperitoneal: Unremarkable. Pelvic: Unremarkable. Mesenteric: Unremarkable. Peritoneum: Normal. Vessels: Atherosclerotic calcifications are seen. Abdominal wall: Previously noted fluid collection the umbilical region is significantly decreased in size and almost resolved. There is a nondilated loop of small bowel which may possibly enter a defect in the abdominal wall at this level. Bones: Degenerative changes in the visualized spine. Posterior fixation hardware spans L4-L5. IMPRESSION: 1. There is minimal residual fluid at the site of the umbilical hernia repair. Small enhancing wall is seen. Sterility cannot be assessed by this exam although no severe surrounding soft tissue swellin g is seen. There is potential involvement of a nondilated loop of small bowel. 2. Diverticulosis without diverticulitis. 3. Additional findings as above. ACT 112: Negative or not required by law. Electronically signed by: Bong Mayer M.D. 05/30/2024 5:44 PM
[2024-05-30 20:09] LABS: BUN Creatinine Ratio 21.5 (10-20); Creatinine Clr Calc Pharmacy 81.5 ml/min; Est GFR (African American) 99.3 ml/min; Est GFR (Non-African American) 85.6 ml/min; Potassium 3.5 mmol/L (3.5-5.1)
[2024-05-30] MEDS: MoRPHine SULFATE 4 MG/ML 1 ML CARP\\VIAL IV STA (20:38)
[2024-05-30] MEDS: ONDANSETRON INJ 2 MG/ML 2 ML VIAL IV STA (20:38)
--- NOTE | 2024-05-30 21:16 | History & Physical Report ---
Date of Service May 30, 2024 Assessment & Plan (1) Generalized abdominal pain: (2) Early satiety: (3) Constipation: (4) Depression with anxiety: (5) Gastroesophageal reflux disease: (6) HTN (hypertension): (7) Hyperlipemia: (8) Neurogenic 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 spinal stenosis: Plan Generalized abdominal pain/early satiety/constipation with need for suppositories- CT scan abdomen and pelvis, status post umbilical hernia repair, and diverticulosis without diverticulitis Patient's symptoms, as noted during conversation in the ED, began very shortly after her medications were changed from losartan to olmesartan, and adjustment of chlorthalidone dosing Will hold olmesartan, as a known potential cause of abdominal discomfort She may need to have upper GI with small bowel follow-through, and/or gastric emptying study if there is concern regarding dysmotility Esomeprazole may potentially cause issues with abdominal discomfort as well Of note, patient has the sense of constipation, however, no significant fecal retention was noted on CT scan of abdomen and pelvis Hyponatremia- Sodium 128 on admission Serum osmolality 268 Urine osmolality is pending Hyponatremia may is likely a combination of increased water intake, and use of chlorthalidone Will hold chlorthalidone Patient reports that she has been drinking excessive amounts of water, to help with her sensation of being constipated and try to help with bowel movements Received normal saline 500 mL bolus from the ED NSS + KCl 20 mill equivalents at 80 mL/h x 1 L Repeat laboratories in the a.m Hypertension- Continue aspirin Hold olmesartan, which usually takes in the morning If blood pressure is elevated in the a.m., would do a trial of amlodipine 5 mg every morning Depression with anxiety- Continue bupropion, and citalopram History of Present Illness Chief Complaint: The patient presents to the emergency department for evaluation of generalized abdominal pain, and constipation with necessity for using suppositories and rectal stimulation for movement of bowels, worsening over the past 3 weeks. Primary Care Provider: Eliot Liriano MD The patient is a 78-year-old female with a past medical history including hyperlipidemia, hypertension, amaurosis fugax of right eye, SNHL bilaterally, vitamin D deficiency, depression with anxiety, GERD, and lichen sclerosis atrophicus, multilevel degenerative disc disease, and lumbar spinal stenosis with neurogenic claudication. Patient reports that she has had generalized abdominal pain, with occasional nausea and describes a sensation of early satiety worsening over the past 3 weeks. She reports the need to use rectal stimulation with Dulcolax suppositories to help with her bowel movements. She reports drinking significantly more water than usual during that time to help with improving bowel movements. She reports that due to insurance issues, her previous prescription for losartan was changed to olmesartan, and chlorthalidone dosing was adjusted downward to one half as well. She reports that these medication changes took place about 3 weeks ago. Allergies Allergy/AdvReac Type Severity Reaction Status Date / Time adhesive Allergy Intermediate RED, Verified 05/30/24 17:54 PAINFUL SKIN levofloxacin Allergy Intermediate RASH/ITCHY Verified 05/30/24 17:54 nickel Allergy Intermediate ITCHING Verified 05/30/24 17:54 celecoxib [From Celebrex] AdvReac Intermediate DIGESTIVE Verified 05/30/24 17:54 ISSUES codeine AdvReac Intermediate SEVERE Verified 05/30/24 17:54 NAUSEA AND VOMITING metoclopramide [From Reglan] AdvReac Intermediate Depression Verified 05/30/24 17:54 sulfamethoxazole AdvReac Intermediate DIGESTIVE Verified 05/30/24 17:54 [From Bactrim] ISSUES trimethoprim [From Bactrim] AdvReac Intermediate DIGESTIVE Verified 05/30/24 17:54 ISSUES Home Medications Medication Instructions Recorded Confirmed Type esomeprazole magnesium 20 mg 20 mg PO QAM 07/27/18 05/30/24 History tablet,delayed release propylene glycol 0.6 % eye drops 1 drp ophthalmic (eye) BID 01/14/19 05/30/24 History (Systane Complete) multivitamin 1 tab PO QAM 03/04/21 05/30/24 History docusate sodium 100 mg tablet 100 mg PO QAM 06/17/21 05/30/24 History sodium chloride 0.9 % nasal spray 1 spray intranasal DAILY PRN 06/09/22 05/30/24 History aerosol dryness citalopram 20 mg tablet 20 mg PO QAM #100 tabs 03/28/24 05/30/24 Rx bupropion HCl 100 mg tablet 100 mg PO QAM #90 tabs 04/01/24 05/30/24 Rx aspirin 81 mg tablet,delayed 81 mg PO QAM #0 tabs 04/10/24 05/30/24 Rx release atorvastatin 40 mg tablet 40 mg PO QAM #100 tabs 05/01/24 05/30/24 Rx olmesartan 40 mg tablet 40 mg PO DAILY #100 tabs 05/01/24 05/30/24 Rx chlorthalidone 25 mg tablet 12.5 mg (1/2 x 25 mg) PO DAILY 05/15/24 05/30/24 Rx #100 tabs diphenhydramine 25 1 tab PO HS PRN for sleep 05/30/24 05/30/24 History mg-acetaminophen 500 mg tablet (Acetaminophen PM) Past Med/Surg History Problem List (Updated 05/31/24 @ 00:48 by Reji Suarez MD) Constipation Early satiety Generalized abdominal pain Hyperlipemia Per records HTN (hypertension) Amaurosis fugax of right eye (Acute) S/P hernia repair Leg length discrepancy Sensorineural hearing loss (SNHL) of both ears Vitamin D deficiency Mixed conductive and sensorineural hearing loss of right ear with restricted hearing of left ear Depression with anxiety (Acute) Gastroesophageal reflux disease (Acute) Hyperplastic polyps of stomach (Acute) Irritable bowel syndrome (Acute) Lichen sclerosus et atrophicus (Acute) Multilevel degenerative disc disease (Acute) Spinal stenosis (Acute) Neurogenic 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 spinal stenosis Medical History Encounter for pre-operative examination Anxiety History of COVID-19 November 16, 2022 > not hospitalized Ischial bursitis of left side Sacroiliitis Hearing deficit Seen by ENT in the past- non purulent fluid noted- recommend Flonase, Afrin and steroid Diverticulitis of colon Osteoarthritis History of diverticulitis Depression GERD (gastroesophageal reflux disease) Spinal stenosis Surgical History History of incisional hernia repair (05/04/23) History of right hip replacement History of cataract surgery History of left hip replacement (~01/2019) S/P appendectomy (~03/04/21) History of lumbar fusion H/O breast biopsy H/O elbow surgery History of carpal tunnel release History of colonoscopy History of dilation and curettage History of partial colectomy History of laparoscopic cholecystectomy History of hysterectomy History of laparotomy History of tubal ligation History of tonsillectomy and adenoidectomy Family History Father Myocardial infarction Daughter Crohn's disease Mother Hypercholesterolemia Leukocytosis Thrombocytosis Hypertension Stroke Father Stroke Other No family history of adverse response to anesthesia No family history of bleeding disorder No pertinent family history Denies family history of Ovarian cancer Prostate cancer Breast cancer Colorectal cancer Social History Smoking Status: Never smoker Second Hand Exposure: No; Do You Dip or Chew Tobacco: No; Hx Alcohol Use: No Hx Substance Use: No Preferred Language: Samoan Communication Ability: Effective Visual Impairment: No Limitations Hearing Ability: Normal Senior Systems Software Engineer Required: No Beliefs That Will Affect Care: None marital status: Current Living Situation: Spouse current occupational status: retired 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 [employer] How many Children do You have: 2 Feels Safe at Home: Yes Childhood Exposure to Second-Hand Smoke: Yes Diet: regular Diet Comment: clean eating, free of chemicals Dental Care, Regularly: Yes Physical Activity Frequency: Daily Physical Activity Frequency Comment: walking daily 2 hours Seatbelt Use: always Sunscreen Use: Yes Assistive Devices: None Review of Systems Review of Systems: The patient denies chest pain, palpitations, shortness of breath, dyspnea on ex ertion, cough, lower extremity swelling, sore throat, fevers, chills, sweats, blood in urine or stool, dysuria, urinary frequency or urgency, lightheadedness, dizziness, headache, memory loss, loss of consciousness, rash, abnormal bruising or bleeding, imbalance, focal weakness, numbness or tingling in arms or legs, neck pain, or night sweats. The review of systems is otherwise negative other than for that already noted above, and at least 10 systems have been reviewed. Physical Exam Physical Exam: The patient is awake, alert and oriented 3, well developed and well nourished, normocephalic and atraumatic, lying in bed and in no acute distress. HEENT--PERRL, EOMI, mucous membranes and oropharynx normal Neck--supple. No JVD. No bruits. Thyroid normal, trachea midline, no adenopathy. Heart--normal S1 and S2. No murmurs, rubs or gallops. Lungs--clear bilaterally, no respiratory distress, no accessory muscle use. Abdomen--normal bowel sounds and soft. Nontender. Nondistended, no hernias or masses, no organomegaly. Extremities--no cyanosis or clubbing. No edema. Dermatologic--normal skin turgor, normal color, no abnormal lymph nodes, no rash. Neurologic--cranial nerves II through XII grossly intact. Rheumatologic--normal range of motion. Psychiatric--normal affect. Results & Data Results & Data Vital Signs (Past 12 Hours) Vital Signs Temp Pulse Resp BP Pulse Ox O2 Del Method 05/30/24 20:33 75 16 92 05/30/24 20:03 72 14 156/89 H 95 05/30/24 19:33 70 15 169/88 H 94 05/30/24 19:00 71 16 165/85 H 97 05/30/24 18:30 70 15 159/76 H 97 05/30/24 18:00 70 14 161/88 H 97 05/30/24 17:50 76 05/30/24 17:44 77 14 155/77 H 96 Room Air 05/30/24 17:04 75 12 96 Room Air 05/30/24 16:00 36.6 C 75 16 168/93 H 94 Room Air Laboratory Results Laboratory Results WBC 8.64 K/ul (4.8-10.8) 05/30/24 16:15 RBC 4.35 M/uL (4.20-5.40) 05/30/24 16:15 Hgb 12.4 g/dl (12.0-16.0) 05/30/24 16:15 Hct 36.2 % (37.0-47.0) L 05/30/24 16:15 MCV 83.2 fL (80.0-100.0) 05/30/24 16:15 MCH 28.5 pg (25.0-34.0) 05/30/24 16:15 MCHC 34.3 g/dL (32.0-36.0) 05/30/24 16:15 RDW Std Deviation 39.8 fL (36.4-46.3) 05/30/24 16:15 RDW Coeff of Jazmine 13.1 % (11.5-14.5) 05/30/24 16:15 Plt Count 330 K/uL (130-400) 05/30/24 16:15 MPV 8.4 fL (9.4-12.4) L 05/30/24 16:15 Immature Gran % (Auto) 0.6 % 05/30/24 16:15 Neut % (Auto) 47.8 % 05/30/24 16:15 Lymph % (Auto) 41.7 % 05/30/24 16:15 [place] % (Auto) 8.0 % 05/30/24 16:15 Eos % (Auto) 1.0 % 05/30/24 16:15 Baso % (Auto) 0.9 % 05/30/24 16:15 Neut # (Auto) 4.13 K/uL (1.40-6.50) 05/30/24 16:15 Lymph # (Auto) 3.60 K/uL (1.20-3.40) H 05/30/24 16:15 [place] # (Auto) 0.69 K/uL (0.11-0.59) H 05/30/24 16:15 Eos # (Auto) 0.09 K/uL (0.00-0.50) 05/30/24 16:15 Baso # (Auto) 0.08 K/uL (0.00-0.20) 05/30/24 16:15 Immature Gran # (Auto) 0.05 K/uL (0.01-0.20) 05/30/24 16:15 Sodium 128 mmol/L (136-145) L 05/30/24 19:27 Potassium 3.5 mmol/L (3.5-5.1) 05/30/24 19:27 Chloride 92 mmol/L (98-107) L 05/30/24 19:27 Carbon Dioxide 28 mmol/L (21-32) 05/30/24 19:27 Anion Gap 8 (3-11) 05/30/24 19:27 BUN 14 mg/dl (6-23) 05/30/24 19:27 Creatinine 0.65 mg/dl (0.6-1.2) 05/30/24 19:27 Est Cr Clr Drug Dosing 81.5 ml/min 05/30/24 19:27 Est GFR ( Amer) 99.3 ml/min 05/30/24 19:27 Est GFR (Non-Af Amer) 85.6 ml/min 05/30/24 19:27 BUN/Creatinine Ratio 21.5 (10-20) H 05/30/24 19:27 Glucose 97 mg/dl (70-99(Fasting)) 05/30/24 19:27 Osmolality 268 mOsm/kg (280-300) L 05/30/24 16:15 Lactate 1.5 mmol/L (0.4-2.0) 05/30/24 17:02 Calcium 9.0 mg/dl (8.6-10.3) 05/30/24 19:27 Total Bilirubin 0.4 mg/dl (0.2-1.0) 05/30/24 16:15 AST 21 U/L (13-39) 05/30/24 16:15 ALT 14 U/L (7-52) 05/30/24 16:15 Alkaline Phosphatase 88 U/L (34-104) 05/30/24 16:15 Total Protein 7.4 gm/dl (6.0-8.3) 05/30/24 16:15 Albumin 4.4 gm/dl (3.4-5.0) 05/30/24 16:15 Globulin 3.0 gm/dl (2.5-4.0) 05/30/24 16:15 Albumin/Globulin Ratio 1.5 (0.9-2) 05/30/24 16:15 Lipase 54 U/L (11-82) 05/30/24 16:15 Urine Color Yellow 05/30/24 16:14 Urine Appearance Clear (Clear) 05/30/24 16:14 Urine pH 7.0 (4.5-7.5) 05/30/24 16:14 Ur Specific [place] 1.008 (1.000-1.030) 05/30/24 16:14 Urine Protein Negative (Negative) 05/30/24 16:14 Urine Glucose (UA) Negative (Negative) 05/30/24 16:14 Urine Ketones Negative (Negative) 05/30/24 16:14 Urine Blood Negative (Negative) 05/30/24 16:14 Urine Nitrite Negative (Negative) 05/30/24 16:14 Urine Bilirubin Negative (Negative) 05/30/24 16:14 Urine Urobilinogen Negative (Negative) 05/30/24 16:14 Ur Leukocyte Esterase Trace (Negative) H 05/30/24 16:14 Urine WBC (Auto) 0-5 /hpf (0-5) 05/30/24 16:14 Urine RBC (Auto) 0-2 /hpf (0-2) 05/30/24 16:14 U Hyaline Cast (Auto) 0-2 /lpf (0-2) 05/30/24 16:14 U Epithel Cells (Auto) 0-2 /hpf (0-2) 05/30/24 16:14 Urine Bacteria (Auto) None Seen (None Seen) 05/30/24 16:14 Impressions KUB X-Ray 05/30/24 16:06 KUB CLINICAL HISTORY: Constipation. COMPARISON STUDY: CT of the abdomen and pelvis July 10, 2023. FINDINGS: Cholecystectomy clips, lumbar decompression and fusion and bilateral hip arthroplasties are incidentally noted. The bowel gas pattern is normal. [id number] amount stool is present. This is within normal limits. IMPRESSION: 1. No evidence for a bowel obstruction. 2. Mild to moderate amount of stool. ACT 112: Negative or not required by law. Electronically signed by: Lenard Bennett M.D. 05/30/2024 4:39 PM Abdomen/Pelvis CT 05/30/24 16:56 CT abd pelvis IV con only CLINICAL HISTORY: epigastric with diffuse low abdomen TECHNIQUE: Helical axial images of the abdomen and pelvis were obtained and displayed. Automated dose lowering techniques and/or adjustment according to patient size were utilized for this exam. This exam was performed with intravenous contrast. CT DOSE: 1474.2 mGy.cm COMPARISON: Comparison is made to CT abdomen pelvis 07/10/2020 FINDINGS: Lower chest: Bibasilar atelectasis versus scarring is seen. Liver: Unremarkable. No focal lesions are seen. Gallbladder and biliary tree: Patient is status post cholecystectomy. No intra- or extrahepatic biliary ductal dilation. Pancreas: Unremarkable, no focal lesions. Spleen: Splenule is incidentally noted. Adrenals: Unremarkable. Kidneys and ureters: Renal cysts are seen. Bladder: Unremarkable. Reproductive organs: Unremarkable. Bowel: A hiatal hernia is seen. Diverticulosis without diverticulitis. Patient is status post appendectomy. Lymph nodes Retroperitoneal: Unremarkable. Pelvic: Unremarkable. Mesenteric: Unremarkable. Peritoneum: Normal. Vessels: Atherosclerotic calcifications are seen. Abdominal wall: Previously noted fluid collection the umbilical region is significantly decreased in size and almost resolved. There is a nondilated loop of small bowel which may possibly enter a defect in the abdominal wall at this level. Bones: Degenerative changes in the visualized spine. Posterior fixation hardware spans L4-L5. IMPRESSION: 1. There is minimal residual fluid at the site of the umbilical hernia repair. Small enhancing wall is seen. Sterility cannot be assessed by this exam although no severe surrounding soft tissue swelling is seen. There is potential involvement of a nondilated loop of small bowel. 2. Diverticulosis without diverticulitis. 3. Additional findings as above. ACT 112: Negative or not required by law. Electronically signed by: Bong Mayer M.D. 05/30/2024 5:44 PM Code Status & VTE Plan Code Status Full code VTE Prophylaxis Plan VTE Prophylaxis will be ordered: Yes PG Care Time/CCT Total # of Minutes Spent Total Time Spent with Patient: Total time spent is greater than 50% in coordination of care (as documented) at patient's floor/unit and/or counseling patient: Coding Level of Care Code 02970 INT INP/OBS CARE 3/75MIN Diagnoses Generalized abdominal pain R10.84 Early satiety R68.81 Constipation K59.00 Depression with anxiety F41.8 Gastroesophageal reflux disease without esophagitis K21.9 Esophagitis presence: without esophagitis Hypertension, unspecified type I10 Hypertension type: unspecified Hyperlipidemia, unspecified hyperlipidemia type E78.5 Hyperlipidemia type: unspecified Neurogenic 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 spinal stenosis M48.062 (5) Gastroesophageal reflux disease Esophagitis presence: without esophagitis Qualified Code(s): K21.9 - Gastro- esophageal reflux disease without esophagitis (6) HTN (hypertension) Hypertension type: unspecified Qualified Code(s): I10 - Essential (primary) hypertension (7) Hyperlipemia Hyperlipidemia type: unspecified Qualified Code(s): E78.5 - Hyperlipidemia, unspecified
[2024-05-30] MEDS ORDERED: ONDANSETRON INJ 2 MG/ML 2 ML VIAL IV PRN (23:23)
[2024-05-30] MEDS ORDERED: SODIUM CHLORIDE 0.65% NA SOLN 45 ML (OCEAN) PRN (23:34)
[2024-05-30] MEDS: NSS + 20MEQ KCL 20 MEQ/1,000 ML BAG IV SCH (23:41)
[2024-05-31 06:35] LABS: Basophils # (auto) 0.05 K/uL (0.00-0.20); Basophils % (auto) 0.7 %; Eosinophils # (auto) 0.11 K/uL (0.00-0.50); Eosinophils % (auto) 1.6 %; Hematocrit (blood only) 34.7 % (37.0-47.0); Hemoglobin 11.8 g/dl (12.0-16.0); Immature Granulocytes # (auto) 0.01 K/uL (0.01-0.20); Immature Granulocytes % (auto) 0.1 %; Lymphocytes # (auto) 2.93 K/uL (1.20-3.40); Lymphocytes % (auto) 43.5 %; Mean Corpuscular Hemoglobin 28.5 pg (25.0-34.0); Mean Corpuscular Volume 83.8 fL (80.0-100.0); Mean Platelet Volume 8.5 fL (9.4-12.4); Monocytes # (auto) 0.63 K/uL (0.11-0.59); Monocytes % (auto) 9.4 %; Neutrophils % (auto) 44.7 %; Platelet Count 294 K/uL (130-400); RDW Coefficient of Variation 13.2 % (11.5-14.5); RDW Standard Deviation 40.2 fL (36.4-46.3); Red Blood Count 4.14 M/uL (4.20-5.40); White Blood Count 6.73 K/ul (4.8-10.8)
[2024-05-31 06:49] LABS: Albumin Level 3.8 gm/dl (3.4-5.0); BUN Creatinine Ratio 14.7 (10-20); Creatinine Clr Calc Pharmacy 70.1 ml/min; Est GFR (African American) 89.1 ml/min; Est GFR (Non-African American) 76.9 ml/min; Phosphorus 4.1 mg/dl (2.5-4.9); Potassium 4.1 mmol/L (3.5-5.1)
--- NOTE | 2024-05-31 08:15 | Surgery Consultation ---
Date of Consultation May 31, 2024 Assessment & Plan (1) Generalized abdominal pain: This is a 78yF with a PMH of HTN, HLD, depression/anxiety, GERD, IBS, spinal stenosis, h/o ventral hernia repair with component separation and mesh placement with Dr. Sanchez on 05/04/23 who presents to the [facility] ED on 05/30/24 with complaints of generalized abdominal pain and constipation. She reports that her symptoms have been "going on for awhile" but have worsened over the last 4 weeks. She says she takes 1-2 Docusate normally, but of recent has started to add in suppositories to help her have a BM. She reports she gets full quickly and can feel bloated even after eating just a bite of food. This is associated with intermittent nausea. No emesis. Due to her ongoing symptoms she reported to the ER for evaluation. She underwent a CT a/p that showed there is minimal residual fluid at the site of the umbilical hernia repair. and it questions potential involvement of a nondilated loop of small bowel. Patient denies fevers/chills, CP/SOB, blood in stool. Her last BM was 2-3 days ago, says they have been running watery. Last C-scope was 6 years ago. She denies much nausea or pain this AM. Labs reveal WBC 6.7, Hbg 11.8, Cr. 0.7. Vital signs are stable. On exam abdomen is soft, non distended, surgical scars intact without any overlying skin changes or signs of infection. She does have some mild discomfort to palpation in the supra-umbilical region. She states this is not necessarily new for her. Will review CT scan with my attending, but there is no signs of bowel obstruction or signs of infection that would warrant any acute surgical intervention. Would allow diet as tolerates and agree with bowel regimen. I do not believe her history of hernia repair necessarily has any impact on her presenting symptoms at this point. (2) Constipation: (3) Early satiety: Supervising Physician Co-Signing Physician Notes Patient seen and examined, labs and imaging reviewed, agree with above. History of ventral hernia pair with component separation by Dr. Sanchez 1 year ago. She presented with some upper abdominal pain and inability to empty her bowels. On exam she is afebrile stable vitals. Her abdomen is soft, minimally tender to palpation, nondistended. CT personally reviewed and interpreted and agree with the assessment that there is minimal residual fluid collection that has significantly improved over the past year. There is no evidence of bowel obstruction or significant constipation. There is unclear etiology as to the source of her abdominal symptoms. There is no evidence of obstruction or recurrent hernia. At this point would recommend advancing her diet as tolerates and continue workup as an outpatient. She may follow-up with Dr. Sanchez in the clinic as an outpatient. Surgery will sign off, call with questions or concerns History of Present Illness Attending Physician: Luisa Lara MD History of Present Illness This is a 78yF with a PMH of HTN, HLD, depression/anxiety, GERD, IBS, spinal stenosis, h/o ventral hernia repair with component separation and mesh placement with Dr. Sanchez on 05/04/23 who presents to the [facility] ED on 05/30/24 with complaints of generalized abdominal pain and constipation. She reports that her symptoms have been "going on for awhile" but have worsened over the last 4 weeks. She says she takes 1-2 Docusate normally, but of recent has started to add in suppositories to help her have a BM. She reports she gets full quickly and can feel bloated even after eating just a bite of food. This is associated with intermittent nausea. No emesis. Due to her ongoing symptoms she reported to the ER for evaluation. She underwent a CT a/p that showed there is minimal residual fluid at the site of the umbilical hernia repair. and it questions potential involvement of a nondilated loop of small bowel. Patient denies fevers/chills, CP/SOB, blood in stool. Her last BM was 2-3 days ago, says they have been running watery. Last C-scope was 6 years ago. She denies much nausea or pain this AM. Allergies Allergy/AdvReac Type Severity Reaction Status Date / Time adhesive Allergy Intermediate RED, Verified 05/30/24 17:54 PAINFUL SKIN levofloxacin Allergy Intermediate RASH/ITCHY Verified 05/30/24 17:54 nickel Allergy Intermediate ITCHING Verified 05/30/24 17:54 celecoxib [From Celebrex] AdvReac Intermediate DIGESTIVE Verified 05/30/24 17:54 ISSUES codeine AdvReac Intermediate SEVERE Verified 05/30/24 17:54 NAUSEA AND VOMITING metoclopramide [From Reglan] AdvReac Intermediate Depression Verified 05/30/24 17:54 sulfamethoxazole AdvReac Intermediate DIGESTIVE Verified 05/30/24 17:54 [From Bactrim] ISSUES trimethoprim [From Bactrim] AdvReac Intermediate DIGESTIVE Verified 05/30/24 17:54 ISSUES Home Medications Medication Instructions Recorded Confirmed Type esomeprazole magnesium 20 mg 20 mg PO QAM 07/27/18 05/30/24 History tablet,delayed release propylene glycol 0.6 % eye drops 1 drp ophthalmic (eye) BID 01/14/19 05/30/24 History (Systane Complete) multivitamin 1 tab PO QAM 03/04/21 05/30/24 History docusate sodium 100 mg tablet 100 mg PO QAM 06/17/21 05/30/24 History sodium chloride 0.9 % nasal spray 1 spray intranasal DAILY PRN 06/09/22 05/30/24 History aerosol dryness citalopram 20 mg tablet 20 mg PO QAM #100 tabs 03/28/24 05/30/24 Rx bupropion HCl 100 mg tablet 100 mg PO QAM #90 tabs 04/01/24 05/30/24 Rx aspirin 81 mg tablet,delayed 81 mg PO QAM #0 tabs 04/10/24 05/30/24 Rx release atorvastatin 40 mg tablet 40 mg PO QAM #100 tabs 05/01/24 05/30/24 Rx olmesartan 40 mg tablet 40 mg PO DAILY #100 tabs 05/01/24 05/30/24 Rx chlorthalidone 25 mg tablet 12.5 mg (1/2 x 25 mg) PO DAILY 05/15/24 05/30/24 Rx #100 tabs diphenhydramine 25 1 tab PO HS PRN for sleep 05/30/24 05/30/24 History mg-acetaminophen 500 mg tablet (Acetaminophen PM) Patient History Medical History Pulmonary emboli Encounter for pre-operative examination Anxiety History of COVID-November 16, 2022 > not hospitalized Ischial bursitis of left side Sacroiliitis Hearing deficit Seen by ENT in the past- non purulent fluid noted- recommend Flonase, Afrin and steroid Diverticulitis of colon Osteoarthritis History of diverticulitis Depression GERD (gastroesophageal reflux disease) Spinal stenosis Surgical History History of incisional hernia repair (05/04/23) Laparoscopy with Lysis of Adhesions; Open Incarcerated Incisional Hernia Repair with Compartment Separation and 10cm Surgimesh Preperitoneal(Not Applicable) - Darnell Sanchez MD, FACS History of right hip replacement done by Dr. Smith 06/02/22 History of cataract surgery R- 04/27/21 L- 05/11/21 History of left hip replacement (~01/2019) S/P appendectomy (~03/04/21) Dr. Shultz History of lumbar fusion L4-L5 09/05/18 - MAC #3, ETT #7.0, Grade 1 View H/O breast biopsy RIGHT - BENIGN - AGE 61 H/O elbow surgery RIGHT - FOR TENNIS ELBOW - AGE 49 History of carpal tunnel release RIGHT - AGE 49 History of colonoscopy 2020 - Dr. Huitron History of dilation and curettage Age 27 History of partial colectomy Age 65 06/29/11 - ETT #7.0 History of laparoscopic cholecystectomy AGE 62 History of hysterectomy AGE 38 History of laparotomy RUPTURED ECTOPIC - AGE 36 History of tubal ligation LAP - AGE 29 History of tonsillectomy and adenoidectomy AGE 11 Family History Father , age 79 Myocardial infarction Daughter Crohn's disease Mother Hypercholesterolemia Leukocytosis Thrombocytosis Hypertension Stroke Father Stroke Other No family history of adverse response to anesthesia No family history of bleeding disorder No pertinent family history Denies family history of Ovarian cancer Prostate cancer Breast cancer Colorectal cancer Social History Smoking Status: Never smoker Second Hand Exposure: No; Do You Dip or Chew Tobacco: No; Hx Alcohol Use: No Hx Substance Use: No Preferred Language: Norwegian Communication Ability: Effective Visual Impairment: No Limitations Hearing Ability: Normal Correspondent Required: No Beliefs That Will Affect Care: None marital status: Current Living Situation: Spouse current occupational status: retired 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 [employer] How many Children do You have: 2 Other Information That Helps Us Care for You: No Feels Safe at Home: Yes Safety Concerns: Feels Safe At This Time Childhood Exposure to Second-Hand Smoke: Yes Diet: regular Diet Comment: clean eating, free of chemicals Dental Care, Regularly: Yes Physical Activity Frequency: Daily Physical Activity Frequency Comment: walking daily 2 hours Seatbelt Use: always Sunscreen Use: Yes Assistive Devices: None Review of Systems Constitutional: no fever and no chills Respiratory: no dyspnea Cardiovascular: no chest pain Gastrointestinal: + abdominal pain, + nausea and + problem reported (constipation, but watery stools when does have a BM); no vomiting and no blood in stools early satiety Physical Exam Physical Exam: awake/alert, no distress Constitutional: well developed and well nourished Respiratory: normal respiratory effort Cardiovascular: Rate/Rhythm: regular rate Gastrointestinal (Abdomen): Inspection/Auscultation: + abdominal surgical scar (c/d/i , no overlying skin changes, no signs of infection); abdomen not distended Percussion/Palpation: + abdomen tender (mild discomfort to palpation supra umbilically ) and abdomen soft Results & Data Vital Signs (Past 12 Hours) Vital Signs Temp Pulse Pulse Pulse Resp BP Pulse Ox 05/31/24 07:38 97.9 F 62 18 109/65 94 05/31/24 05:41 61 05/31/24 02:15 97.5 F L 63 16 94/55 L 92 05/31/24 00:25 68 05/30/24 23:46 98.1 F 90 18 123/73 93 05/30/24 23:23 98.1 F 80 18 123/73 93 05/30/24 21:45 75 05/30/24 20:33 75 16 92 O2 Del Method 05/31/24 07:38 Room Air 05/31/24 05:41 05/31/24 02:15 Room Air 05/31/24 00:25 05/30/24 23:46 Room Air 05/30/24 23:23 05/30/24 21:45 05/30/24 20:[address] abd pelvis IV con only CLINICAL HISTORY: epigastric with diffuse low abdomen TECHNIQUE: Helical axial images of the abdomen and pelvis were obtained and displayed. Automated dose lowering techniques and/or adjustment according to patient size were utilized for this exam. This exam was performed with intravenous contrast. CT DOSE: 1474.2 mGy.cm COMPARISON: Comparison is made to CT abdomen pelvis 07/10/2020 FINDINGS: Lower chest: Bibasilar atelectasis versus scarring is seen. Liver: Unremarkable. No focal lesions are seen. Gallbladder and biliary tree: Patient is status post cholecystectomy. No intra- or extrahepatic biliary ductal dilation. Pancreas: Unremarkable, no focal lesions. Spleen: Splenule is incidentally noted. Adrenals: Unremarkable. Kidneys and ureters: Renal cysts are seen. Bladder: Unremarkable. Reproductive organs: Unremarkable. Bowel: A hiatal hernia is seen. Diverticulosis without diverticulitis. Patient is status post appendectomy. Lymph nodes Retroperitoneal: Unremarkable. Pelvic: Unremarkable. Mesenteric: Unremarkable. Peritoneum: Normal. Vessels: Atherosclerotic calcifications are seen. Abdominal wall: Previously noted fluid collection the umbilical region is significantly decreased in size and almost resolved. There is a nondilated loop of small bowel which may possibly enter a defect in the abdominal wall at this level. Bones: Degenerative changes in the visualized spine. Posterior fixation hardware spans L4-L5. IMPRESSION: 1. There is minimal residual fluid at the site of the umbilical hernia repair. Small enhancing wall is seen. Sterility cannot be assessed by this exam although no severe surrounding soft tissue swelling is seen. There is potential involvement of a nondilated loop of small bowel. 2. Diverticulosis without diverticulitis. 3. Additional findings as above. ACT 112: Negative or not required by law. Electronically signed by: Bong Mayer M.D. 05/30/2024 5:44 PM PG Care Time/CCT Total # of Minutes Spent Total Time Spent with Patient: Total time spent is greater than 50% in coordination of care (as documented) at patient's floor/unit and/or counseling patient: Coding Level of Care Code 21854 INT INP/OBS CARE 2/55MIN Diagnoses Generalized abdominal pain R10.84 Constipation K59.00 Early satiety R68.81
[2024-05-31] MEDS: PANTOprazole 40 MG TAB PO SCH (08:18)
[2024-05-31] MEDS: CITALOPRAM 20 MG TAB PO SCH (08:18)
[2024-05-31] MEDS: ATORVASTATIN 40 MG TAB PO SCH (08:18)
[2024-05-31] MEDS: ASPIRIN 81 MG ECTAB PO SCH (08:18)
[2024-05-31] MEDS: ARTIFICIAL TEARS OP SCH (08:18)
[2024-05-31] MEDS: buPROPion HCl 100 MG TABLET PO SCH (08:18)
[2024-05-31] MEDS: MULTIVITAMIN TAB PO SCH (08:18)
[2024-05-31] MEDS ORDERED: bisacodyL 10 MG SUPP PR PRN (08:23)
[2024-05-31] MEDS: POLYETHYLENE (MIRALAX) 17 GM PACK PO SCH (09:01)
[2024-05-31 12:49] LABS: Adenovirus F 40/41 PCR Not Detected (NotDetected); Astrovirus PCR Not Detected (NotDetected); Campylobacter PCR Not Detected (NotDetected); Cryptosporidium PCR Not Detected (NotDetected); Cyclospora cayetanensis PCR Not Detected (NotDetected); Entamoeba histolytica PCR Not Detected (NotDetected); Enteroaggregative E.coli(EAEC) Not Detected (NotDetected); Enteropathogenic E.coli (EPEC) Not Detected (NotDetected); Enterotoxigenic E.coli (ETEC) Not Detected (NotDetected); Giardia lamblia PCR Not Detected (NotDetected); Norovirus GI/GII PCR Not Detected (NotDetected); Plesiomonas shigelloides PCR Not Detected (NotDetected); Rotavirus A PCR Not Detected (NotDetected); Salmonella PCR Not Detected (NotDetected); Sapovirus PCR Not Detected (NotDetected); Shiga-like Toxin E.coli (STEC) Not Detected (NotDetected); Shigella/Enteroinvasive E.coli Not Detected (NotDetected); Vibrio cholerae PCR Not Detected (NotDetected); Vibrio species PCR Not Detected (NotDetected); Yersinia enterocolitica PCR Not Detected (NotDetected)
--- NOTE | 2024-05-31 13:44 | Electrocardiogram Report ---
Test Reason : Blood Pressure : */* mmHG Vent. Rate : 72 BPM Atrial Rate : 72 BPM P-R Int : 204 ms QRS Dur : 118 ms QT Int : 390 ms P-R-T Axes : 56 -49 83 degrees QTcB Int : 427 ms Normal sinus rhythm Possible Left atrial enlargement Left anterior fascicular block Left ventricular hypertrophy with QRS widening and repolarization abnormality ( R in aVL ) Abnormal ECG When compared with ECG of 09-Apr-2024 10:37, Minimal criteria for Septal infarct are no longer Present Inverted T waves have replaced nonspecific T wave abnormality in Lateral leads Confirmed by Jomar Lopez ([id number]) on 05/31/2024 1:44:27 PM Referred By: REFERRED SELF Confirmed By: Jomar Lopez
--- NOTE | 2024-05-31 14:24 | Gastrointestinal Consultation ---
Date of Consultation May 31, 2024 Assessment & Plan (1) Constipation: 78 year old female with history of hyperlipidemia, hypertension, amaurosis fugax of right eye, SNHL bilaterally, vitamin D deficiency, depression with anxiety, GERD, and lichen sclerosis atrophicus, multilevel degenerative disc disease, and lumbar spinal stenosis with neurogenic claudication admitted w/ abdominal pain and constipation. Labs reveal normal liver function tests, lipase and CT imaging without any abnormalities. DDX include gastritis, PUD, delayed gastric emptying, chronic constipation, IBS vs other No indication for inpatient endoscopic evaluation Start a bowel regimen, Miralax 1 capful once daily, titrated to 1-2 BMs daily Continue PPI Pending results of above may consider EGD etc. Thank you for allowing us to participate in the care of this patient. Please call with any acute changes, questions or concerns. Please see addendum below with additional recommendation from my supervising physician. (2) Early satiety: Supervising Physician Co-Signing Physician Notes Patient seen and examined. Case discussed with Radha FLORES. Patient with multiple bowel surgeries and history of adhesions. She endorses that her surgeon, at the time of her most recent abdominal susrgery (repair of umbilical hernias) stated he had to open her because "it was a mess in there) with bowel kinked and adhered to itself and abdominal wall etc. Therefore, suspect she will have chronic constipation and she feels better after Mirilax. She states she has been reluctant to chronically take laxatives as she was afraid it would damage her colon. Discussed her bowel function and history of adhesions which obviously could recur. Would give bowel regimen and avoid frequent use of Senna, Cascara or Rhubarb containing products and strive for at least 3+ bowel movements per week. No current indication for endoscopic studies and can have her bowel regimen and trial and error as far as dosing and frequency. IP GI Service will sign off. History of Present Illness Reason for Consultation: change in appetite Requesting Physician: Luisa Lara MD Attending Physician: Luisa Lara MD History of Present Illness 78 year old female with history of hyperlipidemia, hypertension, amaurosis fugax of right eye, SNHL bilaterally, vitamin D deficiency, depression with anxiety, GERD, and lichen sclerosis atrophicus, multilevel degenerative disc disease, and lumbar spinal stenosis with neurogenic claudication admitted w/ abdominal pain and constipation - GI was asked to evaluate. GI labs 2023: normal LFTs, normal lipase Stool studies 05/31/24: negative biofire KUB 2023: No evidence for a bowel obstruction. Mild to moderate amount of stool. CTAP 2023: Liver: Unremarkable. No focal lesions are seen. Gallbladder and biliary tree: Patient is status post cholecystectomy. No intra- or extrahepatic biliary ductal dilation. Pancreas: Unremarkable, no focal lesions. Bowel: A hiatal hernia is seen. Diverticulosis without diverticulitis. Patient is status post appendectomy.Abdominal wall: Previously noted fluid collection the umbilical region is significantly decreased in size and almost resolved. There is a nondilated loop of small bowel which may possibly enter a defect in the abdominal wall at this level. IMPRESSION: 1. There is minimal residual fluid at the site of the umbilical hernia repair. Small enhancing wall is seen. Sterility cannot be assessed by this exam although no severe surrounding soft tissue swelling is seen. There is potential involvement of a nondilated loop of small bowel. 2. Diverticulosis without diverticulitis. 3. Additional findings as above. Colonoscopy 2020: - Patent end-to-end colo-colonic anastomosis, characterized by healthy appearing mucosa. - Diverticulosis in the sigmoid colon. - Non-bleeding internal hemorrhoids. - No specimens collected. Allergies Allergy/AdvReac Type Severity Reaction Status Date / Time adhesive Allergy Intermediate RED, Verified 05/30/24 17:54 PAINFUL SKIN levofloxacin Allergy Intermediate RASH/ITCHY Verified 05/30/24 17:54 nickel Allergy Intermediate ITCHING Verified 05/30/24 17:54 celecoxib [From Celebrex] AdvReac Intermediate DIGESTIVE Verified 05/30/24 17:54 ISSUES codeine AdvReac Intermediate SEVERE Verified 05/30/24 17:54 NAUSEA AND VOMITING metoclopramide [From Reglan] AdvReac Intermediate Depression Verified 05/30/24 17:54 sulfamethoxazole AdvReac Intermediate DIGESTIVE Verified 05/30/24 17:54 [From Bactrim] ISSUES trimethoprim [From Bactrim] AdvReac Intermediate DIGESTIVE Verified 05/30/24 17:54 ISSUES Home Medications Medication Instructions Recorded Confirmed Type esomeprazole magnesium 20 mg 20 mg PO QAM 07/27/18 05/30/24 History tablet,delayed release propylene glycol 0.6 % eye drops 1 drp ophthalmic (eye) BID 01/14/19 05/30/24 History (Systane Complete) multivitamin 1 tab PO QAM 03/04/21 05/30/24 History docusate sodium 100 mg tablet 100 mg PO QAM 06/17/21 05/30/24 History sodium chloride 0.9 % nasal spray 1 spray intranasal DAILY PRN 06/09/22 05/30/24 History aerosol dryness citalopram 20 mg tablet 20 mg PO QAM #100 tabs 03/28/24 05/30/24 Rx bupropion HCl 100 mg tablet 100 mg PO QAM #90 tabs 04/01/24 05/30/24 Rx aspirin 81 mg tablet,delayed 81 mg PO QAM #0 tabs 04/10/24 05/30/24 Rx release atorvastatin 40 mg tablet 40 mg PO QAM #100 tabs 05/01/24 05/30/24 Rx olmesartan 40 mg tablet 40 mg PO DAILY #100 tabs 05/01/24 05/30/24 Rx chlorthalidone 25 mg tablet 12.5 mg (1/2 x 25 mg) PO DAILY 05/15/24 05/30/24 Rx #100 tabs diphenhydramine 25 1 tab PO HS PRN for sleep 05/30/24 05/30/24 History mg-acetaminophen 500 mg tablet (Acetaminophen PM) Patient History Medical History Pulmonary emboli Encounter for pre-operative examination Anxiety History of COVID-November 16, 2022 > not hospitalized Ischial bursitis of left side Sacroiliitis Hearing deficit Seen by ENT in the past- non purulent fluid noted- recommend Flonase, Afrin and steroid Diverticulitis of colon Osteoarthritis History of diverticulitis Depression GERD (gastroesophageal reflux disease) Spinal stenosis Surgical History History of incisional hernia repair (05/04/23) Laparoscopy with Lysis of Adhesions; Open Incarcerated Incisional Hernia Repair with Compartment Separation and 10cm Surgimesh Preperitoneal(Not Applicable) - Darnell Sanchez MD, FACS History of right hip replacement done by Dr. Smith 06/02/22 History of cataract surgery R- 04/27/21 L- 05/11/21 History of left hip replacement (~01/2019) S/P appendectomy (~03/04/21) Dr. Shultz History of lumbar fusion L4-L5 09/05/18 - MAC #3, ETT #7.0, Grade 1 View H/O breast biopsy RIGHT - BENIGN - AGE 61 H/O elbow surgery RIGHT - FOR TENNIS ELBOW - AGE 49 History of carpal tunnel release RIGHT - AGE 49 History of colonoscopy 2020 - Dr. Huitron History of dilation and curettage Age 27 History of partial colectomy Age 65 06/29/11 - ETT #7.0 History of laparoscopic cholecystectomy AGE 62 History of hysterectomy AGE 38 History of laparotomy RUPTURED ECTOPIC - AGE 36 History of tubal ligation LAP - AGE 29 History of tonsillectomy and adenoidectomy AGE 11 Family History Father , age 79 Myocardial infarction Daughter Crohn's disease Mother Hypercholesterolemia Leukocytosis Thrombocytosis Hypertension Stroke Father Stroke Other No family history of adverse response to anesthesia No family history of bleeding disorder No pertinent family history Denies family history of Ovarian cancer Prostate cancer Breast cancer Colorectal cancer Social History Smoking Status: Never smoker Second Hand Exposure: No; Do You Dip or Chew Tobacco: No; Hx Alcohol Use: No Hx Substance Use: No Preferred Language: Khmer Communication Ability: Effective Visual Impairment: No Limitations Hearing Ability: Normal Laboratory Operations Coordinator Required: No Beliefs That Will Affect Care: None marital status: Current Living Situation: Spouse current occupational status: retired 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 Physical Exam Physical Exam: WD WN WF Constitutional: NAD Eyes: Sclera anicteric Conjunctiva not pale ENMT: No sublingual icterus Neck: Supple without adenopathy Respiratory: Clear with good aeration Cardiovascular: RRR Gastrointestinal (Abdomen): Decreased BS, soft, nontender Musculoskeletal: Ext: Neg CCE Skin: Warm and dry Neurologic: A/O Results & Data Vital Signs (Past 12 Hours) Vital Signs Temp Pulse Pulse Resp BP Pulse Ox O2 Del Method 05/31/24 11:27 36.4 C L 67 18 102/65 94 Room Air 05/31/24 07:38 36.6 C 62 18 109/65 94 Room Air 05/31/24 05:41 61 Laboratory Results 05/31/24 05/31/24 05/30/24 Range/Units 11:20 05:24 19:27 WBC 6.73 (4.8-10.8) K/ul RBC 4.14 L (4.20-5.40) M/uL Hgb 11.8 L (12.0-16.0) g/dl Hct 34.7 L (37.0-47.0) % MCV 83.8 (80.0-100.0) fL MCH 28.5 (25.0-34.0) pg MCHC 34.0 (32.0-36.0) g/dL RDW Std Deviation 40.2 (36.4-46.3) fL RDW Coeff of Jazmine 13.2 (11.5-14.5) % Plt Count 294 (130-400) K/uL MPV 8.5 L (9.4-12.4) fL Immature Gran % (Auto) 0.1 % Neut % (Auto) 44.7 % Lymph % (Auto) 43.5 % [place] % (Auto) 9.4 % Eos % (Auto) 1.6 % Baso % (Auto) 0.7 % Neut # (Auto) 3.00 (1.40-6.50) K/uL Lymph # (Auto) 2.93 (1.20-3.40) K/uL [place] # (Auto) 0.63 H (0.11-0.59) K/uL Eos # (Auto) 0.11 (0.00-0.50) K/uL Baso # (Auto) 0.05 (0.00-0.20) K/uL Immature Gran # (Auto) 0.01 (0.01-0.20) K/uL Sodium 134 L 128 L (136-145) mmol/L Potassium 4.1 3.5 (3.5-5.1) mmol/L Chloride 96 L 92 L (98-107) mmol/L Carbon Dioxide 34 H 28 (21-32) mmol/L Anion Gap 4 8 (3-11) BUN 11 14 (6-23) mg/dl Creatinine 0.75 0.65 (0.6-1.2) mg/dl Est Cr Clr Drug Dosing 70.1 81.5 ml/min Est GFR ( Amer) 89.1 99.3 ml/min Est GFR (Non-Af Amer) 76.9 85.6 ml/min BUN/Creatinine Ratio 14.7 21.5 H (10-20) Glucose 81 97 (70-99(Fasting)) mg/dl Osmolality (280-300) mOsm/kg Lactate (0.4-2.0) mmol/L Calcium 9.0 9.0 (8.6-10.3) mg/dl Phosphorus 4.1 (2.5-4.9) mg/dl Magnesium 2.0 (1.7-2.4) mg/dl Total Bilirubin (0.2-1.0) mg/dl AST (13-39) U/L ALT (7-52) U/L Alkaline Phosphatase (34-104) U/L Total Protein (6.0-8.3) gm/dl Albumin 3.8 (3.4-5.0) gm/dl Globulin (2.5-4.0) gm/dl Albumin/Globulin Ratio (0.9-2) Lipase (11-82) U/L Urine Color Urine Appearance (Clear) Urine pH (4.5-7.5) Ur Specific [place] (1.000-1.030) Urine Protein (Negative) Urine Glucose (UA) (Negative) Urine Ketones (Negative) Urine Blood (Negative) Urine Nitrite (Negative) Urine Bilirubin (Negative) Urine Urobilinogen (Negative) Ur Leukocyte Esterase (Negative) Urine WBC (Auto) (0-5) /hpf Urine RBC (Auto) (0-2) /hpf U Hyaline Cast (Auto) (0-2) /lpf U Epithel Cells (Auto) (0-2) /hpf Urine Bacteria (Auto) (None Seen) Urine Osmolality 189 L (500-800) mOsm/kg Stl C. cayetanensis PCR Not Detected (NotDetected) Stool Rotavirus A PCR Not Detected (NotDetected) Stl Adenov F 40/41 PCR Not Detected (NotDetected) Stool Astrovirus (PCR) Not Detected (NotDetected) Stool Campylobacter PCR Not Detected (NotDetected) Stool Cryptosporidium PCR Not Detected (NotDetected) Stl E.coli Shiga Tox PCR Not Detected (NotDetected) Stl Enterotoxigenic E PCR Not Detected (NotDetected) Stool EPEC (PCR) Not Detected (NotDetected) Stool EAEC (PCR) Not Detected (NotDetected) Stl E. histolytica PCR Not Detected (NotDetected) Stool Giardia Lamblia PCR Not Detected (NotDetected) Stool Salmonella PCR Not Detected (NotDetected) Stool Sapovirus (PCR) Not Detected (NotDetected) Stl P. shigelloides PCR Not Detected (NotDetected) Stl Shigella/EIEC PCR Not Detected (NotDetected) St Y.enterocolitica PCR Not Detected (NotDetected) Stool Vibrio (PCR) Not Detected (NotDetected) Stl Vibrio cholerae PCR Not Detected (NotDetected) Stl Norovirus GI/GII PCR Not Detected (NotDetected) 05/30/24 05/30/24 05/30/24 Range/Units 17:02 16:15 16:14 WBC 8.64 (4.8-10.8) K/ul RBC 4.35 (4.20-5.40) M/uL Hgb 12.4 (12.0-16.0) g/dl Hct 36.2 L (37.0-47.0) % MCV 83.2 (80.0-100.0) fL MCH 28.5 (25.0-34.0) pg MCHC 34.3 (32.0-36.0) g/dL RDW Std Deviation 39.8 (36.4-46.3) fL RDW Coeff of Jazmine 13.1 (11.5-14.5) % Plt Count 330 (130-400) K/uL MPV 8.4 L (9.4-12.4) fL Immature Gran % (Auto) 0.6 % Neut % (Auto) 47.8 % Lymph % (Auto) 41.7 % [place] % (Auto) 8.0 % Eos % (Auto) 1.0 % Baso % (Auto) 0.9 % Neut # (Auto) 4.13 (1.40-6.50) K/uL Lymph # (Auto) 3.60 H (1.20-3.40) K/uL [place] # (Auto) 0.69 H (0.11-0.59) K/uL Eos # (Auto) 0.09 (0.00-0.50) K/uL Baso # (Auto) 0.08 (0.00-0.20) K/uL Immature Gran # (Auto) 0.05 (0.01-0.20) K/uL Sodium 127 L (136-145) mmol/L Potassium 4.0 (3.5-5.1) mmol/L Chloride 89 L (98-107) mmol/L Carbon Dioxide 31 (21-32) mmol/L Anion Gap 7 (3-11) BUN 14 (6-23) mg/dl Creatinine 0.71 (0.6-1.2) mg/dl Est Cr Clr Drug Dosing 74.6 ml/min Est GFR ( Amer) 95.2 ml/min Est GFR (Non-Af Amer) 82.2 ml/min BUN/Creatinine Ratio 19.7 (10-20) Glucose 92 (70-99(Fasting)) mg/dl Osmolality 268 L (280-300) mOsm/kg Lactate 1.5 (0.4-2.0) mmol/L Calcium 9.5 (8.6-10.3) mg/dl Phosphorus (2.5-4.9) mg/dl Magnesium (1.7-2.4) mg/dl Total Bilirubin 0.4 (0.2-1.0) mg/dl AST 21 (13-39) U/L ALT 14 (7-52) U/L Alkaline Phosphatase 88 (34-104) U/L Total Protein 7.4 (6.0-8.3) gm/dl Albumin 4.4 (3.4-5.0) gm/dl Globulin 3.0 (2.5-4.0) gm/dl Albumin/Globulin Ratio 1.5 (0.9-2) Lipase 54 (11-82) U/L Urine Color Yellow Urine Appearance Clear (Clear) Urine pH 7.0 (4.5-7.5) Ur Specific [place] 1.008 (1.000-1.030) Urine Protein Negative (Negative) Urine Glucose (UA) Negative (Negative) Urine Ketones Negative (Negative) Urine Blood Negative (Negative) Urine Nitrite Negative (Negative) Urine Bilirubin Negative (Negative) Urine Urobilinogen Negative (Negative) Ur Leukocyte Esterase Trace H (Negative) Urine WBC (Auto) 0-5 (0-5) /hpf Urine RBC (Auto) 0-2 (0-2) /hpf U Hyaline Cast (Auto) 0-2 (0-2) /lpf U Epithel Cells (Auto) 0-2 (0-2) /hpf Urine Bacteria (Auto) None Seen (None Seen) Urine Osmolality (500-800) mOsm/kg Stl C. cayetanensis PCR (NotDetected) Stool Rotavirus A PCR (NotDetected) Stl Adenov F 40/41 PCR (NotDetected) Stool Astrovirus (PCR) (NotDetected) Stool Campylobacter PCR (NotDetected) Stool Cryptosporidium PCR (NotDetected) Stl E.coli Shiga Tox PCR (NotDetected) Stl Enterotoxigenic E PCR (NotDetected) Stool EPEC (PCR) (NotDetected) Stool EAEC (PCR) (NotDetected) Stl E. histolytica PCR (NotDetected) Stool Giardia Lamblia PCR (NotDetected) Stool Salmonella PCR (NotDetected) Stool Sapovirus (PCR) (NotDetected) Stl P. shigelloides PCR (NotDetected) Stl Shigella/EIEC PCR (NotDetected) St Y.enterocolitica PCR (NotDetected) Stool Vibrio (PCR) (NotDetected) Stl Vibrio cholerae PCR (NotDetected) Stl Norovirus GI/GII PCR (NotDetected) PG Care Time/CCT Total # of Minutes Spent Total Time Spent with Patient: Total time spent is greater than 50% in coordination of care (as documented) at patient's floor/unit and/or counseling patient: Coding Level of Care Code 59360 INT INP/OBS CARE /MIN Diagnoses Constipation, unspecified constipation type K59.00 Constipation type: unspecified constipation type Early satiety R68.81 (1) Constipation Constipation type: unspecified constipation type Qualified Code(s): K59.00 - Constipation, unspecified
--- NOTE | 2024-05-31 14:34 | Hospitalist Progress Note ---
Date of Service May 31, 2024 Assessment & Plan (1) Generalized abdominal pain: (2) Early satiety: (3) Constipation: (4) Depression with anxiety: (5) Gastroesophageal reflux disease: (6) HTN (hypertension): (7) Hyperlipemia: (8) Neurogenic 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 spinal stenosis: Plan Generalized abdominal pain/early satiety/constipation with need for suppositories- CT scan abdomen and pelvis, status post umbilical hernia repair, and diverticulosis without diverticulitis Patient's symptoms, as noted during conversation in the ED, began very shortly after her medications were changed from losartan to olmesartan, and adjustment of chlorthalidone dosing Will hold olmesartan, as a known potential cause of abdominal discomfort She continues to feel the discomfort this morning Stool studies negative General surgery evaluated her and did not have any concerns regarding bowel obstruction or recurrent hernia. Consulted GI. She may need to have upper GI with small bowel follow-through, and/or gastric emptying study if there is concern regarding dysmotility Esomeprazole may potentially cause issues with abdominal discomfort as well Of note, patient has the sense of constipation, however, no significant fecal retention was noted on CT scan of abdomen and pelvis Hyponatremia- Sodium 128 on admission Serum osmolality 268 Urine osmolality is pending Hyponatremia may is likely a combination of increased water intake, and use of chlorthalidone Will hold chlorthalidone Patient reports that she has been drinking excessive amounts of water, to help with her sensation of being constipated and try to help with bowel movements Received normal saline 500 mL bolus from the ED NSS + KCl 20 mill equivalents at 80 mL/h x 1 L Sodium improved this morning. 134 today Hypertension- Continue aspirin Hold olmesartan, which usually takes in the morning If blood pressure is elevated in the a.m., would do a trial of amlodipine 5 mg every morning Blood pressure is stable today Depression with anxiety- Continue bupropion, and citalopram Admission and Anticipated Discharge Date Admission Date: May 30, 2024 Subjective Patient took MiraLAX this morning and had a bowel movement. However she still feels that she has not evacuated enough. She had some liquid stools. She says that it has been going on for few weeks. She still has a feeling of discomfort in her belly. Review of Systems Review of Systems: All systems reviewed & are unremarkable except as noted in Subjective Physical Exam Physical Exam: General: Awake, conversant Heart: S1, S2/regular rate and rhythm, no murmur rubs or gallops Lungs: Clear to auscultation bilaterally. Normal effort Abdomen: Soft/nondistended. Mild diffuse tenderness all over abdomen without rebound, rigidity or guarding. No hepatosplenomegaly Extremities: No clubbing/cyanosis. No edema Behavior: Appropriate, cooperative Results & Data Results & Data Vital Signs (Past 12 Hours) Vital Signs Temp Pulse Pulse Resp BP Pulse Ox O2 Del Method 05/31/24 11:27 36.4 C L 67 18 102/65 94 Room Air 05/31/24 07:38 36.6 C 62 18 109/65 94 Room Air 05/31/24 05:41 61 Laboratory Results Abnormal lab results 05/30/24 05/30/24 05/30/24 Range/Units 16:14 16:15 19:27 RBC (4.20-5.40) M/uL Hgb (12.0-16.0) g/dl Hct 36.2 L (37.0-47.0) % MPV 8.4 L (9.4-12.4) fL Lymph # (Auto) 3.60 H (1.20-3.40) K/uL [place] # (Auto) 0.69 H (0.11-0.59) K/uL Sodium 127 L 128 L (136-145) mmol/L Chloride 89 L 92 L (98-107) mmol/L Carbon Dioxide (21-32) mmol/L BUN/Creatinine Ratio 21.5 H (10-20) Osmolality 268 L (280-300) mOsm/kg Ur Leukocyte Esterase Trace H (Negative) Urine Osmolality (500-800) mOsm/kg 05/31/24 05/31/24 Range/Units 05:24 11:20 RBC 4.14 L (4.20-5.40) M/uL Hgb 11.8 L (12.0-16.0) g/dl Hct 34.7 L (37.0-47.0) % MPV 8.5 L (9.4-12.4) fL Lymph # (Auto) (1.20-3.40) K/uL [place] # (Auto) 0.63 H (0.11-0.59) K/uL Sodium 134 L (136-145) mmol/L Chloride 96 L (98-107) mmol/L Carbon Dioxide 34 H (21-32) mmol/L BUN/Creatinine Ratio (10-20) Osmolality (280-300) mOsm/kg Ur Leukocyte Esterase (Negative) Urine Osmolality 189 L (500-800) mOsm/kg Diagnostic Findings KUB X-Ray 05/30/24 16:06 KUB CLINICAL HISTORY: Constipation. COMPARISON STUDY: CT of the abdomen and pelvis July 10, 2023. FINDINGS: Cholecystectomy clips, lumbar decompression and fusion and bilateral hip arthroplasties are incidentally noted. The bowel gas pattern is normal. [id number]-[id number] amount stool is present. This is within normal limits. IMPRESSION: 1. No evidence for a bowel obstruction. 2. Mild to moderate amount of stool. ACT 112: Negative or not required by law. Electronically signed by: Lenard Bennett M.D. 05/30/2024 4:39 PM Abdomen/Pelvis CT 05/30/24 16:56 CT abd pelvis IV con only CLINICAL HISTORY: epigastric with diffuse low abdomen TECHNIQUE: Helical axial images of the abdomen and pelvis were obtained and displayed. Automated dose lowering techniques and/or adjustment according to patient size were utilized for this exam. This exam was performed with intravenous contrast. CT DOSE: 1474.2 mGy.cm COMPARISON: Comparison is made to CT abdomen pelvis 07/10/2020 FINDINGS: Lower chest: Bibasilar atelectasis versus scarring is seen. Liver: Unremarkable. No focal lesions are seen. Gallbladder and biliary tree: Patient is status post cholecystectomy. No intra- or extrahepatic biliary ductal dilation. Pancreas: Unremarkable, no focal lesions. Spleen: Splenule is incidentally noted. Adrenals: Unremarkable. Kidneys and ureters: Renal cysts are seen. Bladder: Unremarkable. Reproductive organs: Unremarkable. Bowel: A hiatal hernia is seen. Diverticulosis without diverticulitis. Patient is status post appendectomy. Lymph nodes Retroperitoneal: Unremarkable. Pelvic: Unremarkable. Mesenteric: Unremarkable. Peritoneum: Normal. Vessels: Atherosclerotic calcifications are seen. Abdominal wall: Previously noted fluid collection the umbilical region is significantly decreased in size and almost resolved. There is a nondilated loop of small bowel which may possibly enter a defect in the abdominal wall at this level. Bones: Degenerative changes in the visualized spine. Posterior fixation hardware spans L4-L5. IMPRESSION: 1. There is minimal residual fluid at the site of the umbilical hernia repair. Small enhancing wall is seen. Sterility cannot be assessed by this exam although no severe surrounding soft tissue swelling is seen. There is potential involvement of a nondilated loop of small bowel. 2. Diverticulosis without diverticulitis. 3. Additional findings as above. ACT 112: Negative or not required by law. Electronically signed by: Bong Mayer M.D. 05/30/2024 5:44 PM PG Care Time/CCT Total # of Minutes Spent Total Time Spent with Patient: Total time spent is greater than 50% in coordination of care (as documented) at patient's floor/unit and/or counseling patient: Coding Level of Care Code 92625 SUB INP/OBS CARE 2/35MIN Diagnoses Generalized abdominal pain R10.84 Early satiety R68.81 Constipation K59.00 Depression with anxiety F41.8 Gastroesophageal reflux disease without esophagitis K21.9 Esophagitis presence: without esophagitis Hypertension, unspecified type I10 Hypertension type: unspecified Hyperlipidemia, unspecified hyperlipidemia type E78.5 Hyperlipidemia type: unspecified Neurogenic 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 spinal stenosis M48.062 (5) Gastroesophageal reflux disease Esophagitis presence: without esophagitis Qualified Code(s): K21.9 - Gastro- esophageal reflux disease without esophagitis (6) HTN (hypertension) Hypertension type: unspecified Qualified Code(s): I10 - Essential (primary) hypertension (7) Hyperlipemia Hyperlipidemia type: unspecified Qualified Code(s): E78.5 - Hyperlipidemia, unspecified
[2024-05-31 19:50] VITALS: RESP 16
[2024-06-01 06:29] LABS: Basophils # (auto) 0.06 K/uL (0.00-0.20); Basophils % (auto) 0.9 %; Eosinophils # (auto) 0.09 K/uL (0.00-0.50); Eosinophils % (auto) 1.4 %; Hemoglobin 12.5 g/dl (12.0-16.0); Immature Granulocytes # (auto) 0.01 K/uL (0.01-0.20); Immature Granulocytes % (auto) 0.2 %; Lymphocytes % (auto) 35.8 %; Mean Corpuscular Hemoglobin 28.5 pg (25.0-34.0); Mean Corpuscular Hgb Conc 33.8 g/dL (32.0-36.0); Mean Corpuscular Volume 84.3 fL (80.0-100.0); Mean Platelet Volume 8.5 fL (9.4-12.4); Monocytes # (auto) 0.47 K/uL (0.11-0.59); Monocytes % (auto) 7.3 %; Neutrophils # (auto) 3.49 K/uL (1.40-6.50); Neutrophils % (auto) 54.4 %; Platelet Count 282 K/uL (130-400); RDW Coefficient of Variation 13.2 % (11.5-14.5); RDW Standard Deviation 40.4 fL (36.4-46.3); Red Blood Count 4.39 M/uL (4.20-5.40); White Blood Count 6.42 K/ul (4.8-10.8)
[2024-06-01 06:44] LABS: Albumin Level 3.9 gm/dl (3.4-5.0); BUN Creatinine Ratio 15.9 (10-20); Calcium 9.2 mg/dl (8.6-10.3); Creatinine Clr Calc Pharmacy 64.1 ml/min; Phosphorus 3.6 mg/dl (2.5-4.9); Potassium 4.1 mmol/L (3.5-5.1)
[2024-06-01 07:42] VITALS: TEMP 98.1
[2024-06-01] MEDS: ACETAMINOPHEN 325 MG TAB PO PRN (08:15)
[2024-06-01 08:33] VITALS: BP 130/82; O2SAT 92
--- NOTE | 2024-06-01 10:20 | Discharge Summary ---
Date of Service June 01, 2024 Admission HPI Per Admitting Provider The patient is a 78-year-old female with a past medical history including hyperlipidemia, hypertension, amaurosis fugax of right eye, SNHL bilaterally, vitamin D deficiency, depression with anxiety, GERD, and lichen sclerosis atrophicus, multilevel degenerative disc disease, and lumbar spinal stenosis with neurogenic claudication. Patient reports that she has had generalized abdominal pain, with occasional nausea and describes a sensation of early satiety worsening over the past 3 weeks. She reports the need to use rectal stimulation with Dulcolax suppositories to help with her bowel movements. She reports drinking significantly more water than usual during that time to help with improving bowel movements. She reports that due to insurance issues, her previous prescription for losartan was changed to olmesartan, and chlorthalidone dosing was adjusted downward to one half as well. She reports that these medication changes took place about 3 weeks ago. Admission Exam Per Admitting Provider The patient is awake, alert and oriented 3, well developed and well nourished, normocephalic and atraumatic, lying in bed and in no acute distress. HEENT--PERRL, EOMI, mucous membranes and oropharynx normal Neck--supple. No JVD. No bruits. Thyroid normal, trachea midline, no adenopathy. Heart--normal S1 and S2. No murmurs, rubs or gallops. Lungs--clear bilaterally, no respiratory distress, no accessory muscle use. Abdomen--normal bowel sounds and soft. Nontender. Nondistended, no hernias or masses, no organomegaly. Extremities--no cyanosis or clubbing. No edema. Dermatologic--normal skin turgor, normal color, no abnormal lymph nodes, no rash. Neurologic--cranial nerves II through XII grossly intact. Rheumatologic--normal range of motion. Psychiatric--normal affect. Principal Diagnosis * Abdominal pain related to constipation * Hyponatremia Discharge Exam General: Awake, conversant Heart: S1, S2/regular rate and rhythm, no murmur rubs or gallops Lungs: Clear to auscultation bilaterally. Normal effort Abdomen: Soft/nondistended. Mild diffuse tenderness all over abdomen without rebound, rigidity or guarding. No hepatosplenomegaly Extremities: No clubbing/cyanosis. No edema Behavior: Appropriate, cooperative Discharge Data Allergies Allergy/AdvReac Type Severity Reaction Status Date / Time adhesive Allergy Intermediate RED, Verified 05/30/24 17:54 PAINFUL SKIN levofloxacin Allergy Intermediate RASH/ITCHY Verified 05/30/24 17:54 nickel Allergy Intermediate ITCHING Verified 05/30/24 17:54 celecoxib [From Celebrex] AdvReac Intermediate DIGESTIVE Verified 05/30/24 17:54 ISSUES codeine AdvReac Intermediate SEVERE Verified 05/30/24 17:54 NAUSEA AND VOMITING metoclopramide [From Reglan] AdvReac Intermediate Depression Verified 05/30/24 17:54 sulfamethoxazole AdvReac Intermediate DIGESTIVE Verified 05/30/24 17:54 [From Bactrim] ISSUES trimethoprim [From Bactrim] AdvReac Intermediate DIGESTIVE Verified 05/30/24 17:54 ISSUES Consultations 05/30/24 20:18 Consult General Surgery Stat ED Decision to Admit Stat 05/31/24 14:20 Consult Gastroenterology Routine Ordered Studies 05/30/24 16:56 CT abd pelvis IV con only Stat Hospital Course (1) Generalized abdominal pain: (2) Early satiety: (3) Constipation: (4) Depression with anxiety: (5) Gastroesophageal reflux disease: (6) HTN (hypertension): (7) Hyperlipemia: (8) Neurogenic 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 spinal stenosis: Plan Generalized abdominal pain/early satiety/constipation with need for suppositories- CT scan abdomen and pelvis, status post umbilical hernia repair, and diverticulosis without diverticulitis Patient's symptoms, as noted during conversation in the ED, began very shortly after her medications were changed from losartan to olmesartan, and adjustment of chlorthalidone dosing Will hold olmesartan, as a known potential cause of abdominal discomfort She continues to feel the discomfort this morning Stool studies negative General surgery evaluated her and did not have any concerns regarding bowel obstruction or recurrent hernia. GI evaluated the patient as well. Given normal LFTs, lipase, CT imaging, they did not have any immediate recommendation other than treating the constipation. Decided to give her MiraLAX to be used once daily, titrated to goal 1-2 bowel m ovements daily or at least 3 bowel movements in a week. Hyponatremia- Sodium 128 on admission Most likely due to polydipsia and attempt to treat her constipation Hyponatremia may is likely a combination of increased water intake, and use of chlorthalidone Will hold chlorthalidone Sodium improved this morning. Discharged off of chlorthalidone Hypertension- Continue aspirin Discontinued olmesartan and chlorthalidone Started the patient on 5 mg of amlodipine Depression with anxiety- Continue bupropion, and citalopram Total Time Total Time Spent Total Time Spent (In Minutes): 35 Discharge Plan Discharge Items Patient Disposition: Home - Self-Care Reason For Visit: ABDOMINAL PAIN, HYPONATREMIA Discharge Diagnosis: * Abdominal pain related to constipation * Hyponatremia Activity: Resume your previous activity Non-emergency contact: Primary Care Provider Call non-emergency contact if: you have any medication questions and your symptoms worsen Follow-up/Referrals: Eliot Liriano MD [Primary Care Provider] - Darnell Sanchez MD, FACS [Surgeon] - Diet: Heart Healthy Addtl Attending Provider Instructions: * Advised to follow-up with PCP in 1 week * Advised to use MiraLAX once daily and use as needed for a goal of having 3+ bowel movements in a week * If you continue to have issues with constipation, early satiety and abdominal pain, your PCP may need to refer you to a GI outpatient Pending Studies at Discharge: No Stand-Alone Forms: My [facility] Medications and DC Order Prescriptions: New polyethylene glycol 3350 [Miralax] 17 gram Powder In Packet 17 g PO DAILY 30 Days Qty: 30 0RF amlodipine 5 mg tablet 5 mg PO DAILY Qty: 30 0RF Continued citalopram 20 mg tablet 20 mg PO QAM Qty: 100 3RF bupropion HCl 100 mg tablet 100 mg PO QAM Qty: 90 3RF atorvastatin 40 mg tablet 40 mg PO QAM Qty: 100 1RF Rx Instructions: Pt has not started yet until BP is under control sodium chloride 0.9 % aerosol,spray 1 spray intranasal DAILY PRN (Reason: dryness) esomeprazole magnesium 20 mg Tablet,Delayed Release (Dr/Ec) 20 mg PO QAM docusate sodium 100 mg tablet 100 mg PO QAM Rx Instructions: Take 1-2 tabs daily Systane Complete 0.6 % Drops 1 drp OPHTHALMIC (EYE) BID multivitamin Tablet 1 tab PO QAM diphenhydramine-acetaminophen [Acetaminophen PM] 25-500 mg Tablet 1 tab PO HS PRN (Reason: for sleep) aspirin 81 mg Tablet,Delayed Release (Dr/Ec) 81 mg PO QAM Qty: 0 0RF Discontinued olmesartan 40 mg tablet 40 mg PO DAILY Qty: 100 3RF chlorthalidone 25 mg tablet 12.5 mg PO DAILY Qty: 100 2RF Discharge Orders: Discharge Order (Routine); Ordered 06/01/24 Ordered By: Luisa Quezada/Other Patient Handouts: Polyethylene Glycol 3350 Powder For Oral Solution, Amlodipine Oral Tablet, Treating Constipation, Taking Amlodipine Admission Data Admit Date/Time: 05/30/24 21:15 Attending Provider: Luisa Lara Admit Provider: Reji Suarez Primary Care Provider: Eliot Liriano Other Providers: Hector Chavez; Reji Suarez; Kobe Vicente Other Interventions: Discharge Summary Assessment (RN) Last Done: 06/01/24 10:48
[2024-06-01 10:49] VITALS: PULSE 65
== END 2024-06-01 11:18 | disposition home or self-care (01) ==
LOC: 2N 15:56 → ED 15:56 → SUATTDRO 21:15 → 2N 05-31 01:42